=== PATIENT | male | born 1950 | race Caucasian/White ===

== ENCOUNTER 2023-09-15 13:10 | Emergency (ER) | payer MEDICARE, SELFPAY ==
--- NOTE | ~2023-09-15 | CT_ITS ---
EXAMINATION: CT abdomen pelvis w con DATE: 09/15/2023 17:09 INDICATION: Left lower quadrant abdominal pain TECHNIQUE: Computed tomography (CT) of the abdomen and pelvis was performed with 100 mL Omnipaque-350 intravenous contrast. Automated exposure control and iterative reconstruction technique were employe d. The dose-length product was 692.65 mGy-cm. COMPARISON: None FINDINGS: Mild dependent atelectasis in the bilateral lower lobes. Heart size is normal. Atherosclerotic alexander ry artery calcifications. No pericardial or pleural effusion. Small sliding-type hiatal hernia. Diffu se hepatic steatosis with 1.3 cm cyst in the right hepatic lobe. Gallbladder, spleen, pancreas and bi lateral adrenal glands are normal. Bilateral low-attenuation renal cysts the largest on the left sandra uring 1.6 cm. There is a 1.2 cm exophytic heterogeneously enhancing lesion arising from the lower arlin e of the left kidney consistent with renal cell carcinoma. 1.4 cm more homogeneous appearing hypoatte nuation is enhancing lesion at the interpolar region of the right kidney which could represent either an additional renal cell carcinoma or proteinaceous/hemorrhagic cyst. 2 mm nonobstructing right gordy l stone. There is fluid throughout the colon consistent with nonspecific diarrhea. There several dive rticula along the descending and sigmoid colon without adjacent from trace stranding to suggest diver ticulitis. No bowel obstruction. Normal appendix. There is some inflammatory stranding surrounding th e bladder suspicious for cystitis. Prominent enlargement of the prostate which measures 6.7 x 4.3 x 4 .7 cm. No free intraperitoneal gas or fluid. No pathologically enlarged abdominal or pelvic lymphaden opathy. Mild scattered degenerative skeletal changes throughout the pelvis, lumbar and lower thoracic spine. IMPRESSION: 1. Nonspecific diarrhea. Correlate clinically for gastroenteritis. 2. Inflammatory stranding surrounding the bladder which could be related to cystitis. Correlate with urinalysis. 3. 1.2 cm enhancing exophytic lesion at the lower pole the left kidney consistent with renal cell car cinoma. There is an indeterminate 1.4 similar intermediate attenuation lesion at the mid right kidney which could represent additional renal cell carcinoma or a proteinaceous/hemorrhagic cyst. Recommend further evaluation with pre and postcontrast MRI. 4. Nonobstructing 2 mm right renal stone. 5. Marked prostatomegaly. 6. Small sliding-type hiatal hernia. Reviewed, dictated and finalized at location A. TRIMMING MACHINE OPERATOR IMPRESSION: 1. Nonspecific diarrhea. Correlate clinically for gastroenteritis. 2. Inflammatory stranding surrounding the bladder which could be related to cys titis. Correlate with urinalysis. 3. 1.2 cm enhancing exophytic lesion at the lower pole the left kidney consiste nt with renal cell carcinoma. There is an indeterminate 1.4 similar intermediat e attenuation lesion at the mid right kidney which could represent additional r enal cell carcinoma or a proteinaceous/hemorrhagic cyst. Recommend further eval uation with pre and postcontrast MRI. 4. Nonobstructing 2 mm right renal stone. 5. Marked prostatomegaly. 6. Small sliding-type hiatal hernia.
--- NOTE | ~2023-09-15 | CT_ITS ---
EXAMINATION: CT brain wo con DATE: 09/15/2023 17:04 INDICATION: Altered mental status. Dementia. TECHNIQUE: Computed tomography (CT) of the head was performed without intravenous contrast. Sagittal and coronal reconstructions were performed. The mA was adjusted according to patient size. Iterative reconstruction technique was employed. The dose-length product was 605.33 mGy-cm. COMPARISON: None FINDINGS: No acute intracranial hemorrhage, acute infarction or abnormal extra axial fluid collection. There is moderate to severe scattered white matter hypoattenuation consistent with chronic small vessel ische candice disease. Symmetric prominence of the sulci and ventricles consistent with moderate age-appropriat e diffuse cerebral volume loss. No mass/mass effect. Moderate sized effusion in the hypopneumatized l eft mastoid. The orbits, paranasal sinuses and mastoid air cells are normal. Intracranial calcified c erebral atherosclerosis is noted. IMPRESSION: 1. No acute intracranial process. 2. Age-related changes including moderate diffuse volume loss and moderate to severe scattered calcif ic white matter hypoattenuation consistent with chronic small vessel ischemic disease. 3. Left mastoid effusion. Reviewed, dictated and finalized at location A. ELING AND CUTTING CONTROL CLERK IMPRESSION: 1. No acute intracranial process. 2. Age-related changes including moderate diffuse volume loss and moderate to s evere scattered calcific white matter hypoattenuation consistent with chronic s mall vessel ischemic disease. 3. Left mastoid effusion.
--- NOTE | ~2023-09-15 | XR_ITS ---
EXAMINATION: XR chest 1V 09/15/2023 17:05 INDICATION: Altered mental status PROCEDURE: AP portable chest COMPARISON: No prior studies for comparison. FINDINGS: The lungs are clear. The cardiomediastinal silhouette is within normal limits. There are no pleural effusions. There is no pneumothorax suspected. IMPRESSION: 1: NO ACUTE CARDIOPULMONARY DISEASE. Reviewed, dictated and finalized at location A. PLACEMENT SPECIALIST
--- NOTE | ~2023-09-15 | XR_ITS ---
XR hip LT min 2V 09/15/2023 17:05 INDICATION: Left hip pain PROCEDURE: 2 views left hip COMPARISON: No prior studies for comparison. FINDINGS: Fracture, dislocation or subluxation is not identified. Mild osteoarthritis of the left hip . The soft tissues appear within normal limits. No foreign bodies are identified. IMPRESSION: 1: NO ACUTE BONE OR JOINT ABNORMALITY IDENTIFIED. Reviewed, dictated and finalized at location A. LY WORKER
[2023-09-15 13:13] VITALS: BP 117/68; PULSE 55; RESP 18; TEMP 36.4; O2SAT 97
--- NOTE | 2023-09-15 15:59 | ECG_ITS ---
Measurements Intervals [place] Rate: 59 P: 52 ME: 155 QRS: -64 QRSD: 113 T: 28 QT: 385 QTc: 383 Interpretive Statements SINUS BRADYCARDIA E LEFT ANTERIOR FASCICULAR BLOCK [QRS AXIS <= -45, QR IN I, RS IN II] NO PREVIOUS ECG AVAILABLE FOR COMPARISON Electronically Signed On 09-15-2023 16:45:01 RACING MANAGER by Sanjeev Bowden M.D.
--- NOTE | 2023-09-15 16:05 | ED.MALEGU ---
HPI - Male Genitourinary General Chief complaint: Urogenital-Male <Rosa Cates PA-C - Last Filed: 09/16/23 09:02> Stated complaint: UTi symptoms <Rosa Cates PA-C - Last Filed: 09/16/23 09:02> Time Seen by Provider: 09/15/23 13:57 <Rosa Cates PA-C - Last Filed: 09/16/23 09:02> History of Present Illness HPI Narrative: 73-year-old male with a history of Alzheimer's dementia and CHF is normally A&O x1 reports with his at bedside for concerns for urinary tract infection. Patient is unable to provide a history due to dementia. The following history is provided by patient's . On Monday, the patient was unresponsive most of the day. States he was unable to follow directions and sat in his chair most of the day. She states his urine was foul smelling and she was concerned for UTI, therefore started him on Macrobid from a script she had left over from a prior UTI. The patient is taking total 4 doses of Macrobid with improvement in symptoms. States he also had a fever 101 at that time which has since improved since starting the antibiotics. She states she emailed the patient's PCP got back to her earlier today stating to go to the ER for further evaluation for concern for a kidney stone. The patient is back to his baseline mental status which is A&Ox1. He has also been complaining of L hip pain x2 days. states that the onset of the patient's reported hip pain, he was having difficulty ambulating. Yesterday and today, the patient has been ambulating without difficulty and believes that the hip pain has improved. She denies known injury or fall. Pt's also endorses an episode of diarrhea today. 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 The patient's fever has since resolved as well after starting the Macrobid. The patient denies headache, vision changes, neck pain, chest pain or shortness of breath, cough or congestion, abdominal pain, nausea or vomiting. He does endorse that is painful to urinate. denies history of kidney stones. <Rosa Cates PA-C - Last Filed: 09/16/23 09:02> Related Data Home medications: Home Medications Medication Instructions Recorded Confirmed apixaban 5 mg tablet (Eliquis) 5 mg PO BID 02/17/21 02/17/21 carvedilol 6.25 mg tablet 6.25 mg PO BID 02/17/21 02/17/21 donepezil 10 mg tablet 10 mg PO DAILY 02/17/21 02/17/21 lisinopril 5 mg tablet 5 mg PO DAILY 02/17/21 02/17/21 memantine 10 mg tablet 10 mg PO DAILY 02/17/21 02/17/21 pravastatin 10 mg tablet 10 mg PO DAILY 02/17/21 02/17/21 <Rosa Cates PA-C - Last Filed: 09/16/23 09:02> Allergies/Adverse reactions: Allergies Allergy/AdvReac Type Severity Reaction Status Date / Time Sulfa (Sulfonamide Allergy Mild rash Verified 09/15/23 13:11 Antibiotics) <Rosa Cates PA-C - Last Filed: 09/16/23 09:02> Review of Systems Review of Systems: CONSTITUTIONAL: Denies fever, chills, or sweats. EYES: Denies visual changes, redness, or discharge. ENT: Denies rhinorrhea, congestion, sore throat, or otalgia. CARDIOVASCULAR: Denies chest pain, palpitations, or edema. RESPIRATORY: Denies cough or dyspnea. GASTROINTESTINAL: See HPI GENITOURINARY: Denies dysuria or hematuria. SKIN: Denies rash or itching. MUSCULOSKELETAL: Denies back pain, joint pain, or myalgia. NEUROLOGIC: Denies headache, numbness, or weakness. PSYCHIATRIC: Denies anxiety or depression. <Rosa Cates PA-C - Last Filed: 09/16/23 09:02> [facility] Past Medical History Medical History: Medical History Alzheimer's dementia Congestive heart failure <Rosa Cates PA-C - Last Filed: 09/16/23 09:02> Family History Family History: Family History Sibling Diabetes mellitus Father Cerebrovascular accident, Onset Age: 75 Family history of kidney stones, Onse
[2023-09-15 16:33] LABS: Basophils Percent Auto 0.4 % (0.2-1.2); Eosinophils Absolute Auto 0.2 K/mm3 (0-0.3); Eosinophils Percent Auto 2.1 % (0-4.4); Hematocrit 41.1 % (42.0-52.0); Hemoglobin 12.9 g/dL (14.0-18.0); Immature Granulocyte Absolute 0.02 K/mm3 (0.00-0.031); Immature Granulocyte Percent A 0.3 % (0-0.5); Immature Platelet Fraction Pct 8.6 % (0.9-11.2); Lymphocytes Absolute Auto 0.79 K/mm3 (0.9-3.2); Lymphocytes Percent Auto 10.5 % (18.3-44.2); Mean Corpuscular HGB Conc 31.4 g/dl (32-36); Mean Corpuscular Hemoglobin 29.2 pg (26-34); Mean Platelet Volume 11.8 fl (7.4-10.4); Monocytes Absolute Auto 0.8 K/mm3 (0.1-0.6); Monocytes Percent Auto 10.5 % (2.6-8.5); Neutrophils Absolute Auto 5.7 K/mm3 (1.3-6.7); Neutrophils Percent Auto 76.2 % (45.5-73.1); Platelet Count Result 135 k/mm3 (150-375); Red Blood Count 4.42 M/mm3 (4.6-6.20); Red Cell Distribution Width 12.5 % (11.5-14.5); White Blood Count 7.5 K/mm3 (4.5-10.0)
[2023-09-15 16:42] LABS: Alanine Aminotransferase 26 U/L (6-50); Albumin Level 3.8 g/dL (3.5-5.1); Alkaline Phosphatase 50 U/L (38-126); Anion Gap 7 mmol/L (8-16); Aspartate Amino Transferase 31 U/L (17-59); Bilirubin,Total 0.6 mg/dL (0.2-1.3); Blood Urea Nitrogen 22 mg/dL (9-20); Carbon Dioxide 26 mmol/L (22-30); Chloride 105 mmol/L (98-107); Estimated CRCL calculation 53 ml/min; Estimated Glomerular Filt Rate > 60; Glucose 96 mg/dL (65-110); INR 1.1; Potassium 3.7 mmol/L (3.4-5.0); Prothrombin Time 14.7 Seconds (11.1-14.7); Sodium 138 mmol/L (137-145)
[2023-09-15 16:43] LABS: Appearance Urine Cloudy (Clear); Bacteria Urine Rare /hpf; Bilirubin Urine Negative (Negative); Blood Urine 2+ (Negative); Color Urine Yellow (Yellow); Glucose Urine UA Negative (Negative); Ketones Urine Trace mg/dL (Negative); Leukocyte Esterase Ur 2+ LEU/UL (Negative); Nitrate Urine Positive (Negative); Non Pathogenic Casts 0-2; Partial Thromboplastin Time 31.3 SECONDS (22.3-36.8); Protein Urine 1+ mg/dL (Negative); RBC Urine 0-2 /hpf (0-2); Specific Grav Ur 1.024 (1.001-1.035); Squamous Epithelial Cell Urine Occasional /hpf (Few); WBC Urine 51-100 /hpf; pH Urine 5.5 (5.0-9.0)
[2023-09-15 17:10] LABS: Influenza A QL RT-PCR Negative (Negative); Influenza B QL RT-PCR Negative (Negative); RSV RNA, RT-PCR Negative (Negative); SARS-CoV-2 RNA PCR Negative (Negative)
[2023-09-15 17:14] LABS: Add Urine Microscopic? YES
[2023-09-15] MEDS: SODIUM CHLORIDE 0.9% IV 1,000 ML 999 ML IV CONT (18:00)
== END 2023-09-15 18:53 | disposition home or self-care (01) ==
PROVIDERS: Emergency Provider Physician Assistant
DX: N39.0 Urinary tract infection, site not specified (principal); K52.9 Noninfective gastroenteritis and colitis, unspecified; N40.0 Benign prostatic hyperplasia without lower urinary tract symptoms; N28.89 Other specified disorders of kidney and ureter; K44.9 Diaphragmatic hernia without obstruction or gangrene; M25.552 Pain in left hip; Z20.822 Contact with and (suspected) exposure to COVID-19; G30.9 Alzheimer's disease, unspecified; F02.80 Dementia in other diseases classified elsewhere, unspecified severity, without behavioral disturbance, psychotic disturbance, mood disturbance, and anxiety; I50.9 Heart failure, unspecified; Z87.891 Personal history of nicotine dependence; Z79.01 Long term (current) use of anticoagulants; R00.1 Bradycardia, unspecified; I44.4 Left anterior fascicular block
CPT/HCPCS: 36415; 70450; 71045; 73502; 74177; 80053; 81001; 85025; 85055; 85610; 85730; 87077; 87086; 87186; 87637; 93005; 96365; 99284; J0696; J7030; Q9967

== ENCOUNTER 2024-01-29 13:51 | Outpatient (CLI) | payer MEDICARE, SELFPAY ==
--- NOTE | ~2024-01-29 | US_ITS ---
EXAMINATION: US renal BI DATE: 01/29/2024 14:14 INDICATION: Incontinence without sensory awareness TECHNIQUE: Multiple ultrasound grayscale images of the kidneys were obtained. COMPARISON: CT abdomen pelvis dated 09/15/23 FINDINGS: The right kidney measures 9.4 x 3.8 x 5.3 cm. The left kidney measures 10.0 x 4.7 x 6.0 cm. The kidne ys demonstrate normal echogenicity. 2.2 cm anechoic cyst at the right kidney. There is no hydronephro sis in either kidney. 1.2 cm anechoic exophytic cyst at the lower pole the left kidney. There is a s mall region of twinkle artifact at the left kidney which can be due to calcification at the renal sto titus or nephrolithiasis although neither is evident at the left kidney on the prior CT. The bladder is normal. Prostatomegaly with echogenic and shadowing central prostatic calcifications. IMPRESSION: 1. 1.2 cm exophytic left renal cyst. No hydronephrosis in either kidney. 2. Nonspecific small focus of twinkle artifact at the left kidney which could be seen with either shanel al stone or atherosclerotic calcification along either was evident on relatively recent CT dated 01/28 3. Prostatomegaly. Reviewed, dictated and finalized at location B. IMPRESSION: 1. 1.2 cm exophytic left renal cyst. No hydronephrosis in either kidney. 2. Nonspecific small focus of twinkle artifact at the left kidney which could b e seen with either renal stone or atherosclerotic calcification along either wa s evident on relatively recent CT dated 01/29/2024 3. Prostatomegaly.
== END 2024-01-29 13:52 ==
LOC: GOSHIMG 13:52
PROVIDERS: PCP Internal Medicine; Visit Provider Urology
DX: N39.42 Incontinence without sensory awareness (principal); N40.0 Benign prostatic hyperplasia without lower urinary tract symptoms; N28.1 Cyst of kidney, acquired
CPT/HCPCS: 76775

== ENCOUNTER 2024-05-07 17:09 | Observation (INO) | payer MEDICARE, SELFPAY ==
[2024-05-07] VITALS (8 sets, daily range): BP systolic 134–160; BP diastolic 75–98; PULSE 64–69; RESP 14–16; TEMP 36.6; O2SAT 97–100
--- NOTE | ~2024-05-07 | XR_ITS ---
EXAMINATION: XR shoulder RT min 2V DATE: 05/07/2024 20:31 INDICATION: Right shoulder pain post fall TECHNIQUE: AP internally and externally rotated, AP oblique externally rotated and transscapular Y vi ews of the right shoulder were obtained. COMPARISON: 09/15/2023 FINDINGS: Acute appearing comminuted fractures of the proximal right humerus. This includes a nondisplaced frac ture planes at the greater tuberosity. There is anterior and proximal migration and posterior angulat ion of a fracture plane extending across the surgical neck. No other fractures identified. Mild right glenohumeral and acromioclavicular osteoarthritis. Soft tissues are unremarkable. Visualized portion of the lungs are clear. IMPRESSION: Comminuted two-part fracture the proximal right humerus. Reviewed, dictated and finalized at location A.
--- NOTE | ~2024-05-07 | CT_ITS ---
EXAMINATION: CT brain wo con DATE: 05/07/2024 20:46 INDICATION: Fall with head injury and abrasions on the forehead TECHNIQUE: Computed tomography (CT) of the head was performed without intravenous contrast. Sagittal and coronal reconstructions were performed. The mA was adjusted according to patient size. Iterative reconstruction technique was employed. The dose-length product was 421.95 mGy-cm. COMPARISON: head CT dated 09/15/2023 FINDINGS: No fracture. Small old lacunar infarcts at the left thalamus and right basal ganglia. No acute intrac ranial hemorrhage, acute infarction or abnormal extra axial fluid collection. There is moderate scatt ered white matter hypoattenuation consistent with chronic small vessel ischemic disease. Symmetric pr ominence of the sulci and ventricles consistent with moderate age-appropriate diffuse cerebral volume loss. No mass/mass effect. Changes of bilateral intraocular lens replacement. Mild mucosal thickenin g in the left ethmoid sinus. Left mastoid effusion. IMPRESSION: 1. No fracture or acute intracranial process. 2. Couple small old lacunar infarcts at the left thalamus and right basal ganglia. 3. Age-related changes including moderate diffuse volume loss and moderate scattered white matter hyp oattenuation consistent with chronic small vessel ischemic disease. Reviewed, dictated and finalized at location A. IMPRESSION: 1. No fracture or acute intracranial process. 2. Couple small old lacunar infarcts at the left thalamus and right basal gangl ia. 3. Age-related changes including moderate diffuse volume loss and moderate scat tered white matter hypoattenuation consistent with chronic small vessel ischemi c disease.
--- NOTE | ~2024-05-07 | CT_ITS ---
EXAMINATION: CT diagnostic chest wo con DATE: 05/07/2024 20:46 INDICATION: fall TECHNIQUE: Computed tomography (CT) of the chest was performed without intravenous contrast. Addition al 3D reconstructions utilizing coronal maximum intensity projection (MIP) were performed. Automated exposure control and iterative reconstruction technique were employed. The dose-length product was 42 1.95 mGy-cm. COMPARISON: None FINDINGS: Evaluation mildly limited by respiratory motion artifact. No pneumonia, pulmonary edema, pleural effu iggy or pneumothorax. Heart size is normal. Atherosclerotic coronary artery calcific lesions. No corrie cardial effusion. Thoracic aorta is normal in caliber. No pathologically enlarged thoracic lymphadeno black. Partially visualized comminuted two-part fracture of the proximal right humerus with significa nt displacement and angulation at the fracture plane extending across the surgical neck. Sclerotic delia ne islands at L1 and the left humeral head. IMPRESSION: 1. Comminuted two-part fracture of the proximal right humerus. 2. No acute cardiopulmonary disease. Reviewed, dictated and finalized at location A.
--- NOTE | ~2024-05-07 | CT_ITS ---
EXAMINATION: CT cervical spine wo con DATE: 05/07/2024 20:46 INDICATION: Fall with head injury TECHNIQUE: Computed tomography (CT) of the cervical spine was performed without intravenous contrast. Automated exposure control and iterative reconstruction technique were employed. The dose-length pro duct was 421.95 mGy-cm. COMPARISON: None FINDINGS: Mild reversal of the normal cervical lordosis. Chronic appearing mild anterior vertebral body height loss at C4 and C5. Remaining vertebral body heights are normal. No acute fracture. Moderate disc heig ht loss at C4-C5 and C5-C6. Small posterior endplate osteophytes contributing to mild central canal s tenosis at both of these levels. Severe uncovertebral osteoarthritis on the left at C4-C5 on the righ t at C5-C6. Mild to moderate osteoarthritis at several additional cervical uncovertebral joints. Mult ilevel mild to moderate cervical facet osteoarthritis. There is moderate neural foraminal stenosis on the left at C4-C5 with mild neural foraminal stenosis at the remaining cervical levels on the left a nd right. There are few small sclerotic bone islands in the cervical and upper thoracic spine. Athero sclerotic calcification is at the bilateral carotid bulbs. Cervical soft tissues are otherwise unrema rkable. IMPRESSION: 1. Moderate cervical spondylosis. No acute osseous abnormality. Reviewed, dictated and finalized at location A.
--- NOTE | 2024-05-07 19:07 | ED.FALL ---
HPI - Fall General Chief Complaint: Fall Stated Complaint: fall Time Seen by Provider: 05/07/24 19:03 Source: family Mode of arrival: EMS Limitations: dementia History of Present Illness HPI Narrative: Patient had history of Alzheimer, was walking behind his , tripped on the sidewalk and fell forward his face landed in the grass and rest of his body landed on a concrete. No loss of consciousness. Patient baseline of mental health is this irritation time for. Patient came from home, Related Data Home Medications Medication Instructions Recorded Confirmed apixaban 5 mg tablet (Eliquis) 5 mg PO BID 02/17/21 02/17/21 carvedilol 6.25 mg tablet 6.25 mg PO BID 02/17/21 02/17/21 donepezil 10 mg tablet 10 mg PO DAILY 02/17/21 02/17/21 lisinopril 5 mg tablet 5 mg PO DAILY 02/17/21 02/17/21 memantine 10 mg tablet 10 mg PO DAILY 02/17/21 02/17/21 pravastatin 10 mg tablet 10 mg PO DAILY 02/17/21 02/17/21 Allergies Allergy/AdvReac Type Severity Reaction Status Date / Time Sulfa (Sulfonamide Allergy Mild rash Verified 05/07/24 17:23 Antibiotics) Review of Systems Review of Systems: All systems reviewed & are unremarkable except as noted in HPI and below PMFSH Past Medical History Medical History Alzheimer's dementia Congestive heart failure Family History Family History Sibling Diabetes mellitus Father Cerebrovascular accident, Onset Age: 75 Family history of kidney stones, Onset Age: 75 Family history of dementia, Onset Age: 75 Social History Social History Smoking status: Former smoker Smoking end date: 09/18/70 Exam Narrative: General appearance: Well-developed, well-nourished Skin: Forehead bruises Head: Forehead bruises Eyes: Clear conjunctiva ENT: Oropharynx normal, ears normal, nose normal Neck: No localized tenderness Chest and respiratory: Airway patent, no respiratory distress, no accessory muscle use Heart: Regular rate/rhythm Abdomen: Soft, nontender, no organomegaly, quiet bowel sounds Vascular: Normal peripheral pulses, normal capillary refill. Musculoskeletal: Diffuse tenderness right shoulder, severe limited range of motion Neurologic: Alert and disoriented x4 Course Vital Signs Vital signs: Vital Signs Temperature 36.6 C 05/07/24 17:06 Pulse Rate 66 05/07/24 17:06 Respiratory Rate 15 05/07/24 17:06 Blood Pressure 160/86 H 05/07/24 17:06 Pulse Oximetry 100 05/07/24 17:06 Oxygen Delivery Room Air 05/07/24 17:06 Temperature 36.6 C 05/07/24 17:06 Pulse Rate 69 05/07/24 21:01 Respiratory Rate 15 05/07/24 21:01 Blood Pressure 143/95 H 05/07/24 21:01 Pulse Oximetry 97 05/07/24 19:13 Oxygen Delivery Room Air 05/07/24 17:06 MDM - Fall MDM Narrative Medical decision making narrative: Patient tripped and fell, history of advanced Alzheimer. Physical examination as above Differential diagnosis right shoulder fracture, intracranial hemorrhage, contusion, rib fracture CT head and cervical spine without contrast showed no acute abnormality Right shoulder showed comminuted fracture proximal right humerus CT chest showed no rib fracture. Apparently his is reluctant to take came home, is telling me that she is old and cannot take care of him he is to much work. Imaging Data Radiologist's impression: Impressions Shoulder X-Ray 05/07/24 20:33 IMPRESSION: Comminuted two-part fracture the proximal right humerus. Head CT 05/07/24 20:53 IMPRESSION: 1. No fractu
[2024-05-07] MEDS: ONDANSETRON HCL ODT 4 MG TABLET PO (20:17)
[2024-05-07] MEDS: MORPHINE SULFATE INJ (*CRX) 10 MG/ML AMP 6 MG IM (20:17)
--- NOTE | 2024-05-07 22:30 | ECG_ITS ---
Test Date: 2024-05-07 23:05:14 Measurements Intervals [place] Rate: 76 P: 37 MT: 148 QRS: -72 QRSD: 113 T: 63 QT: 390 QTc: 439 Interpretive Statements SINUS RHYTHM LEFT ANTERIOR FASCICULAR BLOCK [QRS AXIS <= -45, QR IN I, RS IN II] LEFT VENTRICULAR HYPERTROPHY AND ST-T CHANGE [VOLTAGE CRITERIA PLUS ST/T ABNORMALITY] No previous ECG available for comparison Electronically Signed On 05-08-2024 15:56:20 CDT by Sanjeev Bowden M.D.
[2024-05-07 23:33] LABS: Basophils Percent Auto 0.3 % (0.2-1.2); Eosinophils Percent Auto 0.1 % (0-4.4); Hematocrit 44.3 % (42.0-52.0); Immature Granulocyte Absolute 0.04 K/mm3 (0.00-0.031); Immature Granulocyte Percent A 0.3 % (0-0.5); Lymphocytes Absolute Auto 0.81 K/mm3 (0.9-3.2); Lymphocytes Percent Auto 5.3 % (18.3-44.2); Mean Corpuscular HGB Conc 33.9 g/dl (32-36); Mean Corpuscular Hemoglobin 30.6 pg (26-34); Mean Corpuscular Volume 90.4 fl (80-100); Mean Platelet Volume 10.8 fl (7.4-10.4); Monocytes Percent Auto 6.5 % (2.6-8.5); Neutrophils Absolute Auto 13.4 K/mm3 (1.3-6.7); Neutrophils Percent Auto 87.5 % (45.5-73.1); Platelet Count Result 153 k/mm3 (150-375); Red Cell Distribution Width 12.4 % (11.5-14.5); White Blood Count 15.3 K/mm3 (4.5-10.0)
[2024-05-07 23:44] LABS: Alanine Aminotransferase 20 U/L (6-50); Albumin Level 4.3 g/dL (3.5-5.1); Alkaline Phosphatase 56 U/L (38-126); Anion Gap 9 mmol/L (4-12); Aspartate Amino Transferase 25 U/L (17-59); Bilirubin,Total 0.9 mg/dL (0.2-1.3); Blood Urea Nitrogen 22 mg/dL (9-20); Carbon Dioxide 27 mmol/L (22-30); Chloride 102 mmol/L (98-107); Estimated CRCL calculation 56 ml/min; Estimated Glomerular Filt Rate > 60; Glucose 117 mg/dL (65-110); Potassium 4.1 mmol/L (3.4-5.0); Sodium 138 mmol/L (137-145)
--- NOTE | 2024-05-08 05:16 | ADMGEN ---
This patient, Noah Butler, was admitted to [facility] Surg Room 333-01. Patient/family oriented to hospital policies and general routines including ID bracelet, bed and alarms, visiting hours, pain management, procedures, bathroom and other care routines, personal items, smoking policy, room service/diet, and visiting hours. Information on how to activate the Rapid Response Team has been discussed. Patient/Family are encouraged to report perceived risks to care and to ask questions if they do not understand what they are told or what they should do.
[2024-05-08 06:00] VITALS: BP 134/69; PULSE 63; RESP 18; TEMP 37.5; O2SAT 99
--- NOTE | 2024-05-08 08:45 | PM.CNOR ---
Assessment and Plan Assessment and plan (1) Fracture of right shoulder: Qualifiers: Encounter type: initial encounter Fracture type: closed Qualified Code(s): S42.91XA - Fracture of right shoulder girdle, part unspecified, initial encounter for closed fracture <MELANI Ackerman - Last Filed: 05/08/24 12:39> Code(s): S42.91XA - Fracture of right shoulder girdle, part unspecified, initial encounter for closed fracture <MELANI Acekrman - Last Filed: 05/08/24 12:39> Status: Acute <MELANI Ackerman - Last Filed: 05/08/24 12:39> (2) Dementia: Code(s): F03.90 - Unspecified dementia, unspecified severity, without behavioral disturbance, psychotic disturbance, mood disturbance, and anxiety <MELANI Ackerman - Last Filed: 05/08/24 12:39> Status: Acute <MELANI Ackerman - Last Filed: 05/08/24 12:39> Assessment and Plan: 73-year-old male who fell from standing height. Patient suffered a proximal humerus fracture. Two-part fracture. Patient has dementia and is a very poor historian. Reviewed radiographs and discussed care plan with Dr. Rehman. This can be treated conservatively without surgery. I recommend he continue the immobilizer sling. Risks associated with the fracture include displacement that may require surgery, malunion, stiffness, and arthritis. Early mobilization in 2 weeks with physical therapy. Plan to follow-up in office if able. Will need repeat radiographs in 2 weeks. <MELANI Ackerman - Last Filed: 05/08/24 12:39> History of Present Illness HPI Consult date: 05/08/24 <MELANI Ackerman - Last Filed: 05/08/24 12:39> 05/08/24 <Jagdish Rehman MD - Last Filed: 05/08/24 16:45> Chief complaint: Right shoulder fracture, Advanced Alzheimer <MELANI Ackerman - Last Filed: 05/08/24 12:39> Narrative: Patient resting comfortably in bed at the time of my visit. Patient with dementia and is a very poor historian. Patient complains of pain in the right shoulder. No other complaints. States he can feel me touching his fingers. <MELANI Ackerman - Last Filed: 05/08/24 12:39> Review of Systems Review of Systems: ROS unobtainable: Yes unobtainable due to medical condition <MELANI Ackerman - Last Filed: 05/08/24 12:39> [facility] Past Medical History Medical History: Medical History Alzheimer's dementia Congestive heart failure <MELANI Ackerman Last Filed: 05/08/24 12:39> Family History Family History: Family History Sibling Diabetes mellitus Father Cerebrovascular accident, Onset Age: 75 Family history of kidney stones, Onset Age: 75 Family history of dementia, Onset Age: 75 <MELANI Ackerman - Last Filed: 05/08/24 12:39> Social History Social History: Social History Smoking status: Former smoker Smoking end date: 09/18/70 Alcohol intake: never Substance use: never Substance use type: does not use Do You Feel Safe in your Home?: Yes Lack of Transportation: No Lack of Food: Never True Current Housing: Decline to Answer Concerned About Future Housing: Decline to Answer Difficulty Paying Gas/Electric Bills: Decline to Answer Difficulty Paying for Meds: Decline to Answer Currently Unemployed: Decline to Answer Education: Decline to Answer Difficulty w/ Childcare or Family Care: Decline to Answer Spiritual care concerns: No <MELANI Ackerman Last Filed: 05/08/24 12:39> Meds Home Medications and Allergies Home medications: Home Medications Medication Instructions Recorded Confirmed Type donepezil 10 mg tablet 10 mg PO HS 02/17/21 05/07/24 History memantine 10 mg tablet 10 mg PO DAILY
[2024-05-08 10:43] VITALS: O2SAT 95
[2024-05-08 13:46] VITALS: BP 136/83; PULSE 79; RESP 18; TEMP 36.9; O2SAT 100
--- NOTE | 2024-05-08 14:44 | PM.IMHP ---
H&P: HPI History of Present Illness Date/Time: 05/08/24 14:44 Chief Complaint: Fall at home Narrative: 73-year-old male with advanced dementia presents from home after a fall. Lives at home with , was walking behind her when he tripped on the sidewalk and fell forward on his face. In the emergency room the reported she could not take care of him for patient placed for admission and the fracture of the right humerus on 05/08/2024. History is taken from the daughter a good historian. The patient is not a good historian as he has dementia and is not talking at the moment. Daughter reports the patient typically not talk in the morning and takes a very long time to wake up. Then, throughout the day he can walk around in participate with daily activities but this is with constant direction from the . Regularly, he becomes confused around 5:00 p.m. at night. She reports the patient's is frail and does not think the patient can be taken care of at home anymore. Of note, in the ER there was reported to be some DNR paperwork however the family wanted the patient to be full code after admission. Review of Systems Review of Systems: All systems reviewed & are unremarkable except as noted in HPI and below (Subjective) PMFSH Past Medical History Medical History Alzheimer's dementia Congestive heart failure Family History Family History Sibling Diabetes mellitus Father Cerebrovascular accident, Onset Age: 75 Family history of kidney stones, Onset Age: 75 Family history of dementia, Onset Age: 75 Social History Social History Smoking status: Former smoker Smoking end date: 09/18/70 Alcohol intake: never Substance use: never Substance use type: does not use Do You Feel Safe in your Home?: Yes Lack of Transportation: No Lack of Food: Never True Current Housing: Decline to Answer Concerned About Future Housing: Decline to Answer Difficulty Paying Gas/Electric Bills: Decline to Answer Difficulty Paying for Meds: Decline to Answer Currently Unemployed: Decline to Answer Education: Decline to Answer Difficulty w/ Childcare or Family Care: Decline to Answer Spiritual care concerns: No Meds Home Medications and Allergies Home Medications Medication Instructions Recorded Confirmed Type donepezil 10 mg tablet 10 mg PO HS 02/17/21 05/07/24 History memantine 10 mg tablet 10 mg PO DAILY 02/17/21 05/07/24 History nystatin-triamcinolone 100,000 1 applic topical BID 05/07/24 05/07/24 History unit/gram-0.1 % topical ointment Allergies Allergy/AdvReac Type Severity Reaction Status Date / Time Sulfa (Sulfonamide Allergy Mild rash Verified 05/07/24 22:55 Antibiotics) Vital Signs Vital Signs - 24 hr 05/07/24 17:06 05/07/24 19:13 05/07/24 17:32 Temperature 97.9 F Pulse Rate 66 66 68 Respiratory Rate 15 15 15 Blood Pressure 160/86 H 160/98 H 150/77 H Pulse Oximetry 100 97 100 Oxygen Delivery Room Air 05/07/24 20:01 05/07/24 21:01 05/07/24 21:31 Temperature Pulse Rate 66 69 Respiratory Rate 14 15 16 Blood Pressure 152/89 H 143/95 H 136/85 Pulse Oximetry 100 Oxygen Delivery 05/07/24 22:00 05/07/24 22:30 05/08/24 06:00 Temperature 99.5 F Pulse Rate 64 68 63 Respiratory Rate 15 16 18 Blood Pressure 134/75 144/76 H 134/69 Pulse Oximetry 100 100 99 Oxygen Delivery 05/08/24 10:43 05/08/24 13:46 Temperature 98.5 F Pulse Rate 79 Respiratory Rate 18 Blood Pressure 136/83 Pulse Oximetry 95 100 Oxygen Delivery Room Air Exam Const: General: comfortable Other: Confused, nonverbal Eyes: Pupils: Equal, round and reactive pupils present Neck: Neck: supple Resp: Effort & Inspection: normal respiratory effort Auscultation: clear to auscult
--- NOTE | 2024-05-08 16:03 | PCPTNOTE ---
On 05/08/24, the student, [May Garcia], provided care and completed [facility] documentation on this patient. I have reviewed the student's documentation and agree with the findings.
[2024-05-08] MEDS: MEMANTINE 10 MG TABLET PO (17:44)
[2024-05-08] MEDS: ACETAMINOPHEN 325 MG TABLET 650 MG PO (20:03)
[2024-05-08] MEDS: DONEPEZIL HCL 10 MG TABLET PO (20:03)
[2024-05-08 21:19] VITALS: BP 162/97; PULSE 95; RESP 20; TEMP 37.2; O2SAT 98
[2024-05-09 06:00] VITALS: BP 148/81; PULSE 70; RESP 18; TEMP 36.4; O2SAT 90
[2024-05-09 06:08] LABS: Basophils Percent Auto 0.3 % (0.2-1.2); Eosinophils Absolute Auto 0.2 K/mm3 (0-0.3); Eosinophils Percent Auto 1.7 % (0-4.4); Hematocrit 42.4 % (42.0-52.0); Hemoglobin 13.6 g/dL (14.0-18.0); Immature Granulocyte Absolute 0.05 K/mm3 (0.00-0.031); Immature Granulocyte Percent A 0.5 % (0-0.5); Immature Platelet Fraction Pct 5.8 % (0.9-11.2); Lymphocytes Absolute Auto 1.37 K/mm3 (0.9-3.2); Lymphocytes Percent Auto 12.6 % (18.3-44.2); Mean Corpuscular HGB Conc 32.1 g/dl (32-36); Mean Corpuscular Hemoglobin 30.5 pg (26-34); Mean Corpuscular Volume 95.1 fl (80-100); Mean Platelet Volume 11.1 fl (7.4-10.4); Monocytes Absolute Auto 0.8 K/mm3 (0.1-0.6); Monocytes Percent Auto 7.6 % (2.6-8.5); Neutrophils Absolute Auto 8.4 K/mm3 (1.3-6.7); Neutrophils Percent Auto 77.3 % (45.5-73.1); Platelet Count Result 114 k/mm3 (150-375); Red Blood Count 4.46 M/mm3 (4.6-6.20); Red Cell Distribution Width 12.5 % (11.5-14.5); White Blood Count 10.9 K/mm3 (4.5-10.0)
[2024-05-09 06:49] LABS: Anion Gap 6 mmol/L (4-12); Blood Urea Nitrogen 19 mg/dL (9-20); Calcium 8.8 mg/dL (8.4-10.2); Carbon Dioxide 27 mmol/L (22-30); Chloride 101 mmol/L (98-107); Estimated CRCL calculation 69 ml/min; Estimated Glomerular Filt Rate > 60; Glucose 92 mg/dL (65-110); Magnesium 2.2 mg/dL (1.6-2.3); Potassium 4.2 mmol/L (3.4-5.0); Sodium 134 mmol/L (137-145)
[2024-05-09 06:52] LABS: Procalcitonin 0.2 ng/mL
[2024-05-09 08:00] VITALS: O2SAT 93
[2024-05-09] MEDS: MEMANTINE 10 MG TABLET PO (08:07)
[2024-05-09] MEDS: ENOXAPARIN 40 MG/0.4 ML SYRINGE SUB-Q (08:08)
[2024-05-09 13:52] LABS: Add Urine Microscopic? YES; Appearance Urine Clear (Clear); Bacteria Urine None Seen /hpf; Bilirubin Urine Negative (Negative); Blood Urine Trace (Negative); Color Urine Yellow (Yellow); Glucose Urine UA Negative (Negative); Ketones Urine Negative (Negative); Leukocyte Esterase Ur Negative LEU/UL (Negative); Need Manual Microscopic Reviewed; Nitrate Urine Negative (Negative); Non Pathogenic Casts 0-2; Protein Urine Negative (Negative); RBC Urine 0-2 /hpf (0-2); Specific Grav Ur 1.005 (1.001-1.035); Squamous Epithelial Cell Urine None Seen /hpf (Few); Urobilinogen Urine 0.2 mg/dL (<2.0); WBC Urine 0-5 /hpf (0-3); pH Urine 5.5 (5.0-9.0)
[2024-05-09 14:00] VITALS: BP 129/70; PULSE 80; RESP 18; TEMP 36.7; O2SAT 100
--- NOTE | 2024-05-09 14:50 | PM.IMPN ---
Progress Note: A&P Assessment and Plan (1) Fracture of right shoulder: Qualifiers: Encounter type: initial encounter Fracture type: closed Qualified Code(s): S42.91XA - Fracture of right shoulder girdle, part unspecified, initial encounter for closed fracture Code(s): S42.91XA - Fracture of right shoulder girdle, part unspecified, initial encounter for closed fracture Status: Acute (2) Dementia: Code(s): F03.90 - Unspecified dementia, unspecified severity, without behavioral disturbance, psychotic disturbance, mood disturbance, and anxiety Status: Acute Plan 73-year-old male with advanced dementia presents from home after a fall. Lives at home with , was walking behind her when he tripped on the sidewalk and fell forward on his face. In the emergency room the reported she could not take care of him for patient placed for admission and the fracture of the right humerus on 05/08/2024. History is taken from the daughter a good historian. The patient is not a good historian as he has dementia and is not talking at the moment. Daughter reports the patient typically not talk in the morning and takes a very long time to wake up. Then, throughout the day he can walk around in participate with daily activities but this is with constant direction from the . Regularly, he becomes confused around 5:00 p.m. at night. She reports the patient's is frail and does not think the patient can be taken care of at home anymore. Of note, in the ER there was reported to be some DNR paperwork however the family wanted the patient to be full code after admission. ----- Orthopedic consultation appreciated. They have decided to go with conservative management. Continue immobilizer sling. The patient is not a great candidate for heavy narcotics. Tylenol p.r.n., [place] 5-325 q.6 hours p.r.n., morphine 1 mg IV q.4 hours p.r.n.. Follow-up in the orthopedic office in a few weeks. As for his dementia which is advanced and social situation, therapy has been ordered and care coordination working to get the patient placed. Have discussed with the daughter and answered all her questions and concerns to satisfaction. Continue GROCERY BUYER memantine and donepezil. -Attempt to minimize nocturnal disturbances (avoid unnecessary lab draws, vital signs, nighttime medications). Promote regular sleep-wake cycle. Provide orienting stimuli including clock, calendar, lights on during the day and off at nighttime, and minimal staff changes. Minimize the use of tubes and drains. Address sensory deficits including vision and hearing. Ensure no bowel or bladder retention and call with concerns. Mobilize as much possible, ideally out of bed for meals if able. -First line treatment to help control behavior disturbances is a sitter (family or staff). Second line treatment includes physical and/or chemical restraints but these must be used with good judgement. Narcotics and benzodiazepines are not indicated. Antipsychotics to be used p.r.n. at the discretion of the combination saw operator physician at the time of behavioral disturbance. As for the patient's code status, the narrative writer has discussed extensively about the patient's advanced dementia and age and expectations if the patient were to go through CPR and intubation. In accordance with the daughter's wishes, the patient will remain full code, but will continue to consider with her family. Leukocytosis, will check procalcitonin in the morning. Check urinalysis. There is other no other symptomatology to indicate infection. Hemodynamically stable, afebrile. This could be reactive. On 05/09/2024 his leukocytosis is improved. Urinalysis unremarkable. Suspect infection. Will trend CBC again tomorrow. Currently the patient's status is unchanged. Pending placement with care coordinators. ----- Full code, appreciate notation above Lovenox 40 mg subQ q.day Regular diet Saline lock IV Therapy evaluations
[2024-05-09] MEDS: ACETAMINOPHEN 325 MG TABLET 650 MG PO (19:32)
[2024-05-09] MEDS: DONEPEZIL HCL 10 MG TABLET PO (19:36)
[2024-05-09 21:08] VITALS: BP 137/79; PULSE 85; RESP 16; TEMP 37.7; O2SAT 100
[2024-05-10 06:00] VITALS: BP 130/75; PULSE 67; RESP 16; TEMP 36.9; O2SAT 100
[2024-05-10 06:56] LABS: Basophils Percent Auto 0.4 % (0.2-1.2); Eosinophils Absolute Auto 0.2 K/mm3 (0-0.3); Eosinophils Percent Auto 2.7 % (0-4.4); Hematocrit 42.6 % (42.0-52.0); Immature Granulocyte Absolute 0.06 K/mm3 (0.00-0.031); Immature Granulocyte Percent A 0.8 % (0-0.5); Lymphocytes Absolute Auto 1.36 K/mm3 (0.9-3.2); Lymphocytes Percent Auto 17.6 % (18.3-44.2); Mean Corpuscular HGB Conc 32.9 g/dl (32-36); Mean Corpuscular Hemoglobin 29.9 pg (26-34); Mean Platelet Volume 11.1 fl (7.4-10.4); Monocytes Absolute Auto 0.7 K/mm3 (0.1-0.6); Monocytes Percent Auto 8.9 % (2.6-8.5); Neutrophils Absolute Auto 5.4 K/mm3 (1.3-6.7); Neutrophils Percent Auto 69.6 % (45.5-73.1); Platelet Count Result 142 k/mm3 (150-375); Red Blood Count 4.68 M/mm3 (4.6-6.20); Red Cell Distribution Width 12.3 % (11.5-14.5); White Blood Count 7.7 K/mm3 (4.5-10.0)
[2024-05-10 07:07] LABS: Anion Gap 7 mmol/L (4-12); Blood Urea Nitrogen 19 mg/dL (9-20); Calcium 8.6 mg/dL (8.4-10.2); Carbon Dioxide 31 mmol/L (22-30); Chloride 100 mmol/L (98-107); Estimated CRCL calculation 62 ml/min; Estimated Glomerular Filt Rate > 60; Glucose 90 mg/dL (65-110); Magnesium 2.2 mg/dL (1.6-2.3); Potassium 3.4 mmol/L (3.4-5.0); Sodium 138 mmol/L (137-145)
[2024-05-10] MEDS: MEMANTINE 10 MG TABLET PO (08:49)
[2024-05-10] MEDS: ENOXAPARIN 40 MG/0.4 ML SYRINGE SUB-Q (08:49)
--- NOTE | 2024-05-10 10:12 | PM.PNORT ---
Progress Note: A&P Assessment and Plan (1) Fracture of right shoulder: Qualifiers: Encounter type: initial encounter Fracture type: closed Qualified Code(s): S42.91XA - Fracture of right shoulder girdle, part unspecified, initial encounter for closed fracture Code(s): S42.91XA - Fracture of right shoulder girdle, part unspecified, initial encounter for closed fracture Status: Acute Assessment and Plan: No changes in care plan. Two part right proximal humerus fracture. Being treated conservatively with a shoulder immobilizer. Patient will benefit from SNF or rehab. While reliable healing is likely, residual weakness, and stiffness is to be expected. Physical therapy may be beneficial. He will need use the immobilizer for 4-6 weeks and avoid weight-bearing on the arm. Follow-up x-rays in 2 weeks and 6 weeks. Follow-up in my clinic between 4 and 6 weeks as able. On site radiographs and virtual visits are consideration. Okay for discharge once cleared medically. Ortho instructions: D/C to SNF/rehab Xray in 2 weeks and 6 weeks post op. On site radiographs and virtual visits are consideration. Follow up in office at 4-6 weeks. PT: Immobilizer sling for 4-6 weeks. Avoid weight bearing. Passive ROM as tolerated for the shoulder starting at 2 weeks. Tylenol for pain. Limit narcotics. Subjective Subjective Date/Time Seen: 05/10/24 10:12 Interval history: Patient resting comfortably at the time of the visit. Patient with significant dementia. No family at bedside at the time of my visit. Responded yes when I asked if he had pain in the shoulder. He responded yes when asked if he could feel me touch his fingers. Able to wiggle fingers on command. Review of Systems Review of Systems: ROS unobtainable: Yes unobtainable due to medical condition Exam Narrative: 73-year-old male. Normal weight. Severe dementia. Pain at the right shoulder. Swelling and early ecchymosis of the right shoulder. Wearing immobilizer sling. Able to wiggle fingers. Neurovascularly intact. Would not cooperate to test the axillary nerve. Objective Data Vital Signs Vital Signs: Vital Signs - 24 hr 05/09/24 10:17 05/09/24 14:00 05/09/24 19:56 Temperature 98.0 F Pulse Rate 80 Respiratory Rate 18 Blood Pressure 129/70 Pulse Oximetry 100 Oxygen Delivery Room Air Room Air 05/09/24 21:08 05/10/24 06:00 Temperature 99.8 F H 98.4 F Pulse Rate 85 67 Respiratory Rate 16 16 Blood Pressure 137/79 130/75 Pulse Oximetry 100 100 Oxygen Delivery Intake/Output Intake/Output: Intake & Output 05/07/24 05/08/24 05/09/24 05/10/24 23:59 23:59 23:59 23:59 Intake Total 1910 2750 550 Output Total 650 1900 800 Balance 1260 850 -250 Meds/Results Medications: Active Medications Generic Name Dose Route Start Last Admin Trade Name Freq PRN Reason Stop Dose Admin Acetaminophen 650 mg 05/07/24 22:32 05/09/24 19:32 Acetaminophen 325 Mg Tablet PO 650 mg Q4H PRN Administration Mild Pain (1-3) or Fever Hydrocodone Bitart/Acetaminophen 1 tab 05/08/24 14:34 Hydrocodone/Acetaminophen (*Crx) 5-325 Mg Tablet PO Q6H PRN Pain Rated 4-6 Donepezil HCl 10 mg 05/08/24 21:00 05/09/24 19:36 Donepezil Hcl 10 Mg Tablet PO 10 mg HS URI Administration Enoxaparin Sodium 40 mg 05/09/24 09:00 05/10/24 08:49 Enoxaparin 40 Mg/0.4 Ml Syringe SUB-Q 40 mg DAILY URI Administration Memantine 10 mg 05/08/24 14:50 05/10/24 08:49 Memantine 10 Mg Tablet PO 10 mg DAILY URI Administration Morphine Sulfate 1 mg 05/08/24 14:34 Morphine Sulfate (*Crx) 2 Mg/Ml Inj IV PUSH Q4H PRN Pain Rated 7-10 Radiology Results: ITS Impressions Shoulder X-Ray 05/07/24 20:33 IMPRESSION: Comminuted two-part fracture the proximal right humerus. Head CT 05/07/24 20:53 IMPRESSION: 1. No fracture or acute intracranial process. 2. Couple sma
[2024-05-10 13:05] LABS: SARS-CoV-2 RNA PCR Negative (Negative)
[2024-05-10 14:00] VITALS: BP 135/74; PULSE 65; RESP 17; TEMP 36.4; O2SAT 100
--- NOTE | 2024-05-10 14:43 | PM.DS ---
DS: Admitting Diagnosis Discharge Date 05/10/2024 Admitting Diagnosis fall DS: Discharge Diagnosis Discharge Diagnosis (1) Fracture of right shoulder: Qualifiers: Encounter type: initial encounter Fracture type: closed Qualified Code(s): S42.91XA - Fracture of right shoulder girdle, part unspecified, initial encounter for closed fracture Code(s): S42.91XA - Fracture of right shoulder girdle, part unspecified, initial encounter for closed fracture Status: Acute (2) Dementia: Code(s): F03.90 - Unspecified dementia, unspecified severity, without behavioral disturbance, psychotic disturbance, mood disturbance, and anxiety Status: Acute DS: Summary Hospital Course Hospital Course: 73-year-old male with advanced dementia presents from home after a fall. Lives at home with , was walking behind her when he tripped on the sidewalk and fell forward on his face. In the emergency room the reported she could not take care of him for patient placed for admission and the fracture of the right humerus on 05/08/2024. The patient is not a good historian as he has dementia. Daughter reported the patient typically not talk in the morning and takes a very long time to wake up. Then, throughout the day he can walk around in participate with daily activities but this is with constant direction from the . Regularly, he becomes confused around 5:00 p.m. at night. She reports the patient's is frail and does not think the patient can be taken care of at home anymore. Of note, in the ER there was reported to be some DNR paperwork however the family wanted the patient to be full code after admission. Orthopedic consultation done for humerus fracture. They have decided to go with conservative management. Continue immobilizer sling. The patient is not a great candidate for heavy narcotics. Tylenol p.r.n., [place] 5-325 q.6 hours p.r.n., morphine 1 mg IV q.4 hours p.r.n.. Follow-up in the orthopedic office in a few weeks. he did not need any narcotics. continue sling. For his dementia which is advanced and social situation, therapy has been ordered and continued treatment. Continue MA[employer]OOK[employer] memantine and donepezil. Attempt to minimize nocturnal disturbances (avoid unnecessary lab draws, vital signs, nighttime medications). Promote regular sleep-wake cycle. Provide orienting stimuli including clock, calendar, lights on during the day and off at nighttime, and minimal staff changes. Minimize the use of tubes and drains. Address sensory deficits including vision and hearing. Ensure no bowel or bladder retention and call with concerns. Mobilize as much possible, ideally out of bed for meals if able. First line treatment to help control behavior disturbances is a sitter (family or staff). Second line treatment includes physical and/or chemical restraints but these must be used with good judgement. Narcotics and benzodiazepines are not indicated. Antipsychotics to be used p.r.n. at the discretion of the concrete paving supervisor physician at the time of behavioral disturbance. Leukocytosis: resolved. ua negative. could be reactive. Disposition: going to [facility] for further treatment Time Spent with Patient Time attestation: Total time spent providing and/or coordinating discharge services: 40 mins DS: Data Data Completed and Pending Labs on day of discharge: Labs from last 24 hours 05/10/24 05/10/24 12:22 06:21 WBC 7.7 RBC 4.68 Hgb 14.0 Hct 42.6 MCV 91.0 MCH 29.9 MCHC 32.9 RDW 12.3 Plt Count 142 L MPV 11.1 H Immature Gran % (Auto) 0.8 H Neut % (Auto) 69.6 Lymph % (Auto) 17.6 L Bartholomew % (Auto) 8.9 H Eos % (Auto) 2.7 Baso % (Auto) 0.4 Lymph # (Auto) 1.36 Bartholomew # (Auto) 0.7 H Eos # (Auto) 0.2 Baso # (Auto) 0.0 Abs Immat Gran (auto) 0.06 H Absolute Neuts (auto) 5.4 Absolute Nucleated RBC 0.000 Nucleated RBC % 0.0 Sodium 138 Potassium 3.4 Chloride 100 Carbon Diox
== END 2024-05-10 16:50 ==
LOC: ANHED 22:02 → ANH3MEDSUR 23:39
PROVIDERS: General Practice; Admitting Provider Internal Medicine; Emergency Provider Emergency Medicine; PCP Internal Medicine; Visit Provider Internal Medicine
DX: S42.91XA Fracture of right shoulder girdle, part unspecified, initial encounter for closed fracture (principal); W01.0XXA Fall on same level from slipping, tripping and stumbling without subsequent striking against object, initial encounter; I50.9 Heart failure, unspecified; Z79.01 Long term (current) use of anticoagulants; G30.9 Alzheimer's disease, unspecified; F02.80 Dementia in other diseases classified elsewhere, unspecified severity, without behavioral disturbance, psychotic disturbance, mood disturbance, and anxiety; Z87.891 Personal history of nicotine dependence; Z20.822 Contact with and (suspected) exposure to COVID-19
CPT/HCPCS: 36415; 70450; 71250; 72125; 73030; 80048; 80053; 81001; 83735; 84145; 85025; 85055; 87635; 93005; 96372; 97116; 97162; 97166; 97530; 97535; 99285; A9270; G0378; J1650; J2270

== ENCOUNTER 2024-06-18 14:34 | Outpatient (CLI) | payer MEDICARE, SELFPAY ==
[2024-06-18 19:47] LABS: Alanine Aminotransferase 21 U/L (6-50); Albumin Level 3.9 g/dL (3.5-5.1); Alkaline Phosphatase 119 U/L (38-126); Anion Gap 8 mmol/L (4-12); Aspartate Amino Transferase 30 U/L (17-59); Bilirubin,Total 0.6 mg/dL (0.2-1.3); Blood Urea Nitrogen 17 mg/dL (9-20); Calcium 8.8 mg/dL (8.4-10.2); Carbon Dioxide 26 mmol/L (22-30); Chloride 106 mmol/L (98-107); Estimated Glomerular Filt Rate > 60; Glucose 85 mg/dL (65-110); Potassium 3.7 mmol/L (3.4-5.0); Sodium 140 mmol/L (137-145)
[2024-06-18 20:08] LABS: Hematocrit 43.2 % (42.0-52.0); Hemoglobin 13.6 g/dL (14.0-18.0); Mean Corpuscular HGB Conc 31.5 g/dl (32-36); Mean Corpuscular Volume 95.2 fl (80-100); Mean Platelet Volume 11.8 fl (7.4-10.4); Platelet Count Result 210 k/mm3 (150-375); Red Blood Count 4.54 M/mm3 (4.6-6.20); Red Cell Distribution Width 12.6 % (11.5-14.5); White Blood Count 9.4 K/mm3 (4.5-10.0)
[2024-06-25 14:09] LABS: ALT 17 U/L (9-46); Alpha-2-Macroglobulin 215 mg/dL (106-279); Apolipoprotein A1 144 mg/dL (94-176); Fibrosis Score 0.28; Fibrosis Stage F1; GGT 12 U/L (3-70); Haptoglobin 122 mg/dL (43-212); Necroinflammat Act Grade A0; Reference ID 5141990; Total Bilirubin 0.4 mg/dL (0.2-1.2)
== END 2024-06-18 14:35 | disposition home or self-care (01) ==
PROVIDERS: PCP Internal Medicine
DX: K76.0 Fatty (change of) liver, not elsewhere classified (principal)
CPT/HCPCS: 36415; 80053; 81596; 85027

== ENCOUNTER 2024-06-18 14:54 | Outpatient (CLI) | payer MEDICARE, SELFPAY ==
--- NOTE | ~2024-06-18 | XR_ITS ---
EXAM: XR shoulder RT min 2V DATE: 06/18/2024 15:10 HISTORY: 6 week follow up for shoulder fracture . COMPARISON: 05/07/2024. FINDINGS: Decreased mineralization. Redemonstration of the comminuted, angulated proximal right gary ral fracture, with evidence of early interval healing change. Alignment grossly unchanged given inter jason differences in positioning No new fracture or dislocation. No lytic or blastic lesion. Mild degen erative changes at the AC joint and glenohumeral joint. Mild hip enthesopathy. No erosion or perioste al change. Soft tissues within normal limits. IMPRESSION: Healing right proximal humeral fracture. Reviewed, dictated and finalized at location K.
== END 2024-06-18 14:55 | disposition home or self-care (01) ==
PROVIDERS: PCP Orthopaedic Surgery; Visit Provider Orthopaedic Surgery
DX: S42.91XD Fracture of right shoulder girdle, part unspecified, subsequent encounter for fracture with routine healing (principal); X58.XXXD Exposure to other specified factors, subsequent encounter
CPT/HCPCS: 73030

== ENCOUNTER 2024-07-25 14:17 | Outpatient (CLI) | payer MEDICARE, SELFPAY ==
--- NOTE | ~2024-07-25 | US_ITS ---
Limited Abdominal Sonogram: Real-time sonographic imaging of the right upper quadrant was performed. Clinical History: Fatty liver Findings: The liver appears normal with no evidence of solid mass lesion or bile duct dilatation. 1. 2 cm hepatic cyst noted. Main portal vein demonstrates normal direction of flow. The gallbladder is w ell distended, and appears normal with no evidence of gallstone or wall thickening. The common bile d uct measures 4 mm. The visualized pancreas, aorta, and IVC are unremarkable. Impression: No significant abnormality seen. Reviewed, dictated and finalized at location M. WARE APPLICATIONS DESIGNER Impression: No significant abnormality seen.
== END 2024-07-25 14:18 | disposition home or self-care (01) ==
LOC: GOSHIMG 14:18
PROVIDERS: PCP Internal Medicine; Visit Provider Internal Medicine Gastroenterology
DX: K76.0 Fatty (change of) liver, not elsewhere classified (principal); R74.8 Abnormal levels of other serum enzymes
CPT/HCPCS: 76705

== ENCOUNTER 2024-07-30 10:47 | Outpatient (CLI) | payer MEDICARE, SELFPAY ==
[2024-07-30 15:01] LABS: Alanine Aminotransferase 15 U/L (6-50); Albumin Level 4.2 g/dL (3.5-5.1); Alkaline Phosphatase 66 U/L (38-126); Anion Gap 7 mmol/L (4-12); Aspartate Amino Transferase 54 U/L (17-59); Bilirubin,Total 0.9 mg/dL (0.2-1.3); Blood Urea Nitrogen 20 mg/dL (9-20); Calcium 9.1 mg/dL (8.4-10.2); Carbon Dioxide 28 mmol/L (22-30); Chloride 104 mmol/L (98-107); Cholesterol 274 mg/dL (0-200); Estimated Glomerular Filt Rate > 60; Glucose 79 mg/dL (65-110); HDL Direct 44 mg/dL; Potassium 3.6 mmol/L (3.4-5.0); Sodium 139 mmol/L (137-145); Triglycerides 81 mg/dL (<150)
[2024-07-30 15:10] LABS: Basophils Percent Auto 0.6 % (0.2-1.2); Eosinophils Absolute Auto 0.2 K/mm3 (0-0.3); Eosinophils Percent Auto 2.4 % (0-4.4); Hematocrit 44.5 % (42.0-52.0); Hemoglobin 14.2 g/dL (14.0-18.0); Immature Granulocyte Absolute 0.02 K/mm3 (0.00-0.031); Immature Granulocyte Percent A 0.3 % (0-0.5); Lymphocytes Absolute Auto 1.18 K/mm3 (0.9-3.2); Lymphocytes Percent Auto 17.8 % (18.3-44.2); Mean Corpuscular HGB Conc 31.9 g/dl (32-36); Mean Corpuscular Hemoglobin 29.6 pg (26-34); Mean Corpuscular Volume 92.7 fl (80-100); Mean Platelet Volume 12.1 fl (7.4-10.4); Monocytes Absolute Auto 0.4 K/mm3 (0.1-0.6); Monocytes Percent Auto 6.2 % (2.6-8.5); Neutrophils Absolute Auto 4.8 K/mm3 (1.3-6.7); Neutrophils Percent Auto 72.7 % (45.5-73.1); Platelet Count Result 154 k/mm3 (150-375); Red Cell Distribution Width 12.5 % (11.5-14.5); White Blood Count 6.6 K/mm3 (4.5-10.0)
[2024-07-30 15:11] LABS: LDL Cholesterol Direct 184 mg/dL
[2024-07-30 16:50] LABS: Hemoglobin A1C 5.1 % (<5.7)
== END 2024-07-30 10:48 | disposition home or self-care (01) ==
PROVIDERS: PCP Internal Medicine; Visit Provider Internal Medicine
DX: E78.5 Hyperlipidemia, unspecified (principal); R73.9 Hyperglycemia, unspecified
CPT/HCPCS: 36415; 80053; 80061; 83036; 84439; 84443; 85025

== ENCOUNTER 2024-08-03 14:17 | Inpatient (IN) | payer MEDICARE, SELFPAY ==
[2024-08-03] VITALS (11 sets, daily range): BP systolic 128–168; BP diastolic 72–91; PULSE 55–81; RESP 16–24; TEMP 36.4–37.3; O2SAT 91–100; BMI 22.1
--- NOTE | ~2024-08-03 | CT_ITS ---
CT OF right shoulder EXAMINATION: CT shoulder RT wo con DATE: 08/12/2024 22:27 INDICATION: Shoulder dislocation TECHNIQUE: Computed tomography (CT) of the right shoulder was performed without intravenous contrast. Automated exposure control and iterative reconstruction technique were employed. The dose-length pro duct was 202.03 mGy-cm. COMPARISON: X-ray right shoulder 08/12/2024 and 06/18/2024. FINDINGS: Decreased mineralization. Mild degenerative change at the AC joint. Acromial tip enthesopat hy. Mild degenerative change at the glenohumeral joint. Small volume glenohumeral joint effusion. The glenohumeral joint appears subluxed. Old proximal humeral fracture, healed in moderate deformity. De pendent atelectasis. Degenerative changes in the spine. IMPRESSION: Old proximal right humeral fracture, healed in deformity. Glenohumeral joint subluxation, without overt dislocation. Small volume right glenohumeral joint effusion. No acute osseous finding in the right shoulder. Reviewed, dictated and finalized at location K. FOOD DELIVERY DRIVER
--- NOTE | ~2024-08-03 | MR_ITS ---
MR Venogram of the Brain Clinical Indication: Sinus thrombosis Technique MR venogram was done using coronal 2D time of flight technique. Findings: The superior sagittal sinus appears normal. The left and right transverse sinuses appears normal. The sigmoid sinuses appear normal bilaterally. The internal cerebral veins, vein of Franki and straight sinus are patent. Impression: No evidence of venous sinus thrombosis. Reviewed, dictated and finalized at [facility]. IT MANAGER Impression: No evidence of venous sinus thrombosis.
--- NOTE | ~2024-08-03 | XR_ITS ---
EXAM: XR abdomen gastric tube insert DATE: 08/18/2024 18:12 HISTORY: PEG placement . COMPARISON: 08/09/2024. FINDINGS: Following the instillation of 50 mL Gastrografin, contrast is seen in the stomach and firs t part of the duodenal C-loop. No extravasation. Streaky bibasilar atelectasis/scar. Normal bowel gas pattern. No definite organomegaly. Lumbar degenerative disc disease. IMPRESSION: G-tube, in good position. Reviewed, dictated and finalized at location K. GATHERER IMPRESSION: G-tube, in good position.
--- NOTE | ~2024-08-03 | XR_ITS ---
EXAMINATION: XR barium swallow modified DATE: 08/14/2024 08:33 INDICATION: Aspiration. TECHNIQUE: The patient was given barium-containing material of multiple consistencies to swallow by t [place] speech pathologist while I performed fluoroscopy. Fluoroscopy exposure time was 2.3 minutes. The n umber of fluoroscopy images saved to the PACS was 1. Dose-area product was 1.575 Gy-cm^2. FINDINGS: The oral stage of the swallow is normal. There is vallecular residue. The cervical/esophageal stage o f the swallow is normal. IMPRESSION: 1. Normal laryngeal penetration or aspiration. 2. Please refer to the speech therapy report for recommendations. Reviewed, dictated and finalized at location A. RICT SALES MANAGER
--- NOTE | ~2024-08-03 | XR_ITS ---
XR shoulder RT min 2V Ordering provider: Maribel Harmon APRN History: . possible dislocation . Comparison: None. FINDINGS: BONES: fracture of the proximal metaphysis of the right humerus with dislocation of the proximal frag ment of the fracture. The humeral head is seen opposite the glenoid cavity which raises the possibili ty of a fracture in the area of the anatomical neck. CT evaluation advised. SOFT TISSUES: Normal. IMPRESSION: Highly suggestive fracture in the proximal metaphysis and the anatomical neck of the humerus with dis location of the proximal fragment. CT evaluation advised. Consider MRI of the shoulder if there is concern for soft tissue internal derangement. Reviewed, dictated and finalized at location A. ORATION ENGINEER IMPRESSION: Highly suggestive fracture in the proximal metaphysis and the anatomical neck o f the humerus with dislocation of the proximal fragment. CT evaluation advised. Consider MRI of the shoulder if there is concern for soft tissue internal deran gement.
--- NOTE | ~2024-08-03 | XR_ITS ---
EXAMINATION: XR chest 1V portable Exam Date/Time: 08/03/2024 14:45 EARTH SCIENCE PROFESSOR HISTORY: CONFUSION Comparison: 09/15/2023; CT chest 05/07/2024. RESULT: Lines, tubes, and devices: None. Lungs and pleura: Clear. Cardiomediastinal silhouette: Stable. Other: No acute osseous or upper abdominal finding. Chronic right proximal humeral fracture. IMPRESSION: No acute cardiopulmonary process. Reviewed, dictated and finalized at location K. H SCIENCE PROFESSOR
--- NOTE | ~2024-08-03 | CT_ITS ---
EXAMINATION: CTA brain carotid DATE: 08/03/2024 15:31 INDICATION: right sided weakness TECHNIQUE: Computed tomographic angiography (CTA) of the head was performed without and with 100 mL O mnipaque-350 intravenous contrast. CTA of the neck was performed with intravenous contrast. Automated exposure control and iterative reconstruction technique were employed. The dose-length product was 1 627.40 mGy-cm. Maximum intensity projection and volume rendered 3D-reconstructions were created by hansa dexter technologist on a separate workstation. COMPARISON: 05/07/2024. FINDINGS: CT BRAIN: Mild motion artifact. No acute large vessel infarct, intracranial hemorrhage, mass, or hydrocephalus. Moderate atrophy and chronic white matter change. Atherosclerotic intracranial calcification. Small old lacunar infarcts in the left thalamus and right basal ganglia. Bilateral lens replacements. Left ethmoid mucosal thickening. Left mastoid fluid. CTA HEAD: No large vessel occlusion, aneurysm, high flow vascular malformation, nidus or extravasation. Atheros clerotic calcifications in the bilateral cavernous carotids and bilateral intradural vertebral arteri es. Short segment severe stenosis in the right A1 segment. Short segment moderate stenosis in the lef t P1 segment. Left posterior flow comes predominantly from the left posterior communicating artery. M ild short segment stenosis in the distal left FUNERAL ARRANGER. Slow/absent flow in the left sigmoid sinus and lef t internal jugular vein with suggestion of intramural thrombus. CTA NECK: Aortic arch and proximal great vessels: Normal arch anatomy. Mild atherosclerotic calcifications. Right common carotid, carotid bifurcation, and internal carotid artery: Mild calcification at the bif urcation.There is 0% stenosis of the proximal right internal carotid artery relative to normal distal artery lumen diameter (NASCET criteria). Left common carotid, carotid bifurcation, and internal carotid artery: Mild calcification at the bifu rcation and proximal internal carotid artery.There is 0% stenosis of the proximal left internal carot id artery relative to normal distal artery lumen diameter (NASCET criteria). Vertebral arteries: No significant plaque or stenosis. Vertebral arteries co-dominant. Mild short seg ment atherosclerotic narrowing in the mid right vertebral artery. Other findings: None. Degenerative changes in the cervical spine. IMPRESSION: Findings suggestive of left sigmoid sinus and internal jugular vein thrombosis. Consider MRV for furt her evaluation. Short segment severe stenosis in the proximal right STEFANIE. No large vessel intracranial occlusion or aneurysm. No carotid or vertebral artery occlusion, dissection, or significant stenosis. Reviewed, dictated and finalized at location K. TER IN IMPRESSION: Findings suggestive of left sigmoid sinus and internal jugular vein thrombosis. Consider MRV for further evaluation. Short segment severe stenosis in the proximal right STEFANIE. No large vessel intracranial occlusion or aneurysm. No carotid or vertebral artery occlusion, dissection, or significant stenosis.
--- NOTE | ~2024-08-03 | XR_ITS ---
EXAMINATION: XR abdomen/kub 1V DATE: 08/11/2024 05:52 INDICATION: Nasogastric tube placement TECHNIQUE: A supine view of the abdomen was obtained. COMPARISON: None. FINDINGS: Nasogastric tube tip in proximal side port in the body of the stomach. Scattered moderate amount of g as scattered throughout multiple loops of nondilated large and small bowel. Mild opacity left lung ba se with blunting at the left costophrenic angle which could represent atelectasis or small left pleur al effusion. A few small calcified nodules at the bilateral lung bases consistent with old granulomat ous disease. IMPRESSION: 1. Nasogastric tube in the stomach. Reviewed, dictated and finalized at location A. CHOOL TEACHER AIDE
--- NOTE | ~2024-08-03 | MR_ITS ---
MRI of the brain Clinical History: Venous sinus thrombosis Technique: Axial and sagittal T1-weighted images were acquired. These were followed by axial T2-weigh sandy, diffusion weighted, gradient, and FLAIR images. Following intravenous administration of 11 cc Mu ltiHance gadolinium, T1-weighted fat-sat imaging was performed in the axial and coronal planes. Findings: There is a 1.5 x 0.7 cm area of restricted diffusion in the left periventricular white lee er, compatible with focal acute infarct. Additional punctate areas of acute infarct are present in th e left basal ganglia. No acute intracranial hemorrhage. There is diffuse background FLAIR hyperintens e signal throughout the white matter, compatible diffuse chronic microvascular ischemic change or oth er extensive chronic white matter disease. Ventricles and subarachnoid spaces are dilated. Orbits are unremarkable. Paranasal sinuses and right mastoid air cells are clear. Small left mastoid effusion present. Major intracranial flow voids are i ntact. Sagittal midline structures are intact. No abnormal postcontrast enhancement identified. No evidence for venous sinus thrombosis. IMPRESSION: Acute infarct in the left basal ganglia/left periventricular white matter, as detailed above. Diffuse chronic white matter disease, most likely severe chronic microvascular ischemic change. No evidence of venous sinus thrombosis. Reviewed, dictated and finalized at location . ECT ENGINEER CHEMICALS IMPRESSION: Acute infarct in the left basal ganglia/left periventricular white matter, as d etailed above. Diffuse chronic white matter disease, most likely severe chronic microvascular ischemic change. No evidence of venous sinus thrombosis.
--- NOTE | ~2024-08-03 | XR_ITS ---
EXAMINATION: XR abdomen gastric tube insert DATE: 08/09/2024 18:59 INDICATION: Nasogastric tube placement. TECHNIQUE: A supine view of the abdomen was obtained. COMPARISON: Chest single view 08/08/2024 FINDINGS: The lower abdomen is excluded. The nasogastric tube tip is in the stomach. There are airspa ce opacities at left lung base. IMPRESSION: 1. Nasogastric tube tip in the stomach. 2. Airspace opacities at left lung base, consistent with atelectasis versus pneumonia. Reviewed, dictated and finalized at location A. LASTER IMPRESSION: 1. Nasogastric tube tip in the stomach. 2. Airspace opacities at left lung base, consistent with atelectasis versus pne umonia.
--- NOTE | ~2024-08-03 | XR_ITS ---
EXAMINATION: XR chest 1V portable DATE: 08/10/2024 06:13 INDICATION: Change in respiratory status TECHNIQUE: frontal view of the chest was obtained. COMPARISON: Chest radiograph dated 08/08/2024 FINDINGS: Nasogastric tube with tip in proximal side port in the body of the stomach. Very small left pleural e ffusion. Mild opacities in the bilateral infrahilar regions, left greater than right, which could rep resent mild pulmonary edema, atelectasis or pneumonia. The cardiomediastinal silhouette is normal. Ol d proximal right humeral fracture. IMPRESSION: 1. Mild infrahilar opacities, left greater than right which could represent mild pulmonary edema, ate lectasis or pneumonia. 2. Very small left pleural effusion. Reviewed, dictated and finalized at location A. ERSITY COUNSELOR IMPRESSION: 1. Mild infrahilar opacities, left greater than right which could represent mil d pulmonary edema, atelectasis or pneumonia. 2. Very small left pleural effusion.
--- NOTE | ~2024-08-03 | US_ITS ---
Procedure: Duplex Doppler examination of the bilateral carotids. Indication: CVA Technique: Real time, color-flow and pulse wave Doppler examination of the bilateral carotids was performed. Findings: Cleaning scale ultrasonography of the right neck demonstrated no significant plaque. There was demonstrat ion of normal color-flow and Doppler waveforms within the right common, internal and external carotid arteries. The peak systolic velocities in the right common, internal and external carotid arteries w ere demonstrated to be 129 cm/sec, 60 cm/sec and 69 cm/sec respectively. The right ICA/CCA ratio was 0.7.The proximal right internal carotid artery demonstrates 0% stenosis relative to the normal distal artery lumen diameter. Cleaning scale sonography of the left neck demonstrated no significant plaque. There was demonstration of normal color-flow and wave forms within the left common, internal and external carotid arteries. The peak systolic velocities in the left common, internal and external carotid arteries were demonstrate d to be 75cm/sec, 39 cm/sec and 31 cm/sec respectively. The left ICA/CCA ratio was 0.6. The proximal left internal carotid artery demonstrates 0% stenosis relative to the normal distal artery lumen diam eter. There was antegrade flow demonstrated in the bilateral vertebral arteries. Impression: No hemodynamically significant stenosis of the bilateral internal carotid arteries. Antegrade flow in the bilateral vertebral arteries. Note: The methodology used is an indirect measurement validated against a direct method (such as the NASCET criteria) that compares diameters at the stenosis to the distal ICA. Reviewed, dictated and finalized at [facility]. IANCE ASSEMBLER Impression: No hemodynamically significant stenosis of the bilateral internal carotid arter ies. Antegrade flow in the bilateral vertebral arteries. Note: The methodology used is an indirect measurement validated against a direct meth od (such as the NASCET criteria) that compares diameters at the stenosis to the distal ICA.
--- NOTE | ~2024-08-03 | XR_ITS ---
EXAMINATION: XR chest 1V portable DATE: 08/08/2024 21:46 INDICATION: Aspiration. TECHNIQUE: A single frontal view of the chest was obtained. COMPARISON: Chest view 08/03/2024 FINDINGS: There are airspace opacities in left lower lung zone. No pleural effusion or pneumothorax. The heart size is normal. IMPRESSION: 1. Airspace opacities in left lower lung zone, consistent with atelectasis versus pneumonia. Reviewed, dictated and finalized at location A. GAGE LOAN COORDINATOR IMPRESSION: 1. Airspace opacities in left lower lung zone, consistent with atelectasis vers us pneumonia.
--- NOTE | 2024-08-03 14:31 | ECG_ITS ---
Test Date: 2024-08-03 14:28:49 Measurements Intervals [place] Rate: 62 P: 36 MA: 139 QRS: -71 QRSD: 122 T: 23 QT: 423 QTc: 430 Interpretive Statements SINUS RHYTHM LEFT ANTERIOR FASCICULAR BLOCK VOLTAGE CRITERIA FOR LVH BASELINE ARTIFACT- I, II, III, AVR, AVL, AVF, V1-V6 ABNORMAL ECG Compared to ECG 05/07/2024 23:05:14 NO SIGNIFICANT CHANGE Electronically Signed On 08-03-2024 16:28:14 BRIDGE MECHANIC by Gordy Hernadez D.O.
[2024-08-03 14:57] LABS: Basophils Percent Auto 0.5 % (0.2-1.2); Eosinophils Absolute Auto 0.2 K/mm3 (0-0.3); Eosinophils Percent Auto 2.9 % (0-4.4); Hematocrit 40.5 % (42.0-52.0); Hemoglobin 13.5 g/dL (14.0-18.0); Immature Granulocyte Absolute 0.02 K/mm3 (0.00-0.031); Immature Granulocyte Percent A 0.3 % (0-0.5); Lymphocytes Absolute Auto 0.87 K/mm3 (0.9-3.2); Lymphocytes Percent Auto 13.2 % (18.3-44.2); Mean Corpuscular HGB Conc 33.3 g/dl (32-36); Mean Corpuscular Hemoglobin 29.4 pg (26-34); Mean Corpuscular Volume 88.2 fl (80-100); Mean Platelet Volume 10.9 fl (7.4-10.4); Monocytes Absolute Auto 0.6 K/mm3 (0.1-0.6); Monocytes Percent Auto 8.5 % (2.6-8.5); Neutrophils Absolute Auto 4.9 K/mm3 (1.3-6.7); Neutrophils Percent Auto 74.6 % (45.5-73.1); Platelet Count Result 156 k/mm3 (150-375); Red Blood Count 4.59 M/mm3 (4.6-6.20); Red Cell Distribution Width 12.4 % (11.5-14.5); White Blood Count 6.6 K/mm3 (4.5-10.0)
[2024-08-03 15:07] LABS: Alanine Aminotransferase 12 U/L (6-50); Albumin Level 3.8 g/dL (3.5-5.1); Alkaline Phosphatase 62 U/L (38-126); Anion Gap 5 mmol/L (4-12); Aspartate Amino Transferase 19 U/L (17-59); Bilirubin,Total 0.7 mg/dL (0.2-1.3); Blood Urea Nitrogen 15 mg/dL (9-20); Calcium 8.9 mg/dL (8.4-10.2); Carbon Dioxide 26 mmol/L (22-30); Chloride 107 mmol/L (98-107); Estimated CRCL calculation 56 ml/min; Estimated Glomerular Filt Rate > 60; Glucose 96 mg/dL (65-110); INR 1.1; Potassium 3.6 mmol/L (3.4-5.0); Prothrombin Time 14.5 Seconds (11.1-14.7); Sodium 138 mmol/L (137-145)
[2024-08-03 15:08] LABS: Partial Thromboplastin Time 28.4 Seconds (22.3-36.8)
[2024-08-03 15:18] LABS: Troponin I < 0.012 ng/mL (0.000-0.034)
--- NOTE | 2024-08-03 16:32 | ED_ITS ---
HPI - Neuro Symptoms/Deficit General Chief Complaint: Suspected CVA Stated Complaint: R sided weakness Time Seen by Provider: 08/03/24 14:25 History of Present Illness HPI Narrative: Patient is a 73-year-old male who presents ER with right-sided weakness. Patient woke up yesterday and was having trouble ambulating with his walker with the help of his family. He then stopped using his right arm at some point during the day. His last known well was 08/01/2024. Patient has severe dementia and is only oriented x1 at baseline. He has been having no complaints at home. Patient does have mild right-sided facial weakness and severe weakness in the right arm and right leg. Related Data Home Medications Medication Instructions Recorded Confirmed donepezil 10 mg tablet 10 mg PO HS 02/17/21 06/19/24 memantine 10 mg tablet 10 mg PO DAILY 02/17/21 06/19/24 nystatin-triamcinolone 100,000 1 applic topical BID 05/07/24 06/19/24 unit/gram-0.1 % topical ointment Allergies Allergy/AdvReac Type Severity Reaction Status Date / Time Sulfa (Sulfonamide Allergy Mild rash Verified 05/07/24 22:55 Antibiotics) Review of Systems 2 Review of Systems: ROS unobtainable: Yes unobtainable due to mental status PMFSH Past Medical History Medical History Alzheimer's dementia Congestive heart failure Family History Family History Sibling Diabetes mellitus Father Cerebrovascular accident, Onset Age: 75 Family history of kidney stones, Onset Age: 75 Family history of dementia, Onset Age: 75 Social History Social History Smoking status: Former smoker Smoking end date: 09/18/70 Alcohol intake: never Substance use: never Substance use type: does not use Do You Feel Safe in your Home?: Yes Lack of Transportation: No Lack of Food: Never True Current Housing: Decline to Answer Concerned About Future Housing: Decline to Answer Difficulty Paying Gas/Electric Bills: Decline to Answer Difficulty Paying for Meds: Decline to Answer Currently Unemployed: Decline to Answer Education: Decline to Answer Difficulty w/ Childcare or Family Care: Decline to Answer Spiritual care concerns: No Exam Narrative: GENERAL: Well-appearing, well-nourished, and in no acute distress. HEAD: Normocephalic, atraumatic. EYES: PERRL and EOMI. ENT: Mucous membranes moist. CHEST: Clear to auscultation. No respiratory distress. HEART: Regular rate and rhythm. Normal peripheral pulses. ABDOMEN: Soft, nontender, nondistended EXTREMITIES: Normal range of motion. No edema. SKIN: Warm, dry, no rash. NEURO: See NIH stroke scale. Profound weakness of the right upper and right lower extremity as well as right facial droop. The patient does choose to speak he has clear speech. Unable to assess for word-finding difficulty since he is typically oriented only x1. He does respond to pain all extremities. Course Course Emergency Course: 1657: Discussed case with patient's . She you would like us to speak with [facility]. I discussed with Dr. Lima with stroke team. Patient would not be a candidate for any intervention and he would only recommend anticoagulation. updated. 1825: accepted the hospitalist service for further evaluation treatment. Heparin drip going. Patient is starting to move his right leg. Unable to get a hold of Dr. Bush, will place consult order. Vital Signs Vital signs: Vital Signs Temperature 97.5 F L 08/03/24 14:18 Pulse Rate 65 08/03/24 14:18 Respiratory Rate 16 08/03/24 14:18 Blood Pressure 128/77 08/03/24 14:18 Pulse Oximetry 100 08/03/24 14:18 Oxygen Delivery Room Air 08/03/24 14:18 Temperature 97.9 F 08/03/24 15:36 Pulse Rate 55 L 08/03/24 16:37 Respiratory Rate 16 08/03/24 16:37 Blood Pressure 128/76 08/03/24 16:37 Pulse Oximetry 98 08/03/24 16:37 Oxygen Delivery Room Air 08/03/24 14:31 MDM - Neuro Symptoms/Deficit Lab Data 08/03/24 14:51 08/03/24 14:51 Labs: Lab Results 08/03/24 Range/Units 14:51 WBC 6.6 (4.5-10.0) K/mm3 RBC 4.59 L (4.6-6.20) M/mm3 Hgb 13.5 L (14.0-18.0) g/dL Hct 40.5 L (42.0-52.0) % MCV 88.2 (80-100) fl MCH 29.4 (26-34) pg MCHC 33.3 (32-36) g/dl RDW 12.4 (11.5-14.5) % Plt Count 156 (150-375) k/mm3 MPV 10.9 H (7.4-10.4) fl Immature Gran % (Auto) 0.3 (0-0.5) % Neut % (Auto) 74.6 H (45.5-73.1) % Lymph % (Auto) 13.2 L (18.3-44.2) % Aurora % (Auto) 8.5 (2.6-8.5) % Eos % (Auto) 2.9 (0-4.4) % Baso % (Auto) 0.5 (0.2-1.2) % Lymph # (Auto) 0.87 L (0.9-3.2) K/mm3 Aurora # (Auto) 0.6 (0.1-0.6) K/mm3 Eos # (Auto) 0.2 (0-0.3) K/mm3 Baso # (Auto) 0.0 (0.0-0.1) K/mm3 Abs Immat Gran (auto) 0.02 (0.00-0.031) K/mm3 Absolute Neuts (auto) 4.9 (1.3-6.7) K/mm3 Absolute Nucleated RBC 0.000 (0.0-0.012) K/mm3 Nucleated RBC % 0.0 (0.0-0.2) % PT 14.5 (11.1-14.7) Seconds INR 1.1 APTT 28.4 (22.3-36.8) Seconds Sodium 138 (137-145) mmol/L Potassium 3.6 (3.4-5.0) mmol/L Chloride 107 (98-107) mmol/L Carbon Dioxide 26 (22-30) mmol/L Anion Gap 5 (4-12) mmol/L BUN 15 D (9-20) mg/dL Creatinine 0.90 (0.7-1.3) mg/dL Estim Creat Clear Calc 56 ml/min Estimated GFR > 60 (59 - ) Glucose 96 (65-110) mg/dL Calcium 8.9 (8.4-10.2) mg/dL Total Bilirubin 0.7 (0.2-1.3) mg/dL AST 19 (17-59) U/L ALT 12 (6-50) U/L Alkaline Phosphatase 62 (38-126) U/L Troponin I < 0.012 (0.000-0.034) ng/mL Total Protein 7.0 (6.3-8.2) g/dL Albumin 3.8 (3.5-5.1) g/dL Imaging Data Radiologist's impression: ITS Impressions Chest X-Ray 08/03/24 15:25 IMPRESSION: No acute cardiopulmonary process. Head/Neck CTA 08/03/24 15:32 IMPRESSION: Findings suggestive of left sigmoid sinus and internal jugular vein thrombosis. Consider MRV for further evaluation. Short segment severe stenosis in the proximal right STEFANIE. No large vessel intracranial occlusion or aneurysm. No carotid or vertebral artery occlusion, dissection, or significant stenosis. ECG Data EKG #1: ECG completion date: 08/03/24 ECG completion time: 14:28 EKG Interpretation: normal rate (62), sinus rhythm, no ectopy, no ST changes, normal QRS and left axis Critical Care Time Critical Care Time Critical Care Time: Yes Total Critical Care Time: 35 Discharge Plan Discharge Clinical Impression: Cerebral venous sinus thrombosis, Acute internal jugular vein thrombosis Patient Disposition: Still a Patient Condition: Serious Prescriptions: No Action memantine 10 mg tablet 10 mg PO DAILY donepezil 10 mg tablet 10 mg PO HS nystatin-triamcinolone 100,000-0.1 unit/gram-% ointment 1 applic TOPICAL BID Rx Instructions: Apply to groin and buttocks acetaminophen 325 mg Tablet 650 mg PO Q4H PRN (Reason: Mild Pain (1-3) Or Fever) Qty: 30 0RF Follow-up/Referrals: Kushal,MD Cody [Primary Care Provider] - Quality Stroke Scale Stroke Scale 1: Stroke scale date:: 08/03/24 Stroke scale time:: 16:30 1a Level of consciousness: alert-0 1b Level of consciousness questions: answers none correctly-2 1c Level of consciousness commands: obeys both correctly-0 2 Best gaze: normal-0 3 Visual: no visual loss-0 4 Facial palsy: minor paralysis-1 5a Motor: left arm: no drift-0 5b Motor: right arm: no effort/gravity-3 6a Motor: left leg: no drift-0 6b Motor: right leg: no effort/gravity-3 7 Limb ataxia: present in two limbs-2 8 Sensory: normal-0 9 Best language: no aphasia-0 10 Dysarthria: normal-0 11 Extinction and inattention: no abnormality-0 Level:: 11
--- NOTE | 2024-08-03 16:38 | PC.NURSE ---
Dr. Garber spoke with pts concerning CT report and family desired intreventions. Decision made to call [facility] Stroke service
[2024-08-03] MEDS: HEPARIN SODIUM 5,000 UNITS/ML VIAL 5000 UNITS IV PUSH (17:26)
[2024-08-03] MEDS: HEPARIN SOD/D5W 100 UNITS/ML 25,000 UNITS/250 ML BAG 11 UNITS IV CONT (17:27)
--- NOTE | 2024-08-03 18:30 | PC.NURSE ---
RN noted pt bending & moving right leg. Right upper extremity remains flaccid, slight right facial droop noted. Heparin drip infusing. Family at bedside. Pt incontinent linens changed and corrie care performed
--- NOTE | 2024-08-03 18:39 | PC.NURSE ---
This RN received report from GRE INSTRUCTOR.
--- NOTE | 2024-08-03 18:49 | ADMGEN ---
This patient, Noah Butler, was admitted to IMU Room 231-01 @ 1842. Patient/family oriented to hospital policies and general routines including ID bracelet, bed and alarms, visiting hours, pain management, procedures, bathroom and other care routines, personal items, smoking policy, room service/diet, and visiting hours. Information on how to activate the Rapid Response Team has been discussed. Patient/Family are encouraged to report perceived risks to care and to ask questions if they do not understand what they are told or what they should do.
[2024-08-03 18:55] LABS: Add Urine Microscopic? NO; Appearance Urine Clear (Clear); Bilirubin Urine Negative (Negative); Blood Urine Negative (Negative); Color Urine Yellow (Yellow); Glucose Urine UA Negative (Negative); Ketones Urine 1+ mg/dL (Negative); Leukocyte Esterase Ur Negative LEU/UL (Negative); Nitrate Urine Negative (Negative); Protein Urine Negative (Negative); Specific Grav Ur 1.045 (1.001-1.035); Urobilinogen Urine 0.2 mg/dL (<2.0)
--- NOTE | 2024-08-03 19:03 | PM.IMHP ---
H&P: HPI History of Present Illness Date/Time: 08/03/24 19:03 Chief Complaint: Right Sided Weakness Narrative: 73 y/o M presents here with right sided weakness and right facial droop with past medical history of Alzheimer's dementia and congestive heart failure. The patient presents here from home for further evaluation of right-sided weakness and right facial droop. The patient's family provided the following history given the patient is unable to provide a reliable history due to dementia with baseline orientation of A&O x1. The patient went to bed on 08/01/2024 at around 10 p.m. in his normal state of health. He woke up around 10 a.m. on 08/02. He was able to ambulate to the bathroom without assistance. After he used the restroom he began developing more weakness and then required assistance from his . He typically does not need an assistive device. Despite their assistance he was having difficulty ambulating with a walker and barely made it to his chair. As the day progressed they noted that his right arm was resting off to the side almost like weight he typically sits with his hands folded across his abdomen. He spent majority of the day in his chair. reports the extremity weakness was noted by her at around 6 p.m. when he was having difficulty feeding himself, typically can eat independently. Family member did assess his right leg which he was able to push against his family members hand, did not assess if he was able to life the leg against gravity. They then noticed the right facial droop at around noon today which prompted them to seek care. They were not immediately concerned with the symptoms because he has had similar symptoms with a UTI. He also tends to lean forward when he has a urinary tract infection and reported to his last night that he had suprapubic/lower abdominal pain. He is prescribed XX for chronic UTIs and has been instructed to initiate a 7 day course when he becomes confused or has suprapubic pain to initiate it. Patient has had 2 doses. He has no previous history of strokes. He has no current complaints at this time. ED provider discussed code status with family at the bedside and the patient is DNR. Initial VS at presentation: 97.5? F, HR 65, RR 16, 128/77, and 100% on RA. ED workup showed: No leukocytosis, hemoglobin 13.5, normal coags, no significant electrolyte derangements, creatinine 0.9 and GFR >60, initial troponin negative, UA showed mildly bumped specific gravity and 1+ ketones. CXR showed no acute cardiopulmonary process. CTA head/neck showed that findings were suggestive of a left sigmoid sinus and internal jugular vein thrombus, short segment severe stenosis in the proximal right STEFANIE, no large vessel intracranial occlusion or aneurysm, no carotid or vertebral artery occlusion, dissection, or significant stenosis. Review of Systems Review of Systems: ROS unobtainable: Yes unobtainable due to mental status [facility] Past Medical History Medical History (Updated 08/03/24 @ 21:28 by Cinda Escobar APRN) Afib Alzheimer's dementia Arthritis Chronic UTI Congestive heart failure HLD (hyperlipidemia) Currently off medications HTN (hypertension) Currently off medications Sleep apnea Family History Family History Sibling Diabetes mellitus Father Cerebrovascular accident, Onset Age: 75 Family history of kidney stones, Onset Age: 75 Family history of dementia, Onset Age: 75 Social History Social History Smoking status: Former smoker Smoking end date: 09/18/70 Alcohol intake: never Substance use: never Substance use type: does not use Do You Feel Safe in your Home?: Yes Lack of Transportation: No Lack of Food: Never True Current Housing: Decline to Answer Concerned About Future Housing: Decline to Answer Difficulty Paying Gas/Electric Bills: Decline to Answer Difficulty Paying for Meds: Decline to Answer Currently Unemployed: Decline to Answer Education: Decline to Answer Difficulty w/ Childcare or Family Care: Decline to Answer Spiritual care concerns: No Meds Home Medications and Allergies Home Medications Medication Instructions Recorded Confirmed Type donepezil 10 mg tablet 10 mg PO HS 02/17/21 08/03/24 History memantine 10 mg tablet 10 mg PO DAILY 02/17/21 08/03/24 History nystatin-triamcinolone 100,000 1 applic topical QAM 05/07/24 08/03/24 History unit/gram-0.1 % topical ointment acetaminophen 650 mg/20.3 mL oral 650 mg PO Q6H PRN Pain (Scale 08/03/24 08/03/24 History solution Score 1-3) or fever betamethasone dipropionate 0.05 % 1 applic topical BID PRN 08/03/24 08/03/24 History lotion dermatitis flares. ciprofloxacin HCl 500 mg tablet 500 mg PO BID 08/03/24 08/03/24 History meloxicam 7.5 mg tablet 7.5 mg PO DAILY PRN hip pain 08/03/24 08/03/24 History zinc oxide 40 % topical ointment 1 applic topical HS 08/03/24 08/03/24 History Allergies Allergy/AdvReac Type Severity Reaction Status Date / Time Sulfa (Sulfonamide Allergy Mild rash Verified 08/03/24 20:32 Antibiotics) Vital Signs Vital Signs - 24 hr 08/03/24 14:18 08/03/24 14:31 08/03/24 14:31 Temperature 97.5 F L Pulse Rate 65 55 L Respiratory Rate 16 Blood Pressure 128/77 Pulse Oximetry 100 98 Oxygen Delivery Room Air Room Air 08/03/24 15:36 08/03/24 16:37 08/03/24 18:46 Temperature 97.9 F 97.8 F Pulse Rate 61 55 L 68 Respiratory Rate 16 16 16 Blood Pressure 140/83 128/76 128/78 Pulse Oximetry 100 98 98 Oxygen Delivery Exam Const: General: comfortable and no acute distress Other: , male, elderly, mildly frail HENMT: Face/Nose/Sinus: Normal nares present Mouth: Yes moist mucous membranes Eyes: General: appearance normal, both eyes and all related structures Sclera: sclerae normal Pupils: Equal, round and reactive pupils present EOM: EOMs intact bilaterally Resp: Effort & Inspection: normal respiratory effort Auscultation: clear to auscultation bilaterally Cardio: Rate: regular rate Rhythm: regular rhythm Other: S1-S2 present without murmur, rub, ectopy GI: Other: No particular expression or grimace with abdominal palpation. Abdomen is soft and nondistended. Normoactive bowel sounds in all quadrants. Skin: General skin exam: normal color and no rashes or lesions noted Wounds: no wounds Neuro: Other: right facial droop. minimal to no muscle tone in the right upper extremity. Not able to lift either lower extremity to gravity. plantar flexion +5 in LLE, 4+ in RLE. Patient is virtually non-verbal at baseline, per family will occasionally give short answers. No gaze palsy. Resting tremor - moderate amplitude. Eye opening spontaneously, responds to name. A/Ox0. Extrem: General: normal to inspection Psych: Other: Poor insight and judgment. No agitation. H&P: Results Labs Labs: Short CBC 08/03/24 Range/Units 14:51 WBC 6.6 (4.5-10.0) K/mm3 Hgb 13.5 L (14.0-18.0) g/dL Hct 40.5 L (42.0-52.0) % Plt Count 156 (150-375) k/mm3 BMP 08/03/24 14:51 Sodium 138 Potassium 3.6 Chloride 107 Carbon Dioxide 26 BUN 15 D Creatinine 0.90 Glucose 96 Calcium 8.9 Cardiac Enzymes 08/03/24 Range/Units 14:51 Troponin I < 0.012 (0.000-0.034) ng/mL Liver Function 08/03/24 Range/Units 14:51 Total Bilirubin 0.7 (0.2-1.3) mg/dL AST 19 (17-59) U/L ALT 12 (6-50) U/L Alkaline Phosphatase 62 (38-126) U/L Albumin 3.8 (3.5-5.1) g/dL Urine 08/03/24 Range/Units 18:20 Urine Color Yellow (Yellow) Urine Appearance Clear (Clear) Urine pH 6.0 (5.0-9.0) Ur Specific Hammond 1.045 H (1.001-1.035) Urine Protein Negative (Negative) mg/dL Urine Glucose (UA) Negative (Negative) mg/dL Assessment and Plan Assessment and plan (1) Acute internal jugular vein thrombosis: Qualifiers: Laterality: left Qualified Code(s): I82.C12 - Acute embolism and thrombosis of left internal jugular vein Code(s): I82.C19 - Acute embolism and thrombosis of unspecified internal jugular vein Status: Acute Assessment and Plan: New deficits of right-sided weakness and right facial droop starting on 08/02 at 10:00 a.m. Last known normal on 08/01/2024 at 10:00 p.m.. Imaging showed slow/absent flow in the left sigmoid sinus and left internal jugular vein with suggestion of intramural thrombus. ED provider spoke with [facility] stroke team (Clarence MCCRACKEN), the patient is not a candidate for intervention at this time given time frame. Recommended anticoagulation. Heparin gtt initiated in ED. - admission for observation and telemetry - CXR: No acute cardiopulmonary process - CTA: Findings suggestive of left sigmoid sinus and internal jugular vein thrombosis. Consider MRV for further evaluation. Short segment severe stenosis in the proximal right STEFANIE. No large vessel intracranial occlusion or aneurysm. No carotid or vertebral artery occlusion, dissection, or significant stenosis. - neurology consulted, awaiting recs - brain MRI w/wo ordered - echo w/Bubble ordered - neuro checks Q4 - speech/swallow eval - PT/OT to eval and treat - monitor daily labs, lipid panel, A1C - fall precautions - will hold on initiation of Atorvastatin 40 mg PO, Plavix 75 mg PO, aspirin 81 mg after shared decision making with patient's . She would like to see the results and discuss risks v benefits with the neurologist - consider 30 day event monitoring at discharge (2) Cerebral venous sinus thrombosis: Code(s): G08 - Intracranial and intraspinal phlebitis and thrombophlebitis Status: Acute Assessment and Plan: - see above (3) Chronic UTI: Code(s): N39.0 - Urinary tract infection, site not specified Status: Acute Assessment and Plan: - chronic UTIs, prescribed ciprofloxacin 500 mg b.i.d. x7 days when he develops symptoms. Has had 2 doses, will continue x6 days for total of 7 after discussion with patient's . - UA: Specific gravity 1.045, 1+ ketones Plan Diet: Heart healthy GI Prophylaxis: Not currently indicated DVT Prophylaxis: Heparin gtt Lines: Peripheral Code Status: DNR Quality VTE Prophylaxis VTE prophylaxis: pharmacologic ordered Hospitalist MIPS Advance Care Plan I have confirmed that the patient's Advanced Care Plan is present, code status is documented, or surrogate decision maker is listed in patient medical record.: Yes Medication Reconciliation I have utilized all available resources to obtain, update and review the patients current medications (includes all prescriptions, OTC, herbals, cannabis, and nutritional supplements).: Yes
[2024-08-03] MEDS: CIPROFLOXACIN 500 MG TAB PO (23:54)
[2024-08-03] MEDS: DONEPEZIL HCL 10 MG TABLET PO (23:55)
[2024-08-04] VITALS (17 sets, daily range): BP systolic 139–161; BP diastolic 65–81; PULSE 48–76; RESP 12–22; TEMP 36.4–36.8; O2SAT 95–100
[2024-08-04 00:12] LABS: Partial Thromboplastin Time 176.7 Seconds (22.3-36.8)
[2024-08-04 07:54] LABS: Basophils Absolute Auto 0.1 K/mm3 (0.0-0.1); Basophils Percent Auto 0.8 % (0.2-1.2); Eosinophils Absolute Auto 0.2 K/mm3 (0-0.3); Eosinophils Percent Auto 2.7 % (0-4.4); Hemoglobin 14.1 g/dL (14.0-18.0); Immature Granulocyte Absolute 0.02 K/mm3 (0.00-0.031); Immature Granulocyte Percent A 0.3 % (0-0.5); Lymphocytes Absolute Auto 1.28 K/mm3 (0.9-3.2); Lymphocytes Percent Auto 20.4 % (18.3-44.2); Mean Corpuscular HGB Conc 33.6 g/dl (32-36); Mean Corpuscular Hemoglobin 29.5 pg (26-34); Mean Corpuscular Volume 87.9 fl (80-100); Monocytes Absolute Auto 0.6 K/mm3 (0.1-0.6); Monocytes Percent Auto 8.8 % (2.6-8.5); Neutrophils Absolute Auto 4.2 K/mm3 (1.3-6.7); Platelet Count Result 146 k/mm3 (150-375); Red Blood Count 4.78 M/mm3 (4.6-6.20); Red Cell Distribution Width 12.4 % (11.5-14.5); White Blood Count 6.3 K/mm3 (4.5-10.0)
[2024-08-04 08:06] LABS: Alanine Aminotransferase 13 U/L (6-50); Albumin Level 3.9 g/dL (3.5-5.1); Alkaline Phosphatase 63 U/L (38-126); Anion Gap 7 mmol/L (4-12); Aspartate Amino Transferase 22 U/L (17-59); Bilirubin,Total 0.7 mg/dL (0.2-1.3); Blood Urea Nitrogen 15 mg/dL (9-20); Carbon Dioxide 27 mmol/L (22-30); Chloride 104 mmol/L (98-107); Cholesterol 249 mg/dL (0-200); Estimated CRCL calculation 58 ml/min; Estimated Glomerular Filt Rate > 60; Glucose 95 mg/dL (65-110); HDL Direct 47 mg/dL; Potassium 3.5 mmol/L (3.4-5.0); Sodium 138 mmol/L (137-145); Triglycerides 76 mg/dL (<150)
--- NOTE | 2024-08-04 08:15 | PM.IMPN ---
Progress Note: A&P Assessment and Plan (1) Acute internal jugular vein thrombosis: Qualifiers: Laterality: left Qualified Code(s): I82.C12 - Acute embolism and thrombosis of left internal jugular vein Code(s): I82.C19 - Acute embolism and thrombosis of unspecified internal jugular vein Status: Acute Assessment and Plan: New deficits of right-sided weakness and right facial droop starting on 08/02 at 10:00 a.m. Last known normal on 08/01/2024 at 10:00 p.m.. Imaging showed slow/absent flow in the left sigmoid sinus and left internal jugular vein with suggestion of intramural thrombus. ED provider spoke with [facility] stroke team (Clarence MCCRACKEN), the patient is not a candidate for intervention at this time given time frame. Recommended anticoagulation. Heparin gtt initiated in ED. Continue telemetry Brain MR does reveal acute infarct in the left basal ganglia/left periventricular white matter. With no evidence of venous sinus thrombosis. CTA head and neck showed findings suggestive of left sigmoid sinus and internal jugular vein thrombosis. Short segment severe stenosis in the proximal right ECA. No large vessel intracranial occlusion or aneurysm. No carotid or vertebral artery occlusion dissection or significant stenosis. Neurology has been consulted Will start aspirin and Plavix Will discontinue heparin drip. Speech therapy PT/ OT Statin Check A1c and lipid profile Echo (2) Cerebral venous sinus thrombosis: Code(s): G08 - Intracranial and intraspinal phlebitis and thrombophlebitis Status: Acute Assessment and Plan: - see above repeat MRV came back negative for sinus thrombosis as was noted in CTA (3) Chronic UTI: Code(s): N39.0 - Urinary tract infection, site not specified Status: Acute Assessment and Plan: - chronic UTIs, prescribed ciprofloxacin 500 mg b.i.d. x7 days when he develops symptoms. Has had 2 doses, will continue x6 days for total of 7 after discussion with patient's . - UA: Specific gravity 1.045, 1+ ketones Plan Diet: Heart healthy GI Prophylaxis: Not currently indicated DVT Prophylaxis: Heparin gtt will be switched to Lovenox for DVT prophylaxis Lines: Peripheral Code Status: DNR Subjective Date/time seen: 08/04/24 08:15 Interval history: patient has underlying advanced dementia. Family at bedside. Has right-sided facial droop and right-sided weakness. Review of Systems Review of Systems: ROS unobtainable: Yes unobtainable due to mental status Exam Narrative: GENERAL: Well-appearing, well-nourished, and in no acute distress. HEAD: Normocephalic, atraumatic. EYES: PERRL and EOMI. ENT: Mucous membranes moist. CHEST: Clear to auscultation. No respiratory distress. HEART: Regular rate and rhythm. Normal peripheral pulses. ABDOMEN: Soft, nontender, nondistended EXTREMITIES: Normal range of motion. No edema. SKIN: Warm, dry, no rash. NEURO: Right facial droop. Minimal to no tone right lower extremity and right upper extremity. Babinski positive on right. Bilateral knee jerks hyperreflexic. Equal and symmetrical. Nonverbal which is his baseline. Objective Data Vital Signs Vital Signs: Vital Signs - 24 hr 08/03/24 14:18 08/03/24 14:31 08/03/24 14:31 Temperature 97.5 F L Pulse Rate 65 55 L Respiratory Rate 16 Blood Pressure 128/77 Pulse Oximetry 100 98 Oxygen Delivery Room Air Room Air Fraction of Inspired Oxygen 08/03/24 15:36 08/03/24 16:37 08/03/24 18:46 Temperature 97.9 F 97.8 F Pulse Rate 61 55 L 68 Respiratory Rate 16 16 16 Blood Pressure 140/83 128/76 128/78 Pulse Oximetry 100 98 98 Oxygen Delivery Fraction of Inspired Oxygen 08/03/24 19:07 08/03/24 19:42 08/03/24 20:00 Temperature 99.2 F 98.5 F Pulse Rate 81 78 69 Respiratory Rate 24 H 22 H Blood Pressure 168/72 H 147/91 H Pulse Oximetry 98 91 Oxygen Delivery Fraction of Inspired Oxygen 08/03/24 22:00 08/04/24 00:57 08/03/24 19:10 Temperature 97.6 F Pulse Rate 75 65 81 Respiratory Rate 22 H 24 H Blood Pressure 149/78 H Pulse Oximetry 100 98 Oxygen Delivery Room Air Fraction of Inspired Oxygen 08/03/24 23:50 08/04/24 00:00 08/04/24 02:00 Temperature Pulse Rate 65 73 59 L Respiratory Rate 22 H Blood Pressure Pulse Oximetry 100 Oxygen Delivery Room Air Fraction of Inspired Oxygen 08/04/24 04:06 08/04/24 04:00 08/04/24 04:00 Temperature 97.6 F Pulse Rate 50 L 50 L 48 L Respiratory Rate 20 20 Blood Pressure 152/81 H Pulse Oximetry 100 100 Oxygen Delivery Room Air Fraction of Inspired Oxygen 08/04/24 05:54 08/04/24 08:00 08/04/24 08:14 Temperature 97.6 F Pulse Rate 60 56 L Respiratory Rate 12 Blood Pressure 139/65 Pulse Oximetry 100 95 Oxygen Delivery Room Air Fraction of Inspired Oxygen 21 Intake/Output Intake/Output: Intake & Output 08/01/24 08/02/24 08/03/24 08/04/24 23:59 23:59 23:59 23:59 Intake Total 74.3 Output Total 150 250 Balance -150 -175.7 Meds/Results Medications: Active Medications Generic Name Dose Route Start Last Admin Trade Name Freq PRN Reason Stop Dose Admin Acetaminophen 650 mg 08/03/24 18:19 Acetaminophen 325 Mg Tablet PO Q4H PRN Mild Pain (1-3) or Fever Ciprofloxacin 500 mg 08/03/24 21:30 08/03/24 23:54 Ciprofloxacin 500 Mg Tab PO 08/09/24 09:01 500 mg Q12HR URI Administration Clotrimazole 1 applic 08/04/24 09:00 Betamethasone/Clotrimazole Cream 15 Gm Tube TOPICAL QAM [facility] Donepezil HCl 10 mg 08/03/24 21:30 08/03/24 23:55 Donepezil Hcl 10 Mg Tablet PO 10 mg HS URI Administration Heparin Sodium (Porcine) 5,000 units 08/03/24 16:51 Heparin Sodium 5,000 Units/Ml Vial IV PUSH PRN PRN aPTT less than 55 seconds Heparin Sodium (Porcine) 2,500 units 08/03/24 16:51 Heparin Sodium 5,000 Units/Ml Vial IV PUSH PRN PRN aPTT 55 - 70 seconds Heparin Sodium/Dextrose 25,000 units in 250 mls @ 9 mls/hr 08/03/24 16:55 08/04/24 01:12 Heparin Sodium/D5w 100 Units/Ml IV CONT 900 units/hr .Q24H URI 9 mls/hr Titration Protocol 900 UNITS/HR Memantine 10 mg 08/04/24 09:00 Memantine 10 Mg Tablet PO DAILY [facility] Miscellaneous Information 1 each 08/03/24 00:01 08/04/24 03:57 Zinc Oxide 40% Ointment Is Nonformulary, We Carry Zinc Oxide 20%, Can Patient Bring From H XX 09/02/24 00:00 Not Given CLARIFY URI Non-Formulary Medication 1 applic 08/04/24 21:00 Zinc Oxide TOPICAL 09/03/24 20:59 HS URI Ondansetron HCl 4 mg 08/03/24 18:19 Ondansetron Inj 4 Mg/2 Ml Vial IV PUSH Q4H PRN Nausea Perflutren Lipid Microsphere 0 ml 08/03/24 19:14 Perflutren Lipid Microspheres 1.5 Ml Vial Diluted To 10 Ml Total Volume IV PUSH 08/06/24 19:14 ONCE PRN adequate visualization Protocol Triamcinolone Acetonide 1 applic 08/03/24 21:38 Triamcinolone Acet 0.1% Cream 80 Gm Tube TOPICAL BID PRN dermatitis flares. Radiology Results: ITS Impressions Chest X-Ray 08/03/24 15:25 IMPRESSION: No acute cardiopulmonary process. Head/Neck CTA 08/03/24 15:32 IMPRESSION: Findings suggestive of left sigmoid sinus and internal jugular vein thrombosis. Consider MRV for further evaluation. Short segment severe stenosis in the proximal right STEFANIE. No large vessel intracranial occlusion or aneurysm. No carotid or vertebral artery occlusion, dissection, or significant stenosis. Labs Labs: Laboratory Results - last 24 hr 08/03/24 08/03/24 08/03/24 14:51 18:20 23:38 WBC 6.6 RBC 4.59 L Hgb 13.5 L Hct 40.5 L MCV 88.2 MCH 29.4 MCHC 33.3 RDW 12.4 Plt Count 156 MPV 10.9 H Immature Gran % (Auto) 0.3 Neut % (Auto) 74.6 H Lymph % (Auto) 13.2 L Gladwin % (Auto) 8.5 Eos % (Auto) 2.9 Baso % (Auto) 0.5 Lymph # (Auto) 0.87 L Gladwin # (Auto) 0.6 Eos # (Auto) 0.2 Baso # (Auto) 0.0 Abs Immat Gran (auto) 0.02 Absolute Neuts (auto) 4.9 Absolute Nucleated RBC 0.000 Nucleated RBC % 0.0 PT 14.5 INR 1.1 APTT 28.4 176.7 H* Sodium 138 Potassium 3.6 Chloride 107 Carbon Dioxide 26 Anion Gap 5 BUN 15 D Creatinine 0.90 Estim Creat Clear Calc 56 Estimated GFR > 60 Glucose 96 Calcium 8.9 Total Bilirubin 0.7 AST 19 ALT 12 Alkaline Phosphatase 62 Troponin I < 0.012 Total Protein 7.0 Albumin 3.8 Triglycerides Cholesterol HDL Direct Urine Color Yellow Urine Appearance Clear Urine pH 6.0 Ur Specific Queen 1.045 H Urine Protein Negative Urine Glucose (UA) Negative Urine Ketones 1+ H Ur Blood (Man) Negative Urine Nitrate Negative Urine Bilirubin Negative Urine Urobilinogen 0.2 Leukocyte Esterase Rfl Negative 08/04/24 07:48 WBC 6.3 RBC 4.78 Hgb 14.1 Hct 42.0 MCV 87.9 MCH 29.5 MCHC 33.6 RDW 12.4 Plt Count 146 L MPV 11.0 H Immature Gran % (Auto) 0.3 Neut % (Auto) 67.0 Lymph % (Auto) 20.4 Gladwin % (Auto) 8.8 H Eos % (Auto) 2.7 Baso % (Auto) 0.8 Lymph # (Auto) 1.28 Gladwin # (Auto) 0.6 Eos # (Auto) 0.2 Baso # (Auto) 0.1 Abs Immat Gran (auto) 0.02 Absolute Neuts (auto) 4.2 Absolute Nucleated RBC 0.000 Nucleated RBC % 0.0 PT INR APTT Sodium 138 Potassium 3.5 Chloride 104 Carbon Dioxide 27 Anion Gap 7 BUN 15 Creatinine 0.80 Estim Creat Clear Calc 58 Estimated GFR > 60 Glucose 95 Calcium 9.0 Total Bilirubin 0.7 AST 22 ALT 13 Alkaline Phosphatase 63 Troponin I Total Protein 7.0 Albumin 3.9 Triglycerides 76 Cholesterol 249 H HDL Direct 47 Urine Color Urine Appearance Urine pH Ur Specific Queen Urine Protein Urine Glucose (UA) Urine Ketones Ur Blood (Man) Urine Nitrate Urine Bilirubin Urine Urobilinogen Leukocyte Esterase Rfl
[2024-08-04 08:18] LABS: LDL Cholesterol Direct 157 mg/dL
[2024-08-04 08:40] LABS: Partial Thromboplastin Time 70.7 Seconds (22.3-36.8)
[2024-08-04] MEDS: MEMANTINE 10 MG TABLET PO (08:45)
[2024-08-04] MEDS: CIPROFLOXACIN 500 MG TAB PO ×2 (08:45→20:20)
[2024-08-04] MEDS: BETAMETHASONE/CLOTRIMAZOLE CREAM 15 GM TUBE 1 APPLIC TOPICAL (08:45)
[2024-08-04 09:35] LABS: Hemoglobin A1C 5.1 % (<5.7)
--- NOTE | 2024-08-04 13:51 | PCSTNOTE ---
Bedside Swallow Evaluation This pleasant 73 year old male patient was evaluated at bedside to ensure swallowing safety during oral intake. The pt was admitted for further evaluation of right-sided weakness and right facial droop. Following an MRI obtained this morning, the pt demonstrated an acute infarct in the left basal ganglia. Ed, RN fed the pt breakfast (cranberry juice, oranges, and pancakes) this morning and reported no s/s of aspiration. Additionally, the pt had meds crushed this morning and was able to swallow those with no s/s of aspiration. The pts daughter Citlalli verbalized that the pt often feeds himself and does not have any issues swallowing. An oral motor exam was attempted. The pt exhibits R sided facial weakness. Tongue is symmetrical and all teeth are intact. Daughter reports that the R sided facial weakness does not affect the pts oral intake. Trials of thin liquid, mixed consistencies, and solids were administered at bedside via straw and fork. Pt is unable to feed himself at this time, so his family is ensuring 1:1 supervision and assistance during meals. On the first straw sip of thin liquid, the pt demonstrated a cough and a wet/gurgly voice. This was the first sip of liquid that the pt had had since breakfast. Following that trial, the pt completed multiple trials of thin, mixed, and solid consistencies with no s/s of aspiration. The pt?s vocal quality was normal as confirmed by family. Oral transit is timely and mastication was thorough. No oral residue observed. Laryngeal elevation was adequate and timely for all swallows. Please note that silent aspiration cannot be ruled out at bedside. Given the results of this assessment, it is recommended this pt receive an oral diet of regular solids (IDDSI Level 7) and thin liquids (IDDSI Level 1). It is additionally recommended that the pt follow these standard swallowing precautions: Small bites/sips, minimize distractions, sit upright during meals, and alternate solids/liquids with 1:1 supervision during meals. Pt and family (, daughter, son) educated on swallowing precautions. Family verbalized agreement and understanding and pt provided a head nod. No further ST is warranted at this time. Thank you for this referral. Lexii, Hospitalist, and OTTONIEL Stanley were notified of BSE results and recommendations. Thank you for this referral.
[2024-08-04] MEDS: ASPIRIN 81 MG ENTERIC TABLET PO (14:25)
[2024-08-04] MEDS: CLOPIDOGREL BISULFATE 75 MG TABLET PO (14:25)
--- NOTE | 2024-08-04 14:56 | WPDNEURCNPN ---
Assessment and Plan Assessment and plan (1) Dementia: Code(s): F03.90 - Unspecified dementia, unspecified severity, without behavioral disturbance, psychotic disturbance, mood disturbance, and anxiety Status: Acute (2) Stroke: Code(s): I63.9 - Cerebral infarction, unspecified Status: Acute Plan 1. Thrombosis of left internal jugular vein 2. Right-sided neurological deficit with acute infarct in left basal ganglia and left periventricular white matter that explains the present Neurological deficit. 3. MRV is negative for the sinus thrombosis 4. Would benefit from the rehab along the continuation of the treatment for his dementia and supportive care Consult date: 08/04/24 HPI: Noah Butler is a 73 year old male admitted to the hospital through the emergency room with the complaints of right-sided weakness and with the description that he was having trouble ambulating with his walker with the help of his family and subsequently stopped using his right upper extremity during the day he was last well known on August 01, 2024 patient has ongoing diagnosis of severe dementia and oriented only x1 at the baseline patient also have right-sided weakness in his medication in the ER included donepezil 10mg at night, memantine 10mg daily he is allergic to sulfa has ongoing diagnosis of Alzheimer's dementia with congestive heart failure is a former smoker by history Never alcohol intake or and initial exam in the emergency room was found to have profound weakness of right side with right facial droop Will black T was contacted particular Dr. Lima he was not a candidate for intervention and suggested to continue anticoagulation therapy he was admitted here with normal vital signs normal CBC normal BMP normal routine lab negative x-ray chest, negative CTA of the neck except mild calcification of the bifurcation also findings suggestive of left sigmoid sinus and internal jugular vein thrombosis which was clarified by the venous study that is MR venogram of the brain and MRI of the brain consistent of acute infarct in left basal ganglia left periventricular white matter with diffuse chronic white matter disease no evidence of venous sinus thrombosis. Review of Systems Review of Systems: All systems reviewed & are unremarkable except as noted in HPI and below PMFSH Past Medical History Medical History Afib Alzheimer's dementia Arthritis Chronic UTI Congestive heart failure HLD (hyperlipidemia) Currently off medications HTN (hypertension) Currently off medications Sleep apnea Family History Family History Sibling Diabetes mellitus Brother Father Family history of kidney stones, Onset Age: 75 Family history of dementia, Onset Age: 75 Cerebrovascular accident, Onset Age: 75 Alzheimer dementia Hypertension Mother Heart problem Social History Social History Smoking status: Former smoker Tobacco type: cigarettes Second hand tobacco smoke exposure: No Additional smoking assessment comments: Unknown amount. Alcohol intake: never Substance use: never Substance use type: does not use Do You Feel Safe in your Home?: Yes Lack of Transportation: No Lack of Food: Never True Current Housing: I Have Housing Concerned About Future Housing: No Difficulty Paying Gas/Electric Bills: No Difficulty Paying for Meds: No Currently Unemployed: No Education: Don't Know Difficulty w/ Childcare or Family Care: No Spiritual care concerns: No Meds Home Medications and Allergies Home Medications Medication Instructions Recorded Confirmed Type donepezil 10 mg tablet 10 mg PO HS 02/17/21 08/03/24 History memantine 10 mg tablet 10 mg PO DAILY 02/17/21 08/03/24 History nystatin-triamcinolone 100,000 1 applic topical QAM 05/07/24 08/03/24 History unit/gram-0.1 % topical ointment acetaminophen 650 mg/20.3 mL oral 650 mg PO Q6H PRN Pain (Scale 08/03/24 08/03/24 History solution Score 1-3) or fever betamethasone dipropionate 0.05 % 1 applic topical BID PRN 08/03/24 08/03/24 History lotion dermatitis flares. ciprofloxacin HCl 500 mg tablet 500 mg PO BID 08/03/24 08/03/24 History meloxicam 7.5 mg tablet 7.5 mg PO DAILY PRN hip pain 08/03/24 08/03/24 History zinc oxide 40 % topical ointment 1 applic topical HS 08/03/24 08/03/24 History Allergies Allergy/AdvReac Type Severity Reaction Status Date / Time Sulfa (Sulfonamide Allergy Mild rash Verified 08/03/24 20:32 Antibiotics) Vital Signs Vital Signs - 24 hr 08/03/24 15:36 08/03/24 16:37 08/03/24 18:46 Temperature 36.6 C 36.6 C Pulse Rate 61 55 L 68 Respiratory Rate 16 16 16 Blood Pressure 140/83 128/76 128/78 Pulse Oximetry 100 98 98 Oxygen Delivery Fraction of Inspired Oxygen 08/03/24 19:07 08/03/24 19:42 08/03/24 20:00 Temperature 37.3 C 36.9 C Pulse Rate 81 78 69 Respiratory Rate 24 H 22 H Blood Pressure 168/72 H 147/91 H Pulse Oximetry 98 91 Oxygen Delivery Fraction of Inspired Oxygen 08/03/24 22:00 08/04/24 00:57 08/03/24 19:10 Temperature 36.4 C Pulse Rate 75 65 81 Respiratory Rate 22 H 24 H Blood Pressure 149/78 H Pulse Oximetry 100 98 Oxygen Delivery Room Air Fraction of Inspired Oxygen 08/03/24 23:50 08/04/24 00:00 08/04/24 02:00 Temperature Pulse Rate 65 73 59 L Respiratory Rate 22 H Blood Pressure Pulse Oximetry 100 Oxygen Delivery Room Air Fraction of Inspired Oxygen 08/04/24 04:06 08/04/24 04:00 08/04/24 04:00 Temperature 36.4 C Pulse Rate 50 L 50 L 48 L Respiratory Rate 20 20 Blood Pressure 152/81 H Pulse Oximetry 100 100 Oxygen Delivery Room Air Fraction of Inspired Oxygen 08/04/24 05:54 08/04/24 08:00 08/04/24 08:14 Temperature 36.4 C Pulse Rate 60 56 L Respiratory Rate 12 Blood Pressure 139/65 Pulse Oximetry 100 95 Oxygen Delivery Room Air Fraction of Inspired Oxygen 21 08/04/24 08:00 08/04/24 08:00 08/04/24 10:00 Temperature Pulse Rate 62 59 L Respiratory Rate Blood Pressure Pulse Oximetry Oxygen Delivery Room Air Fraction of Inspired Oxygen 08/04/24 12:00 08/04/24 12:00 08/04/24 12:00 Temperature 36.8 C Pulse Rate 58 L 64 Respiratory Rate 20 Blood Pressure 148/79 H Pulse Oximetry 100 Oxygen Delivery Room Air Fraction of Inspired Oxygen 08/04/24 14:00 Temperature Pulse Rate 51 L Respiratory Rate Blood Pressure Pulse Oximetry Oxygen Delivery Fraction of Inspired Oxygen Exam Narrative: Awake alert in no obvious acute distress head normocephalic with no bruit ear nose throat examination normal neck supple with no cervical bruit no thyromegaly no lymphadenopathy heart regular lungs clear abdomen soft nontender neurologically with right facial droop decreased strength on the right side with hyperreflexia questionable plantar response and no further verbal responses Results Labs 08/04/24 07:48 08/04/24 07:48 Labs: Short CBC 08/03/24 08/04/24 Range/Units 14:51 07:48 WBC 6.6 6.3 (4.5-10.0) K/mm3 Hgb 13.5 L 14.1 (14.0-18.0) g/dL Hct 40.5 L 42.0 (42.0-52.0) % Plt Count 156 146 L (150-375) k/mm3 BMP 08/03/24 08/04/24 14:51 07:48 Sodium 138 138 Potassium 3.6 3.5 Chloride 107 104 Carbon Dioxide 26 27 BUN 15 D 15 Creatinine 0.90 0.80 Glucose 96 95 Calcium 8.9 9.0 Cardiac Enzymes 08/03/24 Range/Units 14:51 Troponin I < 0.012 (0.000-0.034) ng/mL Liver Function 08/03/24 08/04/24 Range/Units 14:51 07:48 Total Bilirubin 0.7 0.7 (0.2-1.3) mg/dL AST 19 22 (17-59) U/L ALT 12 13 (6-50) U/L Alkaline Phosphatase 62 63 (38-126) U/L Albumin 3.8 3.9 (3.5-5.1) g/dL Urine 08/03/24 Range/Units 18:20 Urine Color Yellow (Yellow) Urine Appearance Clear (Clear) Urine pH 6.0 (5.0-9.0) Ur Specific [place] 1.045 H (1.001-1.035) Urine Protein Negative (Negative) mg/dL Urine Glucose (UA) Negative (Negative) mg/dL
[2024-08-04] MEDS: DONEPEZIL HCL 10 MG TABLET PO (20:19)
[2024-08-05] VITALS (16 sets, daily range): BP systolic 145–167; BP diastolic 6–88; PULSE 50–77; RESP 12–20; TEMP 36.3–37.1; O2SAT 93–100
[2024-08-05 05:16] LABS: Basophils Percent Auto 0.4 % (0.2-1.2); Eosinophils Absolute Auto 0.2 K/mm3 (0-0.3); Eosinophils Percent Auto 2.8 % (0-4.4); Hematocrit 42.5 % (42.0-52.0); Hemoglobin 14.1 g/dL (14.0-18.0); Immature Granulocyte Absolute 0.02 K/mm3 (0.00-0.031); Immature Granulocyte Percent A 0.3 % (0-0.5); Lymphocytes Absolute Auto 1.38 K/mm3 (0.9-3.2); Lymphocytes Percent Auto 17.9 % (18.3-44.2); Mean Corpuscular HGB Conc 33.2 g/dl (32-36); Mean Corpuscular Volume 87.4 fl (80-100); Mean Platelet Volume 11.1 fl (7.4-10.4); Monocytes Absolute Auto 0.7 K/mm3 (0.1-0.6); Monocytes Percent Auto 9.6 % (2.6-8.5); Neutrophils Absolute Auto 5.3 K/mm3 (1.3-6.7); Platelet Count Result 171 k/mm3 (150-375); Red Blood Count 4.86 M/mm3 (4.6-6.20); Red Cell Distribution Width 12.3 % (11.5-14.5); White Blood Count 7.7 K/mm3 (4.5-10.0)
[2024-08-05 05:36] LABS: Alanine Aminotransferase 11 U/L (6-50); Albumin Level 3.9 g/dL (3.5-5.1); Alkaline Phosphatase 65 U/L (38-126); Anion Gap 6 mmol/L (4-12); Aspartate Amino Transferase 20 U/L (17-59); Blood Urea Nitrogen 11 mg/dL (9-20); Calcium 9.1 mg/dL (8.4-10.2); Carbon Dioxide 26 mmol/L (22-30); Chloride 105 mmol/L (98-107); Estimated CRCL calculation 53 ml/min; Estimated Glomerular Filt Rate > 60; Glucose 102 mg/dL (65-110); Potassium 3.2 mmol/L (3.4-5.0); Sodium 137 mmol/L (137-145)
[2024-08-05] MEDS: MEMANTINE 10 MG TABLET PO (08:48)
[2024-08-05] MEDS: CIPROFLOXACIN 500 MG TAB PO ×2 (08:48→20:43)
[2024-08-05] MEDS: BETAMETHASONE/CLOTRIMAZOLE CREAM 15 GM TUBE 1 APPLIC TOPICAL (08:53)
[2024-08-05] MEDS: ASPIRIN 81 MG ENTERIC TABLET PO (08:53)
[2024-08-05] MEDS: CLOPIDOGREL BISULFATE 75 MG TABLET PO (08:53)
[2024-08-05] MEDS: ENOXAPARIN 40 MG/0.4 ML SYRINGE SUB-Q (08:53)
[2024-08-05] MEDS: POTASSIUM CHLORIDE 20 MEQ ER TABLET 40 MEQ PO (10:15)
[2024-08-05] MEDS: PERFLUTREN LIPID MICROSPHERES 1.5 ML VIAL DILUTED TO 10 ML TOTAL VOLUME IV PUSH (11:45)
--- NOTE | 2024-08-05 11:45 | P.PNNEUR_ITS ---
Progress Note: A&P Assessment and Plan (1) Acute left STEFANIE ischemic stroke: Code(s): I63.522 - Cerebral infarction due to unspecified occlusion or stenosis of left anterior cerebral artery Status: Acute (2) Dementia: Code(s): F03.90 - Unspecified dementia, unspecified severity, without behavioral disturbance, psychotic disturbance, mood disturbance, and anxiety Status: Acute Plan The patient is on aspirin 81 mg a day Plavix 75 mg a day and I would suggest to add Lipitor 40 mg a day. A follow-up lipid profile in 3 months would be recomme nded the goal should be to keep the LDL under 75. Current LDL is 157 which is fairly high. I spoke to his daughter and made her aware of this and she is going to take it further. Patient should undergo physical therapy and speech therapy. Neurology will follow. Subjective Date/time seen: 08/05/24 11:45 Interval history: 73-year-old presented with right side weakness and found to have a left basal ganglia infarct. Patient has pre-existing history of dementia of Alzheimer's type. He has been on Aricept and Namenda. Patient's daughter was present at the time of the evaluation. Patient is undergoing echocardiogram. He does talk and was able to feed himself. CT angiogram of the head and neck shows severe stenosis the left anterior cerebral artery. Lipid profile shows LDL was high at 157. MRI of the brain shows an acute infarct in the left basal ganglia and left periventricular white matter. In addition diffuse white matter changes were seen. Patient unable to offer any history at this time. However his daughter was very helpful. Patient lives his . Exam Narrative: Patient undergoing echocardiogram and was unable to undergo a detailed neurologic examination at this time. Objective Data Vital Signs Vital Signs: Vital Signs - 24 hr 08/04/24 12:00 08/04/24 12:00 08/04/24 12:00 Temperature 98.2 F Pulse Rate 58 L 64 Respiratory Rate 20 Blood Pressure 148/79 H Pulse Oximetry 100 Oxygen Delivery Room Air 08/04/24 14:00 08/04/24 16:00 08/04/24 16:00 Temperature Pulse Rate 51 L 60 Respiratory Rate Blood Pressure Pulse Oximetry Oxygen Delivery Room Air 08/04/24 16:00 08/04/24 20:00 08/04/24 18:00 Temperature 97.9 F Pulse Rate 55 L 76 69 Respiratory Rate 16 16 Blood Pressure 144/77 H Pulse Oximetry 100 100 Oxygen Delivery Room Air 08/04/24 21:11 08/04/24 20:00 08/04/24 22:00 Temperature 97.7 F Pulse Rate 76 71 72 Respiratory Rate 16 Blood Pressure 161/80 H Pulse Oximetry 100 Oxygen Delivery 08/04/24 23:34 08/05/24 00:21 08/05/24 00:00 Temperature 97.7 F Pulse Rate 68 68 68 Respiratory Rate 16 16 Blood Pressure 152/80 H Pulse Oximetry 100 100 Oxygen Delivery Room Air 08/05/24 01:34 08/05/24 04:13 08/05/24 04:00 Temperature 97.7 F Pulse Rate 75 64 64 Respiratory Rate 16 16 Blood Pressure 145/77 H Pulse Oximetry 98 98 Oxygen Delivery Room Air 08/05/24 04:00 08/05/24 06:00 08/05/24 07:32 Temperature 98.7 F Pulse Rate 66 53 L 51 L Respiratory Rate 18 Blood Pressure 160/76 H Pulse Oximetry 100 Oxygen Delivery 08/05/24 08:00 08/05/24 09:16 08/05/24 10:00 Temperature Pulse Rate 62 58 L Respiratory Rate Blood Pressure Pulse Oximetry Oxygen Delivery Room Air Intake/Output Intake/Output: Intake & Output 08/02/24 08/03/24 08/04/24 08/05/24 23:59 23:59 23:59 23:59 Intake Total 693.7 120 Output Total 150 850 500 Balance -150 -156.3 -380 Meds/Results Medications: Active Medications Generic Name Dose Route Start Last Admin Trade Name Christiano PRN Reason Stop Dose Admin Acetaminophen 650 mg 08/03/24 18:19 Acetaminophen 325 Mg Tablet PO Q4H PRN Mild Pain (1-3) or Fever Aspirin 81 mg 08/04/24 13:20 08/05/24 08:53 Aspirin 81 Mg Enteric Tablet PO 81 mg QAM URI Administration Ciprofloxacin 500 mg 08/03/24 21:30 08/05/24 08:48 Ciprofloxacin 500 Mg Tab PO 08/09/24 09:01 500 mg Q12HR URI Administration Clopidogrel Bisulfate 75 mg 08/04/24 13:20 08/05/24 08:53 Clopidogrel Bisulfate 75 Mg Tablet PO 75 mg QAM URI Administration Clotrimazole 1 applic 08/04/24 09:00 08/05/24 08:53 Betamethasone/Clotrimazole Cream 15 Gm Tube TOPICAL 1 applic QAM URI Administration Donepezil HCl 10 mg 08/03/24 21:30 08/04/24 20:19 Donepezil Hcl 10 Mg Tablet PO 10 mg HS URI Administration Enoxaparin Sodium 40 mg 08/05/24 09:00 08/05/24 08:53 Enoxaparin 40 Mg/0.4 Ml Syringe SUB-Q 40 mg DAILY URI Administration Memantine 10 mg 08/04/24 09:00 08/05/24 08:48 Memantine 10 Mg Tablet PO 10 mg DAILY URI Administration Miscellaneous Information 1 each 08/03/24 00:01 08/05/24 05:31 Zinc Oxide 40% Ointment Is Nonformulary, We Carry Zinc Oxide 20%, Can Patient Bring From H XX 09/02/24 00:00 Not Given CLARIFY URI Non-Formulary Medication 1 applic 08/04/24 21:00 Zinc Oxide TOPICAL 09/03/24 20:59 HS URI Ondansetron HCl 4 mg 08/03/24 18:19 Ondansetron Inj 4 Mg/2 Ml Vial IV PUSH Q4H PRN Nausea Perflutren Lipid Microsphere 0 ml 08/03/24 19:14 Perflutren Lipid Microspheres 1.5 Ml Vial Diluted To 10 Ml Total Volume IV PUSH 08/06/24 19:14 ONCE PRN adequate visualization Protocol Triamcinolone Acetonide 1 applic 08/03/24 21:38 Triamcinolone Acet 0.1% Cream 80 Gm Tube TOPICAL BID PRN dermatitis flares. Radiology Results: ITS Impressions Chest X-Ray 08/03/24 15:25 IMPRESSION: No acute cardiopulmonary process. Head/Neck CTA 08/03/24 15:32 IMPRESSION: Findings suggestive of left sigmoid sinus and internal jugular vein thrombosis. Consider MRV for further evaluation. Short segment severe stenosis in the proximal right STEFANIE. No large vessel intracranial occlusion or aneurysm. No carotid or vertebral artery occlusion, dissection, or significant stenosis. Head/Brain Mag Res Venography 08/04/24 12:21 Impression: No evidence of venous sinus thrombosis. Brain MRI 08/04/24 12:22 IMPRESSION: Acute infarct in the left basal ganglia/left periventricular white matter, as detailed above. Diffuse chronic white matter disease, most likely severe chronic microvascular ischemic change. No evidence of venous sinus thrombosis. Carotid Doppler Study 08/05/24 06:09 Impression: No hemodynamically significant stenosis of the bilateral internal carotid arteries. Antegrade flow in the bilateral vertebral arteries. Note: The methodology used is an indirect measurement validated against a direct method (such as the NASCET criteria) that compares diameters at the stenosis to the distal ICA. Labs Labs: Laboratory Results - last 24 hr 08/05/24 04:46 WBC 7.7 RBC 4.86 Hgb 14.1 Hct 42.5 MCV 87.4 MCH 29.0 MCHC 33.2 RDW 12.3 Plt Count 171 MPV 11.1 H Immature Gran % (Auto) 0.3 Neut % (Auto) 69.0 Lymph % (Auto) 17.9 L [place] % (Auto) 9.6 H Eos % (Auto) 2.8 Baso % (Auto) 0.4 Lymph # (Auto) 1.38 [place] # (Auto) 0.7 H Eos # (Auto) 0.2 Baso # (Auto) 0.0 Abs Immat Gran (auto) 0.02 Absolute Neuts (auto) 5.3 Absolute Nucleated RBC 0.000 Nucleated RBC % 0.0 Sodium 137 Potassium 3.2 L Chloride 105 Carbon Dioxide 26 Anion Gap 6 BUN 11 Creatinine 0.90 Estim Creat Clear Calc 53 Estimated GFR > 60 Glucose 102 Calcium 9.1 Magnesium 2.0 Total Bilirubin 1.0 AST 20 ALT 11 Alkaline Phosphatase 65 Total Protein 7.0 Albumin 3.9
--- NOTE | 2024-08-05 14:38 | PM.IMPN ---
Progress Note: A&P Assessment and Plan (1) Acute internal jugular vein thrombosis: Qualifiers: Laterality: left Qualified Code(s): I82.C12 - Acute embolism and thrombosis of left internal jugular vein Code(s): I82.C19 - Acute embolism and thrombosis of unspecified internal jugular vein Status: Acute Assessment and Plan: New deficits of right-sided weakness and right facial droop starting on 08/02 at 10:00 a.m. Last known normal on 08/01/2024 at 10:00 p.m.. Imaging showed slow/absent flow in the left sigmoid sinus and left internal jugular vein with suggestion of intramural thrombus. ED provider spoke with [facility] stroke team (Clarence MCCRACKEN), the patient is not a candidate for intervention at this time given time frame. Recommended anticoagulation. Heparin gtt initiated in ED. Continue telemetry Brain MR does reveal acute infarct in the left basal ganglia/left periventricular white matter. With no evidence of venous sinus thrombosis. CTA head and neck showed findings suggestive of left sigmoid sinus and internal jugular vein thrombosis. Short segment severe stenosis in the proximal right ECA. No large vessel intracranial occlusion or aneurysm. No carotid or vertebral artery occlusion dissection or significant stenosis. Neurology has been consulted Started on aspirin and Plavix Discontinued heparin drip. Speech therapy and on regular diet PT/ OT Statin A1c normal and lipid profile LDL 157 Echo pending (2) Cerebral venous sinus thrombosis: Code(s): G08 - Intracranial and intraspinal phlebitis and thrombophlebitis Status: Acute Assessment and Plan: - see above repeat MRV came back negative for sinus thrombosis as was noted in CTA (3) Chronic UTI: Code(s): N39.0 - Urinary tract infection, site not specified Status: Acute Assessment and Plan: - chronic UTIs, prescribed ciprofloxacin 500 mg b.i.d. x7 days when he develops symptoms. Has had 2 doses, will continue x6 days for total of 7 after discussion with patient's . - UA: Specific gravity 1.045, 1+ ketones Plan Diet: Heart healthy GI Prophylaxis: Not currently indicated DVT Prophylaxis: Heparin gtt will be switched to Lovenox for DVT prophylaxis Lines: Peripheral Code Status: DNR Subjective Date/time seen: 08/05/24 14:38 Interval history: No overnight events. Work with therapy this a.m.. Right-sided weakness persist. Review of Systems Review of Systems: ROS unobtainable: Yes unobtainable due to mental status Exam Narrative: GENERAL: Well-appearing, well-nourished, and in no acute distress. HEAD: Normocephalic, atraumatic. EYES: PERRL and EOMI. ENT: Mucous membranes moist. CHEST: Clear to auscultation. No respiratory distress. HEART: Regular rate and rhythm. Normal peripheral pulses. ABDOMEN: Soft, nontender, nondistended EXTREMITIES: Normal range of motion. No edema. SKIN: Warm, dry, no rash. NEURO: Right facial droop. Minimal to no tone right lower extremity and right upper extremity. Bilateral knee jerks hyperreflexic. Equal and symmetrical. Nonverbal which is his baseline. Objective Data Vital Signs Vital Signs: Vital Signs - 24 hr 08/04/24 16:00 08/04/24 16:00 08/04/24 16:00 Temperature 97.9 F Pulse Rate 60 55 L Respiratory Rate 16 Blood Pressure 144/77 H Pulse Oximetry 100 Oxygen Delivery Room Air 08/04/24 20:00 08/04/24 18:00 08/04/24 21:11 Temperature 97.7 F Pulse Rate 76 69 76 Respiratory Rate 16 16 Blood Pressure 161/80 H Pulse Oximetry 100 100 Oxygen Delivery Room Air 08/04/24 20:00 08/04/24 22:00 08/04/24 23:34 Temperature 97.7 F Pulse Rate 71 72 68 Respiratory Rate 16 Blood Pressure 152/80 H Pulse Oximetry 100 Oxygen Delivery 08/05/24 00:21 08/05/24 00:00 08/05/24 01:34 Temperature Pulse Rate 68 68 75 Respiratory Rate 16 Blood Pressure Pulse Oximetry 100 Oxygen Delivery Room Air 08/05/24 04:13 08/05/24 04:00 08/05/24 04:00 Temperature 97.7 F Pulse Rate 64 64 66 Respiratory Rate 16 16 Blood Pressure 145/77 H Pulse Oximetry 98 98 Oxygen Delivery Room Air 08/05/24 06:00 08/05/24 07:32 08/05/24 08:00 Temperature 98.7 F Pulse Rate 53 L 51 L 62 Respiratory Rate 18 Blood Pressure 160/76 H Pulse Oximetry 100 Oxygen Delivery 08/05/24 09:16 08/05/24 10:00 08/05/24 12:07 Temperature 98.3 F Pulse Rate 58 L 58 L Respiratory Rate 20 Blood Pressure 148/6 H Pulse Oximetry 99 Oxygen Delivery Room Air 08/05/24 12:00 08/05/24 13:30 Temperature Pulse Rate 50 L Respiratory Rate Blood Pressure Pulse Oximetry Oxygen Delivery Room Air Intake/Output Intake/Output: Intake & Output 08/02/24 08/03/24 08/04/24 08/05/24 23:59 23:59 23:59 23:59 Intake Total 693.7 120 Output Total 150 850 500 Balance -150 -156.3 -380 Meds/Results Medications: Active Medications Generic Name Dose Route Start Last Admin Trade Name Freq PRN Reason Stop Dose Admin Acetaminophen 650 mg 08/03/24 18:19 Acetaminophen 325 Mg Tablet PO Q4H PRN Mild Pain (1-3) or Fever Aspirin 81 mg 08/04/24 13:20 08/05/24 08:53 Aspirin 81 Mg Enteric Tablet PO 81 mg QAM URI Administration Ciprofloxacin 500 mg 08/03/24 21:30 08/05/24 08:48 Ciprofloxacin 500 Mg Tab PO 08/09/24 09:01 500 mg Q12HR URI Administration Clopidogrel Bisulfate 75 mg 08/04/24 13:20 08/05/24 08:53 Clopidogrel Bisulfate 75 Mg Tablet PO 75 mg QAM [facility] Administration Clotrimazole 1 applic 08/04/24 09:00 08/05/24 08:53 Betamethasone/Clotrimazole Cream 15 Gm Tube TOPICAL 1 applic QAM URI Administration Donepezil HCl 10 mg 08/03/24 21:30 08/04/24 20:19 Donepezil Hcl 10 Mg Tablet PO 10 mg HS URI Administration Enoxaparin Sodium 40 mg 08/05/24 09:00 08/05/24 08:53 Enoxaparin 40 Mg/0.4 Ml Syringe SUB-Q 40 mg DAILY URI Administration Memantine 10 mg 08/04/24 09:00 08/05/24 08:48 Memantine 10 Mg Tablet PO 10 mg DAILY URI Administration Miscellaneous Information 1 each 08/03/24 00:01 08/05/24 05:31 Zinc Oxide 40% Ointment Is Nonformulary, We Carry Zinc Oxide 20%, Can Patient Bring From H XX 09/02/24 00:00 Not Given CLARIFY [facility] Non-Formulary Medication 1 applic 08/04/24 21:00 Zinc Oxide TOPICAL 12/17/24 20:59 HS URI Ondansetron HCl 4 mg 08/03/24 18:19 Ondansetron Inj 4 Mg/2 Ml Vial IV PUSH Q4H PRN Nausea Triamcinolone Acetonide 1 applic 08/03/24 21:38 Triamcinolone Acet 0.1% Cream 80 Gm Tube TOPICAL BID PRN dermatitis flares. Radiology Results: ITS Impressions Chest X-Ray 08/03/24 15:25 IMPRESSION: No acute cardiopulmonary process. Head/Neck CTA 08/03/24 15:32 IMPRESSION: Findings suggestive of left sigmoid sinus and internal jugular vein thrombosis. Consider MRV for further evaluation. Short segment severe stenosis in the proximal right STEFANIE. No large vessel intracranial occlusion or aneurysm. No carotid or vertebral artery occlusion, dissection, or significant stenosis. Head/Brain Mag Res Venography 08/04/24 12:21 Impression: No evidence of venous sinus thrombosis. Brain MRI 08/04/24 12:22 IMPRESSION: Acute infarct in the left basal ganglia/left periventricular white matter, as detailed above. Diffuse chronic white matter disease, most likely severe chronic microvascular ischemic change. No evidence of venous sinus thrombosis. Carotid Doppler Study 08/05/24 06:09 Impression: No hemodynamically significant stenosis of the bilateral internal carotid arteries. Antegrade flow in the bilateral vertebral arteries. Note: The methodology used is an indirect measurement validated against a direct method (such as the NASCET criteria) that compares diameters at the stenosis to the distal ICA. Labs Labs: Laboratory Results - last 24 hr 08/05/24 04:46 WBC 7.7 RBC 4.86 Hgb 14.1 Hct 42.5 MCV 87.4 MCH 29.0 MCHC 33.2 RDW 12.3 Plt Count 171 MPV 11.1 H Immature Gran % (Auto) 0.3 Neut % (Auto) 69.0 Lymph % (Auto) 17.9 L [place] % (Auto) 9.6 H Eos % (Auto) 2.8 Baso % (Auto) 0.4 Lymph # (Auto) 1.38 [place] # (Auto) 0.7 H Eos # (Auto) 0.2 Baso # (Auto) 0.0 Abs Immat Gran (auto) 0.02 Absolute Neuts (auto) 5.3 Absolute Nucleated RBC 0.000 Nucleated RBC % 0.0 Sodium 137 Potassium 3.2 L Chloride 105 Carbon Dioxide 26 Anion Gap 6 BUN 11 Creatinine 0.90 Estim Creat Clear Calc 53 Estimated GFR > 60 Glucose 102 Calcium 9.1 Magnesium 2.0 Total Bilirubin 1.0 AST 20 ALT 11 Alkaline Phosphatase 65 Total Protein 7.0 Albumin 3.9
--- NOTE | 2024-08-05 14:48 | IVDEFINITY ---
Prior to administration of IV Definity the patient was educated on the risks and benefits of the imaging enhancing agent including potential adverse side effects. The patient verbalized understanding. Allergies were verified. No exclusion criteria were identified and at least one of the following inclusion criteria were met: 1) physician request, 2) patient technically difficult to image (per the [place] [employer] guidelines of two or more segments not discernable within the apical view), or 3) questionable left ventricular function. ?
--- NOTE | 2024-08-05 17:55 | PC.NURSE ---
This patient, Noah Butler, was received from [[id number]] on 08/05/24 at 1750. Patient/family oriented to unit policies and routines
--- NOTE | 2024-08-05 19:14 | ECHO_ITS ---
Patient Info Name: Noah Butler Age: 73 years : 1950 Gender: Male Ht: 64 in Wt: 129 lbs BSA: 1.63 m2 HR: 62 bpm BP: 160 / 76 mmHg Technical Quality: Poor Exam Date: 08/05/2024 11:10 AM Exam Location: Echo Lab Patient Status: Inpatient Admit Date: 08/04/2024 Staff Ordering Physician: Cinda Escobar APRN Attending Provider: Alissa Bentley MD Referring Physician: Luz LOWE; Exam Type: CA echo dop bubble study w con Study Info Indications - cva Complete two-dimentional, color flow and Doppler transthoracic echocardiogram is performed with agitated saline and with contrast to opacify the left ventricle and to improve the delineation of the left ventricle endocardial borders. Contrast/Agitated Saline Contrast/Ag. Saline: Definity Amount: 2.00 ml Existing IV Access: Yes Contrast/Ag. Saline: Agitated Saline Amount: 20.00 ml Existing IV Access: Yes Reason for Poor Study: poor echocardiographic windows Summary 1. Left ventricular systolic function is normal, estimated at 35-40%. 2. The left ventricular diastolic function is grade I diastolic dysfunction. 3. There is trace mitral valve regurgitation. 4. Technically difficult study with limited views. 5. Intact interatrial septum visualized by agitated saline imaging. Left Ventricle Left ventricular chamber dimension is normal. Left ventricular systolic function is normal, estimated at 35-40%. There is no increased left ventricular wall thickness. Left ventricular septal wall motion is normal. The left ventricular diastolic function is grade I diastolic dysfunction. Right Ventricle Right ventricular chamber dimension is normal. Right ventricular systolic function is normal. Left Atria Left atrial chamber dimension is normal. Right Atria Right atrial chamber dimension is normal. Atrial Septum Intact interatrial septum visualized by agitated saline imaging. Aortic Valve The aortic valve is not well visualized. There is mild aortic valve sclerosis. There is no aortic valve stenosis. There is no aortic valve regurgitation. Pulmonic Valve The pulmonic valve is normal. There is no pulmonic valve stenosis. There is no pulmonic regurgitation. Mitral Valve The mitral valve has normal leaflets. There is no mitral valve stenosis. There is trace mitral valve regurgitation. Tricuspid Valve The tricuspid valve leaflets are normal. There is no significant tricuspid valve stenosis. There is no tricuspid valve regurgitation. Pericardium/Pleural The pericardium appears normal. There is no pericardial effusion. Inferior Vena Cava Not well visualized. Aorta The aortic root size at the sinus of Valsalva is normal. The prox ascending aorta size is normal. Left Ventricular Outflow Tract Name Value Normal LVOT 2D LVOT Diameter 2.0 cm LVOT Doppler LVOT Peak Gradient 2 mmHg LVOT Mean Gradient 1 mmHg LVOT VTI 16 cm LVOT VTI/AV VTI Ratio 0.6 LVOT Stroke Volume 48 ml LVOT CO 2.3 l/min LVOT CI 1.4 l/min/m2 Pulmonic Valve Name Value Normal RVOT Doppler RVOT Peak Gradient 1 mmHg PV Doppler PV Peak Gradient 2 mmHg Mitral Valve Name Value Normal MV Doppler MV Decel Limestone 156 cm/s2 MV PHT 73 ms MV Area (PHT) 3.0 cm2 4.0-5.0 MV Diastolic Function MV E Peak Velocity 39 cm/s MV A Peak Velocity 80 cm/s MV E/A 0.5 MV Decel Time 250 ms MV Annular TDI MV E/e' (Septal) 10.0 <=8.0 MV E/e' (Lateral) 5.8 <=8.0 MV E/e' (Average) 7.9 Aorta Name Value Normal Ascending Aorta Ao Root Diameter (MM) 3.0 cm Ao Root Diam Index (MM) 1.8 cm/m2 Aortic Valve Name Value Normal AV Doppler AV Peak Velocity 121 cm/s AV Peak Gradient 6 mmHg AV Mean Gradient 3 mmHg AV VTI 25 cm AV Area (Cont Eq VTI) 1.9 cm2 >=3.0 AV Area (Cont Eq Bandar) 1.9 cm2 AV Regurgitation 2D LVOT Area 3.1 cm2 Ventricles Name Value Normal LV Dimensions 2D/MM IVS Diastolic Thickness (2D) 1.4 cm 0.6-1.0 LVID Diastole (2D) 3.6 cm 4.2-5.8 LVIW Diastolic Thickness (2D) 1.5 cm 0.6-1.0 LVID Systole (2D) 2.5 cm 2.5-4.0 LVOT Diameter 2.0 cm LV Mass (2D Cubed) 188.12 g 88.00-224.00 LV Mass Index (2D Cubed) 116 g/m2 49-115 Relative Wall Thickness (2D) 0.82 LV Fractional Shortening/Ejection Fraction 2D/MM LV Fractional Shortening (2D) 30 % 25-43 LV EF (2D Teicholz) 58 % 52-72 LV Diastolic Volume (4C MOD) 70 ml LV EF (4C MOD) 19 % LV Diastolic Volume (2C MOD) 53 ml LV EF (2C MOD) 33 % LV Diastolic Volume (BP MOD) 64 ml 62-150 LV Diastolic Volume Index (BP MOD) 39 ml/m2 34-74 LV Systolic Volume (BP MOD) 47 ml 21-61 LV Systolic Volume Index (BP MOD) 29 ml/m2 11-31 LV EF (BP MOD) 26 % 52-72 LV Diastolic Length (4C) 7.9 cm LV Systolic Length (4C) 7.6 cm LV Stroke Volume (4C MOD) 13 ml Atria Name Value Normal LA Dimensions LA Dimension (MM) 3.9 cm 3.0-4.1 LA Volume (4C A-L) 34 ml LA Volume (BP A-L) 43 ml Report Signatures
[2024-08-05] MEDS: DONEPEZIL HCL 10 MG TABLET PO (20:43)
[2024-08-05] MEDS: ATORVASTATIN 40 MG TABLET 80 MG PO (20:43)
[2024-08-06] VITALS (10 sets, daily range): BP systolic 129–141; BP diastolic 64–75; PULSE 68–112; RESP 16–18; TEMP 36.2–36.9; O2SAT 95–100
[2024-08-06 05:33] LABS: Basophils Percent Auto 0.3 % (0.2-1.2); Eosinophils Absolute Auto 0.3 K/mm3 (0-0.3); Eosinophils Percent Auto 2.9 % (0-4.4); Hematocrit 45.4 % (42.0-52.0); Hemoglobin 14.8 g/dL (14.0-18.0); Immature Granulocyte Absolute 0.02 K/mm3 (0.00-0.031); Immature Granulocyte Percent A 0.2 % (0-0.5); Lymphocytes Absolute Auto 1.12 K/mm3 (0.9-3.2); Lymphocytes Percent Auto 12.6 % (18.3-44.2); Mean Corpuscular HGB Conc 32.6 g/dl (32-36); Mean Corpuscular Hemoglobin 28.8 pg (26-34); Mean Corpuscular Volume 88.3 fl (80-100); Mean Platelet Volume 10.6 fl (7.4-10.4); Monocytes Absolute Auto 0.9 K/mm3 (0.1-0.6); Monocytes Percent Auto 10.1 % (2.6-8.5); Neutrophils Absolute Auto 6.6 K/mm3 (1.3-6.7); Neutrophils Percent Auto 73.9 % (45.5-73.1); Platelet Count Result 149 k/mm3 (150-375); Red Blood Count 5.14 M/mm3 (4.6-6.20); Red Cell Distribution Width 12.3 % (11.5-14.5); White Blood Count 8.9 K/mm3 (4.5-10.0)
[2024-08-06 05:51] LABS: Alanine Aminotransferase 14 U/L (6-50); Alkaline Phosphatase 62 U/L (38-126); Anion Gap 7 mmol/L (4-12); Aspartate Amino Transferase 23 U/L (17-59); Blood Urea Nitrogen 15 mg/dL (9-20); Calcium 9.4 mg/dL (8.4-10.2); Carbon Dioxide 28 mmol/L (22-30); Chloride 103 mmol/L (98-107); Estimated CRCL calculation 59 ml/min; Estimated Glomerular Filt Rate > 60; Glucose 98 mg/dL (65-110); Potassium 3.8 mmol/L (3.4-5.0); Sodium 138 mmol/L (137-145)
[2024-08-06] MEDS: CLOPIDOGREL BISULFATE 75 MG TABLET PO (08:35)
[2024-08-06] MEDS: ASPIRIN 81 MG ENTERIC TABLET PO (08:35)
[2024-08-06] MEDS: MEMANTINE 10 MG TABLET PO (08:35)
[2024-08-06] MEDS: CIPROFLOXACIN 500 MG TAB PO ×2 (08:35→20:36)
[2024-08-06] MEDS: BETAMETHASONE/CLOTRIMAZOLE CREAM 15 GM TUBE 1 APPLIC TOPICAL (08:36)
[2024-08-06] MEDS: ENOXAPARIN 40 MG/0.4 ML SYRINGE SUB-Q (08:37)
--- NOTE | 2024-08-06 10:45 | PC.NURSE ---
On 08/06/24, the student, [Margaret Esposito], provided care and completed [facility] documentation on this patient. I have reviewed the student's documentation and agree with the findings.
--- NOTE | 2024-08-06 14:25 | P.PNIM_ITS ---
Progress Note: A&P Assessment and Plan (1) Acute internal jugular vein thrombosis: Qualifiers: Laterality: left Qualified Code(s): I82.C12 - Acute embolism and thrombosis of left internal jugular vein Code(s): I82.C19 - Acute embolism and thrombosis of unspecified internal jugular vein Status: Acute Assessment and Plan: New deficits of right-sided weakness and right facial droop starting on 08/02 at 10:00 a.m. Last known normal on 08/01/2024 at 10:00 p.m.. Imaging showed slow/absent flow in the left sigmoid sinus and left internal jugular vein with suggestion of intramural thrombus. ED provider spoke with [facility] stroke team (Clarence MCCRACKEN), the patient is not a candidate for intervention at this time given time frame. Recommended anticoagulation. Heparin gtt initiated in ED. Continue telemetry Brain MR does reveal acute infarct in the left basal ganglia/left periventricular white matter. With no evidence of venous sinus thrombosis. CTA head and neck showed findings suggestive of left sigmoid sinus and internal jugular vein thrombosis. Short segment severe stenosis in the proximal right ECA. No large vessel intracranial occlusion or aneurysm. No carotid or vertebral artery occlusion dissection or significant stenosis. Neurology has been consulted Started on aspirin and Plavix Discontinued heparin drip. Speech therapy and on regular diet PT/ OT Statin A1c normal and lipid profile LDL 157 Echo with ef 35-40%, trace MR, grade 1 diastolic dysfunction (2) Cerebral venous sinus thrombosis: Code(s): G08 - Intracranial and intraspinal phlebitis and thrombophlebitis Status: Acute Assessment and Plan: - see above repeat MRV came back negative for sinus thrombosis as was noted in CTA (3) Chronic UTI: Code(s): N39.0 - Urinary tract infection, site not specified Status: Acute Assessment and Plan: - chronic UTIs, prescribed ciprofloxacin 500 mg b.i.d. x7 days when he develops symptoms. Has had 2 doses, will continue x6 days for total of 7 after discussion with patient's . 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 History of cardiomyopathy in the past used to be on medications which include carvedilol and lisinopril which has now been stopped. Family reports due to improvement in EF Will restart carvedilol and lisinopril Plan Diet: Heart healthy GI Prophylaxis: Not currently indicated DVT Prophylaxis: Heparin gtt will be switched to Lovenox for DVT prophylaxis Lines: Peripheral Code Status: DNR Subjective Date/time seen: 08/06/24 14:25 Interval history: no overnight events, right sided weakness similar. working with therapy. Review of Systems Review of Systems: ROS unobtainable: Yes unobtainable due to mental status Exam Narrative: GENERAL: Well-appearing, well-nourished, and in no acute distress. HEAD: Normocephalic, atraumatic. EYES: PERRL and EOMI. ENT: Mucous membranes moist. CHEST: Clear to auscultation. No respiratory distress. HEART: Regular rate and rhythm. Normal peripheral pulses. ABDOMEN: Soft, nontender, nondistended EXTREMITIES: Normal range of motion. No edema. SKIN: Warm, dry, no rash. NEURO: Right facial droop. Minimal to no tone right lower extremity and right upper extremity. Bilateral knee jerks hyperreflexic. Equal and symmetrical. Nonverbal which is his baseline. Objective Data Vital Signs Vital Signs: Vital Signs - 24 hr 08/05/24 15:58 08/05/24 18:00 08/05/24 19:52 Temperature 98.3 F 97.6 F 97.3 F L Pulse Rate 67 77 66 Respiratory Rate 18 18 12 Blood Pressure 164/88 H 167/87 H 164/77 H Pulse Oximetry 100 93 98 Oxygen Delivery 08/05/24 20:00 08/05/24 20:00 08/06/24 00:00 Temperature Pulse Rate 66 69 Respiratory Rate Blood Pressure Pulse Oximetry Oxygen Delivery Room Air 08/06/24 04:00 08/06/24 05:01 08/06/24 08:35 Temperature 97.2 F L Pulse Rate 78 68 71 Respiratory Rate 16 Blood Pressure 137/64 Pulse Oximetry 95 Oxygen Delivery 08/06/24 12:00 08/06/24 13:55 Temperature 97.7 F Pulse Rate 68 73 Respiratory Rate 18 Blood Pressure 129/75 Pulse Oximetry 100 Oxygen Delivery Intake/Output Intake/Output: Intake & Output 08/03/24 08/04/24 08/05/24 08/06/24 23:59 23:59 23:59 23:59 Intake Total 693.7 600 210 Output Total 150 850 650 600 Balance -150 -156.3 -50 -390 Meds/Results Medications: Active Medications Generic Name Dose Route Start Last Admin Trade Name Freq PRN Reason Stop Dose Admin Acetaminophen 650 mg 08/03/24 18:19 Acetaminophen 325 Mg Tablet PO Q4H PRN Mild Pain (1-3) or Fever Aspirin 81 mg 08/04/24 13:20 08/06/24 08:35 Aspirin 81 Mg Enteric Tablet PO 81 mg QAM [facility] Administration Atorvastatin Calcium 80 mg 08/05/24 21:00 08/05/24 20:43 Atorvastatin 40 Mg Tablet PO 80 mg QHS URI Administration Ciprofloxacin 500 mg 08/03/24 21:30 08/06/24 08:35 Ciprofloxacin 500 Mg Tab PO 08/09/24 09:01 500 mg Q12HR [facility] Administration Clopidogrel Bisulfate 75 mg 08/04/24 13:20 08/06/24 08:35 Clopidogrel Bisulfate 75 Mg Tablet PO 75 mg QAM [facility] Administration Clotrimazole 1 applic 08/04/24 09:00 08/06/24 08:36 Betamethasone/Clotrimazole Cream 15 Gm Tube TOPICAL 1 applic QAM [facility] Administration Donepezil HCl 10 mg 08/03/24 21:30 08/05/24 20:43 Donepezil Hcl 10 Mg Tablet PO 10 mg HS [facility] Administration Enoxaparin Sodium 40 mg 08/05/24 09:00 08/06/24 08:37 Enoxaparin 40 Mg/0.4 Ml Syringe SUB-Q 40 mg DAILY [facility] Administration Memantine 10 mg 08/04/24 09:00 08/06/24 08:35 Memantine 10 Mg Tablet PO 10 mg DAILY [facility] Administration Ondansetron HCl 4 mg 08/03/24 18:19 Ondansetron Inj 4 Mg/2 Ml Vial IV PUSH Q4H PRN Nausea Triamcinolone Acetonide 1 applic 08/03/24 21:38 Triamcinolone Acet 0.1% Cream 80 Gm Tube TOPICAL BID PRN dermatitis flares. Zinc Oxide 1 applic 08/06/24 21:00 Zinc Oxide 20% Oint 30 Gm Tube TOPICAL 09/03/24 20:59 HS [facility] Radiology Results: ITS Impressions Chest X-Ray 08/03/24 15:25 IMPRESSION: No acute cardiopulmonary process. Head/Neck CTA 08/03/24 15:32 IMPRESSION: Findings suggestive of left sigmoid sinus and internal jugular vein thrombosis. Consider MRV for further evaluation. Short segment severe stenosis in the proximal right STEFANIE. No large vessel intracranial occlusion or aneurysm. No carotid or vertebral artery occlusion, dissection, or significant stenosis. Head/Brain Mag Res Venography 08/04/24 12:21 Impression: No evidence of venous sinus thrombosis. Brain MRI 08/04/24 12:22 IMPRESSION: Acute infarct in the left basal ganglia/left periventricular white matter, as detailed above. Diffuse chronic white matter disease, most likely severe chronic microvascular ischemic change. No evidence of venous sinus thrombosis. Carotid Doppler Study 08/05/24 06:09 Impression: No hemodynamically significant stenosis of the bilateral internal carotid arteries. Antegrade flow in the bilateral vertebral arteries. Note: The methodology used is an indirect measurement validated against a direct method (such as the NASCET criteria) that compares diameters at the stenosis to the distal ICA. Labs Labs: Laboratory Results - last 24 hr 08/06/24 04:58 WBC 8.9 RBC 5.14 Hgb 14.8 Hct 45.4 MCV 88.3 MCH 28.8 MCHC 32.6 RDW 12.3 Plt Count 149 L MPV 10.6 H Immature Gran % (Auto) 0.2 Neut % (Auto) 73.9 H Lymph % (Auto) 12.6 L Ripley % (Auto) 10.1 H Eos % (Auto) 2.9 Baso % (Auto) 0.3 Lymph # (Auto) 1.12 Ripley # (Auto) 0.9 H Eos # (Auto) 0.3 Baso # (Auto) 0.0 Abs Immat Gran (auto) 0.02 Absolute Neuts (auto) 6.6 Absolute Nucleated RBC 0.000 Nucleated RBC % 0.0 Sodium 138 Potassium 3.8 Chloride 103 Carbon Dioxide 28 Anion Gap 7 BUN 15 Creatinine 0.80 Estim Creat Clear Calc 59 Estimated GFR > 60 Glucose 98 Calcium 9.4 Magnesium 2.0 Total Bilirubin 1.0 AST 23 ALT 14 Alkaline Phosphatase 62 Total Protein 7.0 Albumin 4.0
[2024-08-06] MEDS: SODIUM CHLORIDE 0.9% IV 500 ML 100 ML IV CONT (18:45)
--- NOTE | 2024-08-06 18:45 | PC.NURSE ---
Bladder scan revealed 100ml .
[2024-08-06] MEDS: DONEPEZIL HCL 10 MG TABLET PO (20:36)
[2024-08-06] MEDS: ATORVASTATIN 40 MG TABLET 80 MG PO (20:36)
[2024-08-06] MEDS: carvediloL 3.125 MG TABLET PO (20:36)
[2024-08-06] MEDS: ZINC OXIDE 20% OINT 30 GM TUBE 1 APPLIC TOPICAL (20:38)
[2024-08-06] MEDS: FLUTICASONE PROPIONATE 0.05% NA SPR 16 GM BTL (*BKC) 1 SPRAY NASAL (21:04)
[2024-08-06] MEDS: LORATADINE 10 MG TABLET PO (21:04)
[2024-08-07] VITALS (11 sets, daily range): BP systolic 101–132; BP diastolic 68–74; PULSE 56–95; RESP 16–18; TEMP 36.9–37.4; O2SAT 95–97
[2024-08-07] MEDS: lisinopriL 5 MG TABLET PO (08:34)
[2024-08-07] MEDS: FLUTICASONE PROPIONATE 0.05% NA SPR 16 GM BTL (*BKC) 1 SPRAY NASAL ×2 (08:34→20:36)
[2024-08-07] MEDS: CLOPIDOGREL BISULFATE 75 MG TABLET PO (08:34)
[2024-08-07] MEDS: carvediloL 3.125 MG TABLET PO (08:34)
[2024-08-07] MEDS: MEMANTINE 10 MG TABLET PO (08:34)
[2024-08-07] MEDS: CIPROFLOXACIN 500 MG TAB PO (08:34)
[2024-08-07] MEDS: ASPIRIN 81 MG ENTERIC TABLET PO (08:34)
[2024-08-07] MEDS: LORATADINE 10 MG TABLET PO (08:34)
[2024-08-07] MEDS: BETAMETHASONE/CLOTRIMAZOLE CREAM 15 GM TUBE 1 APPLIC TOPICAL (08:35)
[2024-08-07] MEDS: ENOXAPARIN 40 MG/0.4 ML SYRINGE SUB-Q (08:35)
--- NOTE | 2024-08-07 10:02 | PCPTNOTE ---
Attempted to see patient for PT, however patient was unable to be aroused to work with PT.
[2024-08-07 10:05] LABS: Hematocrit 44.8 % (42.0-52.0); Hemoglobin 14.7 g/dL (14.0-18.0); Mean Corpuscular HGB Conc 32.8 g/dl (32-36); Mean Corpuscular Hemoglobin 29.3 pg (26-34); Mean Corpuscular Volume 89.4 fl (80-100); Mean Platelet Volume 11.2 fl (7.4-10.4); Platelet Count Result 163 k/mm3 (150-375); Red Blood Count 5.01 M/mm3 (4.6-6.20); Red Cell Distribution Width 12.6 % (11.5-14.5); White Blood Count 16.5 K/mm3 (4.5-10.0)
--- NOTE | 2024-08-07 10:22 | PCOTNOTE ---
was present upon entering the room patient is not appropriate at this time. She states he is not much of a morning person and should be more alert in the afternoon.
[2024-08-07 10:24] LABS: Alanine Aminotransferase 19 U/L (6-50); Albumin Level 3.9 g/dL (3.5-5.1); Alkaline Phosphatase 61 U/L (38-126); Anion Gap 6 mmol/L (4-12); Aspartate Amino Transferase 29 U/L (17-59); Bilirubin,Total 1.5 mg/dL (0.2-1.3); Blood Urea Nitrogen 16 mg/dL (9-20); Calcium 8.9 mg/dL (8.4-10.2); Carbon Dioxide 27 mmol/L (22-30); Chloride 104 mmol/L (98-107); Estimated CRCL calculation 53 ml/min; Estimated Glomerular Filt Rate > 60; Glucose 129 mg/dL (65-110); Potassium 3.8 mmol/L (3.4-5.0); Sodium 137 mmol/L (137-145)
--- NOTE | 2024-08-07 14:27 | P.PNIM_ITS ---
Progress Note: A&P Assessment and Plan (1) Acute left STEFANIE ischemic stroke: Code(s): I63.522 - Cerebral infarction due to unspecified occlusion or stenosis of left anterior cerebral artery Status: Acute Assessment and Plan: * Brain MR does reveal acute infarct in the left basal ganglia/left periventricular white matter. With no evidence of venous sinus thrombosis. RULED OUT * CTA head and neck showed findings suggestive of left sigmoid sinus and internal jugular vein thrombosis. Short segment severe stenosis in the proximal right ECA. No large vessel intracranial occlusion or aneurysm. No carotid or vertebral artery occlusion dissection or significant stenosis. * Neurology has been consulted * Started on aspirin and Plavix * Discontinued heparin drip. * Speech therapy and on regular diet * PT/ OT * Statin * A1c normal and lipid profile LDL 157 * Echo with ef 35-40%, trace MR, grade 1 diastolic dysfunction (2) Chronic UTI: Code(s): N39.0 - Urinary tract infection, site not specified Status: Acute Assessment and Plan: * chronic UTIs, prescribed ciprofloxacin 500 mg b.i.d. x7 days when he develops symptoms. Has had 2 doses, will continue x6 days for total of 7 after discussion with patient's . 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 * History of cardiomyopathy in the past used to be on medications which include carvedilol and lisinopril which has now been stopped. Family reports due to improvement in EF * Will restart carvedilol and lisinopri Plan Code status: DNR DVT prophylaxis: Lovenox Stress ulcer prophylaxis: NA PT/OT notes: Rehab/SNF Disposition: Patient continues admission after acute stroke limited range of motion working with PT/OT currently waiting on insurance authorization for rehab/SNF Time Spent With Patient Time with patient: 15 - 25 minutes Subjective Date/time seen: 08/07/24 14:27 Interval history: Patient is a 73-year-old male is admitted for further evaluation and treatment of acute CVA 08/07/2024: Assumed Care Patient lethargic but responds to stimuli, at bedside stated he ate his breakfast and then went right back to sleep. stated he has had no complaints just sleeping a lot. Review of Systems Review of Systems: ROS unobtainable: Yes unobtainable due to medical condition and unobtainable due to mental status Exam Narrative: GENERAL: Lethargic male in no acute distress, at bedside HEAD: Normocephalic, atraumatic. EYES: PERRL and EOMI. ENT: Mucous membranes moist. CHEST: Clear to auscultation. No respiratory distress. HEART: Regular rate and rhythm. Normal peripheral pulses. ABDOMEN: Soft, nontender, nondistended EXTREMITIES: Normal range of motion. No edema. SKIN: Warm, dry, no rash. NEURO: Right facial droop. Minimal to no tone right lower extremity and right upper extremity. Bilateral knee jerks hyperreflexic. Equal and symmetrical. Nonverbal which is his baseline. Objective Data Vital Signs Vital Signs: Vital Signs - 24 hr 08/06/24 16:00 08/06/24 20:36 08/06/24 21:10 Temperature 98.5 F Pulse Rate 112 H 98 97 Respiratory Rate 18 Blood Pressure 141/74 H Pulse Oximetry 99 Oxygen Delivery 08/06/24 20:00 08/06/24 20:00 08/07/24 00:00 Temperature Pulse Rate 97 75 Respiratory Rate Blood Pressure Pulse Oximetry Oxygen Delivery Room Air 08/07/24 04:00 08/07/24 05:40 08/07/24 08:34 Temperature 99.3 F Pulse Rate 90 95 92 Respiratory Rate 18 Blood Pressure 132/73 Pulse Oximetry 95 Oxygen Delivery 08/07/24 08:20 08/07/24 08:00 08/07/24 12:00 Temperature Pulse Rate 93 73 Respiratory Rate Blood Pressure Pulse Oximetry Oxygen Delivery Room Air Intake/Output Intake/Output: Intake & Output 08/04/24 08/05/24 08/06/24 08/07/24 23:59 23:59 23:59 23:59 Intake Total 693.7 600 465 670 Output Total 850 650 700 800 Balance -156.3 -50 -235 -130 Meds/Results Medications: Active Medications Generic Name Dose Route Start Last Admin Trade Name Freq PRN Reason Stop Dose Admin Acetaminophen 650 mg 08/03/24 18:19 Acetaminophen 325 Mg Tablet PO Q4H PRN Mild Pain (1-3) or Fever Aspirin 81 mg 08/04/24 13:20 08/07/24 08:34 Aspirin 81 Mg Enteric Tablet PO 81 mg QAM URI Administration Atorvastatin Calcium 80 mg 08/05/24 21:00 08/06/24 20:36 Atorvastatin 40 Mg Tablet PO 80 mg QHS URI Administration Carvedilol 3.125 mg 08/06/24 21:00 08/07/24 08:34 Carvedilol 3.125 Mg Tablet PO 3.125 mg Q12HR URI Administration Ciprofloxacin 500 mg 08/03/24 21:30 08/07/24 08:34 Ciprofloxacin 500 Mg Tab PO 08/09/24 09:01 500 mg Q12HR URI Administration Clopidogrel Bisulfate 75 mg 08/04/24 13:20 08/07/24 08:34 Clopidogrel Bisulfate 75 Mg Tablet PO 75 mg QAM [facility] Administration Clotrimazole 1 applic 08/04/24 09:00 08/07/24 08:35 Betamethasone/Clotrimazole Cream 15 Gm Tube TOPICAL 1 applic QAM [facility] Administration Donepezil HCl 10 mg 08/03/24 21:30 08/06/24 20:36 Donepezil Hcl 10 Mg Tablet PO 10 mg HS URI Administration Enoxaparin Sodium 40 mg 08/05/24 09:00 08/07/24 08:35 Enoxaparin 40 Mg/0.4 Ml Syringe SUB-Q 40 mg DAILY URI Administration Fluticasone Propionate 1 spray 08/06/24 21:00 08/07/24 08:34 Fluticasone Propionate 0.05% Na Spr 16 Gm Btl (*Bkc) NASAL 1 spray Q12HR URI Administration Lisinopril 5 mg 08/07/24 09:00 08/07/24 08:34 Lisinopril 5 Mg Tablet PO 5 mg QAM URI Administration Loratadine 10 mg 08/06/24 20:45 08/07/24 08:34 Loratadine 10 Mg Tablet PO 10 mg QAM URI Administration Memantine 10 mg 08/04/24 09:00 08/07/24 08:34 Memantine 10 Mg Tablet PO 10 mg DAILY URI Administration Ondansetron HCl 4 mg 08/03/24 18:19 Ondansetron Inj 4 Mg/2 Ml Vial IV PUSH Q4H PRN Nausea Triamcinolone Acetonide 1 applic 08/03/24 21:38 Triamcinolone Acet 0.1% Cream 80 Gm Tube TOPICAL BID PRN dermatitis flares. Zinc Oxide 1 applic 08/06/24 21:00 08/06/24 20:38 Zinc Oxide 20% Oint 30 Gm Tube TOPICAL 09/03/24 20:59 1 applic HS URI Administration Radiology Results: ITS Impressions Chest X-Ray 08/03/24 15:25 IMPRESSION: No acute cardiopulmonary process. Head/Neck CTA 08/03/24 15:32 IMPRESSION: Findings suggestive of left sigmoid sinus and internal jugular vein thrombosis. Consider MRV for further evaluation. Short segment severe stenosis in the proximal right STEFANIE. No large vessel intracranial occlusion or aneurysm. No carotid or vertebral artery occlusion, dissection, or significant stenosis. Head/Brain Mag Res Venography 08/04/24 12:21 Impression: No evidence of venous sinus thrombosis. Brain MRI 08/04/24 12:22 IMPRESSION: Acute infarct in the left basal ganglia/left periventricular white matter, as detailed above. Diffuse chronic white matter disease, most likely severe chronic microvascular ischemic change. No evidence of venous sinus thrombosis. Carotid Doppler Study 08/05/24 06:09 Impression: No hemodynamically significant stenosis of the bilateral internal carotid art eries. Antegrade flow in the bilateral vertebral arteries. Note: The methodology used is an indirect measurement validated against a direct method (such as the NASCET criteria) that compares diameters at the stenosis to the distal ICA. Labs Labs: Laboratory Results - last 24 hr 08/07/24 10:00 WBC 16.5 H RBC 5.01 Hgb 14.7 Hct 44.8 MCV 89.4 MCH 29.3 MCHC 32.8 RDW 12.6 Plt Count 163 MPV 11.2 H Sodium 137 Potassium 3.8 Chloride 104 Carbon Dioxide 27 Anion Gap 6 BUN 16 Creatinine 0.90 Estim Creat Clear Calc 53 Estimated GFR > 60 Glucose 129 H Calcium 8.9 Total Bilirubin 1.5 H AST 29 ALT 19 Alkaline Phosphatase 61 Total Protein 7.0 Albumin 3.9 Quality VTE Prophylaxis VTE prophylaxis: pharmacologic ordered -Patient's previous records reviewed on admission -ER notes reviewed in detail on admission -discussed all findings and current treatment plan with patient/Family/POA -Consultations reviewed for recommendations -Patient's disposition for safe discharge discussed with mattress spring encaser Dictation performed by [employer] direct speech recognition software, therefore molecular biologist variants and typographical errors may occur. Hospitalist MIPS Advance Care Plan I have confirmed that the patient's Advanced Care Plan is present, code status is documented, or surrogate decision maker is listed in patient medical record.: Yes Medication Reconciliation I have utilized all available resources to obtain, update and review the patients current medications (includes all prescriptions, OTC, herbals, cannabis, and nutritional supplements).: Yes The patient is not eligible for med reconciliation; the patient is in a emergent medical situation where delaying treatment would jeopardize the patients health.: No
[2024-08-07] MEDS: ZINC OXIDE 20% OINT 30 GM TUBE 1 APPLIC TOPICAL (20:36)
[2024-08-08] VITALS (11 sets, daily range): BP systolic 112–134; BP diastolic 67–89; PULSE 68–126; RESP 16–19; TEMP 36.4–39.3; O2SAT 93–96
[2024-08-08 08:45] LABS: Hematocrit 47.5 % (42.0-52.0); Hemoglobin 15.4 g/dL (14.0-18.0); Mean Corpuscular HGB Conc 32.4 g/dl (32-36); Mean Corpuscular Hemoglobin 29.2 pg (26-34); Mean Corpuscular Volume 90.1 fl (80-100); Mean Platelet Volume 11.1 fl (7.4-10.4); Platelet Count Result 157 k/mm3 (150-375); Red Blood Count 5.27 M/mm3 (4.6-6.20); Red Cell Distribution Width 12.7 % (11.5-14.5); White Blood Count 9.8 K/mm3 (4.5-10.0)
[2024-08-08 09:01] LABS: Alanine Aminotransferase 26 U/L (6-50); Alkaline Phosphatase 62 U/L (38-126); Anion Gap 5 mmol/L (4-12); Aspartate Amino Transferase 33 U/L (17-59); Bilirubin,Total 1.1 mg/dL (0.2-1.3); Blood Urea Nitrogen 31 mg/dL (9-20); Calcium 9.2 mg/dL (8.4-10.2); Carbon Dioxide 28 mmol/L (22-30); Chloride 107 mmol/L (98-107); Estimated CRCL calculation 48 ml/min; Estimated Glomerular Filt Rate > 60; Glucose 102 mg/dL (65-110); Potassium 3.8 mmol/L (3.4-5.0); Sodium 140 mmol/L (137-145)
[2024-08-08] MEDS: FLUTICASONE PROPIONATE 0.05% NA SPR 16 GM BTL (*BKC) 1 SPRAY NASAL ×2 (09:04→20:38)
[2024-08-08] MEDS: ENOXAPARIN 40 MG/0.4 ML SYRINGE SUB-Q (09:04)
[2024-08-08] MEDS: BETAMETHASONE/CLOTRIMAZOLE CREAM 15 GM TUBE 1 APPLIC TOPICAL (09:04)
--- NOTE | 2024-08-08 14:10 | P.PNIM_ITS ---
Progress Note: A&P Assessment and Plan (1) Acute left STEFANIE ischemic stroke: Code(s): I63.522 - Cerebral infarction due to unspecified occlusion or stenosis of left anterior cerebral artery Status: Acute Assessment and Plan: * Brain MR does reveal acute infarct in the left basal ganglia/left periventricular white matter. With no evidence of venous sinus thrombosis. RULED OUT * CTA head and neck showed findings suggestive of left sigmoid sinus and internal jugular vein thrombosis. Short segment severe stenosis in the proximal right ECA. No large vessel intracranial occlusion or aneurysm. No carotid or vertebral artery occlusion dissection or significant stenosis. * Neurology has been consulted * Started on aspirin and Plavix * Discontinued heparin drip. * Speech therapy and on regular diet * PT/ OT * Statin * A1c normal and lipid profile LDL 157 * Echo with ef 35-40%, trace MR, grade 1 diastolic dysfunction 08/08/24: * Was not able to take medications or eat, nursing reported pocketing of medications and food as well as unable to follow directions. Still lethargic * NPO with Ice chips * will get ST once more alert * if he continues will need evaluation and possible peg tube but hoping his awareness improves * No IV fluids at this time due to cardiomyopathy will add low rate if continues to have eating and drinking complications. (2) Chronic UTI: Code(s): N39.0 - Urinary tract infection, site not specified Status: Acute Assessment and Plan: * chronic UTIs, prescribed ciprofloxacin 500 mg b.i.d. x7 days when he develops symptoms. Has had 2 doses, will continue x6 days for total of 7 after discussion with patient's . * UA: Specific gravity 1.045, 1+ ketones (3) Cardiomyopathy: Code(s): I42.9 - Cardiomyopathy, unspecified Status: Acute Assessment and Plan: * Follows with manager medical affairs in [place]. * History of cardiomyopathy in the past used to be on medications which include carvedilol and lisinopril which has now been stopped. Family reports due to improvement in EF * Will restart carvedilol and lisinopri Plan Code status: DNR DVT prophylaxis: Lovenox Stress ulcer prophylaxis: NA PT/OT notes: Rehab/SNF Disposition: Patient continues admission after acute stroke limited range of motion working with PT/OT but currently lethargic with minimal alertness unable to follow commands as ulnar safely eating or drinking or taking his medications. Placed NPO for once more alert will have a re-evaluation by speech hopefully patient will become more alert operative continued unable to get nutrition may need to be discussion about possible peg tube. updated at bedside once medically stable will discharge to a longterm facility Time Spent With Patient Time with patient: 15 - 25 minutes Subjective Date/time seen: 08/08/24 14:10 Interval history: Patient is a 73-year-old male is admitted for further evaluation and treatment of acute CVA 08/08/2024: Patient still lethargic but arousable and did work with PT/OT. was bedside and assisted in answering questions. reported mild improvement to his alertness. Nursing reported he was unable to follow commands to take is medications or eat today. Review of Systems Review of Systems: ROS unobtainable: Yes unobtainable due to medical condition and unobtainable due to mental status Exam Narrative: GENERAL: Lethargic male in no acute distress, at bedside HEAD: Normocephalic, atraumatic. EYES: PERRL and EOMI. ENT: Mucous membranes moist. CHEST: Clear to auscultation. No respiratory distress. HEART: Regular rate and rhythm. Normal peripheral pulses. ABDOMEN: Soft, nontender, nondistended EXTREMITIES: Normal range of motion. No edema. SKIN: Warm, dry, no rash. NEURO: Right facial droop. Minimal to no tone right lower extremity and right upper extremity. Bilateral knee jerks hyperreflexic. Equal and symmetrical. Nonverbal which is his baseline. Objective Data Vital Signs Vital Signs: Vital Signs - 24 hr 08/07/24 16:00 08/07/24 20:00 08/07/24 20:00 Temperature Pulse Rate 73 81 Respiratory Rate Blood Pressure Pulse Oximetry Oxygen Delivery Room Air 08/07/24 21:23 08/07/24 21:27 08/08/24 00:00 Temperature 98.7 F Pulse Rate 79 75 89 Respiratory Rate 16 Blood Pressure 121/74 Pulse Oximetry 97 Oxygen Delivery 08/08/24 04:00 08/08/24 06:00 08/08/24 08:35 Temperature 98.6 F Pulse Rate 68 80 Respiratory Rate 18 Blood Pressure 112/67 Pulse Oximetry 96 Oxygen Delivery Room Air 08/08/24 08:35 08/08/24 12:00 Temperature Pulse Rate 68 81 Respiratory Rate Blood Pressure Pulse Oximetry Oxygen Delivery Intake/Output Intake/Output: Intake & Output 08/05/24 08/06/24 08/07/24 08/08/24 23:59 23:59 23:59 23:59 Intake Total 600 465 670 50 Output Total 228 423 2794 400 Balance -50 -235 -380 -350 Meds/Results Medications: Active Medications Generic Name Dose Route Start Last Admin Trade Name Freq PRN Reason Stop Dose Admin Acetaminophen 650 mg 08/03/24 18:19 Acetaminophen 325 Mg Tablet PO Q4H PRN Mild Pain (1-3) or Fever Aspirin 81 mg 08/04/24 13:20 08/08/24 09:02 Aspirin 81 Mg Enteric Tablet PO Not Given QAM [facility] Atorvastatin Calcium 80 mg 08/05/24 21:00 08/07/24 21:23 Atorvastatin 40 Mg Tablet PO Not Given QHS [facility] Carvedilol 3.125 mg 08/06/24 21:00 08/08/24 09:02 Carvedilol 3.125 Mg Tablet PO Not Given Q12HR URI Ciprofloxacin 500 mg 08/03/24 21:30 08/08/24 09:02 Ciprofloxacin 500 Mg Tab PO 08/09/24 09:01 Not Given Q12HR URI Clopidogrel Bisulfate 75 mg 08/04/24 13:20 08/08/24 09:02 Clopidogrel Bisulfate 75 Mg Tablet PO Not Given QAM [facility] Clotrimazole 1 applic 08/04/24 09:00 08/08/24 09:04 Betamethasone/Clotrimazole Cream 15 Gm Tube TOPICAL 1 applic QAM URI Administration Donepezil HCl 10 mg 08/03/24 21:30 08/07/24 21:23 Donepezil Hcl 10 Mg Tablet PO Not Given HS [facility] Enoxaparin Sodium 40 mg 08/05/24 09:00 08/08/24 09:04 Enoxaparin 40 Mg/0.4 Ml Syringe SUB-Q 40 mg DAILY URI Administration Fluticasone Propionate 1 spray 08/06/24 21:00 08/08/24 09:04 Fluticasone Propionate 0.05% Na Spr 16 Gm Btl (*Bkc) NASAL 1 spray Q12HR [facility] Administration Lisinopril 5 mg 08/07/24 09:00 08/08/24 09:02 Lisinopril 5 Mg Tablet PO Not Given QAM [facility] Loratadine 10 mg 08/06/24 20:45 08/08/24 09:02 Loratadine 10 Mg Tablet PO Not Given QAM [facility] Memantine 10 mg 08/04/24 09:00 08/08/24 09:02 Memantine 10 Mg Tablet PO Not Given DAILY URI Ondansetron HCl 4 mg 08/03/24 18:19 Ondansetron Inj 4 Mg/2 Ml Vial IV PUSH Q4H PRN Nausea Triamcinolone Acetonide 1 applic 08/03/24 21:38 Triamcinolone Acet 0.1% Cream 80 Gm Tube TOPICAL BID PRN dermatitis flares. Zinc Oxide 1 applic 08/06/24 21:00 08/07/24 20:36 Zinc Oxide 20% Oint 30 Gm Tube TOPICAL 09/03/24 20:59 1 applic HS URI Administration Radiology Results: ITS Impressions Chest X-Ray 08/03/24 15:25 IMPRESSION: No acute cardiopulmonary process. Head/Neck CTA 08/03/24 15:32 IMPRESSION: Findings suggestive of left sigmoid sinus and internal jugular vein thrombosis. Consider MRV for further evaluation. Short segment severe stenosis in the proximal right STEFANIE. No large vessel intracranial occlusion or aneurysm. No carotid or vertebral artery occlusion, dissection, or significant stenosis. Head/Brain Mag Res Venography 08/04/24 12:21 Impression: No evidence of venous sinus thrombosis. Brain MRI 08/04/24 12:22 IMPRESSION: Acute infarct in the left basal ganglia/left periventricular white matter, as detailed above. Diffuse chronic white matter disease, most likely severe chronic microvascular ischemic change. No evidence of venous sinus thrombosis. Carotid Doppler Study 08/05/24 06:09 Impression: No hemodynamically significant stenosis of the bilateral internal carotid arteries. Antegrade flow in the bilateral vertebral arteries. Note: The methodology used is an indirect measurement validated against a direct method (such as the NASCET criteria) that compares diameters at the stenosis to the distal ICA. Labs Labs: Laboratory Results - last 24 hr 08/08/24 08:36 WBC 9.8 RBC 5.27 Hgb 15.4 Hct 47.5 MCV 90.1 MCH 29.2 MCHC 32.4 RDW 12.7 Plt Count 157 MPV 11.1 H Sodium 140 Potassium 3.8 Chloride 107 Carbon Dioxide 28 Anion Gap 5 BUN 31 H D Creatinine 1.00 Estim Creat Clear Calc 48 Estimated GFR > 60 Glucose 102 Calcium 9.2 Total Bilirubin 1.1 AST 33 ALT 26 Alkaline Phosphatase 62 Total Protein 7.0 Albumin 4.0 Quality VTE Prophylaxis VTE prophylaxis: pharmacologic ordered -Patient's previous records reviewed on admission -ER notes reviewed in detail on admission -discussed all findings and current treatment plan with patient/Family/POA -Consultations reviewed for recommendations -Patient's disposition for safe discharge discussed with renal case manager Dictation performed by [email or web address] direct speech recognition software, therefore precast molder variants and typographical errors may occur. Hospitalist MIPS Advance Care Plan I have confirmed that the patient's Advanced Care Plan is present, code status is documented, or surrogate decision maker is listed in patient medical record.: Yes Medication Reconciliation I have utilized all available resources to obtain, update and review the patients current medications (includes all prescriptions, OTC, herbals, cannabis, and nutritional supplements).: Yes The patient is not eligible for med reconciliation; the patient is in a emergent medical situation where delaying treatment would jeopardize the patients health.: No
--- NOTE | 2024-08-08 15:44 | P.PNNEUR_ITS ---
Progress Note: A&P Assessment and Plan (1) Acute left STEFANIE ischemic stroke: Code(s): I63.522 - Cerebral infarction due to unspecified occlusion or stenosis of left anterior cerebral artery Status: Acute (2) Chronic UTI: Code(s): N39.0 - Urinary tract infection, site not specified Status: Acute Plan I had discussion with the patient's daughter about the fact that today some deterioration can be expected in 1st few days after the onset of stroke due to surrounding edema. The patient has not shown much improvement yet and has a feeding tube would be the next step. Physical therapy and the supportive care should continue. Patient does have history of dementia and that also forgets the issue. Current medications were reviewed. It was noted that he is already on Namenda in addition to aspirin, Plavix and 80 mg of atorvastatin. Subjective Date/time seen: 08/08/24 15:44 Interval history: The patient is very lethargic and not able to eat or drink very well this morning. Patient's daughter was present at the bedside. He continues to be weak on the right side of the body. His vital signs have been stable. Possibility of feeding tube is being considered. Review of Systems Review of Systems: ROS unobtainable: Yes unobtainable due to medical condition and unobtainable due to mental status Exam Narrative: Patient is awake but does not communicate. He appears very lethargic. Right facial weakness. Weakness of the right upper and lower limb was noted. No involuntary movements. Unable to cooperate for more formalized testing. No significant spasticity noted on the right side. Objective Data Vital Signs Vital Signs: Vital Signs - 24 hr 08/07/24 16:00 08/07/24 20:00 08/07/24 20:00 Temperature Pulse Rate 73 81 Respiratory Rate Blood Pressure Pulse Oximetry Oxygen Delivery Room Air 08/07/24 21:23 08/07/24 21:27 08/08/24 00:00 Temperature 98.7 F Pulse Rate 79 75 89 Respiratory Rate 16 Blood Pressure 121/74 Pulse Oximetry 97 Oxygen Delivery 08/08/24 04:00 08/08/24 06:00 08/08/24 08:35 Temperature 98.6 F Pulse Rate 68 80 Respiratory Rate 18 Blood Pressure 112/67 Pulse Oximetry 96 Oxygen Delivery Room Air 08/08/24 08:35 08/08/24 12:00 Temperature Pulse Rate 68 81 Respiratory Rate Blood Pressure Pulse Oximetry Oxygen Delivery Intake/Output Intake/Output: Intake & Output 08/05/24 08/06/24 08/07/24 08/08/24 23:59 23:59 23:59 23:59 Intake Total 600 465 670 50 Output Total 591 329 6496 400 Balance -50 -235 -380 -350 Meds/Results Medications: Active Medications Generic Name Dose Route Start Last Admin Trade Name Freq PRN Reason Stop Dose Admin Acetaminophen 650 mg 08/03/24 18:19 Acetaminophen 325 Mg Tablet PO Q4H PRN Mild Pain (1-3) or Fever Aspirin 81 mg 08/04/24 13:20 08/08/24 09:02 Aspirin 81 Mg Enteric Tablet PO Not Given QAM [facility] Atorvastatin Calcium 80 mg 08/05/24 21:00 08/07/24 21:23 Atorvastatin 40 Mg Tablet PO Not Given QHS URI Carvedilol 3.125 mg 08/06/24 21:00 08/08/24 09:02 Carvedilol 3.125 Mg Tablet PO Not Given Q12HR URI Ciprofloxacin 500 mg 08/03/24 21:30 08/08/24 09:02 Ciprofloxacin 500 Mg Tab PO 08/09/24 09:01 Not Given Q12HR [facility] Clopidogrel Bisulfate 75 mg 08/04/24 13:20 08/08/24 09:02 Clopidogrel Bisulfate 75 Mg Tablet PO Not Given QAM [facility] Clotrimazole 1 applic 08/04/24 09:00 08/08/24 09:04 Betamethasone/Clotrimazole Cream 15 Gm Tube TOPICAL 1 applic QAM [facility] Administration Donepezil HCl 10 mg 08/03/24 21:30 08/07/24 21:23 Donepezil Hcl 10 Mg Tablet PO Not Given HS URI Enoxaparin Sodium 40 mg 08/05/24 09:00 08/08/24 09:04 Enoxaparin 40 Mg/0.4 Ml Syringe SUB-Q 40 mg DAILY URI Administration Fluticasone Propionate 1 spray 08/06/24 21:00 08/08/24 09:04 Fluticasone Propionate 0.05% Na Spr 16 Gm Btl (*Bkc) NASAL 1 spray Q12HR URI Administration Lisinopril 5 mg 08/07/24 09:00 08/08/24 09:02 Lisinopril 5 Mg Tablet PO Not Given QAM [facility] Loratadine 10 mg 08/06/24 20:45 08/08/24 09:02 Loratadine 10 Mg Tablet PO Not Given QAM [facility] Memantine 10 mg 08/04/24 09:00 08/08/24 09:02 Memantine 10 Mg Tablet PO Not Given DAILY [facility] Ondansetron HCl 4 mg 08/03/24 18:19 Ondansetron Inj 4 Mg/2 Ml Vial IV PUSH Q4H PRN Nausea Triamcinolone Acetonide 1 applic 08/03/24 21:38 Triamcinolone Acet 0.1% Cream 80 Gm Tube TOPICAL BID PRN dermatitis flares. Zinc Oxide 1 applic 08/06/24 21:00 08/07/24 20:36 Zinc Oxide 20% Oint 30 Gm Tube TOPICAL 09/03/24 20:59 1 applic HS [facility] Administration Radiology Results: ITS Impressions Chest X-Ray 08/03/24 15:25 IMPRESSION: No acute cardiopulmonary process. Head/Neck CTA 08/03/24 15:32 IMPRESSION: Findings suggestive of left sigmoid sinus and internal jugular vein thrombosis. Consider MRV for further evaluation. Short segment severe stenosis in the proximal right STEFANIE. No large vessel intracranial occlusion or aneurysm. No carotid or vertebral artery occlusion, dissection, or significant stenosis. Head/Brain Mag Res Venography 08/04/24 12:21 Impression: No evidence of venous sinus thrombosis. Brain MRI 08/04/24 12:22 IMPRESSION: Acute infarct in the left basal ganglia/left periventricular white matter, as detailed above. Diffuse chronic white matter disease, most likely severe chronic microvascular ischemic change. No evidence of venous sinus thrombosis. Carotid Doppler Study 08/05/24 06:09 Impression: No hemodynamically significant stenosis of the bilateral internal carotid arteries. Antegrade flow in the bilateral vertebral arteries. Note: The methodology used is an indirect measurement validated against a direct method (such as the NASCET criteria) that compares diameters at the stenosis to the distal ICA. Labs Labs: Laboratory Results - last 24 hr 08/08/24 08:36 WBC 9.8 RBC 5.27 Hgb 15.4 Hct 47.5 MCV 90.1 MCH 29.2 MCHC 32.4 RDW 12.7 Plt Count 157 MPV 11.1 H Sodium 140 Potassium 3.8 Chloride 107 Carbon Dioxide 28 Anion Gap 5 BUN 31 H D Creatinine 1.00 Estim Creat Clear Calc 48 Estimated GFR > 60 Glucose 102 Calcium 9.2 Total Bilirubin 1.1 AST 33 ALT 26 Alkaline Phosphatase 62 Total Protein 7.0 Albumin 4.0
--- NOTE | 2024-08-08 20:32 | PC.NURSE ---
Called Provider to inform that pt is unable to swallow medications at this time. Will Hold PO meds per Provider
[2024-08-08] MEDS: ZINC OXIDE 20% OINT 30 GM TUBE 1 APPLIC TOPICAL (20:38)
[2024-08-08] MEDS: CIPROFLOXACIN 400 MG/D5W 200ML 200 ML 200 MG IVPB (22:04)
[2024-08-08] MEDS: ACETAMINOPHEN 650 MG SUPPOSITORY RECTAL (22:04)
[2024-08-09] VITALS (11 sets, daily range): BP systolic 110–141; BP diastolic 63–87; PULSE 61–109; RESP 16–22; TEMP 36.7–37.2; O2SAT 90–97; BMI 23.1
--- NOTE | 2024-08-09 03:32 | PC.NURSE ---
charting reviewed for Katina Caballero RNLP for this shift
[2024-08-09] MEDS: ENOXAPARIN 40 MG/0.4 ML SYRINGE SUB-Q (08:33)
[2024-08-09] MEDS: BETAMETHASONE/CLOTRIMAZOLE CREAM 15 GM TUBE 1 APPLIC TOPICAL (08:34)
[2024-08-09] MEDS: FLUTICASONE PROPIONATE 0.05% NA SPR 16 GM BTL (*BKC) 1 SPRAY NASAL ×2 (08:34→22:41)
[2024-08-09] MEDS: CIPROFLOXACIN 400 MG/D5W 200ML 200 ML 200 MG IVPB (08:36)
[2024-08-09 09:54] LABS: Hematocrit 44.9 % (42.0-52.0); Hemoglobin 14.7 g/dL (14.0-18.0); Mean Corpuscular HGB Conc 32.7 g/dl (32-36); Mean Corpuscular Hemoglobin 29.6 pg (26-34); Mean Corpuscular Volume 90.3 fl (80-100); Mean Platelet Volume 11.8 fl (7.4-10.4); Platelet Count Result 165 k/mm3 (150-375); Red Blood Count 4.97 M/mm3 (4.6-6.20); Red Cell Distribution Width 12.5 % (11.5-14.5); White Blood Count 13.1 K/mm3 (4.5-10.0)
[2024-08-09 10:10] LABS: Alanine Aminotransferase 28 U/L (6-50); Alkaline Phosphatase 55 U/L (38-126); Anion Gap 9 mmol/L (4-12); Aspartate Amino Transferase 29 U/L (17-59); Bilirubin,Total 1.2 mg/dL (0.2-1.3); Blood Urea Nitrogen 42 mg/dL (9-20); Calcium 9.1 mg/dL (8.4-10.2); Carbon Dioxide 28 mmol/L (22-30); Chloride 104 mmol/L (98-107); Estimated CRCL calculation 44 ml/min; Estimated Glomerular Filt Rate > 60; Glucose 185 mg/dL (65-110); Potassium 3.7 mmol/L (3.4-5.0); Sodium 141 mmol/L (137-145)
--- NOTE | 2024-08-09 10:36 | PCSTNOTE ---
Please refer to the Bedside Swallow Evaluation in the EMR. Please note, silent aspiration cannot be ruled out at bedside.
--- NOTE | 2024-08-09 13:13 | P.PNIM_ITS ---
Progress Note: A&P Assessment and Plan (1) Acute left STEFANIE ischemic stroke: Code(s): I63.522 - Cerebral infarction due to unspecified occlusion or stenosis of left anterior cerebral artery Status: Acute Assessment and Plan: * Brain MR does reveal acute infarct in the left basal ganglia/left periventricular white matter. With no evidence of venous sinus thrombosis. RULED OUT * CTA head and neck showed findings suggestive of left sigmoid sinus and internal jugular vein thrombosis. Short segment severe stenosis in the proximal right ECA. No large vessel intracranial occlusion or aneurysm. No carotid or vertebral artery occlusion dissection or significant stenosis. * Neurology has been consulted * Started on aspirin and Plavix * Discontinued heparin drip. * Speech therapy and on regular diet * PT/ OT * Statin * A1c normal and lipid profile LDL 157 * Echo with ef 35-40%, trace MR, grade 1 diastolic dysfunction 08/08/24: * Was not able to take medications or eat, nursing reported pocketing of medications and food as well as unable to follow directions. Still lethargic * NPO with Ice chips * will get ST once more alert * if he continues will need evaluation and possible peg tube but hoping his awareness improves * No IV fluids at this time due to cardiomyopathy will add low rate if continues to have eating and drinking complications. 08/09/2024: * Speech evaluation with concern of poor oral intake and aspiration * will need barium swallowing * Family wants feeding tube * GI consulted for placement * NPO (2) Aspiration pneumonia: Code(s): J69.0 - Pneumonitis due to inhalation of food and vomit Status: Acute Assessment and Plan: * Recent CVA * Speech poor oral intake and possible aspiration * febrile overnight peaked at 102.3 * Leukocytosis of 13 * Blood cultures x2 pending * Chest x-ray: Atelectasis versus pneumonia * Rocephin and Flagyl * supplemental oxygen therapy to maintain oxygen 92% on room air * Patient at some point will need modified barium swallow * Patient wants to move forward with feeding tube (3) Chronic UTI: Code(s): N39.0 - Urinary tract infection, site not specified Status: Acute Assessment and Plan: * chronic UTIs, prescribed ciprofloxacin 500 mg b.i.d. x7 days when he develops symptoms. Has had 2 doses, will continue x6 days for total of 7 after discussion with patient's . * UA: Specific gravity 1.045, 1+ ketones (4) Cardiomyopathy: Code(s): I42.9 - Cardiomyopathy, unspecified Status: Acute Assessment and Plan: * Follows with advertising project manager in [place]. * History of cardiomyopathy in the past used to be on medications which include carvedilol and lisinopril which has now been stopped. Family reports due to improvement in EF * Will restart carvedilol and lisinopri Plan Code status: DNR DVT prophylaxis: Lovenox Stress ulcer prophylaxis: BRANDON PT/OT notes: Rehab/SNF Disposition: Patient continues admission after acute stroke limited range of motion working with PT/OT but currently lethargic with minimal alertness unable to follow commands as ulnar safely eating or drinking or taking his medications. Patient seen by speech with minimal improvement drive her oral intake in some concern for aspiration appears patient may have aspiration pneumonia appears patient will not have adequate nutrition discussed findings with patient's and family and at this time we will like to move forward with a feeding tube for supplemental nutrition will also need barium swallow study to determine if patient is aspirating. Time Spent With Patient Time with patient: 15 - 25 minutes Subjective Date/time seen: 08/09/24 13:13 Interval history: Patient is a 73-year-old male is admitted for further evaluation and treatment of acute CVA 08/09/2024: Patient still with poor oral intake needs constant direction to take bits or drink. Speech evaluation with concern for possible aspiration risk as well as failure to get enough nutrition. spoke with at beside about feeding tube for supplemental feeding. Patient febrile last night and leukocytosis noted with CXR showing possible PNA concern for aspiration. plans to speak with children regarding peg tube placement. Review of Systems Review of Systems: ROS unobtainable: Yes unobtainable due to medical condition and unobtainable due to mental status Exam Narrative: GENERAL: Lethargic male in no acute distress, at bedside HEAD: Normocephalic, atraumatic. EYES: PERRL and EOMI. ENT: Mucous membranes moist. CHEST: Clear to auscultation. No respiratory distress. HEART: Regular rate and rhythm. Normal peripheral pulses. ABDOMEN: Soft, nontender, nondistended EXTREMITIES: Normal range of motion. No edema. SKIN: Warm, dry, no rash. NEURO: Right facial droop. Minimal to no tone right lower extremity and right upper extremity. Bilateral knee jerks hyperreflexic. Equal and symmetrical. Nonverbal which is his baseline. Objective Data Vital Signs Vital Signs: Vital Signs - 24 hr 08/08/24 16:00 08/08/24 14:00 08/08/24 21:05 Temperature 97.6 F 102.3 F H Pulse Rate 82 100 126 H Respiratory Rate 19 16 Blood Pressure 134/89 117/70 Pulse Oximetry 93 93 Oxygen Delivery 08/08/24 22:04 08/08/24 20:00 08/08/24 20:00 Temperature 102.8 F H Pulse Rate 126 H Respiratory Rate Blood Pressure Pulse Oximetry Oxygen Delivery Room Air 08/08/24 23:04 08/08/24 23:04 08/09/24 00:00 Temperature 100.4 F H Pulse Rate 114 H 109 H Respiratory Rate Blood Pressure Pulse Oximetry Oxygen Delivery 08/09/24 04:00 08/09/24 05:20 08/09/24 08:30 Temperature 98.3 F Pulse Rate 80 77 Respiratory Rate 16 Blood Pressure 110/63 Pulse Oximetry 97 97 Oxygen Delivery Room Air 08/09/24 08:30 Temperature Pulse Rate 85 Respiratory Rate Blood Pressure Pulse Oximetry Oxygen Delivery Intake/Output Intake/Output: Intake & Output 08/06/24 08/07/24 08/08/24 08/09/24 23:59 23:59 23:59 23:59 Intake Total 465 670 250 200 Output Total 700 1050 550 150 Balance -235 -380 -300 50 Meds/Results Medications: Active Medications Generic Name Dose Route Start Last Admin Trade Name Freq PRN Reason Stop Dose Admin Acetaminophen 650 mg 08/03/24 18:19 Acetaminophen 325 Mg Tablet PO Q4H PRN Mild Pain (1-3) or Fever Acetaminophen 650 mg 08/08/24 21:54 08/08/24 22:04 Acetaminophen 650 Mg Suppository RECTAL 650 mg Q6H PRN Administration Mild Pain (1-3) or Fever Aspirin 81 mg 08/04/24 13:20 08/09/24 08:30 Aspirin 81 Mg Enteric Tablet PO Not Given QAM [facility] Atorvastatin Calcium 80 mg 08/05/24 21:00 08/08/24 20:36 Atorvastatin 40 Mg Tablet PO Not Given QHS URI Carvedilol 3.125 mg 08/06/24 21:00 08/09/24 08:30 Carvedilol 3.125 Mg Tablet PO Not Given Q12HR [facility] Clopidogrel Bisulfate 75 mg 08/04/24 13:20 08/09/24 08:31 Clopidogrel Bisulfate 75 Mg Tablet PO Not Given [facility]AM [facility] Clotrimazole 1 applic 08/04/24 09:00 08/09/24 08:34 Betamethasone/Clotrimazole Cream 15 Gm Tube TOPICAL 1 applic QAM [facility] Administration Donepezil HCl 10 mg 08/03/24 21:30 08/08/24 20:37 Donepezil Hcl 10 Mg Tablet PO Not Given HS [facility] Enoxaparin Sodium 40 mg 08/05/24 09:00 08/09/24 08:33 Enoxaparin 40 Mg/0.4 Ml Syringe SUB-Q 40 mg DAILY [facility] Administration Fluticasone Propionate 1 spray 08/06/24 21:00 08/09/24 08:34 Fluticasone Propionate 0.05% Na Spr 16 Gm Btl (*Bkc) NASAL 1 spray Q12HR URI Administration Ceftriaxone Sodium 1 gm in 50 mls @ 100 mls/hr 08/09/24 11:30 08/09/24 12:53 Rocephin 1 Gm/Ns 50 Ml IVPB 100 mls/hr DAILY URI Administration Metronidazole 500 mg in 100 mls @ 100 mls/hr 08/09/24 12:00 08/09/24 12:53 Flagyl 500 Mg/Iso Soln 100 Ml IVPB 100 mls/hr Q6H URI Administration Lisinopril 5 mg 08/07/24 09:00 08/09/24 08:31 Lisinopril 5 Mg Tablet PO Not Given QAM RUI Loratadine 10 mg 08/06/24 20:45 08/09/24 08:31 Loratadine 10 Mg Tablet PO Not Given QAM URI Memantine 10 mg 08/04/24 09:00 08/09/24 08:31 Memantine 10 Mg Tablet PO Not Given DAILY URI Ondansetron HCl 4 mg 08/03/24 18:19 Ondansetron Inj 4 Mg/2 Ml Vial IV PUSH Q4H PRN Nausea Triamcinolone Acetonide 1 applic 08/03/24 21:38 Triamcinolone Acet 0.1% Cream 80 Gm Tube TOPICAL BID PRN dermatitis flares. Zinc Oxide 1 applic 08/06/24 21:00 08/08/24 20:38 Zinc Oxide 20% Oint 30 Gm Tube TOPICAL 09/03/24 20:59 1 applic HS URI Administration Radiology Results: ITS Impressions Head/Neck CTA 08/03/24 15:32 IMPRESSION: Findings suggestive of left sigmoid sinus and internal jugular vein thrombosis. Consider MRV for further evaluation. Short segment severe stenosis in the proximal right STEFANIE. No large vessel intracranial occlusion or aneurysm. No carotid or vertebral artery occlusion, dissection, or significant stenosis. Head/Brain Mag Res Venography 08/04/24 12:21 Impression: No evidence of venous sinus thrombosis. Brain MRI 08/04/24 12:22 IMPRESSION: Acute infarct in the left basal ganglia/left periventricular white matter, as detailed above. Diffuse chronic white matter disease, most likely severe chronic microvascular ischemic change. No evidence of venous sinus thrombosis. Carotid Doppler Study 08/05/24 06:09 Impression: No hemodynamically significant stenosis of the bilateral internal carotid arteries. Antegrade flow in the bilateral vertebral arteries. Note: The methodology used is an indirect measurement validated against a direct method (such as the NASCET criteria) that compares diameters at the stenosis to the distal ICA. Chest X-Ray 08/08/24 21:48 IMPRESSION: 1. Airspace opacities in left lower lung zone, consistent with atelectasis versus pneumonia. Labs Labs: Laboratory Results - last 24 hr 08/09/24 09:14 WBC 13.1 H RBC 4.97 Hgb 14.7 Hct 44.9 MCV 90.3 MCH 29.6 MCHC 32.7 RDW 12.5 Plt Count 165 MPV 11.8 H Sodium 141 Potassium 3.7 Chloride 104 Carbon Dioxide 28 Anion Gap 9 BUN 42 H D Creatinine 1.10 Estim Creat Clear Calc 44 Estimated GFR > 60 Glucose 185 H Calcium 9.1 Total Bilirubin 1.2 AST 29 ALT 28 Alkaline Phosphatase 55 Total Protein 8.0 Albumin 4.0 Quality VTE Prophylaxis VTE prophylaxis: pharmacologic ordered -Patient's previous records reviewed on admission -ER notes reviewed in detail on admission -discussed all findings and current treatment plan with patient/Family/POA -Consultations reviewed for recommendations -Patient's disposition for safe discharge discussed with home health care case manager Dictation performed by [employer] direct speech recognition software, therefore recoverer variants and typographical errors may occur. Hospitalist [facility] Advance Care Plan I have confirmed that the patient's Advanced Care Plan is present, code status is documented, or surrogate decision maker is listed in patient medical record.: Yes Medication Reconciliation I have utilized all available resources to obtain, update and review the patients current medications (includes all prescriptions, OTC, herbals, cannabis, and nutritional supplements).: Yes The patient is not eligible for med reconciliation; the patient is in a emergent medical situation where delaying treatment would jeopardize the patients health.: No
[2024-08-09] MEDS: metroNIDAZOLE 500 MG/ISO 100ML 500 MG/100 ML BAG 100 MG IVPB ×2 (13:23→21:36)
--- NOTE | 2024-08-09 14:27 | PCDIET ---
TUBE FEEDING NOTE: Recommend NH feeding: Jevity 1.5 @ goal rate 55 : 1815 kcal, 77 g protein, 920 ml free water. Water flush 150 ml q 4 hours for total 1820 ml free water/day. Start rate at 20 ml/h and advance 10 ml q 4 hours until goal rate is reached.
--- NOTE | 2024-08-09 19:32 | P.CONGI_ITS ---
Assessment and Plan Assessment and plan (1) Dementia: Code(s): F03.90 - Unspecified dementia, unspecified severity, without behavioral disturbance, psychotic disturbance, mood disturbance, and anxiety Status: Acute Assessment and Plan: The patient is a good candidate for PEG placement, there are no contraindi cations for the procedure (it can be done without stopping Plavix). Will add for Monday afternoon schedule. In the meantime he should be fed with a nasogastric tube. Orders placed and coordinated with floor nurse. (2) Acute left STEFANIE ischemic stroke: Code(s): I63.522 - Cerebral infarction due to unspecified occlusion or stenosis of left anterior cerebral artery Status: Acute (3) Aspiration pneumonia: Code(s): J69.0 - Pneumonitis due to inhalation of food and vomit Status: Acute GI Consult Note Consult date/time: 08/09/24 19:32 HPI: Noah Butler is a 73 year old male with a history of longstanding Alzheimer's disease who recently has a massive stroke, currently hospitalized with a community acquired pneumonia. The reason for consultation is for PEG placement. The patient is clinically incapable of eating a normal meal and is at high risk for recurrent aspiration. There is no history of abdominal surgeries. Review of Systems Review of Systems: All systems reviewed & are unremarkable except as noted in HPI and below PMFSH Past Medical History Medical History (Updated 08/09/24 @ 13:24 by Maribel Harmon, BREAD BAKER) Acute left STEFANIE ischemic stroke Afib Alzheimer's dementia Arthritis Chronic UTI Congestive heart failure HLD (hyperlipidemia) Currently off medications HTN (hypertension) Currently off medications Sleep apnea Family History Family History Sibling Diabetes mellitus Brother Father Family history of kidney stones, Onset Age: 75 Family history of dementia, Onset Age: 75 Cerebrovascular accident, Onset Age: 75 Alzheimer dementia Hypertension Mother Heart problem Social History Social History Smoking status: Former smoker Tobacco type: cigarettes Second hand tobacco smoke exposure: No Additional smoking assessment comments: Unknown amount. Alcohol intake: never Substance use: never Substance use type: does not use Do You Feel Safe in your Home?: Yes Lack of Transportation: No Lack of Food: Never True Current Housing: I Have Housing Concerned About Future Housing: No Difficulty Paying Gas/Electric Bills: No Difficulty Paying for Meds: No Currently Unemployed: No Education: Don't Know Difficulty w/ Childcare or Family Care: No Spiritual care concerns: No Meds Home Medications and Allergies Home Medications Medication Instructions Recorded Confirmed Type donepezil 10 mg tablet 10 mg PO HS 02/17/21 08/03/24 History memantine 10 mg tablet 10 mg PO DAILY 02/17/21 08/03/24 History nystatin-triamcinolone 100,000 1 applic topical QAM 05/07/24 08/03/24 History unit/gram-0.1 % topical ointment acetaminophen 650 mg/20.3 mL oral 650 mg PO Q6H PRN Pain (Scale 08/03/24 08/03/24 History solution Score 1-3) or fever betamethasone dipropionate 0.05 % 1 applic topical BID PRN 08/03/24 08/03/24 History lotion dermatitis flares. ciprofloxacin HCl 500 mg tablet 500 mg PO BID 08/03/24 08/03/24 History meloxicam 7.5 mg tablet 7.5 mg PO DAILY PRN hip pain 08/03/24 08/03/24 History zinc oxide 40 % topical ointment 1 applic topical HS 08/03/24 08/03/24 History Allergies Allergy/AdvReac Type Severity Reaction Status Date / Time Sulfa (Sulfonamide Allergy Mild rash Verified 08/03/24 20:32 Antibiotics) Vital Signs Vital Signs - 24 hr 08/08/24 21:05 08/08/24 22:04 08/08/24 20:00 Temperature 102.3 F H 102.8 F H Pulse Rate 126 H Respiratory Rate 16 Blood Pressure 117/70 Pulse Oximetry 93 Oxygen Delivery Room Air 08/08/24 20:00 08/08/24 23:04 08/08/24 23:04 Temperature 100.4 F H Pulse Rate 126 H 114 H Respiratory Rate Blood Pressure Pulse Oximetry Oxygen Delivery 08/09/24 00:00 08/09/24 04:00 08/09/24 05:20 Temperature 98.3 F Pulse Rate 109 H 80 77 Respiratory Rate 16 Blood Pressure 110/63 Pulse Oximetry 97 Oxygen Delivery 08/09/24 08:30 08/09/24 08:30 08/09/24 14:00 Temperature 98.7 F Pulse Rate 85 88 Respiratory Rate 22 H Blood Pressure 114/70 Pulse Oximetry 97 93 Oxygen Delivery Room Air 08/09/24 12:00 08/09/24 16:00 Temperature Pulse Rate 86 105 H Respiratory Rate Blood Pressure Pulse Oximetry Oxygen Delivery Exam Narrative: GENERAL: Lethargic male in no acute distress, at bedside HEAD: Normocephalic, atraumatic. EYES: PERRL and EOMI. ENT: Mucous membranes moist. CHEST: Clear to auscultation. No respiratory distress. HEART: Regular rate and rhythm. Normal peripheral pulses. ABDOMEN: Soft, nontender, nondistended EXTREMITIES: Normal range of motion. No edema. SKIN: Warm, dry, no rash. NEURO: Right facial droop. Minimal to no tone right lower extremity and right upper extremity. Bilateral knee jerks hyperreflexic. Equal and symmetrical. Nonverbal which is his baseline. Results Labs 08/09/24 09:14 08/09/24 09:14 Labs: Short CBC 08/09/24 Range/Units 09:14 WBC 13.1 H (4.5-10.0) K/mm3 Hgb 14.7 (14.0-18.0) g/dL Hct 44.9 (42.0-52.0) % Plt Count 165 (150-375) k/mm3 BMP 08/09/24 09:14 Sodium 141 Potassium 3.7 Chloride 104 Carbon Dioxide 28 BUN 42 H D Creatinine 1.10 Glucose 185 H Calcium 9.1 Liver Function 08/09/24 Range/Units 09:14 Total Bilirubin 1.2 (0.2-1.3) mg/dL AST 29 (17-59) U/L ALT 28 (6-50) U/L Alkaline Phosphatase 55 (38-126) U/L Albumin 4.0 (3.5-5.1) g/dL
[2024-08-09] MEDS: DONEPEZIL HCL 10 MG TABLET PO (20:59)
[2024-08-09] MEDS: ATORVASTATIN 40 MG TABLET 80 MG PO (20:59)
[2024-08-09] MEDS: carvediloL 3.125 MG TABLET PO (20:59)
[2024-08-09] MEDS: PANTOPRAZOLE SODIUM IV 40 MG VIAL IV PUSH (21:00)
[2024-08-09] MEDS: ZINC OXIDE 20% OINT 30 GM TUBE 1 APPLIC TOPICAL (22:45)
[2024-08-10] VITALS (11 sets, daily range): BP systolic 104–125; BP diastolic 65–75; PULSE 66–82; RESP 16–18; TEMP 36.6–36.7; O2SAT 93–100
[2024-08-10 05:33] LABS: Hematocrit 41.4 % (42.0-52.0); Hemoglobin 13.6 g/dL (14.0-18.0); Mean Corpuscular HGB Conc 32.9 g/dl (32-36); Mean Corpuscular Hemoglobin 29.2 pg (26-34); Platelet Count Result 180 k/mm3 (150-375); Red Blood Count 4.65 M/mm3 (4.6-6.20); Red Cell Distribution Width 12.4 % (11.5-14.5); White Blood Count 11.1 K/mm3 (4.5-10.0)
[2024-08-10] MEDS: metroNIDAZOLE 500 MG/ISO 100ML 500 MG/100 ML BAG 100 MG IVPB ×3 (05:33→21:01)
[2024-08-10 05:53] LABS: Alanine Aminotransferase 24 U/L (6-50); Albumin Level 3.6 g/dL (3.5-5.1); Alkaline Phosphatase 59 U/L (38-126); Anion Gap 4 mmol/L (4-12); Aspartate Amino Transferase 25 U/L (17-59); Bilirubin,Total 0.9 mg/dL (0.2-1.3); Blood Urea Nitrogen 42 mg/dL (9-20); Carbon Dioxide 27 mmol/L (22-30); Chloride 111 mmol/L (98-107); Estimated CRCL calculation 44 ml/min; Estimated Glomerular Filt Rate > 60; Glucose 180 mg/dL (65-110); Potassium 3.5 mmol/L (3.4-5.0); Sodium 142 mmol/L (137-145)
--- NOTE | 2024-08-10 08:04 | WPDGIPROGNO ---
Progress Note: A&P Assessment and Plan (1) PEG tube malfunction: Code(s): K94.23 - Gastrostomy malfunction Status: Acute Assessment and Plan: Will place PEG on Monday. Please make sure Lovenox dose is NOT administered Monday a.m. Subjective Date/time seen: 08/10/24 08:04 Interval history: No changes in patient's status - orders placed for PEG Monday Objective Data Vital Signs Vital Signs: Vital Signs - 24 hr 08/09/24 08:30 08/09/24 08:30 08/09/24 14:00 Temperature 98.7 F Pulse Rate 85 88 Respiratory Rate 22 H Blood Pressure 114/70 Pulse Oximetry 97 93 Oxygen Delivery Room Air 08/09/24 12:00 08/09/24 16:00 08/09/24 19:52 Temperature 99 F Pulse Rate 86 105 H 61 Respiratory Rate 16 Blood Pressure 141/87 H Pulse Oximetry 90 Oxygen Delivery 08/09/24 20:59 08/09/24 20:00 08/09/24 22:00 Temperature 98.1 F Pulse Rate 97 92 Respiratory Rate 16 Blood Pressure 126/69 Pulse Oximetry 94 Oxygen Delivery Room Air 08/09/24 20:00 08/10/24 00:00 08/10/24 04:00 Temperature Pulse Rate 93 80 72 Respiratory Rate Blood Pressure Pulse Oximetry Oxygen Delivery Intake/Output Intake/Output: Intake & Output 08/07/24 08/08/24 08/09/24 08/10/24 23:59 23:59 23:59 23:59 Intake Total 670 250 450 100 Output Total 1050 550 350 250 Balance -380 -300 100 -150 Meds/Results Medications: Active Medications Generic Name Dose Route Start Last Admin Trade Name Freq PRN Reason Stop Dose Admin Acetaminophen 650 mg 08/03/24 18:19 Acetaminophen 325 Mg Tablet PO Q4H PRN Mild Pain (1-3) or Fever Acetaminophen 650 mg 08/08/24 21:54 08/08/24 22:04 Acetaminophen 650 Mg Suppository RECTAL 650 mg Q6H PRN Administration Mild Pain (1-3) or Fever Aspirin 81 mg 08/04/24 13:20 08/09/24 08:30 Aspirin 81 Mg Enteric Tablet PO Not Given [facility] Atorvastatin Calcium 80 mg 08/05/24 21:00 08/09/24 20:59 Atorvastatin 40 Mg Tablet PO 80 mg QHS URI Administration Carvedilol 3.125 mg 08/06/24 21:00 08/09/24 20:59 Carvedilol 3.125 Mg Tablet PO 3.125 mg Q12HR URI Administration Clopidogrel Bisulfate 75 mg 08/04/24 13:20 08/09/24 08:31 Clopidogrel Bisulfate 75 Mg Tablet PO Not Given QAM URI Clotrimazole 1 applic 08/04/24 09:00 08/09/24 08:34 Betamethasone/Clotrimazole Cream 15 Gm Tube TOPICAL 1 applic QAM URI Administration Donepezil HCl 10 mg 08/03/24 21:30 08/09/24 20:59 Donepezil Hcl 10 Mg Tablet PO 10 mg HS URI Administration Enoxaparin Sodium 40 mg 08/05/24 09:00 08/09/24 08:33 Enoxaparin 40 Mg/0.4 Ml Syringe SUB-Q 08/12/24 00:01 40 mg DAILY URI Administration Fluticasone Propionate 1 spray 08/06/24 21:00 08/09/24 22:41 Fluticasone Propionate 0.05% Na Spr 16 Gm Btl (*Bkc) NASAL 1 spray Q12HR URI Administration Ceftriaxone Sodium 1 gm in 50 mls @ 100 mls/hr 08/09/24 11:30 08/09/24 13:23 Rocephin 1 Gm/Ns 50 Ml IVPB Infused DAILY URI Infusion Metronidazole 500 mg in 100 mls @ 100 mls/hr 08/09/24 22:00 08/10/24 05:33 Flagyl 500 Mg/Iso Soln 100 Ml IVPB 100 mls/hr Q8HR URI Administration Lisinopril 5 mg 08/07/24 09:00 08/09/24 08:31 Lisinopril 5 Mg Tablet PO Not Given QAM URI Loratadine 10 mg 08/06/24 20:45 08/09/24 08:31 Loratadine 10 Mg Tablet PO Not Given QAM [facility] Memantine 10 mg 08/04/24 09:00 08/09/24 08:31 Memantine 10 Mg Tablet PO Not Given DAILY [facility] Ondansetron HCl 4 mg 08/03/24 18:19 Ondansetron Inj 4 Mg/2 Ml Vial IV PUSH Q4H PRN Nausea Pantoprazole Sodium 40 mg 08/09/24 21:00 08/09/24 21:00 Pantoprazole Sodium Iv 40 Mg Vial IV PUSH 40 mg Q12HR URI Administration Triamcinolone Acetonide 1 applic 08/03/24 21:38 Triamcinolone Acet 0.1% Cream 80 Gm Tube TOPICAL BID PRN dermatitis flares. Zinc Oxide 1 applic 08/06/24 21:00 08/09/24 22:45 Zinc Oxide 20% Oint 30 Gm Tube TOPICAL 09/03/24 20:59 1 applic HS URI Administration Radiology Results: ITS Impressions Head/Neck CTA 08/03/24 15:32 IMPRESSION: Findings suggestive of left sigmoid sinus and internal jugular vein thrombosis. Consider MRV for further evaluation. Short segment severe stenosis in the proximal right STEFANIE. No large vessel intracranial occlusion or aneurysm. No carotid or vertebral artery occlusion, dissection, or significant stenosis. Head/Brain Mag Res Venography 08/04/24 12:21 Impression: No evidence of venous sinus thrombosis. Brain MRI 08/04/24 12:22 IMPRESSION: Acute infarct in the left basal ganglia/left periventricular white matter, as detailed above. Diffuse chronic white matter disease, most likely severe chronic microvascular ischemic change. No evidence of venous sinus thrombosis. Carotid Doppler Study 08/05/24 06:09 Impression: No hemodynamically significant stenosis of the bilateral internal carotid arteries. Antegrade flow in the bilateral vertebral arteries. Note: The methodology used is an indirect measurement validated against a direct method (such as the NASCET criteria) that compares diameters at the stenosis to the distal ICA. Abdomen X-Ray 08/09/24 19:01 IMPRESSION: 1. Nasogastric tube tip in the stomach. 2. Airspace opacities at left lung base, consistent with atelectasis versus pneumonia. Chest X-Ray 08/10/24 06:39 IMPRESSION: 1. Mild infrahilar opacities, left greater than right which could represent mild pulmonary edema, atelectasis or pneumonia. 2. Very small left pleural effusion. Labs Labs: Laboratory Results - last 24 hr 08/09/24 08/10/24 09:14 05:02 WBC 13.1 H 11.1 H RBC 4.97 4.65 Hgb 14.7 13.6 L Hct 44.9 41.4 L MCV 90.3 89.0 MCH 29.6 29.2 MCHC 32.7 32.9 RDW 12.5 12.4 Plt Count 165 180 MPV 11.8 H 12.0 H Sodium 141 142 Potassium 3.7 3.5 Chloride 104 111 H Carbon Dioxide 28 27 Anion Gap 9 4 BUN 42 H D 42 H Creatinine 1.10 1.10 Estim Creat Clear Calc 44 44 Estimated GFR > 60 > 60 Glucose 185 H 180 H Calcium 9.1 9.0 Total Bilirubin 1.2 0.9 AST 29 25 ALT 28 24 Alkaline Phosphatase 55 59 Total Protein 8.0 7.0 Albumin 4.0 3.6
[2024-08-10] MEDS: CLOPIDOGREL BISULFATE 75 MG TABLET PO (09:47)
[2024-08-10] MEDS: carvediloL 3.125 MG TABLET PO ×2 (09:47→21:00)
[2024-08-10] MEDS: lisinopriL 5 MG TABLET PO (09:47)
[2024-08-10] MEDS: ASPIRIN 81 MG ENTERIC TABLET PO (09:47)
[2024-08-10] MEDS: LORATADINE 10 MG TABLET PO (09:47)
[2024-08-10] MEDS: ENOXAPARIN 40 MG/0.4 ML SYRINGE SUB-Q (09:48)
[2024-08-10] MEDS: FLUTICASONE PROPIONATE 0.05% NA SPR 16 GM BTL (*BKC) 1 SPRAY NASAL ×2 (09:48→21:10)
[2024-08-10] MEDS: PANTOPRAZOLE SODIUM IV 40 MG VIAL IV PUSH ×2 (09:49→21:00)
[2024-08-10] MEDS: BETAMETHASONE/CLOTRIMAZOLE CREAM 15 GM TUBE 1 APPLIC TOPICAL (09:50)
[2024-08-10] MEDS: MEMANTINE 10 MG TABLET PO (10:08)
[2024-08-10 12:07] LABS: Glucose Point of Care 179 mg/dl (65-105)
--- NOTE | 2024-08-10 13:14 | P.PNIM_ITS ---
Progress Note: A&P Assessment and Plan (1) Acute left STEFANIE ischemic stroke: Code(s): I63.522 - Cerebral infarction due to unspecified occlusion or stenosis of left anterior cerebral artery Status: Acute Assessment and Plan: * Brain MR does reveal acute infarct in the left basal ganglia/left periventricular white matter. With no evidence of venous sinus thrombosis. RULED OUT * CTA head and neck showed findings suggestive of left sigmoid sinus and internal jugular vein thrombosis. Short segment severe stenosis in the proximal right ECA. No large vessel intracranial occlusion or aneurysm. No carotid or vertebral artery occlusion dissection or significant stenosis. * Neurology has been consulted * Started on aspirin and Plavix * Discontinued heparin drip. * Speech therapy and on regular diet * PT/ OT * Statin * A1c normal and lipid profile LDL 157 * Echo with ef 35-40%, trace MR, grade 1 diastolic dysfunction 08/08/24: * Was not able to take medications or eat, nursing reported pocketing of medications and food as well as unable to follow directions. Still lethargic * NPO with Ice chips * will get ST once more alert * if he continues will need evaluation and possible peg tube but hoping his awareness improves * No IV fluids at this time due to cardiomyopathy will add low rate if continues to have eating and drinking complications. 08/09/2024: * Speech evaluation with concern of poor oral intake and aspiration * will need barium swallowing * Family wants feeding tube * GI consulted for placement * NPO 08/10/2024 * possible aspiration * minimal response * NG tube tolerating tube feeds * ACCU checks and sliding scale added * Peg tube 08/12/24 (2) Aspiration pneumonia: Code(s): J69.0 - Pneumonitis due to inhalation of food and vomit Status: Acute Assessment and Plan: * Recent CVA * Speech poor oral intake and possible aspiration * febrile overnight peaked at 102.3 * Leukocytosis of 13 * Blood cultures x2 pending * Chest x-ray: Atelectasis versus pneumonia * Rocephin and Flagyl * supplemental oxygen therapy to maintain oxygen 92% on room air * Patient at some point will need modified barium swallow * Patient wants to move forward with feeding tube (3) Chronic UTI: Code(s): N39.0 - Urinary tract infection, site not specified Status: Acute Assessment and Plan: * chronic UTIs, prescribed ciprofloxacin 500 mg b.i.d. x7 days when he develops symptoms. Has had 2 doses, will continue x6 days for total of 7 after discussion with patient's . 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 * History of cardiomyopathy in the past used to be on medications which include carvedilol and lisinopril which has now been stopped. Family reports due to improvement in EF * Will restart carvedilol and lisinopri Plan Code status: DNR DVT prophylaxis: Lovenox Stress ulcer prophylaxis: NA PT/OT notes: Rehab/SNF Disposition: Patient continues admission after acute stroke limited range of motion working with PT/OT but currently lethargic with minimal alertness unable to follow commands as ulnar safely eating or drinking or taking his medications. Patient seen by speech with minimal improvement drive her oral intake in some concern for aspiration appears patient may have aspiration pneumonia appears patient will not have adequate nutrition discussed findings with patient's and family and at this time we will like to move forward with a feeding tube for supplemental nutrition will also need barium swallow study to determine if patient is aspirating. Time Spent With Patient Time with patient: 15 - 25 minutes Subjective Date/time seen: 08/10/24 13:14 Interval history: Patient is a 73-year-old male is admitted for further evaluation and treatment of acute CVA 08/10/2024: Patient lethargic only responding to moderate stimuli, son at bedside and updated. Tolerating tube feeds through NG tube plan for peg tube 08/12/2024. WBC trending down, minimal cough but with some congestion. Review of Systems Review of Systems: Son at bedside will respond to family voices ROS unobtainable: Yes unobtainable due to medical condition and unobtainable due to mental status Exam Narrative: GENERAL: Lethargic male in no acute distress, son at bedside HEAD: Normocephalic, atraumatic. EYES: PERRL and EOMI. ENT: Mucous membranes moist. CHEST: Clear to auscultation. No respiratory distress. HEART: Regular rate and rhythm. Normal peripheral pulses. ABDOMEN: Soft, nontender, nondistended EXTREMITIES: Normal range of motion. No edema. SKIN: Warm, dry, no rash. NEURO: Right facial droop. Minimal to no tone right lower extremity and right upper extremity. hyperreflexic. Equal and symmetrical. Nonverbal which is his baseline, but now minimal response only moderate stimuli and family. Objective Data Vital Signs Vital Signs: Vital Signs - 24 hr 08/09/24 14:00 08/09/24 16:00 08/09/24 19:52 Temperature 98.7 F 99 F Pulse Rate 88 105 H 61 Respiratory Rate 22 H 16 Blood Pressure 114/70 141/87 H Pulse Oximetry 93 90 Oxygen Delivery 08/09/24 20:59 08/09/24 20:00 08/09/24 22:00 Temperature 98.1 F Pulse Rate 97 92 Respiratory Rate 16 Blood Pressure 126/69 Pulse Oximetry 94 Oxygen Delivery Room Air 08/09/24 20:00 08/10/24 00:00 08/10/24 04:00 Temperature Pulse Rate 93 80 72 Respiratory Rate Blood Pressure Pulse Oximetry Oxygen Delivery 08/10/24 09:47 08/10/24 08:00 Temperature Pulse Rate 72 66 Respiratory Rate Blood Pressure Pulse Oximetry Oxygen Delivery Intake/Output Intake/Output: Intake & Output 08/07/24 08/08/24 08/09/24 08/10/24 23:59 23:59 23:59 23:59 Intake Total 670 250 450 440 Output Total 1050 550 350 250 Balance -380 -300 100 190 Meds/Results Medications: Active Medications Generic Name Dose Route Start Last Admin Trade Name Freq PRN Reason Stop Dose Admin Acetaminophen 650 mg 08/03/24 18:19 Acetaminophen 325 Mg Tablet PO Q4H PRN Mild Pain (1-3) or Fever Acetaminophen 650 mg 08/08/24 21:54 08/08/24 22:04 Acetaminophen 650 Mg Suppository RECTAL 650 mg Q6H PRN Administration Mild Pain (1-3) or Fever Aspirin 81 mg 08/04/24 13:20 08/10/24 09:47 Aspirin 81 Mg Enteric Tablet PO 81 mg QAM [facility] Administration Atorvastatin Calcium 80 mg 08/05/24 21:00 08/09/24 20:59 Atorvastatin 40 Mg Tablet PO 80 mg QHS [facility] Administration Carvedilol 3.125 mg 08/06/24 21:00 08/10/24 09:47 Carvedilol 3.125 Mg Tablet PO 3.125 mg Q12HR URI Administration Clopidogrel Bisulfate 75 mg 08/04/24 13:20 08/10/24 09:47 Clopidogrel Bisulfate 75 Mg Tablet PO 75 mg QAM [facility] Administration Clotrimazole 1 applic 08/04/24 09:00 08/10/24 09:50 Betamethasone/Clotrimazole Cream 15 Gm Tube TOPICAL 1 applic QAM [facility] Administration Dextrose 12.5 gm 08/10/24 08:06 Dextrose 50% 25 Gm/50 Ml Syringe IV PUSH PRN PRN Hypoglycemia Protocol Donepezil HCl 10 mg 08/03/24 21:30 08/09/24 20:59 Donepezil Hcl 10 Mg Tablet PO 10 mg HS URI Administration Enoxaparin Sodium 40 mg 08/05/24 09:00 08/10/24 09:48 Enoxaparin 40 Mg/0.4 Ml Syringe SUB-Q 08/12/24 00:01 40 mg DAILY [facility] Administration Fluticasone Propionate 1 spray 08/06/24 21:00 08/10/24 09:48 Fluticasone Propionate 0.05% Na Spr 16 Gm Btl (*Bkc) NASAL 1 spray Q12HR [facility] Administration Glucagon 1 mg 08/10/24 08:06 Glucagon For Inj 1 Mg Vial IM PRN PRN Hypoglycemia Protocol Glucose 15 gm 08/10/24 08:06 Glucose Oral Gel 15 Gm Of Glucse In 37.5 Gm Tube PO PRN PRN Hypoglycemia Protocol Ceftriaxone Sodium 1 gm in 50 mls @ 100 mls/hr 08/09/24 11:30 08/10/24 09:44 Rocephin 1 Gm/Ns 50 Ml IVPB 100 mls/hr DAILY [facility] Administration Metronidazole 500 mg in 100 mls @ 100 mls/hr 08/09/24 22:00 08/10/24 06:33 Flagyl 500 Mg/Iso Soln 100 Ml IVPB Infused Q8HR URI Infusion Dextrose 1,000 mls @ 100 mls/hr 08/10/24 08:06 Dextrose 5% 1,000 Ml IVPB PRN PRN Hypoglycemia Protocol Insulin Aspart 2 - 5 units 08/10/24 12:00 08/10/24 12:09 Insulin Aspart (*Bkc) 100 Units/Ml SUB-Q Not Given TIDWM URI Protocol Lisinopril 5 mg 08/07/24 09:00 08/10/24 09:47 Lisinopril 5 Mg Tablet PO 5 mg QAM [facility] Administration Loratadine 10 mg 08/06/24 20:45 08/10/24 09:47 Loratadine 10 Mg Tablet PO 10 mg QAM [facility] Administration Memantine 10 mg 08/04/24 09:00 08/10/24 10:08 Memantine 10 Mg Tablet PO 10 mg DAILY [facility] Administration Ondansetron HCl 4 mg 08/03/24 18:19 Ondansetron Inj 4 Mg/2 Ml Vial IV PUSH Q4H PRN Nausea Pantoprazole Sodium 40 mg 08/09/24 21:00 08/10/24 09:49 Pantoprazole Sodium Iv 40 Mg Vial IV PUSH 40 mg Q12HR URI Administration Triamcinolone Acetonide 1 applic 08/03/24 21:38 Triamcinolone Acet 0.1% Cream 80 Gm Tube TOPICAL BID PRN dermatitis flares. Zinc Oxide 1 applic 08/06/24 21:00 08/09/24 22:45 Zinc Oxide 20% Oint 30 Gm Tube TOPICAL 09/03/24 20:59 1 applic HS URI Administration Radiology Results: ITS Impressions Head/Neck CTA 08/03/24 15:32 IMPRESSION: Findings suggestive of left sigmoid sinus and internal jugular vein thrombosis. Consider MRV for further evaluation. Short segment severe stenosis in the proximal right STEFANIE. No large vessel intracranial occlusion or aneurysm. No carotid or vertebral artery occlusion, dissection, or significant stenosis. Head/Brain Mag Res Venography 08/04/24 12:21 Impression: No evidence of venous sinus thrombosis. Brain MRI 08/04/24 12:22 IMPRESSION: Acute infarct in the left basal ganglia/left periventricular white matter, as detailed above. Diffuse chronic white matter disease, most likely severe chronic microvascular ischemic change. No evidence of venous sinus thrombosis. Carotid Doppler Study 08/05/24 06:09 Impression: No hemodynamically significant stenosis of the bilateral internal carotid arteries. Antegrade flow in the bilateral vertebral arteries. Note: The methodology used is an indirect measurement validated against a direct method (such as the NASCET criteria) that compares diameters at the stenosis to the distal ICA. Abdomen X-Ray 08/09/24 19:01 IMPRESSION: 1. Nasogastric tube tip in the stomach. 2. Airspace opacities at left lung base, consistent with atelectasis versus pneumonia. Chest X-Ray 08/10/24 06:39 IMPRESSION: 1. Mild infrahilar opacities, left greater than right which could represent mild pulmonary edema, atelectasis or pneumonia. 2. Very small left pleural effusion. Labs Labs: Laboratory Results - last 24 hr 08/10/24 08/10/24 05:02 11:58 WBC 11.1 H RBC 4.65 Hgb 13.6 L Hct 41.4 L MCV 89.0 MCH 29.2 MCHC 32.9 RDW 12.4 Plt Count 180 MPV 12.0 H Sodium 142 Potassium 3.5 Chloride 111 H Carbon Dioxide 27 Anion Gap 4 BUN 42 H Creatinine 1.10 Estim Creat Clear Calc 44 Estimated GFR > 60 Glucose 180 H POC Capillary Glucose 179 H Calcium 9.0 Total Bilirubin 0.9 AST 25 ALT 24 Alkaline Phosphatase 59 Total Protein 7.0 Albumin 3.6 Quality VTE Prophylaxis VTE prophylaxis: pharmacologic ordered -Patient's previous records reviewed on admission -ER notes reviewed in detail on admission -discussed all findings and current treatment plan with patient/Family/POA -Consultations reviewed for recommendations -Patient's disposition for safe discharge discussed with case checker Dictation performed by [employer] direct speech recognition software, therefore crimper assembler variants and typographical errors may occur. Hospitalist MIPS Advance Care Plan I have confirmed that the patient's Advanced Care Plan is present, code status is documented, or surrogate decision maker is listed in patient medical record.: Yes Medication Reconciliation I have utilized all available resources to obtain, update and review the patients current medications (includes all prescriptions, OTC, herbals, cannabis, and nutritional supplements).: Yes The patient is not eligible for med reconciliation; the patient is in a emergent medical situation where delaying treatment would jeopardize the patients health.: No
[2024-08-10 17:06] LABS: Glucose Point of Care 150 mg/dl (65-105)
[2024-08-10] MEDS: SODIUM CHLORIDE 0.9% IV 1,000 ML 75 ML IV CONT (19:26)
[2024-08-10 20:51] LABS: Glucose Point of Care 160 mg/dl (65-105)
[2024-08-10] MEDS: DONEPEZIL HCL 10 MG TABLET PO (21:00)
[2024-08-10] MEDS: ATORVASTATIN 40 MG TABLET 80 MG PO (21:00)
[2024-08-10] MEDS: ZINC OXIDE 20% OINT 30 GM TUBE 1 APPLIC TOPICAL (21:11)
[2024-08-11] VITALS (15 sets, daily range): BP systolic 133–143; BP diastolic 57–81; PULSE 63–83; RESP 16–18; TEMP 36.7–36.8; O2SAT 96–100
[2024-08-11 01:17] LABS: IFOB Positive Control Positive; Immunochemical Fecal Occult Bl Negative (N)
[2024-08-11 01:39] LABS: Glucose Point of Care 148 mg/dl (65-105)
--- NOTE | 2024-08-11 05:03 | PC.NURSE ---
Nurse found Pt with Ng tube pulled almost all the way out with feedings still running. Called MD and recieved orders to replace tube. Chest XR ordered to confirm placement.
[2024-08-11] MEDS: metroNIDAZOLE 500 MG/ISO 100ML 500 MG/100 ML BAG 100 MG IVPB ×3 (05:45→20:51)
[2024-08-11 05:56] LABS: Hematocrit 40.3 % (42.0-52.0); Hemoglobin 12.7 g/dL (14.0-18.0); Mean Corpuscular HGB Conc 31.5 g/dl (32-36); Mean Corpuscular Hemoglobin 28.7 pg (26-34); Mean Platelet Volume 11.7 fl (7.4-10.4); Platelet Count Result 179 k/mm3 (150-375); Red Blood Count 4.43 M/mm3 (4.6-6.20); Red Cell Distribution Width 12.6 % (11.5-14.5); White Blood Count 8.8 K/mm3 (4.5-10.0)
[2024-08-11 06:05] LABS: Alanine Aminotransferase 25 U/L (6-50); Albumin Level 3.3 g/dL (3.5-5.1); Alkaline Phosphatase 57 U/L (38-126); Anion Gap 5 mmol/L (4-12); Aspartate Amino Transferase 28 U/L (17-59); Bilirubin,Total 0.4 mg/dL (0.2-1.3); Blood Urea Nitrogen 31 mg/dL (9-20); Calcium 8.7 mg/dL (8.4-10.2); Carbon Dioxide 28 mmol/L (22-30); Chloride 116 mmol/L (98-107); Estimated CRCL calculation 53 ml/min; Estimated Glomerular Filt Rate > 60; Glucose 149 mg/dL (65-110); Magnesium 2.5 mg/dL (1.6-2.3); Potassium 3.2 mmol/L (3.4-5.0); Sodium 149 mmol/L (137-145)
[2024-08-11 07:30] LABS: Glucose Point of Care 124 mg/dl (65-105)
--- NOTE | 2024-08-11 09:46 | P.PNIM_ITS ---
Progress Note: A&P Assessment and Plan (1) Acute left STEFANIE ischemic stroke: Code(s): I63.522 - Cerebral infarction due to unspecified occlusion or stenosis of left anterior cerebral artery Status: Acute Assessment and Plan: * Brain MR does reveal acute infarct in the left basal ganglia/left periventricular white matter. With no evidence of venous sinus thrombosis. RULED OUT * CTA head and neck showed findings suggestive of left sigmoid sinus and internal jugular vein thrombosis. Short segment severe stenosis in the proximal right ECA. No large vessel intracranial occlusion or aneurysm. No carotid or vertebral artery occlusion dissection or significant stenosis. * Neurology has been consulted * Started on aspirin and Plavix * Discontinued heparin drip. * Speech therapy and on regular diet * PT/ OT * Statin * A1c normal and lipid profile LDL 157 * Echo with ef 35-40%, trace MR, grade 1 diastolic dysfunction 08/08/24: * Was not able to take medications or eat, nursing reported pocketing of medications and food as well as unable to follow directions. Still lethargic * NPO with Ice chips * will get ST once more alert * if he continues will need evaluation and possible peg tube but hoping his awareness improves * No IV fluids at this time due to cardiomyopathy will add low rate if continues to have eating and drinking complications. 08/09/2024: * Speech evaluation with concern of poor oral intake and aspiration * will need barium swallowing * Family wants feeding tube * GI consulted for placement * NPO 08/10/2024 * possible aspiration * minimal response * NG tube tolerating tube feeds * ACCU checks and sliding scale added * Peg tube 08/12/24 08/11/24: * tolerating tube feedings * increased water flushes to 100ML hypernatremia 149 (2) Urine output low: Code(s): R34 - Anuria and oliguria Status: Acute Assessment and Plan: * Poor urine output * gentle hydration * monitor for signs of fluid overload HX of Cardiomyopathy * bladder scan Q 4 * improvement overnight * renal function stable (3) Aspiration pneumonia: Code(s): J69.0 - Pneumonitis due to inhalation of food and vomit Status: Acute Assessment and Plan: * Recent CVA * Speech poor oral intake and possible aspiration * febrile overnight peaked at 102.3 * Leukocytosis of 13 * Blood cultures x2 pending * Chest x-ray: Atelectasis versus pneumonia * Rocephin and Flagyl * supplemental oxygen therapy to maintain oxygen 92% on room air * Patient at some point will need modified barium swallow * Patient wants to move forward with feeding tube : * added Duonebs * upper airway congestion unable to clear * suction at bedside (4) Chronic UTI: Code(s): N39.0 - Urinary tract infection, site not specified Status: Acute Assessment and Plan: * chronic UTIs, prescribed ciprofloxacin 500 mg b.i.d. x7 days when he develops symptoms. Has had 2 doses, will continue x6 days for total of 7 after discussion with patient's . * UA: Specific gravity 1.045, 1+ ketones RESOLVED (5) Cardiomyopathy: Code(s): I42.9 - Cardiomyopathy, unspecified Status: Acute Assessment and Plan: * Follows with [facility] in [place]. * History of cardiomyopathy in the past used to be on medications which include carvedilol and lisinopril which has now been stopped. Family reports due to improvement in EF * Will restart carvedilol and lisinopri 08/11/24: * Monitor for fluid overload start IV hydration for poor urine ouput Plan Code status: DNR DVT prophylaxis: Lovenox Stress ulcer prophylaxis: NA PT/OT notes: Rehab/SNF Disposition: Patient continues admission after acute stroke limited range of motion working with PT/OT but currently lethargic with minimal alertness unable to follow commands as ulnar safely eating or drinking or taking his medications. Patient seen by speech with minimal improvement drive her oral intake in some concern for aspiration appears patient may have aspiration pneumonia appears patient will not have adequate nutrition discussed findings with patient's and family and at this time we will like to move forward with a feeding tube for supplemental nutrition will also need barium swallow study to determine if patient is aspirating. Time Spent With Patient Time with patient: 15 - 25 minutes Subjective Date/time seen: 08/11/24 09:46 Interval history: Patient is a 73-year-old male is admitted for further evaluation and treatment of acute CVA 08/11/2024: Patient with low urine output yesterday, bladder scan showing 250ML started IV fluids and continued bladder scan with improved urine output overnight, renal function stable. Patient still with minimal response except moderate stimuli. Tolerating NG tube feeding, Peg tube tomorrow 08/12. Afebrile overnight and WBC is normal today. Patient alert and oriented x1 to 2 today tracking with eyes and smiling up in chair. Review of Systems Review of Systems: Son at bedside will respond to family voices ROS unobtainable: Yes unobtainable due to medical condition and unobtainable due to mental status Exam Narrative: GENERAL: Lethargic male in no acute distress HEAD: Normocephalic, atraumatic. ENT: Mucous membranes moist. NG tube CHEST: Lungs Clear to auscultation but does have some upper airway congestion, unable to clear mucous suction at bedside. No respiratory distress. HEART: Regular rate and rhythm. Normal peripheral pulses. ABDOMEN: Soft, nontender, nondistended EXTREMITIES: Normal range of motion. No edema. SKIN: Warm, dry, no rash. NEURO: Right facial droop. Minimal to no tone right lower extremity and right upper extremity. hyperreflexic. Equal and symmetrical. Nonverbal which is his baseline, but now minimal response only moderate stimuli and family. Objective Data Vital Signs Vital Signs: Vital Signs - 24 hr 08/10/24 09:47 08/10/24 13:54 08/10/24 12:00 Temperature 97.8 F Pulse Rate 72 74 73 Respiratory Rate 18 Blood Pressure 104/65 Pulse Oximetry 94 Oxygen Delivery 08/10/24 16:00 08/10/24 19:45 08/10/24 21:00 Temperature 98.0 F Pulse Rate 82 78 76 Respiratory Rate 16 Blood Pressure 125/75 Pulse Oximetry 100 Oxygen Delivery 08/10/24 20:00 08/10/24 22:15 08/10/24 20:00 Temperature 98.0 F Pulse Rate 74 76 Respiratory Rate 18 Blood Pressure 125/72 Pulse Oximetry 93 Oxygen Delivery Room Air 08/11/24 00:00 08/11/24 04:00 08/11/24 06:00 Temperature Pulse Rate 72 72 Respiratory Rate 18 Blood Pressure Pulse Oximetry Oxygen Delivery Intake/Output Intake/Output: Intake & Output 08/08/24 08/09/24 08/10/24 08/11/24 23:59 23:59 23:59 23:59 Intake Total 250 450 640 0 Output Total 550 350 250 250 Balance -300 100 390 -250 Meds/Results Medications: Active Medications Generic Name Dose Route Start Last Admin Trade Name Freq PRN Reason Stop Dose Admin Acetaminophen 650 mg 08/03/24 18:19 Acetaminophen 325 Mg Tablet PO Q4H PRN Mild Pain (1-3) or Fever Acetaminophen 650 mg 08/08/24 21:54 08/08/24 22:04 Acetaminophen 650 Mg Suppository RECTAL 650 mg Q6H PRN Administration Mild Pain (1-3) or Fever Albuterol/Ipratropium 3 ml 08/11/24 14:00 Ipratropium 0.5 Mg/Albuterol Sulfate 2.5 Mg Ampul.Neb 3 Ml INHALATION Q6HRT URI Aspirin 81 mg 08/04/24 13:20 08/10/24 09:47 Aspirin 81 Mg Enteric Tablet PO 81 mg QAM URI Administration Atorvastatin Calcium 80 mg 08/05/24 21:00 08/10/24 21:00 Atorvastatin 40 Mg Tablet PO 80 mg QHS URI Administration Carvedilol 3.125 mg 08/06/24 21:00 08/10/24 21:00 Carvedilol 3.125 Mg Tablet PO 3.125 mg Q12HR URI Administration Clopidogrel Bisulfate 75 mg 08/04/24 13:20 08/10/24 09:47 Clopidogrel Bisulfate 75 Mg Tablet PO 75 mg QAM URI Administration Clotrimazole 1 applic 08/04/24 09:00 08/10/24 09:50 Betamethasone/Clotrimazole Cream 15 Gm Tube TOPICAL 1 applic QAM URI Administration Dextrose 12.5 gm 08/10/24 08:06 Dextrose 50% 25 Gm/50 Ml Syringe IV PUSH PRN PRN Hypoglycemia Protocol Donepezil HCl 10 mg 08/03/24 21:30 08/10/24 21:00 Donepezil Hcl 10 Mg Tablet PO 10 mg HS URI Administration Fluticasone Propionate 1 spray 08/06/24 21:00 08/10/24 21:10 Fluticasone Propionate 0.05% Na Spr 16 Gm Btl (*Bkc) NASAL 1 spray Q12HR URI Administration Glucagon 1 mg 08/10/24 08:06 Glucagon For Inj 1 Mg Vial IM PRN PRN Hypoglycemia Protocol Glucose 15 gm 08/10/24 08:06 Glucose Oral Gel 15 Gm Of Glucse In 37.5 Gm Tube PO PRN PRN Hypoglycemia Protocol Ceftriaxone Sodium 1 gm in 50 mls @ 100 mls/hr 08/09/24 11:30 08/10/24 09:44 Rocephin 1 Gm/Ns 50 Ml IVPB 100 mls/hr DAILY URI Administration Metronidazole 500 mg in 100 mls @ 100 mls/hr 08/09/24 22:00 08/11/24 05:45 Flagyl 500 Mg/Iso Soln 100 Ml IVPB 100 mls/hr Q8HR URI Administration Dextrose 1,000 mls @ 100 mls/hr 08/10/24 08:06 Dextrose 5% 1,000 Ml IVPB PRN PRN Hypoglycemia Protocol Sodium Chloride 1,000 mls @ 75 mls/hr 08/10/24 17:10 08/10/24 19:26 Normal Saline Iv IV CONT 75 mls/hr .[id number] URI Administration Potassium Chloride 40 meq/ 520 mls @ 130 mls/hr 08/11/24 09:44 Sodium Chloride IVPB 08/11/24 13:43 ONCE ONE Insulin Aspart 2 - 5 units 08/10/24 12:00 08/10/24 18:59 Insulin Aspart (*Bkc) 100 Units/Ml SUB-Q Not Given TIDWM [facility] Protocol Lisinopril 5 mg 08/07/24 09:00 08/10/24 09:47 Lisinopril 5 Mg Tablet PO 5 mg QAM URI Administration Loratadine 10 mg 08/06/24 20:45 08/10/24 09:47 Loratadine 10 Mg Tablet PO 10 mg QAM URI Administration Memantine 10 mg 08/04/24 09:00 08/10/24 10:08 Memantine 10 Mg Tablet PO 10 mg DAILY URI Administration Ondansetron HCl 4 mg 08/03/24 18:19 Ondansetron Inj 4 Mg/2 Ml Vial IV PUSH Q4H PRN Nausea Pantoprazole Sodium 40 mg 08/09/24 21:00 08/10/24 21:00 Pantoprazole Sodium Iv 40 Mg Vial IV PUSH 40 mg Q12HR URI Administration Triamcinolone Acetonide 1 applic 08/03/24 21:38 Triamcinolone Acet 0.1% Cream 80 Gm Tube TOPICAL BID PRN dermatitis flares. Zinc Oxide 1 applic 08/06/24 21:00 08/10/24 21:11 Zinc Oxide 20% Oint 30 Gm Tube TOPICAL 09/03/24 20:59 1 applic HS URI Administration Radiology Results: ITS Impressions Head/Neck CTA 08/03/24 15:32 IMPRESSION: Findings suggestive of left sigmoid sinus and internal jugular vein thrombosis. Consider MRV for further evaluation. Short segment severe stenosis in the proximal right STEFANIE. No large vessel intracranial occlusion or aneurysm. No carotid or vertebral artery occlusion, dissection, or significant stenosis. Head/Brain Mag Res Venography 08/04/24 12:21 Impression: No evidence of venous sinus thrombosis. Brain MRI 08/04/24 12:22 IMPRESSION: Acute infarct in the left basal ganglia/left periventricular white matter, as detailed above. Diffuse chronic white matter disease, most likely severe chronic microvascular ischemic change. No evidence of venous sinus thrombosis. Carotid Doppler Study 08/05/24 06:09 Impression: No hemodynamically significant stenosis of the bilateral internal carotid arteries. Antegrade flow in the bilateral vertebral arteries. Note: The methodology used is an indirect measurement validated against a direct method (such as the NASCET criteria) that compares diameters at the stenosis to the distal ICA. Chest X-Ray 08/10/24 06:39 IMPRESSION: 1. Mild infrahilar opacities, left greater than right which could represent mild pulmonary edema, atelectasis or pneumonia. 2. Very small left pleural effusion. Abdomen X-Ray 08/11/24 06:49 IMPRESSION: 1. Nasogastric tube in the stomach. Labs Labs: Laboratory Results - last 24 hr 08/10/24 08/10/24 08/10/24 11:58 17:02 19:39 WBC RBC Hgb Hct MCV MCH MCHC RDW Plt Count MPV Sodium Potassium Chloride Carbon Dioxide Anion Gap BUN Creatinine Estim Creat Clear Calc Estimated GFR Glucose POC Capillary Glucose 179 H 150 H 160 H Calcium Magnesium Total Bilirubin AST ALT Alkaline Phosphatase Total Protein Albumin Stl Occult Blood (IFOB) 08/11/24 08/11/24 08/11/24 00:09 00:44 05:34 WBC 8.8 RBC 4.43 L Hgb 12.7 L Hct 40.3 L MCV 91.0 MCH 28.7 MCHC 31.5 L RDW 12.6 Plt Count 179 MPV 11.7 H Sodium 149 H Potassium 3.2 L Chloride 116 H Carbon Dioxide 28 Anion Gap 5 BUN 31 H D Creatinine 0.90 Estim Creat Clear Calc 53 Estimated GFR > 60 Glucose 149 H POC Capillary Glucose 148 H Calcium 8.7 Magnesium 2.5 H Total Bilirubin 0.4 AST 28 ALT 25 Alkaline Phosphatase 57 Total Protein 7.0 Albumin 3.3 L Stl Occult Blood (IFOB) Negative 08/11/24 06:11 WBC RBC Hgb Hct MCV MCH MCHC RDW Plt Count MPV Sodium Potassium Chloride Carbon Dioxide Anion Gap BUN Creatinine Estim Creat Clear Calc Estimated GFR Glucose POC Capillary Glucose 124 H Calcium Magnesium Total Bilirubin AST ALT Alkaline Phosphatase Total Protein Albumin Stl Occult Blood (IFOB) Quality VTE Prophylaxis VTE prophylaxis: pharmacologic ordered -Patient's previous records reviewed on admission -ER notes reviewed in detail on admission -discussed all findings and current treatment plan with patient/Family/POA -Consultations reviewed for recommendations -Patient's disposition for safe discharge discussed with caser in Dictation performed by [employer] direct speech recognition software, therefore traveling electrician variants and typographical errors may occur. Hospitalist [facility] Advance Care Plan I have confirmed that the patient's Advanced Care Plan is present, code status is documented, or surrogate decision maker is listed in patient medical record.: Yes Medication Reconciliation I have utilized all available resources to obtain, update and review the patients current medications (includes all prescriptions, OTC, herbals, cannabis, and nutritional supplements).: Yes The patient is not eligible for med reconciliation; the patient is in a emergent medical situation where delaying treatment would jeopardize the patients health.: No
[2024-08-11] MEDS: SODIUM CHLORIDE 0.9% IV 1,000 ML 75 ML IV CONT (09:51)
--- NOTE | 2024-08-11 10:07 | P.PNGI_ITS ---
Progress Note: A&P Assessment and Plan (1) Aspiration pneumonia: Code(s): J69.0 - Pneumonitis due to inhalation of food and vomit Status: Acute Assessment and Plan: No change in current status. Will perform PEG placement tomorrow afternoon. Subjective Date/time seen: 08/11/24 10:07 Objective Data Vital Signs Vital Signs: Vital Signs - 24 hr 08/10/24 13:54 08/10/24 12:00 08/10/24 16:00 Temperature 97.8 F Pulse Rate 74 73 82 Respiratory Rate 18 Blood Pressure 104/65 Pulse Oximetry 94 Oxygen Delivery 08/10/24 19:45 08/10/24 21:00 08/10/24 20:00 Temperature 98.0 F Pulse Rate 78 76 Respiratory Rate 16 Blood Pressure 125/75 Pulse Oximetry 100 Oxygen Delivery Room Air 08/10/24 22:15 08/10/24 20:00 08/11/24 00:00 Temperature 98.0 F Pulse Rate 74 76 72 Respiratory Rate 18 Blood Pressure 125/72 Pulse Oximetry 93 Oxygen Delivery 08/11/24 04:00 08/11/24 06:00 Temperature Pulse Rate 72 Respiratory Rate 18 Blood Pressure Pulse Oximetry Oxygen Delivery Intake/Output Intake/Output: Intake & Output 08/08/24 08/09/24 08/10/24 08/11/24 23:59 23:59 23:59 23:59 Intake Total 250 225 517 5179 Output Total 550 350 250 250 Balance -300 100 390 750 Meds/Results Medications: Active Medications Generic Name Dose Route Start Last Admin Trade Name Freq PRN Reason Stop Dose Admin Acetaminophen 650 mg 08/03/24 18:19 Acetaminophen 325 Mg Tablet PO Q4H PRN Mild Pain (1-3) or Fever Acetaminophen 650 mg 08/08/24 21:54 08/08/24 22:04 Acetaminophen 650 Mg Suppository RECTAL 650 mg Q6H PRN Administration Mild Pain (1-3) or Fever Albuterol/Ipratropium 3 ml 08/11/24 14:00 Ipratropium 0.5 Mg/Albuterol Sulfate 2.5 Mg Ampul.Neb 3 Ml INHALATION Q6HRT URI Aspirin 81 mg 08/04/24 13:20 08/10/24 09:47 Aspirin 81 Mg Enteric Tablet PO 81 mg QAM URI Administration Atorvastatin Calcium 80 mg 08/05/24 21:00 08/10/24 21:00 Atorvastatin 40 Mg Tablet PO 80 mg QHS URI Administration Carvedilol 3.125 mg 08/06/24 21:00 08/10/24 21:00 Carvedilol 3.125 Mg Tablet PO 3.125 mg Q12HR URI Administration Clopidogrel Bisulfate 75 mg 08/04/24 13:20 08/10/24 09:47 Clopidogrel Bisulfate 75 Mg Tablet PO 75 mg QAM URI Administration Clotrimazole 1 applic 08/04/24 09:00 08/10/24 09:50 Betamethasone/Clotrimazole Cream 15 Gm Tube TOPICAL 1 applic QAM URI Administration Dextrose 12.5 gm 08/10/24 08:06 Dextrose 50% 25 Gm/50 Ml Syringe IV PUSH PRN PRN Hypoglycemia Protocol Donepezil HCl 10 mg 08/03/24 21:30 08/10/24 21:00 Donepezil Hcl 10 Mg Tablet PO 10 mg HS URI Administration Fluticasone Propionate 1 spray 08/06/24 21:00 08/10/24 21:10 Fluticasone Propionate 0.05% Na Spr 16 Gm Btl (*Bkc) NASAL 1 spray Q12HR URI Administration Glucagon 1 mg 08/10/24 08:06 Glucagon For Inj 1 Mg Vial IM PRN PRN Hypoglycemia Protocol Glucose 15 gm 08/10/24 08:06 Glucose Oral Gel 15 Gm Of Glucse In 37.5 Gm Tube PO PRN PRN Hypoglycemia Protocol Ceftriaxone Sodium 1 gm in 50 mls @ 100 mls/hr 08/09/24 11:30 08/10/24 09:44 Rocephin 1 Gm/Ns 50 Ml IVPB 100 mls/hr DAILY URI Administration Metronidazole 500 mg in 100 mls @ 100 mls/hr 08/09/24 22:00 08/11/24 05:45 Flagyl 500 Mg/Iso Soln 100 Ml IVPB 100 mls/hr Q8HR URI Administration Dextrose 1,000 mls @ 100 mls/hr 08/10/24 08:06 Dextrose 5% 1,000 Ml IVPB PRN PRN Hypoglycemia Protocol Sodium Chloride 1,000 mls @ 75 mls/hr 08/10/24 17:10 08/11/24 09:51 Normal Saline Iv IV CONT 75 mls/hr .[id number] URI Administration Potassium Chloride 40 meq/ 520 mls @ 130 mls/hr 08/11/24 09:44 Sodium Chloride IVPB 08/11/24 13:43 ONCE ONE Insulin Aspart 2 - 5 units 08/10/24 12:00 08/11/24 09:48 Insulin Aspart (*Bkc) 100 Units/Ml SUB-Q Not Given TIDWM [facility] Protocol Lisinopril 5 mg 08/07/24 09:00 08/10/24 09:47 Lisinopril 5 Mg Tablet PO 5 mg QAM URI Administration Loratadine 10 mg 08/06/24 20:45 08/10/24 09:47 Loratadine 10 Mg Tablet PO 10 mg QAM URI Administration Memantine 10 mg 08/04/24 09:00 08/10/24 10:08 Memantine 10 Mg Tablet PO 10 mg DAILY URI Administration Ondansetron HCl 4 mg 08/03/24 18:19 Ondansetron Inj 4 Mg/2 Ml Vial IV PUSH Q4H PRN Nausea Pantoprazole Sodium 40 mg 08/09/24 21:00 08/10/24 21:00 Pantoprazole Sodium Iv 40 Mg Vial IV PUSH 40 mg Q12HR URI Administration Triamcinolone Acetonide 1 applic 08/03/24 21:38 Triamcinolone Acet 0.1% Cream 80 Gm Tube TOPICAL BID PRN dermatitis flares. Zinc Oxide 1 applic 08/06/24 21:00 08/10/24 21:11 Zinc Oxide 20% Oint 30 Gm Tube TOPICAL 09/03/24 20:59 1 applic HS URI Administration Radiology Results: ITS Impressions Head/Neck CTA 08/03/24 15:32 IMPRESSION: Findings suggestive of left sigmoid sinus and internal jugular vein thrombosis. Consider MRV for further evaluation. Short segment severe stenosis in the proximal right STEFANIE. No large vessel intracranial occlusion or aneurysm. No carotid or vertebral artery occlusion, dissection, or significant stenosis. Head/Brain Mag Res Venography 08/04/24 12:21 Impression: No evidence of venous sinus thrombosis. Brain MRI 08/04/24 12:22 IMPRESSION: Acute infarct in the left basal ganglia/left periventricular white matter, as detailed above. Diffuse chronic white matter disease, most likely severe chronic microvascular ischemic change. No evidence of venous sinus thrombosis. Carotid Doppler Study 08/05/24 06:09 Impression: No hemodynamically significant stenosis of the bilateral internal carotid arteries. Antegrade flow in the bilateral vertebral arteries. Note: The methodology used is an indirect measurement validated against a direct method (such as the NASCET criteria) that compares diameters at the stenosis to the distal ICA. Chest X-Ray 08/10/24 06:39 IMPRESSION: 1. Mild infrahilar opacities, left greater than right which could represent mild pulmonary edema, atelectasis or pneumonia. 2. Very small left pleural effusion. Abdomen X-Ray 08/11/24 06:49 IMPRESSION: 1. Nasogastric tube in the stomach. Labs Labs: Laboratory Results - last 24 hr 08/10/24 08/10/24 08/10/24 11:58 17:02 19:39 WBC RBC Hgb Hct MCV MCH MCHC RDW Plt Count MPV Sodium Potassium Chloride Carbon Dioxide Anion Gap BUN Creatinine Estim Creat Clear Calc Estimated GFR Glucose POC Capillary Glucose 179 H 150 H 160 H Calcium Magnesium Total Bilirubin AST ALT Alkaline Phosphatase Total Protein Albumin Stl Occult Blood (IFOB) 08/11/24 08/11/24 08/11/24 00:09 00:44 05:34 WBC 8.8 RBC 4.43 L Hgb 12.7 L Hct 40.3 L MCV 91.0 MCH 28.7 MCHC 31.5 L RDW 12.6 Plt Count 179 MPV 11.7 H Sodium 149 H Potassium 3.2 L Chloride 116 H Carbon Dioxide 28 Anion Gap 5 BUN 31 H D Creatinine 0.90 Estim Creat Clear Calc 53 Estimated GFR > 60 Glucose 149 H POC Capillary Glucose 148 H Calcium 8.7 Magnesium 2.5 H Total Bilirubin 0.4 AST 28 ALT 25 Alkaline Phosphatase 57 Total Protein 7.0 Albumin 3.3 L Stl Occult Blood (IFOB) Negative 08/11/24 06:11 WBC RBC Hgb Hct MCV MCH MCHC RDW Plt Count MPV Sodium Potassium Chloride Carbon Dioxide Anion Gap BUN Creatinine Estim Creat Clear Calc Estimated GFR Glucose POC Capillary Glucose 124 H Calcium Magnesium Total Bilirubin AST ALT Alkaline Phosphatase Total Protein Albumin Stl Occult Blood (IFOB)
[2024-08-11] MEDS: POTASSIUM CHLORIDE INJ 40 MEQ in SODIUM CHLORIDE 0.9% IV 500 ML 130 MEQ IVPB (10:32)
[2024-08-11] MEDS: lisinopriL 5 MG TABLET PO (10:35)
[2024-08-11] MEDS: carvediloL 3.125 MG TABLET PO ×2 (10:35→20:49)
[2024-08-11] MEDS: LORATADINE 10 MG TABLET PO (10:35)
[2024-08-11] MEDS: MEMANTINE 10 MG TABLET PO (10:35)
[2024-08-11] MEDS: CLOPIDOGREL BISULFATE 75 MG TABLET PO (10:35)
[2024-08-11] MEDS: ASPIRIN 81 MG ENTERIC TABLET PO (10:35)
[2024-08-11] MEDS: FLUTICASONE PROPIONATE 0.05% NA SPR 16 GM BTL (*BKC) 1 SPRAY NASAL ×2 (10:36→20:49)
[2024-08-11] MEDS: BETAMETHASONE/CLOTRIMAZOLE CREAM 15 GM TUBE 1 APPLIC TOPICAL (10:36)
[2024-08-11] MEDS: PANTOPRAZOLE SODIUM IV 40 MG VIAL IV PUSH ×2 (10:37→20:49)
[2024-08-11 12:01] LABS: Glucose Point of Care 155 mg/dl (65-105)
[2024-08-11] MEDS: IPRATROPIUM 0.5 MG/ALBUTEROL SULFATE 2.5 MG AMPUL.NEB 3 ML INHALATION ×2 (14:12→21:50)
[2024-08-11 18:37] LABS: Glucose Point of Care 117 mg/dl (65-105)
[2024-08-11 20:39] LABS: Glucose Point of Care 134 mg/dl (65-105)
[2024-08-11] MEDS: ATORVASTATIN 40 MG TABLET 80 MG PO (20:49)
[2024-08-11] MEDS: ZINC OXIDE 20% OINT 30 GM TUBE 1 APPLIC TOPICAL (20:51)
[2024-08-11] MEDS: DONEPEZIL HCL 10 MG TABLET PO (20:51)
[2024-08-11 23:48] LABS: Glucose Point of Care 141 mg/dl (65-105)
[2024-08-12] VITALS (24 sets, daily range): BP systolic 120–179; BP diastolic 56–83; PULSE 50–88; RESP 16–22; TEMP 36.5–37; O2SAT 94–99; BMI 10.0
[2024-08-12] MEDS: IPRATROPIUM 0.5 MG/ALBUTEROL SULFATE 2.5 MG AMPUL.NEB 3 ML INHALATION ×4 (03:10→21:17)
[2024-08-12] MEDS: metroNIDAZOLE 500 MG/ISO 100ML 500 MG/100 ML BAG 100 MG IVPB ×2 (05:40→18:20)
[2024-08-12] MEDS: SODIUM CHLORIDE 0.9% IV 1,000 ML 75 ML IV CONT (05:41)
[2024-08-12 06:08] LABS: Hematocrit 38.1 % (42.0-52.0); Hemoglobin 11.7 g/dL (14.0-18.0); Mean Corpuscular HGB Conc 30.7 g/dl (32-36); Mean Corpuscular Hemoglobin 28.2 pg (26-34); Mean Corpuscular Volume 91.8 fl (80-100); Mean Platelet Volume 11.9 fl (7.4-10.4); Platelet Count Result 180 k/mm3 (150-375); Red Blood Count 4.15 M/mm3 (4.6-6.20); Red Cell Distribution Width 12.6 % (11.5-14.5); White Blood Count 7.6 K/mm3 (4.5-10.0)
[2024-08-12 06:11] LABS: Glucose Point of Care 105 mg/dl (65-105)
[2024-08-12 06:19] LABS: Alanine Aminotransferase 23 U/L (6-50); Albumin Level 2.9 g/dL (3.5-5.1); Alkaline Phosphatase 47 U/L (38-126); Anion Gap 5 mmol/L (4-12); Aspartate Amino Transferase 29 U/L (17-59); Bilirubin,Total 0.4 mg/dL (0.2-1.3); Blood Urea Nitrogen 17 mg/dL (9-20); Calcium 8.4 mg/dL (8.4-10.2); Carbon Dioxide 29 mmol/L (22-30); Chloride 115 mmol/L (98-107); Estimated CRCL calculation 67 ml/min; Estimated Glomerular Filt Rate > 60; Glucose 102 mg/dL (65-110); Magnesium 2.1 mg/dL (1.6-2.3); Potassium 3.4 mmol/L (3.4-5.0); Sodium 149 mmol/L (137-145)
--- NOTE | 2024-08-12 08:02 | P.PNIM_ITS ---
Progress Note: A&P Assessment and Plan (1) Acute left STEFANIE ischemic stroke: Code(s): I63.522 - Cerebral infarction due to unspecified occlusion or stenosis of left anterior cerebral artery Status: Acute Assessment and Plan: * Brain MR does reveal acute infarct in the left basal ganglia/left periventricular white matter. With no evidence of venous sinus thrombosis. RULED OUT * CTA head and neck showed findings suggestive of left sigmoid sinus and internal jugular vein thrombosis. Short segment severe stenosis in the proximal right ECA. No large vessel intracranial occlusion or aneurysm. No carotid or vertebral artery occlusion dissection or significant stenosis. * Neurology has been consulted * Started on aspirin and Plavix * Discontinued heparin drip. * Speech therapy and on regular diet * PT/ OT * Statin * A1c normal and lipid profile LDL 157 * Echo with ef 35-40%, trace MR, grade 1 diastolic dysfunction 08/08/24: * Was not able to take medications or eat, nursing reported pocketing of medications and food as well as unable to follow directions. Still lethargic * NPO with Ice chips * will get ST once more alert * if he continues will need evaluation and possible peg tube but hoping his awareness improves * No IV fluids at this time due to cardiomyopathy will add low rate if continues to have eating and drinking complications. 08/09/2024: * Speech evaluation with concern of poor oral intake and aspiration * will need barium swallowing * Family wants feeding tube * GI consulted for placement * NPO 08/10/2024 * possible aspiration * minimal response * NG tube tolerating tube feeds * ACCU checks and sliding scale added * Peg tube 08/12/24 08/11/24: * tolerating tube feedings * increased water flushes to 100ML hypernatremia 149 08/12/24: * Peg tube placement today 08/12 * held lovenox for procedure * start trickle feed with new peg tube per GI * may need ABD binder at d/c to reduce chance of dislodgement, currently need of mitten for pulling at NG tube. * NA still 149 will adjust water flushes as needed (2) Aspiration pneumonia: Code(s): J69.0 - Pneumonitis due to inhalation of food and vomit Status: Acute Assessment and Plan: * Recent CVA * Speech poor oral intake and possible aspiration * febrile overnight peaked at 102.3 * Leukocytosis of 13 * Blood cultures x2 pending * Chest x-ray: Atelectasis versus pneumonia * Rocephin and Flagyl * supplemental oxygen therapy to maintain oxygen 92% on room air * Patient at some point will need modified barium swallow * Patient wants to move forward with feeding tube 08/11/24: * added Duonebs * upper airway congestion unable to clear * suction at bedside 08/12/24: * Peg tube today * SEE ABOVE * follow-up swallow-study post procedure to determine if he can have any thing oral. (3) Urine output low: Code(s): R34 - Anuria and oliguria Status: Acute Assessment and Plan: * Poor urine output * gentle hydration * monitor for signs of fluid overload HX of Cardiomyopathy * bladder scan Q 4 * improvement overnight * renal function stable RESOLVED (4) Chronic UTI: Code(s): N39.0 - Urinary tract infection, site not specified Status: Acute Assessment and Plan: * chronic UTIs, prescribed ciprofloxacin 500 mg b.i.d. x7 days when he develops symptoms. Has had 2 doses, will continue x6 days for total of 7 after discussion with patient's . 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 * History of cardiomyopathy in the past used to be on medications which include carvedilol and lisinopril which has now been stopped. Family reports due to improvement in EF * Will restart carvedilol and lisinopri 08/11/24: * Monitor for fluid overload start IV hydration for poor urine ouput Plan Code status: DNR DVT prophylaxis: Lovenox held for surgery 08/12/2024 Stress ulcer prophylaxis: BRANDON PT/OT notes: Rehab/SNF Disposition: Patient continues admission after acute stroke placement of peg tube today, patient more alert plan for follow-up swallow study for aspiration risks. Plan is to discharge to SNF after tolerating new tube feeds and swallow study. Time Spent With Patient Time with patient: 15 - 25 minutes Subjective Date/time seen: 08/12/24 08:02 Interval history: Patient is a 73-year-old male is admitted for further evaluation and treatment of acute CVA 08/12/2024: Plan for peg tube today, alert and tracking with eyes, responding with smile, in no acute distress. Start trickle feeds post placement. Review of Systems Review of Systems: smiling and tracking with eyes ROS unobtainable: Yes unobtainable due to medical condition and unobtainable due to mental status Exam Narrative: GENERAL: Alert and oriented x 1 tracking and smiling to voices in no acute dist ress HEAD: Normocephalic, atraumatic. ENT: Mucous membranes moist. NG tube CHEST: Lungs Clear to auscultation but does have some upper airway congestion, unable to clear mucous suction at bedside. No respiratory distress. HEART: Regular rate and rhythm. Normal peripheral pulses. ABDOMEN: Soft, nontender, nondistended EXTREMITIES: No edema. SKIN: Warm, dry, no rash. NEURO: Right facial droop. Minimal to no tone right lower extremity and right upper extremity. hyperreflexic. Equal and symmetrical. Nonverbal which is his baseline. Objective Data Vital Signs Vital Signs: Vital Signs - 24 hr 08/11/24 10:35 08/11/24 13:54 08/11/24 14:12 Temperature 98.3 F Pulse Rate 72 77 76 Respiratory Rate 18 18 Blood Pressure 143/81 H Pulse Oximetry 96 Oxygen Delivery Fraction of Inspired Oxygen 08/11/24 14:15 08/11/24 14:22 08/11/24 12:00 Temperature Pulse Rate 74 74 Respiratory Rate 18 Blood Pressure Pulse Oximetry 96 Oxygen Delivery Room Air Fraction of Inspired Oxygen 21 08/11/24 16:00 08/11/24 20:49 08/11/24 20:00 Temperature Pulse Rate 74 78 Respiratory Rate Blood Pressure Pulse Oximetry Oxygen Delivery Room Air Fraction of Inspired Oxygen 21 08/11/24 20:00 08/11/24 21:50 08/11/24 22:00 Temperature Pulse Rate 83 77 78 Respiratory Rate 18 18 Blood Pressure Pulse Oximetry Oxygen Delivery Fraction of Inspired Oxygen 08/11/24 22:00 08/12/24 00:00 08/12/24 04:00 Temperature 98.1 F Pulse Rate 78 68 75 Respiratory Rate 16 Blood Pressure 133/57 L Pulse Oximetry 100 Oxygen Delivery Fraction of Inspired Oxygen 08/12/24 03:10 08/12/24 03:20 08/12/24 06:00 Temperature 97.9 F Pulse Rate 76 78 75 Respiratory Rate 18 18 16 Blood Pressure 122/64 Pulse Oximetry 96 Oxygen Delivery Fraction of Inspired Oxygen Intake/Output Intake/Output: Intake & Output 08/09/24 08/10/24 08/11/24 08/12/24 23:59 23:59 23:59 23:59 Intake Total 555 010 7073 100 Output Total 509 563 7803 200 Balance 865 115 9958 -100 Meds/Results Medications: Active Medications Generic Name Dose Route Start Last Admin Trade Name Freq PRN Reason Stop Dose Admin Acetaminophen 650 mg 08/03/24 18:19 Acetaminophen 325 Mg Tablet PO Q4H PRN Mild Pain (1-3) or Fever Acetaminophen 650 mg 08/08/24 21:54 08/08/24 22:04 Acetaminophen 650 Mg Suppository RECTAL 650 mg Q6H PRN Administration Mild Pain (1-3) or Fever Albuterol/Ipratropium 3 ml 08/11/24 14:00 08/12/24 03:10 Ipratropium 0.5 Mg/Albuterol Sulfate 2.5 Mg Ampul.Neb 3 Ml INHALATION 3 ml Q6HRT URI Administration Aspirin 81 mg 08/04/24 13:20 08/11/24 10:35 Aspirin 81 Mg Enteric Tablet PO 81 mg QAM URI Administration Atorvastatin Calcium 80 mg 08/05/24 21:00 08/11/24 20:49 Atorvastatin 40 Mg Tablet PO 80 mg QHS URI Administration Carvedilol 3.125 mg 08/06/24 21:00 08/11/24 20:49 Carvedilol 3.125 Mg Tablet PO 3.125 mg Q12HR URI Administration Clopidogrel Bisulfate 75 mg 08/04/24 13:20 08/11/24 10:35 Clopidogrel Bisulfate 75 Mg Tablet PO 75 mg QAM URI Administration Clotrimazole 1 applic 08/04/24 09:00 08/11/24 10:36 Betamethasone/Clotrimazole Cream 15 Gm Tube TOPICAL 1 applic QAM URI Administration Dextrose 12.5 gm 08/10/24 08:06 Dextrose 50% 25 Gm/50 Ml Syringe IV PUSH PRN PRN Hypoglycemia Protocol Donepezil HCl 10 mg 08/03/24 21:30 08/11/24 20:51 Donepezil Hcl 10 Mg Tablet PO 10 mg HS URI Administration Fluticasone Propionate 1 spray 08/06/24 21:00 08/11/24 20:49 Fluticasone Propionate 0.05% Na Spr 16 Gm Btl (*Bkc) NASAL 1 spray Q12HR URI Administration Glucagon 1 mg 08/10/24 08:06 Glucagon For Inj 1 Mg Vial IM PRN PRN Hypoglycemia Protocol Glucose 15 gm 08/10/24 08:06 Glucose Oral Gel 15 Gm Of Glucse In 37.5 Gm Tube PO PRN PRN Hypoglycemia Protocol Ceftriaxone Sodium 1 gm in 50 mls @ 100 mls/hr 08/09/24 11:30 08/11/24 09:44 Rocephin 1 Gm/Ns 50 Ml IVPB 100 mls/hr DAILY URI Administration Metronidazole 500 mg in 100 mls @ 100 mls/hr 08/09/24 22:00 08/12/24 06:33 Flagyl 500 Mg/Iso Soln 100 Ml IVPB Infused Q8HR URI Infusion Dextrose 1,000 mls @ 100 mls/hr 08/10/24 08:06 Dextrose 5% 1,000 Ml IVPB PRN PRN Hypoglycemia Protocol Sodium Chloride 1,000 mls @ 75 mls/hr 08/10/24 17:10 08/12/24 05:41 Normal Saline Iv IV CONT 75 mls/hr .[id number] URI Administration Potassium Chloride 40 meq/ 520 mls @ 130 mls/hr 08/12/24 08:01 Sodium Chloride IVPB 08/12/24 12:00 ONCE ONE Insulin Aspart 2 - 5 units 08/12/24 00:00 08/12/24 06:13 Insulin Aspart (*Bkc) 100 Units/Ml SUB-Q Not Given Q6H [facility] Protocol Lisinopril 5 mg 08/07/24 09:00 08/11/24 10:35 Lisinopril 5 Mg Tablet PO 5 mg QAM URI Administration Loratadine 10 mg 08/06/24 20:45 08/11/24 10:35 Loratadine 10 Mg Tablet PO 10 mg QAM URI Administration Memantine 10 mg 08/04/24 09:00 08/11/24 10:35 Memantine 10 Mg Tablet PO 10 mg DAILY URI Administration Ondansetron HCl 4 mg 08/03/24 18:19 Ondansetron Inj 4 Mg/2 Ml Vial IV PUSH Q4H PRN Nausea Pantoprazole Sodium 40 mg 08/09/24 21:00 08/11/24 20:49 Pantoprazole Sodium Iv 40 Mg Vial IV PUSH 40 mg Q12HR URI Administration Triamcinolone Acetonide 1 applic 08/03/24 21:38 Triamcinolone Acet 0.1% Cream 80 Gm Tube TOPICAL BID PRN dermatitis flares. Zinc Oxide 1 applic 08/06/24 21:00 08/11/24 20:51 Zinc Oxide 20% Oint 30 Gm Tube TOPICAL 09/03/24 20:59 1 applic HS URI Administration Radiology Results: ITS Impressions Head/Neck CTA 08/03/24 15:32 IMPRESSION: Findings suggestive of left sigmoid sinus and internal jugular vein thrombosis. Consider MRV for further evaluation. Short segment severe stenosis in the proximal right STEFANIE. No large vessel intracranial occlusion or aneurysm. No carotid or vertebral artery occlusion, dissection, or significant stenosis. Head/Brain Mag Res Venography 08/04/24 12:21 Impression: No evidence of venous sinus thrombosis. Brain MRI 08/04/24 12:22 IMPRESSION: Acute infarct in the left basal ganglia/left periventricular white matter, as detailed above. Diffuse chronic white matter disease, most likely severe chronic microvascular ischemic change. No evidence of venous sinus thrombosis. Carotid Doppler Study 08/05/24 06:09 Impression: No hemodynamically significant stenosis of the bilateral internal carotid arteries. Antegrade flow in the bilateral vertebral arteries. Note: The methodology used is an indirect measurement validated against a direct method (such as the NASCET criteria) that compares diameters at the stenosis to the distal ICA. Chest X-Ray 08/10/24 06:39 IMPRESSION: 1. Mild infrahilar opacities, left greater than right which could represent mild pulmonary edema, atelectasis or pneumonia. 2. Very small left pleural effusion. Abdomen X-Ray 08/11/24 06:49 IMPRESSION: 1. Nasogastric tube in the stomach. Labs Labs: Laboratory Results - last 24 hr 08/11/24 08/11/24 08/11/24 11:46 18:34 20:02 WBC RBC Hgb Hct MCV MCH MCHC RDW Plt Count MPV Sodium Potassium Chloride Carbon Dioxide Anion Gap BUN Creatinine Estim Creat Clear Calc Estimated GFR Glucose POC Capillary Glucose 155 H 117 H 134 H Calcium Magnesium Total Bilirubin AST ALT Alkaline Phosphatase Total Protein Albumin 08/11/24 08/12/24 08/12/24 23:44 05:21 05:46 WBC 7.6 RBC 4.15 L Hgb 11.7 L Hct 38.1 L MCV 91.8 MCH 28.2 MCHC 30.7 L RDW 12.6 Plt Count 180 MPV 11.9 H Sodium 149 H Potassium 3.4 Chloride 115 H Carbon Dioxide 29 Anion Gap 5 BUN 17 D Creatinine 0.70 Estim Creat Clear Calc 67 Estimated GFR > 60 Glucose 102 POC Capillary Glucose 141 H 105 Calcium 8.4 Magnesium 2.1 Total Bilirubin 0.4 AST 29 ALT 23 Alkaline Phosphatase 47 Total Protein 6.0 L Albumin 2.9 L Quality VTE Prophylaxis VTE prophylaxis: pharmacologic ordered -Patient's previous records reviewed on admission -ER notes reviewed in detail on admission -discussed all findings and current treatment plan with patient/Family/POA -Consultations reviewed for recommendations -Patient's disposition for safe discharge discussed with combatant diver officer Dictation performed by [employer] direct speech recognition software, therefore lead systems engineer variants and typographical errors may occur. Hospitalist MIPS Advance Care Plan I have confirmed that the patient's Advanced Care Plan is present, code status is documented, or surrogate decision maker is listed in patient medical record.: Yes Medication Reconciliation I have utilized all available resources to obtain, update and review the patients current medications (includes all prescriptions, OTC, herbals, cannabis, and nutritional supplements).: Yes The patient is not eligible for med reconciliation; the patient is in a emergent medical situation where delaying treatment would jeopardize the patients health.: No
--- NOTE | 2024-08-12 08:33 | PCOTNOTE ---
The patient treatment was not able to be completed patient was sleeping difficult to arouse/ keep eyes open will attempt later. Will plan to continue treatment per plan of care.
--- NOTE | 2024-08-12 08:40 | PCNFU ---
Nutrition Follow-Up Complete: Inability to meet estimated energy needs PO related to swallowing issues as evidenced by swallow evaluation Meet estimated nutrition needs - Not progressing today with NPO. PEG placement today. Goal: Pt current nutrition is Tube feeding: ON HOLD. Jevity 1.5 @ 55 ml/h with flushes 150 ml q 4 hours. Nutrition recommendation: Resume tube feeding when cleared by MD: Jevity 1.5 @ 55 ml/h goal rate: 1815 kcal, 77 g protein, 920 ml free water. Flush 150 ml q 4 hours. Total water 1820 ml/d/ Last recorded weight is 67 kg. Bowel Motility: +1 BM 08/11/24 Labs Reviewed: Na 149, Alb 2.9, Hgb 11.7, Hct 38.1 Meds Noted: Zofran Skin: No pressure injuries Additional Notes: Failed swallow eval and NG tube was placed over the weekend. Pt tolerated NG tube feedings well. PEG placement today, resume TF afterward. Monitoring plan of care, swallowing ability, diet orders, weights, labs, skin Follow up Monday and Monday per policy
[2024-08-12] MEDS: FLUTICASONE PROPIONATE 0.05% NA SPR 16 GM BTL (*BKC) 1 SPRAY NASAL ×2 (09:03→20:35)
[2024-08-12] MEDS: POTASSIUM CHLORIDE INJ 40 MEQ in SODIUM CHLORIDE 0.9% IV 500 ML 130 MEQ IVPB (09:03)
[2024-08-12] MEDS: BETAMETHASONE/CLOTRIMAZOLE CREAM 15 GM TUBE 1 APPLIC TOPICAL (09:03)
[2024-08-12] MEDS: PANTOPRAZOLE SODIUM IV 40 MG VIAL IV PUSH ×2 (09:03→20:38)
[2024-08-12 12:02] LABS: Glucose Point of Care 106 mg/dl (65-105)
--- NOTE | 2024-08-12 14:53 | PCOTNOTE ---
Patient out of the room at this time. Patient went down to have a PEG tube placement.
[2024-08-12] MEDS: ceFAZolin 1 GM/NS 50 ML 1 GM/50 ML BAG IVPB (15:03)
[2024-08-12] MEDS: LACTATED RINGERS 1,000 ML 150 ML IV CONT (15:04)
--- NOTE | 2024-08-12 15:05 | SUR.PREOP ---
Right hand mitt soft restraint continued in GI pre-op area. Hourly observation complete. Assessed restraint for comfort, circulation, pt/family educated, ROM, and toileting. No concerns or issues at this time. Will continue to monitor.
--- NOTE | 2024-08-12 15:32 | WPDANESEPPF ---
Anes - Initial Pre Proc Eval Procedure: Operation Date: 08/12/24 14:30 Proposed Procedures p Percutaneous Endoscopic Gastrostomy - Morris Yu MD Date/Time: 08/12/24 15:32 Surgeon: Maribel Harmon APRN Pre Op Diagnosis: sinus venous thrombosis, left IJ thrombosis, right Patient Data Age: 73 Gender: M Height: 1.63 m Weight: 67 kg Last Vital Signs Temp 98.2 F 08/12/24 15:10 Pulse 65 08/12/24 15:10 Resp 17 08/12/24 15:10 BP 136/75 08/12/24 15:10 Pulse Ox 98 08/12/24 15:10 O2 Del Method Room Air 08/12/24 15:10 O2 Flow Rate 2 08/11/24 08:00 FiO2 21 08/11/24 20:00 Allergies Allergy/AdvReac Type Severity Reaction Status Date / Time Sulfa (Sulfonamide Allergy Mild rash Verified 08/12/24 15:08 Antibiotics) Home Medications Medication Instructions Recorded Confirmed Type donepezil 10 mg tablet 10 mg PO HS 02/17/21 08/03/24 History memantine 10 mg tablet 10 mg PO DAILY 02/17/21 08/03/24 History nystatin-triamcinolone 100,000 1 applic topical QAM 05/07/24 08/03/24 History unit/gram-0.1 % topical ointment acetaminophen 650 mg/20.3 mL oral 650 mg PO Q6H PRN Pain (Scale 08/03/24 08/03/24 History solution Score 1-3) or fever betamethasone dipropionate 0.05 % 1 applic topical BID PRN 08/03/24 08/03/24 History lotion dermatitis flares. ciprofloxacin HCl 500 mg tablet 500 mg PO BID 08/03/24 08/03/24 History meloxicam 7.5 mg tablet 7.5 mg PO DAILY PRN hip pain 08/03/24 08/03/24 History zinc oxide 40 % topical ointment 1 applic topical HS 08/03/24 08/03/24 History Laboratory Tests 08/11/24 08/11/24 08/11/24 18:34 20:02 23:44 WBC RBC Hgb Hct MCV MCH MCHC RDW Plt Count MPV Sodium Potassium Chloride Carbon Dioxide Anion Gap BUN Creatinine Estim Creat Clear Calc Estimated GFR Glucose POC Capillary Glucose 117 H mg/dl 134 H mg/dl 141 H mg/dl (65-105) (65-105) (65-105) Calcium Magnesium Total Bilirubin AST ALT Alkaline Phosphatase Total Protein Albumin 08/12/24 08/12/24 08/12/24 05:21 05:46 11:41 WBC 7.6 K/mm3 (4.5-10.0) RBC 4.15 L M/mm3 (4.6-6.20) Hgb 11.7 L g/dL (14.0-18.0) Hct 38.1 L % (42.0-52.0) MCV 91.8 fl (80-100) MCH 28.2 pg (26-34) MCHC 30.7 L g/dl (32-36) RDW 12.6 % (11.5-14.5) Plt Count 180 k/mm3 (150-375) MPV 11.9 H fl (7.4-10.4) Sodium 149 H mmol/L (137-145) Potassium 3.4 mmol/L (3.4-5.0) Chloride 115 H mmol/L (98-107) Carbon Dioxide 29 mmol/L (22-30) Anion Gap 5 mmol/L (4-12) BUN 17 D mg/dL (9-20) Creatinine 0.70 mg/dL (0.7-1.3) Estim Creat Clear Calc 67 ml/min Estimated GFR > 60 (59 - ) Glucose 102 mg/dL (65-110) POC Capillary Glucose 105 mg/dl 106 H mg/dl (65-105) (65-105) Calcium 8.4 mg/dL (8.4-10.2) Magnesium 2.1 mg/dL (1.6-2.3) Total Bilirubin 0.4 mg/dL (0.2-1.3) AST 29 U/L (17-59) ALT 23 U/L (6-50) Alkaline Phosphatase 47 U/L (38-126) Total Protein 6.0 L g/dL (6.3-8.2) Albumin 2.9 L g/dL (3.5-5.1) Patient hx anesthesia problems: none Family hx anesthesia problems: none Results Review: All pre-operative results and documents have been reviewed as part of the pre-operative evaluation. [facility] Past Medical History Medical History Acute left STEFANIE ischemic stroke Afib Alzheimer's dementia Arthritis Chronic UTI Congestive heart failure HLD (hyperlipidemia) Currently off medications HTN (hypertension) Currently off medications Sleep apnea Family History Family History Sibling Diabetes mellitus Brother Father Family history of kidney stones, Onset Age: 75 Family history of dementia, Onset Age: 75 Cerebrovascular accident, Onset Age: 75 Alzheimer dementia Hypertension Mother Heart problem Social History Social History Smoking status: Former smoker Tobacco type: cigarettes Second hand tobacco smoke exposure: No Additional smoking assessment comments: Unknown amount. Alcohol intake: never Substance use: never Substance use type: does not use Do You Feel Safe in your Home?: Yes Lack of Transportation: No Lack of Food: Never True Current Housing: I Have Housing Concerned About Future Housing: No Difficulty Paying Gas/Electric Bills: No Difficulty Paying for Meds: No Currently Unemployed: No Education: Don't Know Difficulty w/ Childcare or Family Care: No Spiritual care concerns: No Anes - Eval Final PreProcedure Day of Procedure 08/12/24 15:32 Patient weight: normal Heart: regular rate and rhythm Lungs: clear to auscultation and normal air movement Airway: Mallampati scale class II Neurological: confused and hemiparesis Last oral intake: >/= 8 hours ASA classification: IV Emergent: no Anesthetic plan: proceed Anesthesia type and monitoring: general GIVS and standard monitoring Results Review: All pre-operative results and documents have been reviewed as part of the pre-operative evaluation. Notes reviewed and appreciated. Acute L STEFANIE stroke, hemiparesis, debility and now for PEG placement. Notes reviewed fully and R/B/A including poss of post procedure mechanical vent and ICU admission w his daughter and son at bedside. They understand and wish to proceed. Informed Consent: The patient's anesthetic plan and its attendant risks and benefits were discussed with the patient/family/POA. Questions were solicited and answers provided to the satisfaction of the patient/family/POA.
[2024-08-12] MEDS: LIDOCAINE HCL 1% LOCAL INJ 20 ML VIAL INFILTRATE (15:57)
--- NOTE | 2024-08-12 15:58 | SUR.OPER ---
2x2 drain sponge placed at gastrostomy tube site.
--- NOTE | 2024-08-12 16:05 | SUR.PHASEII ---
Right hand mitt soft restraint continued in GI post-op area. Hourly observation complete. Assessed restraint for comfort, circulation, pt/family educated, ROM, and toileting. No concerns or issues at this time. Report given to floor RN
[2024-08-12 16:17] LABS: Glucose Point of Care 88 mg/dl (65-105)
--- NOTE | 2024-08-12 16:30 | PC.NURSE ---
Patient returned from GI lab via stretcher. Report received from Hailee ALCAZAR. No patient complaints at this time.
--- NOTE | 2024-08-12 18:10 | PC.NURSE ---
Patient returned from GI lab. Report received from Hailee ALCAZAR. No patient complaints at this time.
[2024-08-12] MEDS: carvediloL 3.125 MG TABLET PO (20:36)
[2024-08-12] MEDS: ZINC OXIDE 20% OINT 30 GM TUBE 1 APPLIC TOPICAL (20:36)
[2024-08-12] MEDS: ATORVASTATIN 40 MG TABLET 80 MG PO (20:36)
[2024-08-12] MEDS: DONEPEZIL HCL 10 MG TABLET PO (20:36)
[2024-08-13] VITALS (20 sets, daily range): BP systolic 129–160; BP diastolic 70–81; PULSE 59–80; RESP 18; TEMP 36.5–36.7; O2SAT 94–98
[2024-08-13] MEDS: IPRATROPIUM 0.5 MG/ALBUTEROL SULFATE 2.5 MG AMPUL.NEB 3 ML INHALATION ×4 (02:13→20:54)
[2024-08-13 03:59] LABS: Glucose Point of Care 81 mg/dl (65-105)
[2024-08-13 03:59] LABS: Glucose Point of Care 118 mg/dl (65-105)
[2024-08-13] MEDS: metroNIDAZOLE 500 MG/ISO 100ML 500 MG/100 ML BAG 100 MG IVPB (05:40)
[2024-08-13 06:05] LABS: Hematocrit 38.5 % (42.0-52.0); Hemoglobin 12.3 g/dL (14.0-18.0); Mean Corpuscular HGB Conc 31.9 g/dl (32-36); Mean Corpuscular Hemoglobin 29.2 pg (26-34); Mean Corpuscular Volume 91.4 fl (80-100); Mean Platelet Volume 11.9 fl (7.4-10.4); Platelet Count Result 187 k/mm3 (150-375); Red Blood Count 4.21 M/mm3 (4.6-6.20); Red Cell Distribution Width 12.2 % (11.5-14.5); White Blood Count 9.5 K/mm3 (4.5-10.0)
[2024-08-13 06:13] LABS: Alanine Aminotransferase 25 U/L (6-50); Albumin Level 3.2 g/dL (3.5-5.1); Alkaline Phosphatase 46 U/L (38-126); Anion Gap 3 mmol/L (4-12); Aspartate Amino Transferase 40 U/L (17-59); Bilirubin,Total 0.7 mg/dL (0.2-1.3); Blood Urea Nitrogen 14 mg/dL (9-20); Calcium 8.7 mg/dL (8.4-10.2); Carbon Dioxide 30 mmol/L (22-30); Chloride 106 mmol/L (98-107); Estimated CRCL calculation 67 ml/min; Estimated Glomerular Filt Rate > 60; Glucose 112 mg/dL (65-110); Magnesium 2.1 mg/dL (1.6-2.3); Potassium 3.7 mmol/L (3.4-5.0); Sodium 139 mmol/L (137-145)
[2024-08-13 06:13] LABS: Glucose Point of Care 126 mg/dl (65-105)
--- NOTE | 2024-08-13 07:18 | P.PNIM_ITS ---
Progress Note: A&P Assessment and Plan (1) Subluxation of right shoulder joint: Code(s): S43.001A - Unspecified subluxation of right shoulder joint, initial encounter Status: Acute Assessment and Plan: * CT showing old healed fracture with deformity and subluxation of RT glenohumeral joint * Orth consulted * Recent CVA likely cause * sling ordered * NSAIDS (2) Acute left STEFANIE ischemic stroke: Code(s): I63.522 - Cerebral infarction due to unspecified occlusion or stenosis of left anterior cerebral artery Status: Acute Assessment and Plan: * Brain MR does reveal acute infarct in the left basal ganglia/left periventricular white matter. With no evidence of venous sinus thrombosis. RULED OUT * CTA head and neck showed findings suggestive of left sigmoid sinus and internal jugular vein thrombosis. Short segment severe stenosis in the proximal right ECA. No large vessel intracranial occlusion or aneurysm. No carotid or vertebral artery occlusion dissection or significant stenosis. * Neurology has been consulted * Started on aspirin and Plavix * Discontinued heparin drip. * Speech therapy and on regular diet * PT/ OT * Statin * A1c normal and lipid profile LDL 157 * Echo with ef 35-40%, trace MR, grade 1 diastolic dysfunction 08/08/24: * Was not able to take medications or eat, nursing reported pocketing of medications and food as well as unable to follow directions. Still lethargic * NPO with Ice chips * will get ST once more alert * if he continues will need evaluation and possible peg tube but hoping his awareness improves * No IV fluids at this time due to cardiomyopathy will add low rate if continues to have eating and drinking complications. 08/09/2024: * Speech evaluation with concern of poor oral intake and aspiration * will need barium swallowing * Family wants feeding tube * GI consulted for placement * NPO 08/10/2024 * possible aspiration * minimal response * NG tube tolerating tube feeds * ACCU checks and sliding scale added * Peg tube 08/12/24 08/11/24: * tolerating tube feedings * increased water flushes to 100ML hypernatremia 149 08/12/24: * Peg tube placement today 08/12 * held lovenox for procedure * start trickle feed with new peg tube per GI * may need ABD binder at d/c to reduce chance of dislodgement, currently need of mitten for pulling at NG tube. * NA still 149 will adjust water flushes as needed 08/13/24: * Peg tube trickle feeds until 55ML met * NA 139 with new flush orders * MBS ordered to see if patient is eligible for any comfort feeds or strict NPO (3) Aspiration pneumonia: Code(s): J69.0 - Pneumonitis due to inhalation of food and vomit Status: Acute Assessment and Plan: * Recent CVA * Speech poor oral intake and possible aspiration * febrile overnight peaked at 102.3 * Leukocytosis of 13 * Blood cultures x2 pending * Chest x-ray: Atelectasis versus pneumonia * Rocephin and Flagyl * supplemental oxygen therapy to maintain oxygen 92% on room air * Patient at some point will need modified barium swallow * Patient wants to move forward with feeding tube 08/11/24: * added Duonebs * upper airway congestion unable to clear * suction at bedside 08/12/24: * Peg tube today * SEE ABOVE * follow-up swallow-study post procedure to determine if he can have any thing oral. (4) Urine output low: Code(s): R34 - Anuria and oliguria Status: Acute Assessment and Plan: * Poor urine output * gentle hydration * monitor for signs of fluid overload HX of Cardiomyopathy * bladder scan Q 4 * improvement overnight * renal function stable RESOLVED (5) Chronic UTI: Code(s): N39.0 - Urinary tract infection, site not specified Status: Acute Assessment and Plan: * chronic UTIs, prescribed ciprofloxacin 500 mg b.i.d. x7 days when he develops symptoms. Has had 2 doses, will continue x6 days for total of 7 after discussion with patient's . 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 * History of cardiomyopathy in the past used to be on medications which include carvedilol and lisinopril which has now been stopped. Family reports due to improvement in EF * Will restart carvedilol and lisinopri 08/11/24: * Monitor for fluid overload start IV hydration for poor urine ouput Plan Code status: DNR DVT prophylaxis: Lovenox held for surgery 08/12/2024 Stress ulcer prophylaxis: NA PT/OT notes: Rehab/SNF Disposition: Patient continues admission after acute stroke placement of peg tube today, patient more alert plan for follow-up swallow study for aspiration risks. Subluxation of RT arm ortho consulted and sling placed. Plan is to discharge to SNF after tolerating new tube feeds and swallow study. Time Spent With Patient Time with patient: 15 - 25 minutes Subjective Date/time seen: 08/13/24 07:18 Interval history: Patient is a 73-year-old male is admitted for further evaluation and treatment of acute CVA 08/13/2024: Call from nursing last night due to RT shoulder appeared dislocated after returning from OR. CT show old fracture and subluxation. Patient in no acute distress tolerated procedure well, son at bedside updated. Plan to advance tube feeds, MBS and ortho consult. Review of Systems Review of Systems: smiling and tracking with eyes ROS unobtainable: Yes unobtainable due to medical condition and unobtainable due to mental status Exam Narrative: GENERAL: Alert and oriented x 1 tracking and smiling to voices in no acute distress HEAD: Normocephalic, atraumatic. ENT: Mucous membranes moist. NG tube CHEST: Lungs Clear to auscultation but does have some upper airway congestion, unable to clear mucous suction at bedside. No respiratory distress. HEART: Regular rate and rhythm. Normal peripheral pulses. ABDOMEN: Soft, nontender, nondistended Peg tube EXTREMITIES: RT shoulder swelling and atrophy CT showing subluxation SKIN: Warm, dry, no rash. NEURO: Right facial droop. Minimal to no tone right lower extremity and right upper extremity with subluxation of upper RT extremity. Nonverbal which is his baseline. Objective Data Vital Signs Vital Signs: Vital Signs - 24 hr 08/12/24 08:39 08/12/24 08:39 08/12/24 08:53 Temperature Pulse Rate 67 66 Respiratory Rate 20 20 Blood Pressure Pulse Oximetry 97 Oxygen Delivery Room Air 08/12/24 08:55 08/12/24 08:00 08/12/24 12:00 Temperature Pulse Rate 66 61 67 Respiratory Rate 20 Blood Pressure Pulse Oximetry 97 Oxygen Delivery Room Air 08/12/24 13:48 08/12/24 14:00 08/12/24 14:00 Temperature 97.7 F Pulse Rate 56 L 88 50 L Respiratory Rate 20 20 18 Blood Pressure 135/56 L Pulse Oximetry 96 Oxygen Delivery 08/12/24 15:10 08/12/24 15:52 08/12/24 16:02 Temperature 98.2 F Pulse Rate 65 82 80 Respiratory Rate 17 20 18 Blood Pressure 136/75 141/82 H 120/79 Pulse Oximetry 98 98 95 Oxygen Delivery Room Air Room Air Room Air 08/12/24 16:12 08/12/24 16:45 08/12/24 16:55 Temperature 97.7 F 98.6 F Pulse Rate 65 63 68 Respiratory Rate 22 H 18 18 Blood Pressure 129/70 154/77 H 174/83 H Pulse Oximetry 94 98 99 Oxygen Delivery Room Air 08/12/24 19:00 08/12/24 20:14 08/12/24 20:36 Temperature 98.6 F 98.4 F Pulse Rate 74 74 78 Respiratory Rate 18 18 Blood Pressure 179/77 H 176/75 H Pulse Oximetry 99 99 Oxygen Delivery 08/12/24 21:17 08/12/24 21:24 08/12/24 20:00 Temperature Pulse Rate 73 70 Respiratory Rate 18 18 Blood Pressure Pulse Oximetry Oxygen Delivery Room Air 08/12/24 20:00 08/13/24 00:00 08/13/24 02:13 Temperature Pulse Rate 69 69 63 Respiratory Rate 18 Blood Pressure Pulse Oximetry Oxygen Delivery 08/13/24 02:23 08/13/24 04:00 08/13/24 04:21 Temperature 98.1 F Pulse Rate 65 65 66 Respiratory Rate 18 18 Blood Pressure 135/70 Pulse Oximetry 95 Oxygen Delivery Intake/Output Intake/Output: Intake & Output 08/10/24 08/11/24 08/12/24 08/13/24 23:59 23:59 23:59 23:59 Intake Total 640 2400 1020 512 Output Total 250 1250 500 300 Balance 390 1150 520 212 Meds/Results Medications: Active Medications Generic Name Dose Route Start Last Admin Trade Name Freq PRN Reason Stop Dose Admin Acetaminophen 650 mg 08/03/24 18:19 Acetaminophen 325 Mg Tablet PO Q4H PRN Mild Pain (1-3) or Fever Acetaminophen 650 mg 08/08/24 21:54 08/08/24 22:04 Acetaminophen 650 Mg Suppository RECTAL 650 mg Q6H PRN Administration Mild Pain (1-3) or Fever Albuterol/Ipratropium 3 ml 08/11/24 14:00 08/13/24 02:13 Ipratropium 0.5 Mg/Albuterol Sulfate 2.5 Mg Ampul.Neb 3 Ml INHALATION 3 ml Q6HRT URI Administration Aspirin 81 mg 08/04/24 13:20 08/12/24 08:06 Aspirin 81 Mg Enteric Tablet PO Not Given QAM URI Atorvastatin Calcium 80 mg 08/05/24 21:00 08/12/24 20:36 Atorvastatin 40 Mg Tablet PO 80 mg QHS URI Administration Carvedilol 3.125 mg 08/06/24 21:00 08/12/24 20:36 Carvedilol 3.125 Mg Tablet PO 3.125 mg Q12HR URI Administration Clopidogrel Bisulfate 75 mg 08/04/24 13:20 08/12/24 08:06 Clopidogrel Bisulfate 75 Mg Tablet PO Not Given QAM URI Clotrimazole 1 applic 08/04/24 09:00 08/12/24 09:03 Betamethasone/Clotrimazole Cream 15 Gm Tube TOPICAL 1 applic QAM URI Administration Dextrose 12.5 gm 08/10/24 08:06 Dextrose 50% 25 Gm/50 Ml Syringe IV PUSH PRN PRN Hypoglycemia Protocol Donepezil HCl 10 mg 08/03/24 21:30 08/12/24 20:36 Donepezil Hcl 10 Mg Tablet PO 10 mg HS URI Administration Fluticasone Propionate 1 spray 08/06/24 21:00 08/12/24 20:35 Fluticasone Propionate 0.05% Na Spr 16 Gm Btl (*Bkc) NASAL 1 spray Q12HR URI Administration Glucagon 1 mg 08/10/24 08:06 Glucagon For Inj 1 Mg Vial IM PRN PRN Hypoglycemia Protocol Glucose 15 gm 08/10/24 08:06 Glucose Oral Gel 15 Gm Of Glucse In 37.5 Gm Tube PO PRN PRN Hypoglycemia Protocol Ceftriaxone Sodium 1 gm in 50 mls @ 100 mls/hr 08/09/24 11:30 08/12/24 09:33 Rocephin 1 Gm/Ns 50 Ml IVPB Infused DAILY URI Infusion Dextrose 1,000 mls @ 100 mls/hr 08/10/24 08:06 Dextrose 5% 1,000 Ml IVPB PRN PRN Hypoglycemia Protocol Metronidazole 500 mg in 100 mls @ 100 mls/hr 08/12/24 18:00 08/13/24 05:40 Flagyl 500 Mg/Iso Soln 100 Ml IVPB 100 mls/hr Q8HR [facility] Administration Insulin Aspart 2 - 5 units 08/12/24 00:00 08/13/24 06:11 Insulin Aspart (*Bkc) 100 Units/Ml SUB-Q Not Given Q6H [facility] Protocol Lisinopril 5 mg 08/07/24 09:00 08/12/24 08:06 Lisinopril 5 Mg Tablet PO Not Given QAM URI Loratadine 10 mg 08/06/24 20:45 08/12/24 08:06 Loratadine 10 Mg Tablet PO Not Given QAM URI Memantine 10 mg 08/04/24 09:00 08/12/24 08:06 Memantine 10 Mg Tablet PO Not Given DAILY [facility] Ondansetron HCl 4 mg 08/03/24 18:19 Ondansetron Inj 4 Mg/2 Ml Vial IV PUSH Q4H PRN Nausea Pantoprazole Sodium 40 mg 08/09/24 21:00 08/12/24 20:38 Pantoprazole Sodium Iv 40 Mg Vial IV PUSH 40 mg Q12HR URI Administration Triamcinolone Acetonide 1 applic 08/03/24 21:38 Triamcinolone Acet 0.1% Cream 80 Gm Tube TOPICAL BID PRN dermatitis flares. Zinc Oxide 1 applic 08/06/24 21:00 08/12/24 20:36 Zinc Oxide 20% Oint 30 Gm Tube TOPICAL 09/03/24 20:59 1 applic HS URI Administration Radiology Results: ITS Impressions Head/Neck CTA 08/03/24 15:32 IMPRESSION: Findings suggestive of left sigmoid sinus and internal jugular vein thrombosis. Consider MRV for further evaluation. Short segment severe stenosis in the proximal right STEFANIE. No large vessel intracranial occlusion or aneurysm. No carotid or vertebral artery occlusion, dissection, or significant stenosis. Head/Brain Mag Res Venography 08/04/24 12:21 Impression: No evidence of venous sinus thrombosis. Brain MRI 08/04/24 12:22 IMPRESSION: Acute infarct in the left basal ganglia/left periventricular white matter, as detailed above. Diffuse chronic white matter disease, most likely severe chronic microvascular ischemic change. No evidence of venous sinus thrombosis. Carotid Doppler Study 08/05/24 06:09 Impression: No hemodynamically significant stenosis of the bilateral internal carotid arteries. Antegrade flow in the bilateral vertebral arteries. Note: The methodology used is an indirect measurement validated against a direct method (such as the NASCET criteria) that compares diameters at the stenosis to the distal ICA. Chest X-Ray 08/10/24 06:39 IMPRESSION: 1. Mild infrahilar opacities, left greater than right which could represent mild pulmonary edema, atelectasis or pneumonia. 2. Very small left pleural effusion. Abdomen X-Ray 08/11/24 06:49 IMPRESSION: 1. Nasogastric tube in the stomach. Shoulder X-Ray 08/12/24 16:57 IMPRESSION: Highly suggestive fracture in the proximal metaphysis and the anatomical neck of the humerus with dislocation of the proximal fragment. CT evaluation advised. Consider MRI of the shoulder if there is concern for soft tissue internal derangement. Shoulder CT 08/12/24 22:30 IMPRESSION: Old proximal right humeral fracture, healed in deformity. Glenohumeral joint subluxation, without overt dislocation. Small volume right glenohumeral joint effusion. No acute osseous finding in the right shoulder. Labs Labs: Laboratory Results - last 24 hr 08/12/24 08/12/24 08/12/24 11:41 16:10 18:20 WBC RBC Hgb Hct MCV MCH MCHC RDW Plt Count MPV Sodium Potassium Chloride Carbon Dioxide Anion Gap BUN Creatinine Estim Creat Clear Calc Estimated GFR Glucose POC Capillary Glucose 106 H 88 81 Calcium Magnesium Total Bilirubin AST ALT Alkaline Phosphatase Total Protein Albumin 08/13/24 08/13/24 08/13/24 00:34 05:39 06:10 WBC 9.5 RBC 4.21 L Hgb 12.3 L Hct 38.5 L MCV 91.4 MCH 29.2 MCHC 31.9 L RDW 12.2 Plt Count 187 MPV 11.9 H Sodium 139 Potassium 3.7 Chloride 106 Carbon Dioxide 30 Anion Gap 3 L BUN 14 Creatinine 0.70 Estim Creat Clear Calc 67 Estimated GFR > 60 Glucose 112 H POC Capillary Glucose 118 H 126 H Calcium 8.7 Magnesium 2.1 Total Bilirubin 0.7 AST 40 ALT 25 Alkaline Phosphatase 46 Total Protein 6.0 L Albumin 3.2 L Quality VTE Prophylaxis VTE prophylaxis: pharmacologic ordered -Patient's previous records reviewed on admission -ER notes reviewed in detail on admission -discussed all findings and current treatment plan with patient/Family/POA -Consultations reviewed for recommendations -Patient's disposition for safe discharge discussed with case management assistant Dictation performed by [employer] Fluency direct speech recognition software, therefore wire machine cutter variants and typographical errors may occur. Hospitalist MIPS Advance Care Plan I have confirmed that the patient's Advanced Care Plan is present, code status is documented, or surrogate decision maker is listed in patient medical record.: Yes Medication Reconciliation I have utilized all available resources to obtain, update and review the patients current medications (includes all prescriptions, OTC, herbals, cannabis, and nutritional supplements).: Yes The patient is not eligible for med reconciliation; the patient is in a emergent medical situation where delaying treatment would jeopardize the patients health.: No
[2024-08-13] MEDS: CLOPIDOGREL BISULFATE 75 MG TABLET PO (08:56)
[2024-08-13] MEDS: lisinopriL 5 MG TABLET PO (08:56)
[2024-08-13] MEDS: ACETAMINOPHEN 325 MG TABLET 650 MG PO (08:56)
[2024-08-13] MEDS: ASPIRIN 81 MG ENTERIC TABLET PO (08:56)
[2024-08-13] MEDS: MEMANTINE 10 MG TABLET PO (08:56)
[2024-08-13] MEDS: LORATADINE 10 MG TABLET PO (08:56)
[2024-08-13] MEDS: carvediloL 3.125 MG TABLET PO ×2 (08:56→21:10)
[2024-08-13] MEDS: PANTOPRAZOLE SODIUM IV 40 MG VIAL IV PUSH ×2 (08:57→21:10)
[2024-08-13] MEDS: ENOXAPARIN 40 MG/0.4 ML SYRINGE SUB-Q (08:57)
[2024-08-13] MEDS: FLUTICASONE PROPIONATE 0.05% NA SPR 16 GM BTL (*BKC) 1 SPRAY NASAL ×2 (08:58→21:11)
[2024-08-13] MEDS: BETAMETHASONE/CLOTRIMAZOLE CREAM 15 GM TUBE 1 APPLIC TOPICAL (08:58)
--- NOTE | 2024-08-13 09:13 | WPDANESPN ---
Anes - Prog Note Post-Op Date/Time: 08/13/24 09:13 Cardiovascular status: normal Respiratory status: normal Airway patency: baseline Mental status: baseline Post-Op hydration status: normal Vital Signs: Last Vital Signs Temp 36.7 C 08/13/24 04:21 Pulse 63 08/13/24 08:56 Resp 18 08/13/24 07:52 BP 135/70 08/13/24 04:21 Pulse Ox 98 08/13/24 07:45 O2 Del Method Room Air 08/13/24 07:45 O2 Flow Rate 2 08/11/24 08:00 FiO2 21 08/11/24 20:00 Pain Score (VAS): 10/28 I/O: Intake & Output 08/12/24 08/13/24 08/13/24 23:59 07:59 15:59 Intake Total 225 512 Output Total 300 Balance 225 212 Laboratory Tests 08/13/24 05:39 08/13/24 05:39 08/12/24 08/12/24 08/12/24 11:41 16:10 18:20 WBC RBC Hgb Hct MCV MCH MCHC RDW Plt Count MPV Sodium Potassium Chloride Carbon Dioxide Anion Gap BUN Creatinine Estim Creat Clear Calc Estimated GFR Glucose POC Capillary Glucose 106 H 88 81 Calcium Magnesium Total Bilirubin AST ALT Alkaline Phosphatase Total Protein Albumin 08/13/24 08/13/24 08/13/24 00:34 05:39 06:10 WBC 9.5 RBC 4.21 L Hgb 12.3 L Hct 38.5 L MCV 91.4 MCH 29.2 MCHC 31.9 L RDW 12.2 Plt Count 187 MPV 11.9 H Sodium 139 Potassium 3.7 Chloride 106 Carbon Dioxide 30 Anion Gap 3 L BUN 14 Creatinine 0.70 Estim Creat Clear Calc 67 Estimated GFR > 60 Glucose 112 H POC Capillary Glucose 118 H 126 H Calcium 8.7 Magnesium 2.1 Total Bilirubin 0.7 AST 40 ALT 25 Alkaline Phosphatase 46 Total Protein 6.0 L Albumin 3.2 L Post-procedural complaints: none Patient Feedback: Patient satisfied with anesthetic care.
--- NOTE | 2024-08-13 09:28 | PCNFU ---
Nutrition Follow-Up Complete: Inability to meet estimated energy needs PO related to swallowing issues as evidenced by swallow evaluation Meet estimated nutrition needs - Progressing with tube feeding after placement of PEG tube yesterday. Goal: Pt current nutrition is Jevity 1.5 @ goal rate 55 ml/h, running at 50 ml h. Nutrition recommendation: Increase tube feeding to goal rate 55 ml/h to provide 100% estimated protein energy needs. Increase flushes to 150 ml q 4 hours for total water 1820 ml/day Last recorded weight is 64.7 kg. Bowel Motility: +1 BM 10/12/23 Labs Reviewed: Hgb 11.7, Hct 38.1, Alb 2.9, Na 149 Meds Noted: Zofran Skin: No skin issues Additional Notes: Saw patient with family member present, tube feeding nearly at goal of 55 ml/h. Tolerating well. Pt will discharge with PEG tube feedings to [facility]. Following Monitoring plan of care, swallowing ability, diet orders, weights, labs, skin Follow up in 3 days
[2024-08-13 12:20] LABS: Glucose Point of Care 149 mg/dl (65-105)
--- NOTE | 2024-08-13 16:07 | PM.CNOR ---
Assessment and Plan Assessment and plan (1) Subluxation of right shoulder joint: Qualifiers: Encounter type: initial encounter Qualified Code(s): S43.001A - Unspecified subluxation of right shoulder joint, initial encounter Code(s): S43.001A - Unspecified subluxation of right shoulder joint, initial encounter Status: Acute (2) Fracture of right shoulder with malunion: Qualifiers: Fracture type: closed Qualified Code(s): S42.91XP - Fracture of right shoulder girdle, part unspecified, subsequent encounter for fracture with malunion Code(s): S42.91XP - Fracture of right shoulder girdle, part unspecified, subsequent encounter for fracture with malunion Status: Acute (3) Acute left STEFANIE ischemic stroke: Code(s): I63.522 - Cerebral infarction due to unspecified occlusion or stenosis of left anterior cerebral artery Status: Acute (4) Dementia: Qualifiers: Dementia type: Alzheimer's Code(s): F03.90 - Unspecified dementia, unspecified severity, without behavioral disturbance, psychotic disturbance, mood disturbance, and anxiety Status: Acute Plan Sequela of old surgical neck fracture. Moderate apex anterior malunion. No dislocation. Perhaps subtle subluxation since the stroke. The patient is comfortable. No specific precautions need to be taken. He may use a sling for comfort as needed only. No further orthopedic intervention required. Continue physical therapy and weight-bearing as tolerated. History of Present Illness HPI Consult date: 08/13/24 Chief complaint: shoulder deformity Narrative: 73-year-old male with recent stroke. Deformity and of the right shoulder noted. History of surgical neck proximal humerus fracture. Patient is poorly responsive but by report denies pain. The family was concerned that the shoulder appears different. Review of Systems Review of Systems: ROS unobtainable: Yes unobtainable due to medical condition PMFSH Past Medical History Medical History Acute left STEFANIE ischemic stroke Afib Alzheimer's dementia Arthritis Chronic UTI Congestive heart failure HLD (hyperlipidemia) Currently off medications HTN (hypertension) Currently off medications Sleep apnea Family History Family History Sibling Diabetes mellitus Brother Father Family history of kidney stones, Onset Age: 75 Family history of dementia, Onset Age: 75 Cerebrovascular accident, Onset Age: 75 Alzheimer dementia Hypertension Mother Heart problem Social History Social History Smoking status: Former smoker Tobacco type: cigarettes Second hand tobacco smoke exposure: No Additional smoking assessment comments: Unknown amount. Alcohol intake: never Substance use: never Substance use type: does not use Do You Feel Safe in your Home?: Yes Lack of Transportation: No Lack of Food: Never True Current Housing: I Have Housing Concerned About Future Housing: No Difficulty Paying Gas/Electric Bills: No Difficulty Paying for Meds: No Currently Unemployed: No Education: Don't Know Difficulty w/ Childcare or Family Care: No Spiritual care concerns: No Meds Home Medications and Allergies Home Medications Medication Instructions Recorded Confirmed Type donepezil 10 mg tablet 10 mg PO HS 02/17/21 08/03/24 History memantine 10 mg tablet 10 mg PO DAILY 02/17/21 08/03/24 History nystatin-triamcinolone 100,000 1 applic topical QAM 05/07/24 08/03/24 History unit/gram-0.1 % topical ointment acetaminophen 650 mg/20.3 mL oral 650 mg PO Q6H PRN Pain (Scale 08/03/24 08/03/24 History solution Score 1-3) or fever betamethasone dipropionate 0.05 % 1 applic topical BID PRN 08/03/24 08/03/24 History lotion dermatitis flares. ciprofloxacin HCl 500 mg tablet 500 mg PO BID 08/03/24 08/03/24 History meloxicam 7.5 mg tablet 7.5 mg PO DAILY PRN hip pain 08/03/24 08/03/24 History zinc oxide 40 % topical ointment 1 applic topical HS 08/03/24 08/03/24 History Allergies Allergy/AdvReac Type Severity Reaction Status Date / Time Sulfa (Sulfonamide Allergy Mild rash Verified 08/12/24 15:08 Antibiotics) Vital Signs Vital Signs - 24 hr 08/12/24 16:12 08/12/24 16:45 08/12/24 16:55 Temperature 36.5 C 37.0 C Pulse Rate 65 63 68 Respiratory Rate 22 H 18 18 Blood Pressure 129/70 154/77 H 174/83 H Pulse Oximetry 94 98 99 Oxygen Delivery Room Air 08/12/24 19:00 08/12/24 20:14 08/12/24 20:36 Temperature 37.0 C 36.9 C Pulse Rate 74 74 78 Respiratory Rate 18 18 Blood Pressure 179/77 H 176/75 H Pulse Oximetry 99 99 Oxygen Delivery 08/12/24 21:17 08/12/24 21:24 08/12/24 20:00 Temperature Pulse Rate 73 70 Respiratory Rate 18 18 Blood Pressure Pulse Oximetry Oxygen Delivery Room Air 08/12/24 20:00 08/13/24 00:00 08/13/24 02:13 Temperature Pulse Rate 69 69 63 Respiratory Rate 18 Blood Pressure Pulse Oximetry Oxygen Delivery 08/13/24 02:23 08/13/24 04:00 08/13/24 04:21 Temperature 36.7 C Pulse Rate 65 65 66 Respiratory Rate 18 18 Blood Pressure 135/70 Pulse Oximetry 95 Oxygen Delivery 08/13/24 07:45 08/13/24 07:45 08/13/24 07:52 Temperature Pulse Rate 68 62 Respiratory Rate 18 18 Blood Pressure Pulse Oximetry 98 Oxygen Delivery Room Air 08/13/24 08:56 08/13/24 08:45 08/13/24 08:45 Temperature Pulse Rate 63 72 Respiratory Rate Blood Pressure Pulse Oximetry Oxygen Delivery Room Air 08/13/24 12:00 08/13/24 14:12 08/13/24 14:20 Temperature Pulse Rate 59 L 60 62 Respiratory Rate 18 18 Blood Pressure Pulse Oximetry Oxygen Delivery 08/13/24 14:00 Temperature 36.5 C Pulse Rate 68 Respiratory Rate 18 Blood Pressure 160/81 H Pulse Oximetry 98 Oxygen Delivery Exam Narrative: Somnolent. Not responsive to commands at this time. Right shoulder with moderate apex anterior surgical neck deformity. Subtle atrophy of the shoulder girdle. The arm is flaccid. No spontaneous movement of the extremity. No significant edema. The joint is nontender. No effusion. No instability. Results Labs 08/13/24 05:39 08/13/24 05:39 Labs: Abnormal lab results 08/13/24 08/13/24 08/13/24 Range/Units 00:34 05:39 06:10 RBC 4.21 L (4.6-6.20) M/mm3 Hgb 12.3 L (14.0-18.0) g/dL Hct 38.5 L (42.0-52.0) % MCHC 31.9 L (32-36) g/dl MPV 11.9 H (7.4-10.4) fl Anion Gap 3 L (4-12) mmol/L Glucose 112 H (65-110) mg/dL POC Capillary Glucose 118 H 126 H (65-105) mg/dl Total Protein 6.0 L (6.3-8.2) g/dL Albumin 3.2 L (3.5-5.1) g/dL 08/13/24 Range/Units 12:11 RBC (4.6-6.20) M/mm3 Hgb (14.0-18.0) g/dL Hct (42.0-52.0) % MCHC (32-36) g/dl MPV (7.4-10.4) fl Anion Gap (4-12) mmol/L Glucose (65-110) mg/dL POC Capillary Glucose 149 H (65-105) mg/dl Total Protein (6.3-8.2) g/dL Albumin (3.5-5.1) g/dL H & H 08/03/24 08/04/24 08/05/24 Range/Units 14:51 07:48 04:46 Hgb 13.5 L 14.1 14.1 (14.0-18.0) g/dL Hct 40.5 L 42.0 42.5 (42.0-52.0) % 08/06/24 08/07/24 08/08/24 Range/Units 04:58 10:00 08:36 Hgb 14.8 14.7 15.4 (14.0-18.0) g/dL Hct 45.4 44.8 47.5 (42.0-52.0) % 08/09/24 08/10/24 08/11/24 Range/Units 09:14 05:02 05:34 Hgb 14.7 13.6 L 12.7 L (14.0-18.0) g/dL Hct 44.9 41.4 L 40.3 L (42.0-52.0) % 08/12/24 08/13/24 Range/Units 05:21 05:39 Hgb 11.7 L 12.3 L (14.0-18.0) g/dL Hct 38.1 L 38.5 L (42.0-52.0) % Coagulation 08/03/24 Range/Units 14:51 INR 1.1 All other labs normal. Diagnostic results Shoulder x-ray: image reviewed Shoulder CT: image reviewed
[2024-08-13] MEDS: AMOXICILLIN/CLAVULANATE K SUSP 400-57 MG/5 ML 5 ML UD 500 MG FEED TUBE ×2 (16:08→21:11)
[2024-08-13 17:08] LABS: Glucose Point of Care 133 mg/dl (65-105)
[2024-08-13] MEDS: ATORVASTATIN 40 MG TABLET 80 MG PO (21:10)
[2024-08-13] MEDS: DONEPEZIL HCL 10 MG TABLET PO (21:10)
[2024-08-13] MEDS: ZINC OXIDE 20% OINT 30 GM TUBE 1 APPLIC TOPICAL (21:11)
[2024-08-14] VITALS (19 sets, daily range): BP systolic 116–142; BP diastolic 73–74; PULSE 63–85; RESP 16–18; TEMP 36.2–37.7; O2SAT 94–100
[2024-08-14 01:13] LABS: Glucose Point of Care 147 mg/dl (65-105)
[2024-08-14] MEDS: IPRATROPIUM 0.5 MG/ALBUTEROL SULFATE 2.5 MG AMPUL.NEB 3 ML INHALATION ×4 (01:31→22:08)
[2024-08-14 05:47] LABS: Hematocrit 40.4 % (42.0-52.0); Mean Corpuscular HGB Conc 32.2 g/dl (32-36); Mean Corpuscular Hemoglobin 28.8 pg (26-34); Mean Corpuscular Volume 89.6 fl (80-100); Platelet Count Result 182 k/mm3 (150-375); Red Blood Count 4.51 M/mm3 (4.6-6.20); Red Cell Distribution Width 12.1 % (11.5-14.5); White Blood Count 8.7 K/mm3 (4.5-10.0)
[2024-08-14 05:57] LABS: Alanine Aminotransferase 25 U/L (6-50); Albumin Level 3.2 g/dL (3.5-5.1); Alkaline Phosphatase 54 U/L (38-126); Anion Gap 2 mmol/L (4-12); Aspartate Amino Transferase 36 U/L (17-59); Bilirubin,Total 0.5 mg/dL (0.2-1.3); Blood Urea Nitrogen 15 mg/dL (9-20); Calcium 8.4 mg/dL (8.4-10.2); Carbon Dioxide 36 mmol/L (22-30); Chloride 102 mmol/L (98-107); Estimated CRCL calculation 67 ml/min; Estimated Glomerular Filt Rate > 60; Glucose 118 mg/dL (65-110); Magnesium 2.1 mg/dL (1.6-2.3); Potassium 3.5 mmol/L (3.4-5.0); Sodium 140 mmol/L (137-145)
[2024-08-14 06:21] LABS: Glucose Point of Care 135 mg/dl (65-105)
[2024-08-14] MEDS: AMOXICILLIN/CLAVULANATE K SUSP 400-57 MG/5 ML 5 ML UD 500 MG FEED TUBE ×3 (06:36→21:23)
[2024-08-14] MEDS: ACETAMINOPHEN 325 MG TABLET 650 MG PO (08:46)
[2024-08-14] MEDS: CLOPIDOGREL BISULFATE 75 MG TABLET PO (08:46)
[2024-08-14] MEDS: LORATADINE 10 MG TABLET PO (08:46)
[2024-08-14] MEDS: carvediloL 3.125 MG TABLET PO ×2 (08:48→20:32)
[2024-08-14] MEDS: MEMANTINE 10 MG TABLET PO (08:48)
[2024-08-14] MEDS: lisinopriL 5 MG TABLET PO (08:48)
[2024-08-14] MEDS: PANTOPRAZOLE SODIUM IV 40 MG VIAL IV PUSH ×2 (08:48→20:36)
[2024-08-14] MEDS: ENOXAPARIN 40 MG/0.4 ML SYRINGE SUB-Q (08:48)
[2024-08-14] MEDS: ASPIRIN 81 MG ENTERIC TABLET PO (08:48)
[2024-08-14] MEDS: BETAMETHASONE/CLOTRIMAZOLE CREAM 15 GM TUBE 1 APPLIC TOPICAL (08:48)
[2024-08-14] MEDS: FLUTICASONE PROPIONATE 0.05% NA SPR 16 GM BTL (*BKC) 1 SPRAY NASAL ×2 (08:49→20:32)
[2024-08-14 12:01] LABS: SARS-CoV-2 RNA PCR Positive (Negative)
[2024-08-14 12:40] LABS: Glucose Point of Care 116 mg/dl (65-105)
--- NOTE | 2024-08-14 15:00 | P.PNIM_ITS ---
Progress Note: A&P Assessment and Plan (1) Subluxation of right shoulder joint: Qualifiers: Encounter type: initial encounter Qualified Code(s): S43.001A - Unspecified subluxation of right shoulder joint, initial encounter Code(s): S43.001A - Unspecified subluxation of right shoulder joint, initial encounter Status: Acute Assessment and Plan: * CT showing old healed fracture with deformity and subluxation of RT glenohumeral joint * Orth consulted and recommends sling for comfort * Recent CVA likely cause * sling ordered * NSAIDS (2) Acute left STEFANIE ischemic stroke: Code(s): I63.522 - Cerebral infarction due to unspecified occlusion or stenosis of left anterior cerebral artery Status: Acute Assessment and Plan: * Brain MR does reveal acute infarct in the left basal ganglia/left periventricular white matter. With no evidence of venous sinus thrombosis. RULED OUT * CTA head and neck showed findings suggestive of left sigmoid sinus and internal jugular vein thrombosis. Short segment severe stenosis in the proximal right ECA. No large vessel intracranial occlusion or aneurysm. No carotid or vertebral artery occlusion dissection or significant stenosis. * Neurology has been consulted * Started on aspirin and Plavix * Discontinued heparin drip. * Speech therapy and on regular diet * PT/ OT * Statin * A1c normal and lipid profile LDL 157 * Echo with ef 35-40%, trace MR, grade 1 diastolic dysfunction * Peg tube trickle feeds until 55ML met * NA 139 with new flush orders * MBS ordered and he technically passed. Can consider oral intake for comfort. (3) Aspiration pneumonia: Code(s): J69.0 - Pneumonitis due to inhalation of food and vomit Status: Acute Assessment and Plan: * Recent CVA * Speech poor oral intake and possible aspiration * febrile overnight peaked at 102.3 * Leukocytosis of 13 * Blood cultures x2 pending * Chest x-ray: Atelectasis versus pneumonia * Rocephin and Flagyl * supplemental oxygen therapy to maintain oxygen 92% on room air * Patient at some point will need modified barium swallow * Patient wants to move forward with feeding tube * added Duo-nebs * upper airway congestion unable to clear * suction at bedside * Peg tube placed 08/13 (4) Urine output low: Code(s): R34 - Anuria and oliguria Status: Acute Assessment and Plan: * Poor urine output * gentle hydration * monitor for signs of fluid overload HX of Cardiomyopathy * bladder scan Q 4 * improvement overnight * renal function stable RESOLVED (5) Chronic UTI: Code(s): N39.0 - Urinary tract infection, site not specified Status: Acute Assessment and Plan: * chronic UTIs, prescribed ciprofloxacin 500 mg b.i.d. x7 days when he develops symptoms. Has had 2 doses, will continue x6 days for total of 7 after discussion with patient's . * UA: Specific gravity 1.045, 1+ ketones RESOLVED (6) Cardiomyopathy: Code(s): I42.9 - Cardiomyopathy, unspecified Status: Acute Assessment and Plan: * Follows with hydramatic mechanic in [place]. * History of cardiomyopathy in the past used to be on medications which include carvedilol and lisinopril which has now been stopped. Family reports due to improvement in EF * Will restart carvedilol and lisinopril Plan Code status: DNR DVT prophylaxis: Lovenox held for surgery 08/12/2024 Stress ulcer prophylaxis: NA PT/OT notes: Rehab/SNF Disposition: Patient continues admission after acute stroke placement of peg tube today, patient more alert plan for follow-up swallow study for aspiration risks. Plan is to discharge to SNF after tolerating new tube feeds and swallow study however he incidentally popped COVID positive and skilled nursing will not accept until Monday. Subjective Date/time seen: 08/14/24 15:00 Interval history: Patient was set to discharge today but is COVID positive. Patient cannot discharge until Monday now. His daughter is at the bedside and feels that he is at his 'new' baseline today. She does not have any concerns. Patient opens his eyes to verbal stimuli and intermittently will follow commands. Review of Systems Review of Systems: ROS unobtainable: Yes unobtainable due to medical condition Exam Narrative: General: appears comfortable, frail, elderly, in no acute distress Respiratory: breathing is unlabored with even chest rise/fall, lungs are clear but diminished without wheezing, rhonchi, and crackles Cardiovascular: Rate and rhythm regular, normal s1s2, no murmur Abdomen: Soft, round, non-tender, active bowel sounds with g-tube and abdominal binder Extremities: No cyanosis or clubbing. Right upper arm flaccid, right lower extremity weakness. Neuro: drowsy, intermittently follows commands Skin: Warm, dry, intact, thin skin, generalized bruising Objective Data Vital Signs Vital Signs: Vital Signs - 24 hr 08/13/24 16:00 08/13/24 19:56 08/13/24 20:22 Temperature 97.7 F Pulse Rate 80 72 Respiratory Rate 18 Blood Pressure 129/72 Pulse Oximetry 94 Oxygen Delivery Room Air 08/13/24 20:55 08/13/24 20:57 08/13/24 21:10 Temperature Pulse Rate 71 71 Respiratory Rate 18 Blood Pressure Pulse Oximetry 95 Oxygen Delivery Room Air 08/13/24 21:07 08/14/24 01:31 08/14/24 01:36 Temperature Pulse Rate 72 71 65 Respiratory Rate 18 16 16 Blood Pressure Pulse Oximetry Oxygen Delivery 08/14/24 05:12 08/13/24 20:00 08/14/24 00:00 Temperature 97.2 F L Pulse Rate 75 73 71 Respiratory Rate 18 Blood Pressure 132/74 Pulse Oximetry 100 Oxygen Delivery 08/14/24 04:00 08/14/24 07:03 08/14/24 07:03 Temperature Pulse Rate 69 76 Respiratory Rate 16 Blood Pressure Pulse Oximetry 95 Oxygen Delivery Room Air 08/14/24 07:12 08/14/24 08:48 08/14/24 08:45 Temperature Pulse Rate 78 78 Respiratory Rate 16 Blood Pressure Pulse Oximetry Oxygen Delivery Room Air 08/14/24 08:00 08/14/24 12:00 08/14/24 13:08 Temperature Pulse Rate 85 66 68 Respiratory Rate 18 Blood Pressure Pulse Oximetry Oxygen Delivery 08/14/24 13:13 08/14/24 14:00 Temperature 98.5 F Pulse Rate 71 69 Respiratory Rate 18 18 Blood Pressure 116/73 Pulse Oximetry 98 Oxygen Delivery Intake/Output Intake/Output: Intake & Output 08/11/24 08/12/24 08/13/24 08/14/24 23:59 23:59 23:59 23:59 Intake Total 2400 1020 562 0 Output Total 1250 500 700 300 Balance 1150 520 138 -300 Meds/Results Medications: Active Medications Generic Name Dose Route Start Last Admin Trade Name Freq PRN Reason Stop Dose Admin Acetaminophen 650 mg 08/03/24 18:19 08/14/24 08:46 Acetaminophen 325 Mg Tablet PO 650 mg Q4H PRN Administration Mild Pain (1-3) or Fever Acetaminophen 650 mg 08/08/24 21:54 08/08/24 22:04 Acetaminophen 650 Mg Suppository RECTAL 650 mg Q6H PRN Administration Mild Pain (1-3) or Fever Albuterol/Ipratropium 3 ml 08/11/24 14:00 08/14/24 13:08 Ipratropium 0.5 Mg/Albuterol Sulfate 2.5 Mg Ampul.Neb 3 Ml INHALATION 3 ml Q6HRT URI Administration Amoxicillin/Clavulanate Potassium 500 mg 08/13/24 16:00 08/14/24 06:36 Amoxicillin/Clavulanate K Susp 400-57 Mg/5 Ml 5 Ml Ud FEED TUBE 08/15/24 22:01 500 mg Q8HR URI Administration Aspirin 81 mg 08/04/24 13:20 08/14/24 08:48 Aspirin 81 Mg Enteric Tablet PO 81 mg QAM URI Administration Atorvastatin Calcium 80 mg 08/05/24 21:00 08/13/24 21:10 Atorvastatin 40 Mg Tablet PO 80 mg QHS URI Administration Carvedilol 3.125 mg 08/06/24 21:00 08/14/24 08:48 Carvedilol 3.125 Mg Tablet PO 3.125 mg Q12HR URI Administration Clopidogrel Bisulfate 75 mg 08/04/24 13:20 08/14/24 08:46 Clopidogrel Bisulfate 75 Mg Tablet PO 75 mg QAM URI Administration Clotrimazole 1 applic 08/04/24 09:00 08/14/24 08:48 Betamethasone/Clotrimazole Cream 15 Gm Tube TOPICAL 1 applic QAM URI Administration Dextrose 12.5 gm 08/10/24 08:06 Dextrose 50% 25 Gm/50 Ml Syringe IV PUSH PRN PRN Hypoglycemia Protocol Donepezil HCl 10 mg 08/03/24 21:30 08/13/24 21:10 Donepezil Hcl 10 Mg Tablet PO 10 mg HS URI Administration Enoxaparin Sodium 40 mg 08/13/24 09:00 08/14/24 08:48 Enoxaparin 40 Mg/0.4 Ml Syringe SUB-Q 40 mg DAILY URI Administration Fluticasone Propionate 1 spray 08/06/24 21:00 08/14/24 08:49 Fluticasone Propionate 0.05% Na Spr 16 Gm Btl (*Bkc) NASAL 1 spray Q12HR URI Administration Glucagon 1 mg 08/10/24 08:06 Glucagon For Inj 1 Mg Vial IM PRN PRN Hypoglycemia Protocol Glucose 15 gm 08/10/24 08:06 Glucose Oral Gel 15 Gm Of Glucse In 37.5 Gm Tube PO PRN PRN Hypoglycemia Protocol Dextrose 1,000 mls @ 100 mls/hr 08/10/24 08:06 Dextrose 5% 1,000 Ml IVPB PRN PRN Hypoglycemia Protocol Insulin Aspart 2 - 5 units 08/12/24 00:00 08/14/24 12:57 Insulin Aspart (*Bkc) 100 Units/Ml SUB-Q Not Given Q6H URI Protocol Lisinopril 5 mg 08/07/24 09:00 08/14/24 08:48 Lisinopril 5 Mg Tablet PO 5 mg QAM URI Administration Loratadine 10 mg 08/06/24 20:45 08/14/24 08:46 Loratadine 10 Mg Tablet PO 10 mg QAM URI Administration Memantine 10 mg 08/04/24 09:00 08/14/24 08:48 Memantine 10 Mg Tablet PO 10 mg DAILY URI Administration Ondansetron HCl 4 mg 08/03/24 18:19 Ondansetron Inj 4 Mg/2 Ml Vial IV PUSH Q4H PRN Nausea Pantoprazole Sodium 40 mg 08/09/24 21:00 08/14/24 08:48 Pantoprazole Sodium Iv 40 Mg Vial IV PUSH 40 mg Q12HR URI Administration Triamcinolone Acetonide 1 applic 08/03/24 21:38 Triamcinolone Acet 0.1% Cream 80 Gm Tube TOPICAL BID PRN dermatitis flares. Zinc Oxide 1 applic 08/06/24 21:00 08/13/24 21:11 Zinc Oxide 20% Oint 30 Gm Tube TOPICAL 09/03/24 20:59 1 applic HS URI Administration Radiology Results: ITS Impressions Head/Neck CTA 08/03/24 15:32 IMPRESSION: Findings suggestive of left sigmoid sinus and internal jugular vein thrombosis. Consider MRV for further evaluation. Short segment severe stenosis in the proximal right STEFANIE. No large vessel intracranial occlusion or aneurysm. No carotid or vertebral artery occlusion, dissection, or significant stenosis. Head/Brain Mag Res Venography 08/04/24 12:21 Impression: No evidence of venous sinus thrombosis. Brain MRI 08/04/24 12:22 IMPRESSION: Acute infarct in the left basal ganglia/left periventricular white matter, as detailed above. Diffuse chronic white matter disease, most likely severe chronic microvascular ischemic change. No evidence of venous sinus thrombosis. Carotid Doppler Study 08/05/24 06:09 Impression: No hemodynamically significant stenosis of the bilateral internal carotid arteries. Antegrade flow in the bilateral vertebral arteries. Note: The methodology used is an indirect measurement validated against a direct method (such as the NASCET criteria) that compares diameters at the stenosis to the distal ICA. Chest X-Ray 08/10/24 06:39 IMPRESSION: 1. Mild infrahilar opacities, left greater than right which could represent mild pulmonary edema, atelectasis or pneumonia. 2. Very small left pleural effusion. Abdomen X-Ray 08/11/24 06:49 IMPRESSION: 1. Nasogastric tube in the stomach. Shoulder X-Ray 08/12/24 16:57 IMPRESSION: Highly suggestive fracture in the proximal metaphysis and the anatomical neck of the humerus with dislocation of the proximal fragment. CT evaluation advised. Consider MRI of the shoulder if there is concern for soft tissue internal derangement. Shoulder CT 08/12/24 22:30 IMPRESSION: Old proximal right humeral fracture, healed in deformity. Glenohumeral joint subluxation, without overt dislocation. Small volume right glenohumeral joint effusion. No acute osseous finding in the right shoulder. Modified Barium Swallow 08/14/24 08:37 IMPRESSION: 1. Normal laryngeal penetration or aspiration. 2. Please refer to the speech therapy report for recommendations. Labs Labs: Laboratory Results - last 24 hr 08/13/24 08/14/24 08/14/24 17:06 00:23 05:20 WBC RBC Hgb Hct MCV MCH MCHC RDW Plt Count MPV Sodium Potassium Chloride Carbon Dioxide Anion Gap BUN Creatinine Estim Creat Clear Calc Estimated GFR Glucose POC Capillary Glucose 133 H 147 H 135 H Calcium Magnesium Total Bilirubin AST ALT Alkaline Phosphatase Total Protein Albumin SARS-CoV-2 RNA (RT-PCR) 08/14/24 08/14/24 08/14/24 05:38 11:14 12:37 WBC 8.7 RBC 4.51 L Hgb 13.0 L Hct 40.4 L MCV 89.6 MCH 28.8 MCHC 32.2 RDW 12.1 Plt Count 182 MPV 11.0 H Sodium 140 Potassium 3.5 Chloride 102 Carbon Dioxide 36 H Anion Gap 2 L BUN 15 Creatinine 0.70 Estim Creat Clear Calc 67 Estimated GFR > 60 Glucose 118 H POC Capillary Glucose 116 H Calcium 8.4 Magnesium 2.1 Total Bilirubin 0.5 AST 36 ALT 25 Alkaline Phosphatase 54 Total Protein 6.0 L Albumin 3.2 L SARS-CoV-2 RNA (RT-PCR) Positive A Quality VTE Prophylaxis VTE prophylaxis: pharmacologic ordered
[2024-08-14] MEDS: ACETAMINOPHEN 650 MG SUPPOSITORY RECTAL (18:20)
[2024-08-14] MEDS: DONEPEZIL HCL 10 MG TABLET PO (20:32)
[2024-08-14] MEDS: ATORVASTATIN 40 MG TABLET 80 MG PO (20:32)
[2024-08-14] MEDS: ZINC OXIDE 20% OINT 30 GM TUBE 1 APPLIC TOPICAL (20:36)
[2024-08-14 23:35] LABS: Glucose Point of Care 83 mg/dl (65-105)
[2024-08-15] VITALS (17 sets, daily range): BP systolic 129–185; BP diastolic 59–67; PULSE 67–88; RESP 16–20; TEMP 35.9–37.4; O2SAT 96–100
[2024-08-15] MEDS: IPRATROPIUM 0.5 MG/ALBUTEROL SULFATE 2.5 MG AMPUL.NEB 3 ML INHALATION ×4 (03:22→20:38)
[2024-08-15] MEDS: AMOXICILLIN/CLAVULANATE K SUSP 400-57 MG/5 ML 5 ML UD 500 MG FEED TUBE ×3 (05:39→21:13)
[2024-08-15 05:56] LABS: Glucose Point of Care 119 mg/dl (65-105)
[2024-08-15 05:57] LABS: Alanine Aminotransferase 27 U/L (6-50); Albumin Level 3.4 g/dL (3.5-5.1); Alkaline Phosphatase 55 U/L (38-126); Anion Gap 6 mmol/L (4-12); Aspartate Amino Transferase 40 U/L (17-59); Bilirubin,Total 0.6 mg/dL (0.2-1.3); Blood Urea Nitrogen 15 mg/dL (9-20); Calcium 8.5 mg/dL (8.4-10.2); Carbon Dioxide 33 mmol/L (22-30); Chloride 100 mmol/L (98-107); Estimated CRCL calculation 67 ml/min; Estimated Glomerular Filt Rate > 60; Glucose 129 mg/dL (65-110); Magnesium 2.2 mg/dL (1.6-2.3); Potassium 3.8 mmol/L (3.4-5.0); Sodium 139 mmol/L (137-145)
[2024-08-15 06:00] LABS: Hematocrit 39.4 % (42.0-52.0); Mean Corpuscular Hemoglobin 29.4 pg (26-34); Mean Corpuscular Volume 89.1 fl (80-100); Mean Platelet Volume 11.5 fl (7.4-10.4); Platelet Count Result 180 k/mm3 (150-375); Red Blood Count 4.42 M/mm3 (4.6-6.20); Red Cell Distribution Width 12.2 % (11.5-14.5); White Blood Count 8.7 K/mm3 (4.5-10.0)
--- NOTE | 2024-08-15 09:21 | P.PNIM_ITS ---
Progress Note: A&P Assessment and Plan (1) Subluxation of right shoulder joint: Qualifiers: Encounter type: initial encounter Qualified Code(s): S43.001A - Unspecified subluxation of right shoulder joint, initial encounter Code(s): S43.001A - Unspecified subluxation of right shoulder joint, initial encounter Status: Acute Assessment and Plan: * CT showing old healed fracture with deformity and subluxation of RT glenohumeral joint * Orth consulted and recommends sling for comfort * Recent CVA likely cause * sling ordered * NSAIDS (2) Acute left STEFANIE ischemic stroke: Code(s): I63.522 - Cerebral infarction due to unspecified occlusion or stenosis of left anterior cerebral artery Status: Acute Assessment and Plan: * Brain MR does reveal acute infarct in the left basal ganglia/left periventricular white matter. With no evidence of venous sinus thrombosis. RULED OUT * CTA head and neck showed findings suggestive of left sigmoid sinus and internal jugular vein thrombosis. Short segment severe stenosis in the proximal right ECA. No large vessel intracranial occlusion or aneurysm. No carotid or vertebral artery occlusion dissection or significant stenosis. * Neurology has been consulted * Started on aspirin and Plavix * Discontinued heparin drip. * Speech therapy ordered * PT/ OT * Statin * A1c normal and lipid profile LDL 157 * Echo with ef 35-40%, trace MR, grade 1 diastolic dysfunction * Peg tube trickle feeds until 55ML met * NA 139 with new flush orders * MBS ordered and he technically passed. Can consider oral intake for comfort. (3) Aspiration pneumonia: Code(s): J69.0 - Pneumonitis due to inhalation of food and vomit Status: Acute Assessment and Plan: * Recent CVA * Speech poor oral intake and possible aspiration * febrile overnight peaked at 102.3 * Leukocytosis of 13 * Blood cultures x2 pending * Chest x-ray: Atelectasis versus pneumonia * Rocephin and Flagyl * supplemental oxygen therapy to maintain oxygen 92% on room air * Patient at some point will need modified barium swallow * Patient wants to move forward with feeding tube * added Duo-nebs * upper airway congestion unable to clear * suction at bedside * Peg tube placed 08/13 (4) Urine output low: Code(s): R34 - Anuria and oliguria Status: Acute Assessment and Plan: * Poor urine output * gentle hydration * monitor for signs of fluid overload HX of Cardiomyopathy * bladder scan Q 4 * improvement overnight * renal function stable RESOLVED (5) Chronic UTI: Code(s): N39.0 - Urinary tract infection, site not specified Status: Acute Assessment and Plan: * chronic UTIs, prescribed ciprofloxacin 500 mg b.i.d. x7 days when he develops symptoms. Has had 2 doses, will continue x6 days for total of 7 after discussion with patient's . 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 * History of cardiomyopathy in the past used to be on medications which include carvedilol and lisinopril which has now been stopped. Family reports due to improvement in EF * Will restart carvedilol and lisinopril (7) COVID: Code(s): U07.1 - COVID-19 Status: Acute Assessment and Plan: Incidental finding upon discharge to SNF. Patient is not requiring oxygen. * Overnight had a low-grade temperature of 100? degrees. * Tylenol as needed for fever * Conservative management * CPT BID with vest therapy and added Mucinex. Plan Code status: DNR DVT prophylaxis: Lovenox held for surgery 08/12/2024 Stress ulcer prophylaxis: NA PT/OT notes: Rehab/SNF Disposition: Patient continues admission after acute stroke placement of peg tube today, patient more alert plan for follow-up swallow study for aspiration risks. Plan is to discharge to SNF after tolerating new tube feeds and swallow study however he incidentally popped COVID positive and [facility] will not accept until Monday. Subjective Date/time seen: 08/15/24 09:21 Interval history: No acute events overnight. He did have a low grade temperate of 100. He is on room air. He responded to painful stimuli. Review of Systems Review of Systems: ROS unobtainable: Yes unobtainable due to medical condition and unobtainable due to mental status Exam Narrative: General: appears comfortable, frail, elderly, in no acute distress Respiratory: breathing is unlabored with even chest rise/fall, lungs are clear but diminished without wheezing, rhonchi, and crackles Cardiovascular: Rate and rhythm regular, normal s1s2, no murmur Abdomen: Soft, round, non-tender, active bowel sounds with g-tube and abdominal binder Extremities: No cyanosis or clubbing. Right upper arm flaccid, right lower extremity weakness. Neuro: drowsy, responds to painful stimuli Skin: Warm, dry, intact, thin skin, generalized bruising Objective Data Vital Signs Vital Signs: Vital Signs - 24 hr 08/14/24 12:00 08/14/24 13:08 08/14/24 13:13 Temperature Pulse Rate 66 68 71 Respiratory Rate 18 18 Blood Pressure Pulse Oximetry Oxygen Delivery Fraction of Inspired Oxygen 08/14/24 14:00 08/14/24 18:20 08/14/24 20:29 Temperature 98.5 F 100 F H 98.0 F Pulse Rate 69 82 Respiratory Rate 18 18 Blood Pressure 116/73 142/73 H Pulse Oximetry 98 94 Oxygen Delivery Fraction of Inspired Oxygen 08/14/24 20:32 08/14/24 19:20 08/14/24 20:00 Temperature 98.0 F Pulse Rate 79 Respiratory Rate Blood Pressure Pulse Oximetry Oxygen Delivery Room Air Fraction of Inspired Oxygen 08/14/24 22:10 08/15/24 03:24 08/14/24 22:10 Temperature Pulse Rate 63 76 Respiratory Rate 18 18 Blood Pressure Pulse Oximetry 96 Oxygen Delivery Room Air Fraction of Inspired Oxygen 08/14/24 22:20 08/15/24 03:34 08/15/24 05:34 Temperature 97.3 F L Pulse Rate 67 80 81 Respiratory Rate 18 18 16 Blood Pressure 132/67 Pulse Oximetry 100 Oxygen Delivery Fraction of Inspired Oxygen 08/15/24 07:33 08/15/24 07:33 08/15/24 07:41 Temperature Pulse Rate 81 84 Respiratory Rate 20 20 Blood Pressure Pulse Oximetry 98 Oxygen Delivery Room Air Fraction of Inspired Oxygen 21 Intake/Output Intake/Output: Intake & Output 08/12/24 08/13/24 08/14/24 08/15/24 23:59 23:59 23:59 23:59 Intake Total 1020 562 0 910 Output Total 500 700 550 Balance 520 138 -550 910 Meds/Results Medications: Active Medications Generic Name Dose Route Start Last Admin Trade Name Freq PRN Reason Stop Dose Admin Acetaminophen 650 mg 08/03/24 18:19 08/14/24 08:46 Acetaminophen 325 Mg Tablet PO 650 mg Q4H PRN Administration Mild Pain (1-3) or Fever Acetaminophen 650 mg 08/08/24 21:54 08/14/24 18:20 Acetaminophen 650 Mg Suppository RECTAL 650 mg Q6H PRN Administration Mild Pain (1-3) or Fever Albuterol/Ipratropium 3 ml 08/11/24 14:00 08/15/24 07:33 Ipratropium 0.5 Mg/Albuterol Sulfate 2.5 Mg Ampul.Neb 3 Ml INHALATION 3 ml Q6HRT URI Administration Amoxicillin/Clavulanate Potassium 500 mg 08/13/24 16:00 08/15/24 05:39 Amoxicillin/Clavulanate K Susp 400-57 Mg/5 Ml 5 Ml Ud FEED TUBE 08/15/24 22: 01 500 mg Q8HR URI Administration Aspirin 81 mg 08/04/24 13:20 08/14/24 08:48 Aspirin 81 Mg Enteric Tablet PO 81 mg QAM URI Administration Atorvastatin Calcium 80 mg 08/05/24 21:00 08/14/24 20:32 Atorvastatin 40 Mg Tablet PO 80 mg QHS URI Administration Carvedilol 3.125 mg 08/06/24 21:00 08/14/24 20:32 Carvedilol 3.125 Mg Tablet PO 3.125 mg Q12HR URI Administration Clopidogrel Bisulfate 75 mg 08/04/24 13:20 08/14/24 08:46 Clopidogrel Bisulfate 75 Mg Tablet PO 75 mg QAM URI Administration Clotrimazole 1 applic 08/04/24 09:00 08/14/24 08:48 Betamethasone/Clotrimazole Cream 15 Gm Tube TOPICAL 1 applic QAM URI Administration Dextrose 12.5 gm 08/10/24 08:06 Dextrose 50% 25 Gm/50 Ml Syringe IV PUSH PRN PRN Hypoglycemia Protocol Donepezil HCl 10 mg 08/03/24 21:30 08/14/24 20:32 Donepezil Hcl 10 Mg Tablet PO 10 mg HS URI Administration Enoxaparin Sodium 40 mg 08/13/24 09:00 08/14/24 08:48 Enoxaparin 40 Mg/0.4 Ml Syringe SUB-Q 40 mg DAILY URI Administration Fluticasone Propionate 1 spray 08/06/24 21:00 08/14/24 20:32 Fluticasone Propionate 0.05% Na Spr 16 Gm Btl (*Bkc) NASAL 1 spray Q12HR URI Administration Glucagon 1 mg 08/10/24 08:06 Glucagon For Inj 1 Mg Vial IM PRN PRN Hypoglycemia Protocol Glucose 15 gm 08/10/24 08:06 Glucose Oral Gel 15 Gm Of Glucse In 37.5 Gm Tube PO PRN PRN Hypoglycemia Protocol Dextrose 1,000 mls @ 100 mls/hr 08/10/24 08:06 Dextrose 5% 1,000 Ml IVPB PRN PRN Hypoglycemia Protocol Insulin Aspart 2 - 5 units 08/12/24 00:00 08/15/24 06:06 Insulin Aspart (*Bkc) 100 Units/Ml SUB-Q Not Given Q6H URI Protocol Lisinopril 5 mg 08/07/24 09:00 08/14/24 08:48 Lisinopril 5 Mg Tablet PO 5 mg QAM URI Administration Loratadine 10 mg 08/06/24 20:45 08/14/24 08:46 Loratadine 10 Mg Tablet PO 10 mg QAM URI Administration Memantine 10 mg 08/04/24 09:00 08/14/24 08:48 Memantine 10 Mg Tablet PO 10 mg DAILY URI Administration Ondansetron HCl 4 mg 08/03/24 18:19 Ondansetron Inj 4 Mg/2 Ml Vial IV PUSH Q4H PRN Nausea Pantoprazole Sodium 40 mg 08/09/24 21:00 08/14/24 20:36 Pantoprazole Sodium Iv 40 Mg Vial IV PUSH 40 mg Q12HR URI Administration Triamcinolone Acetonide 1 applic 08/03/24 21:38 Triamcinolone Acet 0.1% Cream 80 Gm Tube TOPICAL BID PRN dermatitis flares. Zinc Oxide 1 applic 08/06/24 21:00 08/14/24 20:36 Zinc Oxide 20% Oint 30 Gm Tube TOPICAL 09/03/24 20:59 1 applic HS URI Administration Radiology Results: ITS Impressions Head/Neck CTA 08/03/24 15:32 IMPRESSION: Findings suggestive of left sigmoid sinus and internal jugular vein thrombosis. Consider MRV for further evaluation. Short segment severe stenosis in the proximal right STEFANIE. No large vessel intracranial occlusion or aneurysm. No carotid or vertebral artery occlusion, dissection, or significant stenosis. Head/Brain Mag Res Venography 08/04/24 12:21 Impression: No evidence of venous sinus thrombosis. Brain MRI 08/04/24 12:22 IMPRESSION: Acute infarct in the left basal ganglia/left periventricular white matter, as detailed above. Diffuse chronic white matter disease, most likely severe chronic microvascular ischemic change. No evidence of venous sinus thrombosis. Carotid Doppler Study 08/05/24 06:09 Impression: No hemodynamically significant stenosis of the bilateral internal carotid arteries. Antegrade flow in the bilateral vertebral arteries. Note: The methodology used is an indirect measurement validated against a direct method (such as the NASCET criteria) that compares diameters at the stenosis to the distal ICA. Chest X-Ray 08/10/24 06:39 IMPRESSION: 1. Mild infrahilar opacities, left greater than right which could represent mild pulmonary edema, atelectasis or pneumonia. 2. Very small left pleural effusion. Abdomen X-Ray 08/11/24 06:49 IMPRESSION: 1. Nasogastric tube in the stomach. Shoulder X-Ray 08/12/24 16:57 IMPRESSION: Highly suggestive fracture in the proximal metaphysis and the anatomical neck of the humerus with dislocation of the proximal fragment. CT evaluation advised. Consider MRI of the shoulder if there is concern for soft tissue internal derangement. Shoulder CT 08/12/24 22:30 IMPRESSION: Old proximal right humeral fracture, healed in deformity. Glenohumeral joint subluxation, without overt dislocation. Small volume right glenohumeral joint effusion. No acute osseous finding in the right shoulder. Modified Barium Swallow 08/14/24 08:37 IMPRESSION: 1. Normal laryngeal penetration or aspiration. 2. Please refer to the speech therapy report for recommendations. Labs Labs: Laboratory Results - last 24 hr 08/14/24 08/14/24 08/14/24 11:14 12:37 23:32 WBC RBC Hgb Hct MCV MCH MCHC RDW Plt Count MPV Sodium Potassium Chloride Carbon Dioxide Anion Gap BUN Creatinine Estim Creat Clear Calc Estimated GFR Glucose POC Capillary Glucose 116 H 83 Calcium Magnesium Total Bilirubin AST ALT Alkaline Phosphatase Total Protein Albumin SARS-CoV-2 RNA (RT-PCR) Positive A 08/15/24 08/15/24 05:32 05:54 WBC 8.7 RBC 4.42 L Hgb 13.0 L Hct 39.4 L MCV 89.1 MCH 29.4 MCHC 33.0 RDW 12.2 Plt Count 180 MPV 11.5 H Sodium 139 Potassium 3.8 Chloride 100 Carbon Dioxide 33 H Anion Gap 6 BUN 15 Creatinine 0.70 Estim Creat Clear Calc 67 Estimated GFR > 60 Glucose 129 H POC Capillary Glucose 119 H Calcium 8.5 Magnesium 2.2 Total Bilirubin 0.6 AST 40 ALT 27 Alkaline Phosphatase 55 Total Protein 6.0 L Albumin 3.4 L SARS-CoV-2 RNA (RT-PCR) Quality VTE Prophylaxis VTE prophylaxis: pharmacologic ordered
[2024-08-15] MEDS: FLUTICASONE PROPIONATE 0.05% NA SPR 16 GM BTL (*BKC) 1 SPRAY NASAL ×2 (10:17→21:13)
[2024-08-15] MEDS: CLOPIDOGREL BISULFATE 75 MG TABLET PO (10:18)
[2024-08-15] MEDS: carvediloL 3.125 MG TABLET PO ×2 (10:18→21:14)
[2024-08-15] MEDS: MEMANTINE 10 MG TABLET PO (10:18)
[2024-08-15] MEDS: ASPIRIN 81 MG ENTERIC TABLET PO (10:18)
[2024-08-15] MEDS: LORATADINE 10 MG TABLET PO (10:18)
[2024-08-15] MEDS: lisinopriL 5 MG TABLET PO (10:19)
[2024-08-15] MEDS: PANTOPRAZOLE SODIUM IV 40 MG VIAL IV PUSH ×2 (10:19→21:14)
[2024-08-15] MEDS: ENOXAPARIN 40 MG/0.4 ML SYRINGE SUB-Q (10:19)
[2024-08-15] MEDS: BETAMETHASONE/CLOTRIMAZOLE CREAM 15 GM TUBE 1 APPLIC TOPICAL ×2 (10:20→10:22)
[2024-08-15] MEDS: guaiFENesin 12 HR 600 MG TABCR PO ×2 (11:30→21:15)
[2024-08-15 11:50] LABS: Glucose Point of Care 109 mg/dl (65-105)
[2024-08-15] MEDS: ATORVASTATIN 40 MG TABLET 80 MG PO (21:13)
[2024-08-15] MEDS: DONEPEZIL HCL 10 MG TABLET PO (21:15)
[2024-08-15] MEDS: ZINC OXIDE 20% OINT 30 GM TUBE 1 APPLIC TOPICAL (21:16)
[2024-08-16] VITALS (16 sets, daily range): BP systolic 104–136; BP diastolic 70–80; PULSE 76–88; RESP 16–18; TEMP 36.6–37.5; O2SAT 98–100; BMI 11.0
[2024-08-16 00:37] LABS: Glucose Point of Care 106 mg/dl (65-105)
[2024-08-16] MEDS: IPRATROPIUM 0.5 MG/ALBUTEROL SULFATE 2.5 MG AMPUL.NEB 3 ML INHALATION ×4 (02:37→21:05)
[2024-08-16 05:47] LABS: Glucose Point of Care 112 mg/dl (65-105)
[2024-08-16 06:53] LABS: Hematocrit 42.2 % (42.0-52.0); Hemoglobin 13.7 g/dL (14.0-18.0); Mean Corpuscular HGB Conc 32.5 g/dl (32-36); Mean Corpuscular Hemoglobin 29.1 pg (26-34); Mean Corpuscular Volume 89.8 fl (80-100); Mean Platelet Volume 11.4 fl (7.4-10.4); Platelet Count Result 186 k/mm3 (150-375); Red Cell Distribution Width 12.3 % (11.5-14.5); White Blood Count 8.5 K/mm3 (4.5-10.0)
[2024-08-16 07:04] LABS: Alanine Aminotransferase 77 U/L (6-50); Albumin Level 3.7 g/dL (3.5-5.1); Alkaline Phosphatase 58 U/L (38-126); Anion Gap 6 mmol/L (4-12); Aspartate Amino Transferase 108 U/L (17-59); Bilirubin,Total 0.7 mg/dL (0.2-1.3); Blood Urea Nitrogen 16 mg/dL (9-20); Calcium 8.9 mg/dL (8.4-10.2); Carbon Dioxide 34 mmol/L (22-30); Chloride 98 mmol/L (98-107); Estimated CRCL calculation 67 ml/min; Estimated Glomerular Filt Rate > 60; Glucose 113 mg/dL (65-110); Magnesium 2.2 mg/dL (1.6-2.3); Potassium 4.2 mmol/L (3.4-5.0); Sodium 138 mmol/L (137-145)
--- NOTE | 2024-08-16 07:48 | P.PNIM_ITS ---
Progress Note: A&P Assessment and Plan (1) Subluxation of right shoulder joint: Qualifiers: Encounter type: initial encounter Qualified Code(s): S43.001A - Unspecified subluxation of right shoulder joint, initial encounter Code(s): S43.001A - Unspecified subluxation of right shoulder joint, initial encounter Status: Acute Assessment and Plan: * CT showing old healed fracture with deformity and subluxation of RT glenohumeral joint * Orth consulted and recommends sling for comfort * Recent CVA likely cause * sling ordered * NSAIDS (2) Acute left STEFANIE ischemic stroke: Code(s): I63.522 - Cerebral infarction due to unspecified occlusion or stenosis of left anterior cerebral artery Status: Acute Assessment and Plan: * Brain MR does reveal acute infarct in the left basal ganglia/left periventricular white matter. With no evidence of venous sinus thrombosis. RULED OUT * CTA head and neck showed findings suggestive of left sigmoid sinus and internal jugular vein thrombosis. Short segment severe stenosis in the proximal right ECA. No large vessel intracranial occlusion or aneurysm. No carotid or vertebral artery occlusion dissection or significant stenosis. * Neurology has been consulted * Started on aspirin and Plavix * Discontinued heparin drip. * Speech therapy ordered * PT/ OT * Statin * A1c normal and lipid profile LDL 157 * Echo with ef 35-40%, trace MR, grade 1 diastolic dysfunction * Peg tube trickle feeds until 55ML met * NA 139 with new flush orders * MBS ordered and he technically passed. Can consider oral intake for comfort. (3) Aspiration pneumonia: Code(s): J69.0 - Pneumonitis due to inhalation of food and vomit Status: Acute Assessment and Plan: * Recent CVA * Speech poor oral intake and possible aspiration * febrile overnight peaked at 102.3 * Leukocytosis of 13 * Blood cultures x2 pending * Chest x-ray: Atelectasis versus pneumonia * Rocephin and Flagyl * supplemental oxygen therapy to maintain oxygen 92% on room air * Patient at some point will need modified barium swallow * Patient wants to move forward with feeding tube * added Duo-nebs * upper airway congestion unable to clear * suction at bedside * Peg tube placed 08/13 (4) Cardiomyopathy: Code(s): I42.9 - Cardiomyopathy, unspecified Status: Acute Assessment and Plan: * Follows with [facility] in [place]. * History of cardiomyopathy in the past used to be on medications which include carvedilol and lisinopril which has now been stopped. Family reports due to improvement in EF * Will restart carvedilol and lisinopril (5) COVID: Code(s): U07.1 - COVID-19 Status: Acute Assessment and Plan: Incidental finding upon discharge to SNF. Patient is not requiring oxygen. * 08/15 had a low-grade temperature of 100? degrees. * Tylenol as needed for fever * Conservative management * CPT BID with vest therapy and added Mucinex. * May discharge on Monday to SNF (6) Chronic UTI: Code(s): N39.0 - Urinary tract infection, site not specified Status: Acute Assessment and Plan: * chronic UTIs, prescribed ciprofloxacin 500 mg b.i.d. x7 days when he develops symptoms. Has had 2 doses, will continue x6 days for total of 7 after discussion with patient's . * UA: Specific gravity 1.045, 1+ ketones RESOLVED (7) Urine output low: Code(s): R34 - Anuria and oliguria Status: Acute Assessment and Plan: * Poor urine output * gentle hydration * monitor for signs of fluid overload HX of Cardiomyopathy * bladder scan Q 4 * improvement overnight * renal function stable RESOLVED Plan Code status: DNR DVT prophylaxis: Lovenox held for surgery 08/12/2024 Stress ulcer prophylaxis: NA PT/OT notes: Rehab/SNF Disposition: Patient continues admission after acute stroke placement of peg tube today, patient more alert plan for follow-up swallow study for aspiration risks. Plan is to discharge to SNF after tolerating new tube feeds and swallow study however he incidentally popped COVID positive and senior living will not accept until Monday. Time Spent With Patient Time with patient: Greater than 35 minutes Subjective Date/time seen: 08/16/24 07:48 Interval history: 73 y/o M presents here with right sided weakness and right facial droop with past medical history of Alzheimer's dementia and congestive heart failure. Blood cultures from 08/08/24 grew propionibacterium acnes in 1 of 2 bottles on 08/15. Possibility that this is a contamination since culture resulted after 5 days of incubation. Vital signs are stable, WBC normal, and afebrile. Will repeat blood cultures. patient was medically stable ready for discharge however his COVID test came back positive, he will be able to discharge on Monday. Review of Systems Review of Systems: smiling and tracking with eyes , sleepy ROS unobtainable: Yes unobtainable due to medical condition and unobtainable due to mental status Exam Narrative: General: appears comfortable, frail, elderly, in no acute distress Respiratory: breathing is unlabored with even chest rise/fall, lungs are clear but diminished without wheezing, rhonchi, and crackles Cardiovascular: Rate and rhythm regular, normal s1s2, no murmur Abdomen: Soft, round, non-tender, active bowel sounds with g-tube and abdominal binder Extremities: No cyanosis or clubbing. Right upper arm flaccid, right lower extremity weakness. Neuro: drowsy, responds to painful stimuli Skin: Warm, dry, intact, thin skin, generalized bruising Const: General: comfortable and no acute distress Other: , male, elderly, mildly frail HENMT: Face/Nose/Sinus: Normal nares present Mouth: Yes moist mucous membranes Eyes: General: appearance normal, both eyes and all related structures Sclera: sclerae normal Pupils: Equal, round and reactive pupils present EOM: EOMs intact bilaterally Resp: Effort & Inspection: normal respiratory effort Auscultation: clear to auscultation bilaterally Cardio: Rate: regular rate Rhythm: regular rhythm Other: S1-S2 present without murmur, rub, ectopy GI: Other: No particular expression or grimace with abdominal palpation. Abdomen is soft and nondistended. Normoactive bowel sounds in all quadrants. Skin: General skin exam: normal color and no rashes or lesions noted Wounds: no wounds Neuro: Cranial nerves: Yes Equal, round and reactive pupils present Other: right facial droop. minimal to no muscle tone in the right upper extremity. Not able to lift either lower extremity to gravity. plantar flexion +5 in LLE, 4+ in RLE. Patient is virtually non-verbal at baseline, per family will occasionally give short answers. No gaze palsy. Resting tremor - moderate amplitude. Eye opening spontaneously, responds to name. A/Ox0. Extrem: General: normal to inspection Psych: Other: Poor insight and judgment. No agitation. Objective Data Vital Signs Vital Signs: Vital Signs - 24 hr 08/15/24 10:18 08/15/24 08:00 08/15/24 13:27 Temperature Pulse Rate 82 82 Respiratory Rate 20 Blood Pressure Pulse Oximetry 98 96 Oxygen Delivery Room Air Room Air Fraction of Inspired Oxygen 21 21 08/15/24 13:27 08/15/24 13:30 08/15/24 13:35 Temperature Pulse Rate 68 68 71 Respiratory Rate 18 18 16 Blood Pressure Pulse Oximetry 96 Oxygen Delivery Room Air Fraction of Inspired Oxygen 21 08/15/24 14:00 08/15/24 19:50 08/15/24 20:40 Temperature 96.7 F L 99.3 F Pulse Rate 67 88 88 Respiratory Rate 18 18 18 Blood Pressure 129/62 185/59 H Pulse Oximetry 100 100 Oxygen Delivery Fraction of Inspired Oxygen 08/15/24 20:41 08/15/24 20:47 08/15/24 21:14 Temperature Pulse Rate 82 80 Respiratory Rate 18 Blood Pressure Pulse Oximetry 98 Oxygen Delivery Room Air Fraction of Inspired Oxygen 08/15/24 20:00 08/16/24 02:37 08/16/24 02:46 Temperature Pulse Rate 80 82 81 Respiratory Rate 18 18 18 Blood Pressure Pulse Oximetry 98 Oxygen Delivery Room Air Fraction of Inspired Oxygen 08/16/24 04:57 Temperature 98.3 F Pulse Rate 81 Respiratory Rate 18 Blood Pressure 136/80 Pulse Oximetry 100 Oxygen Delivery Fraction of Inspired Oxygen Intake/Output Intake/Output: Intake & Output 08/13/24 08/14/24 08/15/24 08/16/24 23:59 23:59 23:59 23:59 Intake Total 562 0 910 1605 Output Total 700 781 368 3101 Balance -138 -550 110 305 Meds/Results Medications: Active Medications Generic Name Dose Route Start Last Admin Trade Name Freq PRN Reason Stop Dose Admin Acetaminophen 650 mg 08/03/24 18:19 08/14/24 08:46 Acetaminophen 325 Mg Tablet PO 650 mg Q4H PRN Administration Mild Pain (1-3) or Fever Acetaminophen 650 mg 08/08/24 21:54 08/14/24 18:20 Acetaminophen 650 Mg Suppository RECTAL 650 mg Q6H PRN Administration Mild Pain (1-3) or Fever Albuterol/Ipratropium 3 ml 08/11/24 14:00 08/16/24 07:19 Ipratropium 0.5 Mg/Albuterol Sulfate 2.5 Mg Ampul.Neb 3 Ml INHALATION 3 ml Q6HRT URI Administration Aspirin 81 mg 08/04/24 13:20 08/15/24 10:18 Aspirin 81 Mg Enteric Tablet PO 81 mg QAM URI Administration Atorvastatin Calcium 80 mg 08/05/24 21:00 08/15/24 21:13 Atorvastatin 40 Mg Tablet PO 80 mg QHS URI Administration Carvedilol 3.125 mg 08/06/24 21:00 08/15/24 21:14 Carvedilol 3.125 Mg Tablet PO 3.125 mg Q12HR URI Administration Clopidogrel Bisulfate 75 mg 08/04/24 13:20 08/15/24 10:18 Clopidogrel Bisulfate 75 Mg Tablet PO 75 mg QAM URI Administration Clotrimazole 1 applic 08/04/24 09:00 08/15/24 10:22 Betamethasone/Clotrimazole Cream 15 Gm Tube TOPICAL 1 applic QAM URI Administration Dextrose 12.5 gm 08/10/24 08:06 Dextrose 50% 25 Gm/50 Ml Syringe IV PUSH PRN PRN Hypoglycemia Protocol Donepezil HCl 10 mg 08/03/24 21:30 08/15/24 21:15 Donepezil Hcl 10 Mg Tablet PO 10 mg HS URI Administration Enoxaparin Sodium 40 mg 08/13/24 09:00 08/15/24 10:19 Enoxaparin 40 Mg/0.4 Ml Syringe SUB-Q 40 mg DAILY URI Administration Fluticasone Propionate 1 spray 08/06/24 21:00 08/15/24 21:13 Fluticasone Propionate 0.05% Na Spr 16 Gm Btl (*Bkc) NASAL 1 spray Q12HR URI Administration Glucagon 1 mg 08/10/24 08:06 Glucagon For Inj 1 Mg Vial IM PRN PRN Hypoglycemia Protocol Glucose 15 gm 08/10/24 08:06 Glucose Oral Gel 15 Gm Of Glucse In 37.5 Gm Tube PO PRN PRN Hypoglycemia Protocol Guaifenesin 600 mg 08/15/24 11:15 08/15/24 21:15 Guaifenesin 12 Hr 600 Mg Tabcr PO 600 mg Q12HR URI Administration Dextrose 1,000 mls @ 100 mls/hr 08/10/24 08:06 Dextrose 5% 1,000 Ml IVPB PRN PRN Hypoglycemia Protocol Insulin Aspart 2 - 5 units 08/12/24 00:00 08/16/24 05:45 Insulin Aspart (*Bkc) 100 Units/Ml SUB-Q Not Given Q6H [facility] Protocol Lisinopril 5 mg 08/07/24 09:00 08/15/24 10:19 Lisinopril 5 Mg Tablet PO 5 mg QAM URI Administration Loratadine 10 mg 08/06/24 20:45 08/15/24 10:18 Loratadine 10 Mg Tablet PO 10 mg QAM URI Administration Memantine 10 mg 08/04/24 09:00 08/15/24 10:18 Memantine 10 Mg Tablet PO 10 mg DAILY URI Administration Ondansetron HCl 4 mg 08/03/24 18:19 Ondansetron Inj 4 Mg/2 Ml Vial IV PUSH Q4H PRN Nausea Pantoprazole Sodium 40 mg 08/09/24 21:00 08/15/24 21:14 Pantoprazole Sodium Iv 40 Mg Vial IV PUSH 40 mg Q12HR URI Administration Triamcinolone Acetonide 1 applic 08/03/24 21:38 Triamcinolone Acet 0.1% Cream 80 Gm Tube TOPICAL BID PRN dermatitis flares. Zinc Oxide 1 applic 08/06/24 21:00 08/15/24 21:16 Zinc Oxide 20% Oint 30 Gm Tube TOPICAL 09/03/24 20:59 1 applic HS URI Administration Radiology Results: ITS Impressions Head/Neck CTA 08/03/24 15:32 IMPRESSION: Findings suggestive of left sigmoid sinus and internal jugular vein thrombosis. Consider MRV for further evaluation. Short segment severe stenosis in the proximal right STEFANIE. No large vessel intracranial occlusion or aneurysm. No carotid or vertebral artery occlusion, dissection, or significant stenosis. Head/Brain Mag Res Venography 08/04/24 12:21 Impression: No evidence of venous sinus thrombosis. Brain MRI 08/04/24 12:22 IMPRESSION: Acute infarct in the left basal ganglia/left periventricular white matter, as detailed above. Diffuse chronic white matter disease, most likely severe chronic microvascular ischemic change. No evidence of venous sinus thrombosis. Carotid Doppler Study 08/05/24 06:09 Impression: No hemodynamically significant stenosis of the bilateral internal carotid arteries. Antegrade flow in the bilateral vertebral arteries. Note: The methodology used is an indirect measurement validated against a direct method (such as the NASCET criteria) that compares diameters at the stenosis to the distal ICA. Chest X-Ray 08/10/24 06:39 IMPRESSION: 1. Mild infrahilar opacities, left greater than right which could represent mild pulmonary edema, atelectasis or pneumonia. 2. Very small left pleural effusion. Abdomen X-Ray 08/11/24 06:49 IMPRESSION: 1. Nasogastric tube in the stomach. Shoulder X-Ray 08/12/24 16:57 IMPRESSION: Highly suggestive fracture in the proximal metaphysis and the anatomical neck of the humerus with dislocation of the proximal fragment. CT evaluation advised. Consider MRI of the shoulder if there is concern for soft tissue internal deran gement. Shoulder CT 08/12/24 22:30 IMPRESSION: Old proximal right humeral fracture, healed in deformity. Glenohumeral joint subluxation, without overt dislocation. Small volume right glenohumeral joint effusion. No acute osseous finding in the right shoulder. Modified Barium Swallow 08/14/24 08:37 IMPRESSION: 1. Normal laryngeal penetration or aspiration. 2. Please refer to the speech therapy report for recommendations. Labs Labs: Laboratory Results - last 24 hr 08/15/24 08/16/24 08/16/24 11:37 00:31 05:03 WBC RBC Hgb Hct MCV MCH MCHC RDW Plt Count MPV Sodium Potassium Chloride Carbon Dioxide Anion Gap BUN Creatinine Estim Creat Clear Calc Estimated GFR Glucose POC Capillary Glucose 109 H 106 H 112 H Calcium Magnesium Total Bilirubin AST ALT Alkaline Phosphatase Total Protein Albumin 08/16/24 06:44 WBC 8.5 RBC 4.70 Hgb 13.7 L Hct 42.2 MCV 89.8 MCH 29.1 MCHC 32.5 RDW 12.3 Plt Count 186 MPV 11.4 H Sodium 138 Potassium 4.2 Chloride 98 Carbon Dioxide 34 H Anion Gap 6 BUN 16 Creatinine 0.70 Estim Creat Clear Calc 67 Estimated GFR > 60 Glucose 113 H POC Capillary Glucose Calcium 8.9 Magnesium 2.2 Total Bilirubin 0.7 AST 108 H ALT 77 H Alkaline Phosphatase 58 Total Protein 7.0 Albumin 3.7 Quality VTE Prophylaxis VTE prophylaxis: pharmacologic ordered Hospitalist MIPS Advance Care Plan I have confirmed that the patient's Advanced Care Plan is present, code status is documented, or surrogate decision maker is listed in patient medical record.: Yes Medication Reconciliation I have utilized all available resources to obtain, update and review the patients current medications (includes all prescriptions, OTC, herbals, cannabis, and nutritional supplements).: Yes
[2024-08-16] MEDS: MEMANTINE 10 MG TABLET FEED TUBE (09:44)
[2024-08-16] MEDS: LORATADINE 10 MG TABLET FEED TUBE (09:45)
[2024-08-16] MEDS: lisinopriL 5 MG TABLET FEED TUBE (09:45)
[2024-08-16] MEDS: carvediloL 3.125 MG TABLET FEED TUBE ×2 (09:45→20:56)
[2024-08-16] MEDS: CLOPIDOGREL BISULFATE 75 MG TABLET FEED TUBE (09:45)
[2024-08-16] MEDS: PANTOPRAZOLE SODIUM IV 40 MG VIAL IV PUSH ×2 (09:46→20:56)
[2024-08-16] MEDS: ENOXAPARIN 40 MG/0.4 ML SYRINGE SUB-Q (09:46)
[2024-08-16] MEDS: FLUTICASONE PROPIONATE 0.05% NA SPR 16 GM BTL (*BKC) 1 SPRAY NASAL ×2 (09:46→20:55)
--- NOTE | 2024-08-16 10:56 | PCNFU ---
Nutrition Follow-Up Complete: Inability to meet estimated energy needs PO related to swallowing issues as evidenced by swallow evaluation Goal: Meet estimated nutrition needs Patient is meeting goal. No new goal. Pt current nutrition is Jevity 1.5 at 55 ml/hr. Last recorded weight is 62.6 kg, stable Bowel Motility: +BM reported 08/15 Labs Reviewed: Glu 113 Meds Noted: Coreg, Plavix Skin: WNL Additional Notes: Patient remains on isolation for COVID. Spoke with nursing today, tube feedings are being tolerating of Jevity 1.5 at 55 ml/hr. Tube feedings providing 1815 kcal/77 gm protein/970 ml water. Flush 150 q 4 hours. PEG placed 08/12. Agree with diet orders. Monitoring plan of care every Monday and Monday.
[2024-08-16 11:53] LABS: Glucose Point of Care 121 mg/dl (65-105)
[2024-08-16] MEDS: methocarbamoL 500 MG TABLET FEED TUBE ×3 (12:23→20:56)
[2024-08-16 18:35] LABS: Glucose Point of Care 112 mg/dl (65-105)
[2024-08-16] MEDS: ZINC OXIDE 20% OINT 30 GM TUBE 1 APPLIC TOPICAL (20:55)
[2024-08-16] MEDS: ATORVASTATIN 40 MG TABLET 80 MG FEED TUBE (20:55)
[2024-08-16] MEDS: guaiFENesin 200 MG/10 ML UDC 600 MG FEED TUBE (20:56)
[2024-08-16] MEDS: DONEPEZIL HCL 10 MG TABLET FEED TUBE (20:56)
[2024-08-17] VITALS (12 sets, daily range): BP systolic 111–123; BP diastolic 58–71; PULSE 69–100; RESP 16–20; TEMP 36.6–37.1; O2SAT 94–100
[2024-08-17 01:17] LABS: Glucose Point of Care 106 mg/dl (65-105)
[2024-08-17] MEDS: IPRATROPIUM 0.5 MG/ALBUTEROL SULFATE 2.5 MG AMPUL.NEB 3 ML INHALATION ×3 (02:30→21:17)
[2024-08-17 06:02] LABS: Hematocrit 37.3 % (42.0-52.0); Hemoglobin 11.8 g/dL (14.0-18.0); Mean Corpuscular HGB Conc 31.6 g/dl (32-36); Mean Corpuscular Hemoglobin 28.4 pg (26-34); Mean Corpuscular Volume 89.7 fl (80-100); Mean Platelet Volume 11.6 fl (7.4-10.4); Platelet Count Result 163 k/mm3 (150-375); Red Blood Count 4.16 M/mm3 (4.6-6.20); Red Cell Distribution Width 12.7 % (11.5-14.5); White Blood Count 6.1 K/mm3 (4.5-10.0)
[2024-08-17 06:14] LABS: Alanine Aminotransferase 62 U/L (6-50); Alkaline Phosphatase 55 U/L (38-126); Anion Gap 6 mmol/L (4-12); Aspartate Amino Transferase 75 U/L (17-59); Bilirubin,Total 0.6 mg/dL (0.2-1.3); Blood Urea Nitrogen 18 mg/dL (9-20); Calcium 8.1 mg/dL (8.4-10.2); Carbon Dioxide 31 mmol/L (22-30); Chloride 97 mmol/L (98-107); Estimated CRCL calculation 67 ml/min; Estimated Glomerular Filt Rate > 60; Glucose 127 mg/dL (65-110); Magnesium 2.1 mg/dL (1.6-2.3); Potassium 3.6 mmol/L (3.4-5.0); Sodium 134 mmol/L (137-145)
[2024-08-17 06:59] LABS: Glucose Point of Care 120 mg/dl (65-105)
--- NOTE | 2024-08-17 08:20 | P.PNIM_ITS ---
Progress Note: A&P Assessment and Plan (1) Subluxation of right shoulder joint: Qualifiers: Encounter type: initial encounter Qualified Code(s): S43.001A - Unspecified subluxation of right shoulder joint, initial encounter Code(s): S43.001A - Unspecified subluxation of right shoulder joint, initial encounter Status: Acute Assessment and Plan: * CT showing old healed fracture with deformity and subluxation of RT glenohumeral joint * Orth consulted and recommends sling for comfort * Recent CVA likely cause * sling ordered * NSAIDS (2) Acute left STEFANIE ischemic stroke: Code(s): I63.522 - Cerebral infarction due to unspecified occlusion or stenosis of left anterior cerebral artery Status: Acute Assessment and Plan: * Brain MR showed acute infarct in the left basal ganglia/left periventricular white matter. With no evidence of venous sinus thrombosis. RULED OUT * CTA head and neck showed findings suggestive of left sigmoid sinus and internal jugular vein thrombosis. Short segment severe stenosis in the proximal right ECA. No large vessel intracranial occlusion or aneurysm. No carotid or vertebral artery occlusion dissection or significant stenosis. * Neurology has been consulted * Started on aspirin and Plavix * Discontinued heparin drip. * Speech therapy ordered * PT/ OT * Statin * A1c normal and lipid profile LDL 157 * Echo with ef 35-40%, trace MR, grade 1 diastolic dysfunction * Peg tube trickle feeds until 55ML met * NA 139 with new flush orders * MBS ordered and he technically passed. Can consider oral intake for comfort. (3) Aspiration pneumonia: Code(s): J69.0 - Pneumonitis due to inhalation of food and vomit Status: Acute Assessment and Plan: * Recent CVA * Speech poor oral intake and possible aspiration * febrile overnight peaked at 102.3 * Leukocytosis of 13 * Blood cultures x2 pending * Chest x-ray: Atelectasis versus pneumonia * Rocephin and Flagyl * supplemental oxygen therapy to maintain oxygen 92% on room air * Patient at some point will need modified barium swallow * Patient wants to move forward with feeding tube * added Duo-nebs * upper airway congestion unable to clear * suction at bedside * Peg tube placed 08/13 (4) Cardiomyopathy: Code(s): I42.9 - Cardiomyopathy, unspecified Status: Acute Assessment and Plan: * Follows with marketing production coordinator in [place]. * History of cardiomyopathy in the past used to be on medications which include carvedilol and lisinopril which has now been stopped. Family reports due to improvement in EF * Will restart carvedilol and lisinopril (5) COVID: Code(s): U07.1 - COVID-19 Status: Acute Assessment and Plan: Incidental finding upon discharge to SNF. Patient is not requiring oxygen. * 08/15 had a low-grade temperature of 100? degrees. * Tylenol as needed for fever * Conservative management * CPT BID with vest therapy and added Mucinex. * May discharge on Monday to SNF (6) Chronic UTI: Code(s): N39.0 - Urinary tract infection, site not specified Status: Acute Assessment and Plan: * chronic UTIs, prescribed ciprofloxacin 500 mg b.i.d. x7 days when he develops symptoms. Has had 2 doses, will continue x6 days for total of 7 after discussion with patient's . * UA: Specific gravity 1.045, 1+ ketones RESOLVED (7) Urine output low: Code(s): R34 - Anuria and oliguria Status: Acute Assessment and Plan: * Poor urine output * gentle hydration * monitor for signs of fluid overload HX of Cardiomyopathy * bladder scan Q 4 * improvement overnight * renal function stable RESOLVED Plan Code status: DNR DVT prophylaxis: Lovenox held for surgery 08/12/2024 Stress ulcer prophylaxis: NA PT/OT notes: Rehab/SNF Disposition: Patient continues admission after acute stroke placement of peg tube, patient more alert plan for follow-up swallow study for aspiration risks. Plan was to discharge to SNF after tolerating new tube feeds and swallow study however incidentally COVID positive and long-term will not accept until Monday. Time Spent With Patient Time: 48 minutes Subjective Date/time seen: 08/17/24 08:20 Interval history: More alert today per family at beside. No other new changes 73 y/o M presents with past medical history of Alzheimer's dementia and congestive heart failure here with right sided weakness and right facial droop Blood cultures from 08/08/24 grew propionibacterium acnes in 1 of 2 bottles on 08/15. Possibility that this is a contamination since culture resulted after 5 days of incubation. Vital signs are stable, WBC normal, and afebrile. Will repeat blood cultures. patient was medically stable ready for discharge however his COVID test came back positive, he will be able to discharge on Monday. Review of Systems Review of Systems: smiling and tracking with eyes , sleepy ROS unobtainable: Yes unobtainable due to medical condition and unobtainable due to mental status Exam Narrative: General: appears comfortable, frail, elderly, in no acute distress Respiratory: breathing is unlabored with even chest rise/fall, lungs are clear but diminished without wheezing, rhonchi, and crackles Cardiovascular: Rate and rhythm regular, normal s1s2, no murmur Abdomen: Soft, round, non-tender, active bowel sounds with g-tube and abdominal binder Extremities: No cyanosis or clubbing. Right upper arm flaccid, right lower extremity weakness. Neuro: drowsy but sitting in chair and lifts head spontaneously, responds to painful stimuli. Right arm flaccid, moves left arm spontaneously, bilateral LE weakness Skin: Warm, dry, intact, thin skin, generalized bruising Objective Data Vital Signs Vital Signs: Vital Signs - 24 hr 08/16/24 09:45 08/16/24 12:18 08/16/24 13:03 Temperature 98.3 F Pulse Rate 88 76 Respiratory Rate 18 Blood Pressure Pulse Oximetry Oxygen Delivery Fraction of Inspired Oxygen 08/16/24 13:10 08/16/24 09:45 08/16/24 14:32 Temperature 99.5 F Pulse Rate 78 82 Respiratory Rate 18 16 Blood Pressure 104/70 Pulse Oximetry 99 Oxygen Delivery Room Air Fraction of Inspired Oxygen 08/16/24 21:13 08/16/24 20:56 08/16/24 21:05 Temperature 97.9 F Pulse Rate 87 79 Respiratory Rate 16 Blood Pressure 127/72 Pulse Oximetry 98 98 Oxygen Delivery Room Air Fraction of Inspired Oxygen 08/16/24 21:06 08/16/24 20:00 08/17/24 02:30 Temperature Pulse Rate 79 87 69 Respiratory Rate 18 16 18 Blood Pressure Pulse Oximetry 98 Oxygen Delivery Room Air Fraction of Inspired Oxygen 21 08/16/24 21:16 08/17/24 02:40 08/17/24 06:20 Temperature 98.7 F Pulse Rate 81 73 73 Respiratory Rate 18 18 16 Blood Pressure 123/58 L Pulse Oximetry 100 Oxygen Delivery Fraction of Inspired Oxygen Intake/Output Intake/Output: Intake & Output 11/27/24 11/28/24 11/29/24 11/30/24 23:59 23:59 23:59 23:59 Intake Total 0 910 1605 2034 Output Total 734 687 4080 150 Balance -550 110 5 1884 Meds/Results Medications: Active Medications Generic Name Dose Route Start Last Admin Trade Name Freq PRN Reason Stop Dose Admin Acetaminophen 650 mg 08/08/24 21:54 08/14/24 18:20 Acetaminophen 650 Mg Suppository RECTAL 650 mg Q6H PRN Administration Mild Pain (1-3) or Fever Acetaminophen 650 mg 08/16/24 08:56 Acetaminophen 325 Mg Tablet FEED TUBE Q4H PRN Mild Pain (1-3) or Fever Albuterol/Ipratropium 3 ml 08/11/24 14:00 08/17/24 02:30 Ipratropium 0.5 Mg/Albuterol Sulfate 2.5 Mg Ampul.Neb 3 Ml INHALATION 3 ml Q6HRT URI Administration Aspirin 81 mg 08/17/24 08:00 Aspirin 81 Mg Chewable Tablet FEED TUBE DAILY@0800 URI Atorvastatin Calcium 80 mg 08/16/24 21:00 08/16/24 20:55 Atorvastatin 40 Mg Tablet FEED TUBE 80 mg QHS URI Administration Carvedilol 3.125 mg 08/16/24 09:00 08/16/24 20:56 Carvedilol 3.125 Mg Tablet FEED TUBE 3.125 mg Q12HR URI Administration Clopidogrel Bisulfate 75 mg 08/16/24 09:00 08/16/24 09:45 Clopidogrel Bisulfate 75 Mg Tablet FEED TUBE 75 mg QAM URI Administration Clotrimazole 1 applic 08/04/24 09:00 08/15/24 10:22 Betamethasone/Clotrimazole Cream 15 Gm Tube TOPICAL 1 applic QAM URI Administration Dextrose 12.5 gm 08/10/24 08:06 Dextrose 50% 25 Gm/50 Ml Syringe IV PUSH PRN PRN Hypoglycemia Protocol Donepezil HCl 10 mg 08/16/24 21:00 08/16/24 20:56 Donepezil Hcl 10 Mg Tablet FEED TUBE 10 mg HS URI Administration Enoxaparin Sodium 40 mg 08/13/24 09:00 08/16/24 09:46 Enoxaparin 40 Mg/0.4 Ml Syringe SUB-Q 40 mg DAILY URI Administration Fluticasone Propionate 1 spray 08/06/24 21:00 08/16/24 20:55 Fluticasone Propionate 0.05% Na Spr 16 Gm Btl (*Bkc) NASAL 1 spray Q12HR URI Administration Glucagon 1 mg 08/10/24 08:06 Glucagon For Inj 1 Mg Vial IM PRN PRN Hypoglycemia Protocol Glucose 15 gm 08/10/24 08:06 Glucose Oral Gel 15 Gm Of Glucse In 37.5 Gm Tube PO PRN PRN Hypoglycemia Protocol Guaifenesin 600 mg 08/16/24 21:00 08/16/24 20:56 Guaifenesin 200 Mg/10 Ml Udc FEED TUBE 600 mg Q12HR URI Administration Dextrose 1,000 mls @ 100 mls/hr 08/10/24 08:06 Dextrose 5% 1,000 Ml IVPB PRN PRN Hypoglycemia Protocol Insulin Aspart 2 - 5 units 08/12/24 00:00 08/17/24 06:53 Insulin Aspart (*Bkc) 100 Units/Ml SUB-Q Not Given Q6H URI Protocol Lisinopril 5 mg 08/16/24 09:00 08/16/24 09:45 Lisinopril 5 Mg Tablet FEED TUBE 5 mg QAM URI Administration Loratadine 10 mg 08/16/24 09:00 08/16/24 09:45 Loratadine 10 Mg Tablet FEED TUBE 10 mg QAM URI Administration Memantine 10 mg 08/16/24 09:00 08/16/24 09:44 Memantine 10 Mg Tablet FEED TUBE 10 mg DAILY URI Administration Methocarbamol 500 mg 08/16/24 13:00 08/16/24 20:56 Methocarbamol 500 Mg Tablet FEED TUBE 500 mg QID URI Administration Ondansetron HCl 4 mg 08/03/24 18:19 Ondansetron Inj 4 Mg/2 Ml Vial IV PUSH Q4H PRN Nausea Pantoprazole Sodium 40 mg 08/09/24 21:00 08/16/24 20:56 Pantoprazole Sodium Iv 40 Mg Vial IV PUSH 40 mg Q12HR URI Administration Triamcinolone Acetonide 1 applic 08/03/24 21:38 Triamcinolone Acet 0.1% Cream 80 Gm Tube TOPICAL BID PRN dermatitis flares. Zinc Oxide 1 applic 08/06/24 21:00 08/16/24 20:55 Zinc Oxide 20% Oint 30 Gm Tube TOPICAL 09/03/24 20:59 1 applic HS URI Administration Radiology Results: ITS Impressions Head/Neck CTA 08/03/24 15:32 IMPRESSION: Findings suggestive of left sigmoid sinus and internal jugular vein thrombosis. Consider MRV for further evaluation. Short segment severe stenosis in the proximal right STEFANIE. No large vessel intracranial occlusion or aneurysm. No carotid or vertebral artery occlusion, dissection, or significant stenosis. Head/Brain Mag Res Venography 08/04/24 12:21 Impression: No evidence of venous sinus thrombosis. Brain MRI 08/04/24 12:22 IMPRESSION: Acute infarct in the left basal ganglia/left periventricular white matter, as detailed above. Diffuse chronic white matter disease, most likely severe chronic microvascular ischemic change. No evidence of venous sinus thrombosis. Carotid Doppler Study 08/05/24 06:09 Impression: No hemodynamically significant stenosis of the bilateral internal carotid arteries. Antegrade flow in the bilateral vertebral arteries. Note: The methodology used is an indirect measurement validated against a direct method (such as the NASCET criteria) that compares diameters at the stenosis to the distal ICA. Chest X-Ray 08/10/24 06:39 IMPRESSION: 1. Mild infrahilar opacities, left greater than right which could represent mild pulmonary edema, atelectasis or pneumonia. 2. Very small left pleural effusion. Abdomen X-Ray 08/11/24 06:49 IMPRESSION: 1. Nasogastric tube in the stomach. Shoulder X-Ray 08/12/24 16:57 IMPRESSION: Highly suggestive fracture in the proximal metaphysis and the anatomical neck of the humerus with dislocation of the proximal fragment. CT evaluation advised. Consider MRI of the shoulder if there is concern for soft tissue internal derangement. Shoulder CT 08/12/24 22:30 IMPRESSION: Old proximal right humeral fracture, healed in deformity. Glenohumeral joint subluxation, without overt dislocation. Small volume right glenohumeral joint effusion. No acute osseous finding in the right shoulder. Modified Barium Swallow 08/14/24 08:37 IMPRESSION: 1. Normal laryngeal penetration or aspiration. 2. Please refer to the speech therapy report for recommendations. Labs Labs: Laboratory Results - last 24 hr 08/16/24 08/16/24 08/17/24 11:50 18:30 00:43 WBC RBC Hgb Hct MCV MCH MCHC RDW Plt Count MPV Sodium Potassium Chloride Carbon Dioxide Anion Gap BUN Creatinine Estim Creat Clear Calc Estimated GFR Glucose POC Capillary Glucose 121 H 112 H 106 H Calcium Magnesium Total Bilirubin AST ALT Alkaline Phosphatase Total Protein Albumin 08/17/24 08/17/24 05:20 06:13 WBC 6.1 RBC 4.16 L Hgb 11.8 L Hct 37.3 L MCV 89.7 MCH 28.4 MCHC 31.6 L RDW 12.7 Plt Count 163 MPV 11.6 H Sodium 134 L Potassium 3.6 Chloride 97 L Carbon Dioxide 31 H Anion Gap 6 BUN 18 Creatinine 0.70 Estim Creat Clear Calc 67 Estimated GFR > 60 Glucose 127 H POC Capillary Glucose 120 H Calcium 8.1 L Magnesium 2.1 Total Bilirubin 0.6 AST 75 H ALT 62 H Alkaline Phosphatase 55 Total Protein 6.0 L Albumin 3.0 L Quality VTE Prophylaxis VTE prophylaxis: pharmacologic ordered Hospitalist MIPS Advance Care Plan I have confirmed that the patient's Advanced Care Plan is present, code status is documented, or surrogate decision maker is listed in patient medical record.: Yes Medication Reconciliation I have utilized all available resources to obtain, update and review the patients current medications (includes all prescriptions, OTC, herbals, cannabis, and nutritional supplements).: Yes
[2024-08-17] MEDS: lisinopriL 5 MG TABLET FEED TUBE (08:39)
[2024-08-17] MEDS: methocarbamoL 500 MG TABLET FEED TUBE ×4 (08:39→21:35)
[2024-08-17] MEDS: carvediloL 3.125 MG TABLET FEED TUBE ×2 (08:39→21:35)
[2024-08-17] MEDS: MEMANTINE 10 MG TABLET FEED TUBE (08:39)
[2024-08-17] MEDS: LORATADINE 10 MG TABLET FEED TUBE (08:39)
[2024-08-17] MEDS: ASPIRIN 81 MG CHEWABLE TABLET FEED TUBE (08:39)
[2024-08-17] MEDS: ENOXAPARIN 40 MG/0.4 ML SYRINGE SUB-Q (08:40)
[2024-08-17] MEDS: guaiFENesin 200 MG/10 ML UDC 600 MG FEED TUBE ×2 (08:40→21:35)
[2024-08-17] MEDS: PANTOPRAZOLE SODIUM IV 40 MG VIAL IV PUSH ×2 (08:41→21:35)
[2024-08-17] MEDS: FLUTICASONE PROPIONATE 0.05% NA SPR 16 GM BTL (*BKC) 1 SPRAY NASAL ×2 (08:41→21:34)
[2024-08-17] MEDS: BETAMETHASONE/CLOTRIMAZOLE CREAM 15 GM TUBE 1 APPLIC TOPICAL (08:41)
[2024-08-17] MEDS: CLOPIDOGREL BISULFATE 75 MG TABLET FEED TUBE (08:41)
[2024-08-17 11:57] LABS: Glucose Point of Care 108 mg/dl (65-105)
--- NOTE | 2024-08-17 15:52 | PCRCNOTE ---
Window of time for administration has passed. See next scheduled administration.
[2024-08-17 17:54] LABS: Glucose Point of Care 95 mg/dl (65-105)
[2024-08-17] MEDS: ATORVASTATIN 40 MG TABLET 80 MG FEED TUBE (21:35)
[2024-08-17] MEDS: DONEPEZIL HCL 10 MG TABLET FEED TUBE (21:35)
[2024-08-17] MEDS: ZINC OXIDE 20% OINT 30 GM TUBE 1 APPLIC TOPICAL (21:37)
[2024-08-18] VITALS (15 sets, daily range): BP systolic 111–136; BP diastolic 72–83; PULSE 66–100; RESP 16–20; TEMP 36.5–37.5; O2SAT 93–94
[2024-08-18 00:19] LABS: Glucose Point of Care 101 mg/dl (65-105)
[2024-08-18] MEDS: IPRATROPIUM 0.5 MG/ALBUTEROL SULFATE 2.5 MG AMPUL.NEB 3 ML INHALATION ×4 (02:35→19:25)
[2024-08-18 06:01] LABS: Magnesium 2.2 mg/dL (1.6-2.3)
[2024-08-18 07:17] LABS: Glucose Point of Care 99 mg/dl (65-105)
--- NOTE | 2024-08-18 07:31 | P.PNIM_ITS ---
Progress Note: A&P Assessment and Plan (1) Subluxation of right shoulder joint: Qualifiers: Encounter type: initial encounter Qualified Code(s): S43.001A - Unspecified subluxation of right shoulder joint, initial encounter Code(s): S43.001A - Unspecified subluxation of right shoulder joint, initial encounter Status: Acute Assessment and Plan: * CT showing old healed fracture with deformity and subluxation of RT glenohumeral joint * Orth consulted and recommends sling for comfort * Recent CVA likely cause * sling ordered * NSAIDS (2) Acute left STEFANIE ischemic stroke: Code(s): I63.522 - Cerebral infarction due to unspecified occlusion or stenosis of left anterior cerebral artery Status: Acute Assessment and Plan: * Brain MR showed acute infarct in the left basal ganglia/left periventricular white matter. With no evidence of venous sinus thrombosis. RULED OUT * CTA head and neck showed findings suggestive of left sigmoid sinus and internal jugular vein thrombosis. Short segment severe stenosis in the proximal right ECA. No large vessel intracranial occlusion or aneurysm. No carotid or vertebral artery occlusion dissection or significant stenosis. * Neurology has been consulted * Started on aspirin and Plavix * Discontinued heparin drip. * Speech therapy ordered * PT/ OT * Statin * A1c normal and lipid profile LDL 157 * Echo with ef 35-40%, trace MR, grade 1 diastolic dysfunction * Peg tube trickle feeds until 55ML met * NA 139 with new flush orders * MBS ordered and he technically passed. Can consider oral intake for comfort. (3) Aspiration pneumonia: Code(s): J69.0 - Pneumonitis due to inhalation of food and vomit Status: Acute Assessment and Plan: Improving * Recent CVA * Speech poor oral intake and possible aspiration * febrile overnight peaked at 102.3 * Leukocytosis of 13 * Blood cultures x2 pending * Chest x-ray: Atelectasis versus pneumonia * Rocephin and Flagyl * supplemental oxygen therapy to maintain oxygen 92% on room air * Patient at some point will need modified barium swallow * Patient wants to move forward with feeding tube * added Duo-nebs * upper airway congestion unable to clear * suction at bedside * Peg tube placed 08/13 (4) Cardiomyopathy: Code(s): I42.9 - Cardiomyopathy, unspecified Status: Acute Assessment and Plan: * 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 * History of cardiomyopathy in the past used to be on medications which include carvedilol and lisinopril which has now been stopped. Family reports due to improvement in EF * Will restart carvedilol and lisinopril (5) COVID: Code(s): U07.1 - COVID-19 Status: Acute Assessment and Plan: Incidental finding upon discharge to SNF. Patient is not requiring oxygen. * 08/15 had a low-grade temperature of 100? degrees. * Tylenol as needed for fever * Conservative management * CPT BID with vest therapy and added Mucinex. * May discharge on Monday to SNF (6) Chronic UTI: Code(s): N39.0 - Urinary tract infection, site not specified Status: Acute Assessment and Plan: * chronic UTIs, prescribed ciprofloxacin 500 mg b.i.d. x7 days when he develops symptoms. Has had 2 doses, will continue x6 days for total of 7 after discussion with patient's . * UA: Specific gravity 1.045, 1+ ketones RESOLVED (7) Urine output low: Code(s): R34 - Anuria and oliguria Status: Acute Assessment and Plan: * Poor urine output * gentle hydration * monitor for signs of fluid overload HX of Cardiomyopathy * bladder scan Q 4 * improvement overnight * renal function stable RESOLVED Plan Code status: DNR DVT prophylaxis: Lovenox held for surgery 08/12/2024 Stress ulcer prophylaxis: NA PT/OT notes: Rehab/SNF Disposition: Patient continues admission after acute stroke placement of peg tube, patient more alert plan for follow-up swallow study for aspiration risks. Plan was to discharge to SNF after tolerating new tube feeds and swallow study however incidentally COVID positive and senior living will not accept until Monday. Time Spent With Patient Time with patient: Greater than 35 minutes Subjective Date/time seen: 08/18/24 07:31 Interval history: 73 y/o M presents with past medical history of Alzheimer's dementia and congestive heart failure here with right sided weakness and right facial droop Patient was medically stable ready for discharge however his COVID test came back positive, he will be able to discharge on Monday. Review of Systems Review of Systems: smiling and tracking with eyes , sleepy ROS unobtainable: Yes unobtainable due to medical condition and unobtainable due to mental status Exam Narrative: General: appears comfortable, frail, elderly, in no acute distress Respiratory: breathing is unlabored with even chest rise/fall, lungs are clear but diminished without wheezing, rhonchi, and crackles Cardiovascular: Rate and rhythm regular, normal s1s2, no murmur Abdomen: Soft, round, non-tender, active bowel sounds with g-tube and abdominal binder Extremities: No cyanosis or clubbing. Right upper arm flaccid, right lower extremity weakness. Neuro: drowsy but sitting in chair and lifts head spontaneously, responds to painful stimuli. Right arm flaccid, moves left arm spontaneously, bilateral LE weakness Skin: Warm, dry, intact, thin skin, generalized bruising Const: General: comfortable and no acute distress Other: , male, elderly, mildly frail HENMT: Face/Nose/Sinus: Normal nares present Mouth: Yes moist mucous membranes Eyes: General: appearance normal, both eyes and all related structures Sclera: sclerae normal Pupils: Equal, round and reactive pupils present EOM: EOMs intact bilaterally Resp: Effort & Inspection: normal respiratory effort Auscultation: clear to auscultation bilaterally Cardio: Rate: regular rate Rhythm: regular rhythm Other: S1-S2 present without murmur, rub, ectopy GI: Other: No particular expression or grimace with abdominal palpation. Abdomen is soft and nondistended. Normoactive bowel sounds in all quadrants. Skin: General skin exam: normal color and no rashes or lesions noted Wounds: no wounds Neuro: Cranial nerves: Yes Equal, round and reactive pupils present Other: right facial droop. minimal to no muscle tone in the right upper extremity. Not able to lift either lower extremity to gravity. plantar flexion +5 in LLE, 4+ in RLE. Patient is virtually non-verbal at baseline, per family will occasionally give short answers. No gaze palsy. Resting tremor - moderate amplitude. Eye opening spontaneously, responds to name. A/Ox0. Extrem: General: normal to inspection Psych: Other: Poor insight and judgment. No agitation. Objective Data Vital Signs Vital Signs: Vital Signs - 24 hr 08/17/24 08:39 08/17/24 08:51 08/17/24 08:51 Temperature Pulse Rate 72 87 Respiratory Rate 20 Blood Pressure Pulse Oximetry 94 Oxygen Delivery Room Air Fraction of Inspired Oxygen 21 08/17/24 09:01 08/17/24 08:37 08/17/24 14:56 Temperature 97.9 F Pulse Rate 83 74 Respiratory Rate 20 16 Blood Pressure 111/64 Pulse Oximetry 97 Oxygen Delivery Room Air Fraction of Inspired Oxygen 08/17/24 21:17 08/17/24 21:27 08/17/24 21:35 Temperature Pulse Rate 84 85 95 Respiratory Rate 20 20 Blood Pressure Pulse Oximetry Oxygen Delivery Fraction of Inspired Oxygen 08/17/24 20:00 08/17/24 22:11 08/18/24 02:35 Temperature 98.0 F Pulse Rate 95 100 80 Respiratory Rate 20 16 20 Blood Pressure 118/71 Pulse Oximetry 97 97 Oxygen Delivery Room Air Fraction of Inspired Oxygen 08/18/24 02:47 08/18/24 06:57 Temperature 97.7 F Pulse Rate 82 100 Respiratory Rate 20 16 Blood Pressure 115/83 Pulse Oximetry 94 Oxygen Delivery Fraction of Inspired Oxygen Intake/Output Intake/Output: Intake & Output 08/15/24 08/16/24 08/17/24 08/18/24 23:59 23:59 23:59 23:59 Intake Total 910 1605 2034 1581 Output Total 800 1600 550 450 Balance 110 5 1484 1131 Meds/Results Medications: Active Medications Generic Name Dose Route Start Last Admin Trade Name Freq PRN Reason Stop Dose Admin Acetaminophen 650 mg 08/08/24 21:54 08/14/24 18:20 Acetaminophen 650 Mg Suppository RECTAL 650 mg Q6H PRN Administration Mild Pain (1-3) or Fever Acetaminophen 650 mg 08/16/24 08:56 Acetaminophen 325 Mg Tablet FEED TUBE Q4H PRN Mild Pain (1-3) or Fever Albuterol/Ipratropium 3 ml 08/11/24 14:00 08/18/24 02:35 Ipratropium 0.5 Mg/Albuterol Sulfate 2.5 Mg Ampul.Neb 3 Ml INHALATION 3 ml Q6HRT URI Administration Aspirin 81 mg 08/17/24 08:00 08/17/24 08:39 Aspirin 81 Mg Chewable Tablet FEED TUBE 81 mg DAILY@0800 URI Administration Atorvastatin Calcium 80 mg 08/16/24 21:00 08/17/24 21:35 Atorvastatin 40 Mg Tablet FEED TUBE 80 mg QHS URI Administration Carvedilol 3.125 mg 08/16/24 09:00 08/17/24 21:35 Carvedilol 3.125 Mg Tablet FEED TUBE 3.125 mg Q12HR URI Administration Clopidogrel Bisulfate 75 mg 08/16/24 09:00 08/17/24 08:41 Clopidogrel Bisulfate 75 Mg Tablet FEED TUBE 75 mg QAM URI Administration Clotrimazole 1 applic 08/04/24 09:00 08/17/24 08:41 Betamethasone/Clotrimazole Cream 15 Gm Tube TOPICAL 1 applic QAM URI Administration Dextrose 12.5 gm 08/10/24 08:06 Dextrose 50% 25 Gm/50 Ml Syringe IV PUSH PRN PRN Hypoglycemia Protocol Donepezil HCl 10 mg 08/16/24 21:00 08/17/24 21:35 Donepezil Hcl 10 Mg Tablet FEED TUBE 10 mg HS URI Administration Enoxaparin Sodium 40 mg 08/13/24 09:00 08/17/24 08:40 Enoxaparin 40 Mg/0.4 Ml Syringe SUB-Q 40 mg DAILY URI Administration Fluticasone Propionate 1 spray 08/06/24 21:00 08/17/24 21:34 Fluticasone Propionate 0.05% Na Spr 16 Gm Btl (*Bkc) NASAL 1 spray Q12HR URI Administration Glucagon 1 mg 08/10/24 08:06 Glucagon For Inj 1 Mg Vial IM PRN PRN Hypoglycemia Protocol Glucose 15 gm 08/10/24 08:06 Glucose Oral Gel 15 Gm Of Glucse In 37.5 Gm Tube PO PRN PRN Hypoglycemia Protocol Guaifenesin 600 mg 08/16/24 21:00 08/17/24 21:35 Guaifenesin 200 Mg/10 Ml Udc FEED TUBE 600 mg Q12HR URI Administration Dextrose 1,000 mls @ 100 mls/hr 08/10/24 08:06 Dextrose 5% 1,000 Ml IVPB PRN PRN Hypoglycemia Protocol Insulin Aspart 2 - 5 units 08/12/24 00:00 08/18/24 06:56 Insulin Aspart (*Bkc) 100 Units/Ml SUB-Q Not Given Q6H URI Protocol Lisinopril 5 mg 08/16/24 09:00 08/17/24 08:39 Lisinopril 5 Mg Tablet FEED TUBE 5 mg QAM URI Administration Loratadine 10 mg 08/16/24 09:00 08/17/24 08:39 Loratadine 10 Mg Tablet FEED TUBE 10 mg QAM URI Administration Memantine 10 mg 08/16/24 09:00 08/17/24 08:39 Memantine 10 Mg Tablet FEED TUBE 10 mg DAILY URI Administration Methocarbamol 500 mg 08/16/24 13:00 08/17/24 21:35 Methocarbamol 500 Mg Tablet FEED TUBE 500 mg QID URI Administration Ondansetron HCl 4 mg 08/03/24 18:19 Ondansetron Inj 4 Mg/2 Ml Vial IV PUSH Q4H PRN Nausea Pantoprazole Sodium 40 mg 08/09/24 21:00 08/17/24 21:35 Pantoprazole Sodium Iv 40 Mg Vial IV PUSH 40 mg Q12HR URI Administration Triamcinolone Acetonide 1 applic 08/03/24 21:38 Triamcinolone Acet 0.1% Cream 80 Gm Tube TOPICAL BID PRN dermatitis flares. Zinc Oxide 1 applic 08/06/24 21:00 08/17/24 21:37 Zinc Oxide 20% Oint 30 Gm Tube TOPICAL 09/03/24 20:59 1 applic HS URI Administration Radiology Results: ITS Impressions Head/Neck CTA 08/03/24 15:32 IMPRESSION: Findings suggestive of left sigmoid sinus and internal jugular vein thrombosis. Consider MRV for further evaluation. Short segment severe stenosis in the proximal right STEFANIE. No large vessel intracranial occlusion or aneurysm. No carotid or vertebral artery occlusion, dissection, or significant stenosis. Head/Brain Mag Res Venography 08/04/24 12:21 Impression: No evidence of venous sinus thrombosis. Brain MRI 08/04/24 12:22 IMPRESSION: Acute infarct in the left basal ganglia/left periventricular white matter, as detailed above. Diffuse chronic white matter disease, most likely severe chronic microvascular ischemic change. No evidence of venous sinus thrombosis. Carotid Doppler Study 08/05/24 06:09 Impression: No hemodynamically significant stenosis of the bilateral internal carotid arteries. Antegrade flow in the bilateral vertebral arteries. Note: The methodology used is an indirect measurement validated against a direct method (such as the NASCET criteria) that compares diameters at the stenosis to the distal ICA. Chest X-Ray 08/10/24 06:39 IMPRESSION: 1. Mild infrahilar opacities, left greater than right which could represent mild pulmonary edema, atelectasis or pneumonia. 2. Very small left pleural effusion. Abdomen X-Ray 08/11/24 06:49 IMPRESSION: 1. Nasogastric tube in the stomach. Shoulder X-Ray 08/12/24 16:57 IMPRESSION: Highly suggestive fracture in the proximal metaphysis and the anatomical neck of the humerus with dislocation of the proximal fragment. CT evaluation advised. Consider MRI of the shoulder if there is concern for soft tissue internal derang ement. Shoulder CT 08/12/24 22:30 IMPRESSION: Old proximal right humeral fracture, healed in deformity. Glenohumeral joint subluxation, without overt dislocation. Small volume right glenohumeral joint effusion. No acute osseous finding in the right shoulder. Modified Barium Swallow 08/14/24 08:37 IMPRESSION: 1. Normal laryngeal penetration or aspiration. 2. Please refer to the speech therapy report for recommendations. Labs Labs: Laboratory Results - last 24 hr 08/17/24 08/17/24 08/18/24 11:54 17:40 00:14 POC Capillary Glucose 108 H 95 101 Magnesium 08/18/24 08/18/24 05:17 06:19 POC Capillary Glucose 99 Magnesium 2.2 Quality VTE Prophylaxis VTE prophylaxis: pharmacologic ordered
[2024-08-18] MEDS: MEMANTINE 10 MG TABLET FEED TUBE (09:49)
[2024-08-18] MEDS: FLUTICASONE PROPIONATE 0.05% NA SPR 16 GM BTL (*BKC) 1 SPRAY NASAL ×2 (09:49→21:48)
[2024-08-18] MEDS: ASPIRIN 81 MG CHEWABLE TABLET FEED TUBE (09:49)
[2024-08-18] MEDS: carvediloL 3.125 MG TABLET FEED TUBE ×2 (09:50→21:49)
[2024-08-18] MEDS: LORATADINE 10 MG TABLET FEED TUBE (09:54)
[2024-08-18] MEDS: CLOPIDOGREL BISULFATE 75 MG TABLET FEED TUBE (09:54)
[2024-08-18] MEDS: methocarbamoL 500 MG TABLET FEED TUBE ×4 (09:54→21:48)
[2024-08-18] MEDS: guaiFENesin 200 MG/10 ML UDC 600 MG FEED TUBE ×2 (09:55→21:50)
[2024-08-18] MEDS: ENOXAPARIN 40 MG/0.4 ML SYRINGE SUB-Q (09:55)
[2024-08-18] MEDS: lisinopriL 5 MG TABLET FEED TUBE (09:55)
[2024-08-18] MEDS: BETAMETHASONE/CLOTRIMAZOLE CREAM 15 GM TUBE 1 APPLIC TOPICAL (09:55)
[2024-08-18] MEDS: PANTOPRAZOLE SODIUM IV 40 MG VIAL IV PUSH ×2 (09:56→21:49)
[2024-08-18 12:28] LABS: Glucose Point of Care 125 mg/dl (65-105)
--- NOTE | 2024-08-18 17:45 | PC.NURSE ---
Spoke with XR technologist regarding which xr would be best to check gtube placement. Order placed to reflect.
[2024-08-18 18:34] LABS: Glucose Point of Care 107 mg/dl (65-105)
[2024-08-18] MEDS: DONEPEZIL HCL 10 MG TABLET FEED TUBE (21:48)
[2024-08-18] MEDS: ATORVASTATIN 40 MG TABLET 80 MG FEED TUBE (21:49)
[2024-08-18] MEDS: ZINC OXIDE 20% OINT 30 GM TUBE 1 APPLIC TOPICAL (21:50)
[2024-08-18 23:50] LABS: Glucose Point of Care 118 mg/dl (65-105)
[2024-08-19] VITALS (14 sets, daily range): BP systolic 100–133; BP diastolic 64–80; PULSE 72–88; RESP 15–20; TEMP 36.6–37.6; O2SAT 96–100
[2024-08-19] MEDS: IPRATROPIUM 0.5 MG/ALBUTEROL SULFATE 2.5 MG AMPUL.NEB 3 ML INHALATION ×4 (01:30→20:34)
[2024-08-19 07:10] LABS: Glucose Point of Care 107 mg/dl (65-105)
--- NOTE | 2024-08-19 08:01 | P.PNIM_ITS ---
Progress Note: A&P Assessment and Plan (1) Subluxation of right shoulder joint: Qualifiers: Encounter type: initial encounter Qualified Code(s): S43.001A - Unspecified subluxation of right shoulder joint, initial encounter Code(s): S43.001A - Unspecified subluxation of right shoulder joint, initial encounter Status: Acute Assessment and Plan: * CT showing old healed fracture with deformity and subluxation of RT glenohumeral joint * Orth consulted and recommends sling for comfort * Recent CVA likely cause * sling ordered * NSAIDS (2) Acute left STEFANIE ischemic stroke: Code(s): I63.522 - Cerebral infarction due to unspecified occlusion or stenosis of left anterior cerebral artery Status: Acute Assessment and Plan: * Brain MR showed acute infarct in the left basal ganglia/left periventricular white matter. With no evidence of venous sinus thrombosis. RULED OUT * CTA head and neck showed findings suggestive of left sigmoid sinus and internal jugular vein thrombosis. Short segment severe stenosis in the proximal right ECA. No large vessel intracranial occlusion or aneurysm. No carotid or vertebral artery occlusion dissection or significant stenosis. * Neurology has been consulted * Started on aspirin and Plavix * Discontinued heparin drip. * Speech therapy ordered * PT/ OT * Statin * A1c normal and lipid profile LDL 157 * Echo with ef 35-40%, trace MR, grade 1 diastolic dysfunction * Peg tube trickle feeds until 55ML met * NA 139 with new flush orders * MBS ordered and he technically passed. Can consider oral intake for comfort. (3) Aspiration pneumonia: Code(s): J69.0 - Pneumonitis due to inhalation of food and vomit Status: Acute Assessment and Plan: Improving * Recent CVA * Speech poor oral intake and possible aspiration * febrile overnight peaked at 102.3 * Leukocytosis of 13 * Blood cultures x2 pending * Chest x-ray: Atelectasis versus pneumonia * Rocephin and Flagyl * supplemental oxygen therapy to maintain oxygen 92% on room air * Patient at some point will need modified barium swallow * Patient wants to move forward with feeding tube * added Duo-nebs * upper airway congestion unable to clear * suction at bedside * Peg tube placed 08/13 (4) Cardiomyopathy: Code(s): I42.9 - Cardiomyopathy, unspecified Status: Acute Assessment and Plan: * Follows with leadership coach in [place]. * History of cardiomyopathy in the past used to be on medications which include carvedilol and lisinopril which has now been stopped. Family reports due to improvement in EF * Will restart carvedilol and lisinopril (5) COVID: Code(s): U07.1 - COVID-19 Status: Acute Assessment and Plan: Incidental finding upon discharge to SNF. Patient is not requiring oxygen. * 08/15 had a low-grade temperature of 100? degrees. * Tylenol as needed for fever * Conservative management * CPT BID with vest therapy and added Mucinex. * May discharge on Monday to SNF (6) Chronic UTI: Code(s): N39.0 - Urinary tract infection, site not specified Status: Acute Assessment and Plan: * chronic UTIs, prescribed ciprofloxacin 500 mg b.i.d. x7 days when he develops symptoms. Has had 2 doses, will continue x6 days for total of 7 after discussion with patient's . * UA: Specific gravity 1.045, 1+ ketones RESOLVED (7) Urine output low: Code(s): R34 - Anuria and oliguria Status: Acute Assessment and Plan: * Poor urine output * gentle hydration * monitor for signs of fluid overload HX of Cardiomyopathy * bladder scan Q 4 * improvement overnight * renal function stable RESOLVED Plan Code status: DNR DVT prophylaxis: Lovenox held for surgery 08/12/2024 Stress ulcer prophylaxis: NA PT/OT notes: Rehab/SNF Disposition: Patient continues admission after acute stroke placement of peg tube, patient more alert plan for follow-up swallow study for aspiration risks. Plan was to discharge to SNF after tolerating new tube feeds and swallow study however incidentally COVID positive and longterm will not accept until Monday. Subjective Date/time seen: 08/19/24 08:01 Interval history: 73 y/o M presents with past medical history of Alzheimer's dementia and congestive heart failure here with right sided weakness and right facial droop Patient was medically stable ready for discharge however his COVID test came back positive, he will be able to discharge on Monday. chart reviewed, spoke to Nursing, talked to family, no barriers to discharge tomorrow Review of Systems Review of Systems: smiling and tracking with eyes , sleepy ROS unobtainable: Yes unobtainable due to medical condition and unobtainable due to mental status Exam Narrative: General: appears comfortable, frail, elderly, in no acute distress Respiratory: breathing is unlabored with even chest rise/fall, lungs are clear but diminished without wheezing, rhonchi, and crackles Cardiovascular: Rate and rhythm regular, normal s1s2, no murmur Abdomen: Soft, round, non-tender, active bowel sounds with g-tube and abdominal binder Extremities: No cyanosis or clubbing. Right upper arm flaccid, right lower extremity weakness. Neuro: drowsy but sitting in chair and lifts head spontaneously, responds to painful stimuli. Right arm flaccid, moves left arm spontaneously, bilateral LE weakness Skin: Warm, dry, intact, thin skin, generalized bruising Const: General: comfortable and no acute distress Other: , male, elderly, mildly frail HENMT: Face/Nose/Sinus: Normal nares present Mouth: Yes moist mucous membranes Eyes: General: appearance normal, both eyes and all related structures Sclera: sclerae normal Pupils: Equal, round and reactive pupils present EOM: EOMs intact bilaterally Resp: Effort & Inspection: normal respiratory effort Auscultation: clear to auscultation bilaterally Cardio: Rate: regular rate Rhythm: regular rhythm Other: S1-S2 present without murmur, rub, ectopy GI: Other: No particular expression or grimace with abdominal palpation. Abdomen is soft and nondistended. Normoactive bowel sounds in all quadrants. Skin: General skin exam: normal color and no rashes or lesions noted Wounds: no wounds Neuro: Cranial nerves: Yes Equal, round and reactive pupils present Other: right facial droop. minimal to no muscle tone in the right upper extremity. Not able to lift either lower extremity to gravity. plantar flexion +5 in LLE, 4+ in RLE. Patient is virtually non-verbal at baseline, per family will occasionally give short answers. No gaze palsy. Resting tremor - moderate amplitude. Eye opening spontaneously, responds to name. A/Ox0. Extrem: General: normal to inspection Psych: Other: Poor insight and judgment. No agitation. Objective Data Vital Signs Vital Signs: Vital Signs - 24 hr 08/18/24 09:50 08/18/24 09:30 08/18/24 13:35 Temperature Pulse Rate 80 81 Respiratory Rate 18 Blood Pressure Pulse Oximetry Oxygen Delivery Room Air Fraction of Inspired Oxygen 08/18/24 13:45 08/18/24 14:00 08/18/24 19:25 Temperature 98.6 F Pulse Rate 83 66 84 Respiratory Rate 20 16 20 Blood Pressure 111/72 Pulse Oximetry 94 Oxygen Delivery Fraction of Inspired Oxygen 08/18/24 19:21 08/18/24 21:49 08/18/24 22:00 Temperature 99.5 F Pulse Rate 72 66 Respiratory Rate 18 Blood Pressure 136/78 Pulse Oximetry 94 93 Oxygen Delivery Room Air Fraction of Inspired Oxygen 08/18/24 20:00 08/19/24 01:31 08/19/24 01:42 Temperature Pulse Rate 66 80 78 Respiratory Rate 18 20 20 Blood Pressure Pulse Oximetry 93 Oxygen Delivery Room Air Fraction of Inspired Oxygen 21 08/19/24 06:00 Temperature 99.2 F Pulse Rate 77 Respiratory Rate 18 Blood Pressure 133/80 Pulse Oximetry 96 Oxygen Delivery Fraction of Inspired Oxygen Intake/Output Intake/Output: Intake & Output 08/16/24 08/17/24 08/18/24 08/19/24 23:59 23:59 23:59 23:59 Intake Total 1605 2034 1581 1727 Output Total 1600 550 450 900 Balance 5 1484 1131 827 Meds/Results Medications: Active Medications Generic Name Dose Route Start Last Admin Trade Name Freq PRN Reason Stop Dose Admin Acetaminophen 650 mg 08/08/24 21:54 08/14/24 18:20 Acetaminophen 650 Mg Suppository RECTAL 650 mg Q6H PRN Administration Mild Pain (1-3) or Fever Acetaminophen 650 mg 08/16/24 08:56 Acetaminophen 325 Mg Tablet FEED TUBE Q4H PRN Mild Pain (1-3) or Fever Albuterol/Ipratropium 3 ml 08/11/24 14:00 08/19/24 01:30 Ipratropium 0.5 Mg/Albuterol Sulfate 2.5 Mg Ampul.Neb 3 Ml INHALATION 3 ml Q6HRT URI Administration Aspirin 81 mg 08/17/24 08:00 08/18/24 09:49 Aspirin 81 Mg Chewable Tablet FEED TUBE 81 mg DAILY@0800 URI Administration Atorvastatin Calcium 80 mg 08/16/24 21:00 08/18/24 21:49 Atorvastatin 40 Mg Tablet FEED TUBE 80 mg QHS URI Administration Carvedilol 3.125 mg 08/16/24 09:00 08/18/24 21:49 Carvedilol 3.125 Mg Tablet FEED TUBE 3.125 mg Q12HR URI Administration Clopidogrel Bisulfate 75 mg 08/16/24 09:00 08/18/24 09:54 Clopidogrel Bisulfate 75 Mg Tablet FEED TUBE 75 mg QAM URI Administration Clotrimazole 1 applic 08/04/24 09:00 08/18/24 09:55 Betamethasone/Clotrimazole Cream 15 Gm Tube TOPICAL 1 applic QAM URI Administration Dextrose 12.5 gm 08/10/24 08:06 Dextrose 50% 25 Gm/50 Ml Syringe IV PUSH PRN PRN Hypoglycemia Protocol Donepezil HCl 10 mg 08/16/24 21:00 08/18/24 21:48 Donepezil Hcl 10 Mg Tablet FEED TUBE 10 mg HS URI Administration Enoxaparin Sodium 40 mg 08/13/24 09:00 08/18/24 09:55 Enoxaparin 40 Mg/0.4 Ml Syringe SUB-Q 40 mg DAILY URI Administration Fluticasone Propionate 1 spray 08/06/24 21:00 08/18/24 21:48 Fluticasone Propionate 0.05% Na Spr 16 Gm Btl (*Bkc) NASAL 1 spray Q12HR URI Administration Glucagon 1 mg 08/10/24 08:06 Glucagon For Inj 1 Mg Vial IM PRN PRN Hypoglycemia Protocol Glucose 15 gm 08/10/24 08:06 Glucose Oral Gel 15 Gm Of Glucse In 37.5 Gm Tube PO PRN PRN Hypoglycemia Protocol Guaifenesin 600 mg 08/16/24 21:00 08/18/24 21:50 Guaifenesin 200 Mg/10 Ml Udc FEED TUBE 600 mg Q12HR URI Administration Dextrose 1,000 mls @ 100 mls/hr 08/10/24 08:06 Dextrose 5% 1,000 Ml IVPB PRN PRN Hypoglycemia Protocol Insulin Aspart 2 - 5 units 08/12/24 00:00 08/19/24 06:53 Insulin Aspart (*Bkc) 100 Units/Ml SUB-Q Not Given Q6H URI Protocol Lisinopril 5 mg 08/16/24 09:00 08/18/24 09:55 Lisinopril 5 Mg Tablet FEED TUBE 5 mg QAM URI Administration Loratadine 10 mg 08/16/24 09:00 08/18/24 09:54 Loratadine 10 Mg Tablet FEED TUBE 10 mg QAM URI Administration Memantine 10 mg 08/16/24 09:00 08/18/24 09:49 Memantine 10 Mg Tablet FEED TUBE 10 mg DAILY URI Administration Methocarbamol 500 mg 08/16/24 13:00 08/18/24 21:48 Methocarbamol 500 Mg Tablet FEED TUBE 500 mg QID URI Administration Ondansetron HCl 4 mg 08/03/24 18:19 Ondansetron Inj 4 Mg/2 Ml Vial IV PUSH Q4H PRN Nausea Pantoprazole Sodium 40 mg 08/09/24 21:00 08/18/24 21:49 Pantoprazole Sodium Iv 40 Mg Vial IV PUSH 40 mg Q12HR URI Administration Triamcinolone Acetonide 1 applic 08/03/24 21:38 Triamcinolone Acet 0.1% Cream 80 Gm Tube TOPICAL BID PRN dermatitis flares. Zinc Oxide 1 applic 08/06/24 21:00 08/18/24 21:50 Zinc Oxide 20% Oint 30 Gm Tube TOPICAL 09/03/24 20:59 1 applic HS URI Administration Radiology Results: ITS Impressions Head/Neck CTA 08/03/24 15:32 IMPRESSION: Findings suggestive of left sigmoid sinus and internal jugular vein thrombosis. Consider MRV for further evaluation. Short segment severe stenosis in the proximal right STEFANIE. No large vessel intracranial occlusion or aneurysm. No carotid or vertebral artery occlusion, dissection, or significant stenosis. Head/Brain Mag Res Venography 08/04/24 12:21 Impression: No evidence of venous sinus thrombosis. Brain MRI 08/04/24 12:22 IMPRESSION: Acute infarct in the left basal ganglia/left periventricular white matter, as detailed above. Diffuse chronic white matter disease, most likely severe chronic microvascular ischemic change. No evidence of venous sinus thrombosis. Carotid Doppler Study 08/05/24 06:09 Impression: No hemodynamically significant stenosis of the bilateral internal carotid arteries. Antegrade flow in the bilateral vertebral arteries. Note: The methodology used is an indirect measurement validated against a direct method (such as the NASCET criteria) that compares diameters at the stenosis to the distal ICA. Chest X-Ray 08/10/24 06:39 IMPRESSION: 1. Mild infrahilar opacities, left greater than right which could represent mild pulmonary edema, atelectasis or pneumonia. 2. Very small left pleural effusion. Shoulder X-Ray 08/12/24 16:57 IMPRESSION: Highly suggestive fracture in the proximal metaphysis and the anatomical neck of the humerus with dislocation of the proximal fragment. CT evaluation advised. Consider MRI of the shoulder if there is concern for soft tissue internal dera ngement. Shoulder CT 08/12/24 22:30 IMPRESSION: Old proximal right humeral fracture, healed in deformity. Glenohumeral joint subluxation, without overt dislocation. Small volume right glenohumeral joint effusion. No acute osseous finding in the right shoulder. Modified Barium Swallow 08/14/24 08:37 IMPRESSION: 1. Normal laryngeal penetration or aspiration. 2. Please refer to the speech therapy report for recommendations. Abdomen X-Ray 08/18/24 18:30 IMPRESSION: G-tube, in good position. Labs Labs: Laboratory Results - last 24 hr 08/18/24 08/18/24 08/18/24 12: 18:16 23:45 POC Capillary Glucose 125 H 107 H 118 H 08/19/24 06:49 POC Capillary Glucose 107 H Quality VTE Prophylaxis VTE prophylaxis: pharmacologic ordered
[2024-08-19] MEDS: MEMANTINE 10 MG TABLET FEED TUBE (08:54)
[2024-08-19] MEDS: ASPIRIN 81 MG CHEWABLE TABLET FEED TUBE (08:54)
[2024-08-19] MEDS: PANTOPRAZOLE SODIUM IV 40 MG VIAL IV PUSH ×2 (08:54→21:21)
[2024-08-19] MEDS: guaiFENesin 200 MG/10 ML UDC 600 MG FEED TUBE ×2 (08:54→21:20)
[2024-08-19] MEDS: CLOPIDOGREL BISULFATE 75 MG TABLET FEED TUBE (08:54)
[2024-08-19] MEDS: lisinopriL 5 MG TABLET FEED TUBE (08:54)
[2024-08-19] MEDS: ENOXAPARIN 40 MG/0.4 ML SYRINGE SUB-Q (08:54)
[2024-08-19] MEDS: methocarbamoL 500 MG TABLET FEED TUBE ×4 (08:55→21:20)
[2024-08-19] MEDS: LORATADINE 10 MG TABLET FEED TUBE (08:55)
[2024-08-19] MEDS: carvediloL 3.125 MG TABLET FEED TUBE ×2 (08:55→21:20)
[2024-08-19] MEDS: BETAMETHASONE/CLOTRIMAZOLE CREAM 15 GM TUBE 1 APPLIC TOPICAL (08:56)
[2024-08-19] MEDS: FLUTICASONE PROPIONATE 0.05% NA SPR 16 GM BTL (*BKC) 1 SPRAY NASAL ×2 (08:58→21:20)
[2024-08-19 12:22] LABS: Glucose Point of Care 104 mg/dl (65-105)
[2024-08-19 17:18] LABS: Glucose Point of Care 133 mg/dl (65-105)
[2024-08-19] MEDS: ZINC OXIDE 20% OINT 30 GM TUBE 1 APPLIC TOPICAL (21:20)
[2024-08-19] MEDS: DONEPEZIL HCL 10 MG TABLET FEED TUBE (21:20)
[2024-08-19] MEDS: ATORVASTATIN 40 MG TABLET 80 MG FEED TUBE (21:20)
[2024-08-20] VITALS (8 sets, daily range): BP systolic 116; BP diastolic 57; PULSE 62–84; RESP 18–20; TEMP 36.6; O2SAT 93–100
[2024-08-20 00:24] LABS: Glucose Point of Care 121 mg/dl (65-105)
[2024-08-20] MEDS: IPRATROPIUM 0.5 MG/ALBUTEROL SULFATE 2.5 MG AMPUL.NEB 3 ML INHALATION ×3 (02:02→13:55)
[2024-08-20 05:27] LABS: Glucose Point of Care 113 mg/dl (65-105)
--- NOTE | 2024-08-20 09:38 | P.DS_ITS ---
DS: Admitting Diagnosis Discharge Date 08/20/2024 Admitting Diagnosis acute internal jugular vein thrombosis, Cerebral venous sinus thrombosis, chronic UTI DS: Discharge Diagnosis Discharge Diagnosis (1) Subluxation of right shoulder joint: Qualifiers: Encounter type: initial encounter Qualified Code(s): S43.001A - Unspecified subluxation of right shoulder joint, initial encounter Code(s): S43.001A - Unspecified subluxation of right shoulder joint, initial encounter Status: Acute (2) Acute left STEFANIE ischemic stroke: Code(s): I63.522 - Cerebral infarction due to unspecified occlusion or stenosis of left anterior cerebral artery Status: Acute (3) Aspiration pneumonia: Code(s): J69.0 - Pneumonitis due to inhalation of food and vomit Status: Acute (4) Cardiomyopathy: Code(s): I42.9 - Cardiomyopathy, unspecified Status: Acute (5) COVID: Code(s): U07.1 - COVID-19 Status: Acute (6) Chronic UTI: Code(s): N39.0 - Urinary tract infection, site not specified Status: Acute (7) Urine output low: Code(s): R34 - Anuria and oliguria Status: Acute DS: Summary Hospital Course Reason for hospitalization: Patient was admitted for acute stroke over 24 hours after presenting symptoms. Patient has dementia and gets UTIs so his symptoms were mistaken for UTI and not assessed promptly. Hospital Course: Initial CTA showed left internal jugular vein thrombosis and concern for sinus t hrombosis. MRI showed acute infarct in left basal ganglia and left periventricular white matter causing his right arm and right leg severe weakness. On admission patient was indeed found to have a UTI. Patient was placed on atorvastatin and heparin. When patient was ready to discharge to rehab facility all it was discovered that the patient had COVID and was not able to go for several days. [facility] and possible long-term placement. Status at Discharge Cognitive/behavioral status at discharge: awakens to pain or loud voice. Functional status at discharge: bed bound Overall status at discharge: patient is not back to baseline Time Spent with Patient Time attestation: Total time spent providing and/or coordinating discharge services: 45 minutes Time spent: Greater than 30 minutes Exam Narrative: General: appears comfortable, frail, elderly, in no acute distress Respiratory: breathing is unlabored with even chest rise/fall, lungs are clear but diminished without wheezing, rhonchi, and crackles Cardiovascular: Rate and rhythm regular, normal s1s2, no murmur Abdomen: Soft, round, non-tender, active bowel sounds with g-tube and abdominal binder Extremities: No cyanosis or clubbing. Right upper arm flaccid, right lower ex tremity weakness. Neuro: drowsy but sitting in chair and lifts head spontaneously, responds to painful stimuli. Right arm flaccid, moves left arm spontaneously, bilateral LE weakness Skin: Warm, dry, intact, thin skin, generalized bruising DS: Data Data Completed and Pending Labs on day of discharge: Labs from last 24 hours 08/20/24 08/20/24 08/19/24 04:08 00:13 16:59 POC Capillary Glucose 113 H 121 H 133 H 08/19/24 12:14 POC Capillary Glucose 104 Preliminary micro results at discharge 08/16/24 06:46 Blood Culture - Preliminary Blood 08/16/24 06:44 Blood Culture - Preliminary Blood Discharge Plan Discharge Attending physician on discharge: Alissa Bentley Consulting providers: Sergei Bush; Jagdish Rehman; Morris Yu; Maribel Harmon; Kofi Myles; Cinda Escobar; Norma Ag; Sina Rutherford; Qasim Stevenson; Gordy Hernadez; Mary Laureano; Wayne Webb; Amparo Mckay; Emmanuel Crow V.; Alireza Tucker; Jennifer Kingsley; Criselda Miranda; Denny Kuzn Discharging Clinician: Sancho Cuello Anticipated Discharge Date/Time: 08/20/24 09:02 Patient Disposition: SNF Activity: may shower, as tolerated and other - see discharge instructions Diet: regular, tube feeding and other - see discharge instructions Discharge Instructions: Pt current nutrition is Jevity 1.5 @ goal rate 55 ml/hr. 150 ml free water flushes q 4 hours for total water 1820 ml/day Patient MUST remain elevated at 30 degrees at all times to prevent aspiration. Patient must remain elevated at 45 degrees of higher for at least 30 minutes after bolus feeding. Patient will continue with continuous tube feeding at 55 ml per hour for now and dietitian will reassess on Monday if bolus feeds may be started. Patient technically passed their modified barium swallow and can have food and l iquids per mouth for comfort. He should ALWAYS be monitored when food or drink are given and he must remain upright at 90 degrees during feeding and for 30 minutes afterwards. Oral nutrition should only be offered when he is alert enough to participate in prompting. Please change G-tube dressing daily and assess for infection. Please keep abdominal binder on at all times to keep patient from removing feeding tube. Right arm may be placed in sling for comfort per orthopedics. Patient Instructions: Heart Failure (DC), Venous Thromboembolism (DC), Stroke (DC) Stand Alone Forms: General Discharge Information Follow-up/Referrals: Kushal,MD Cody [Primary Care Provider] - Sergei Bush MD [Physician] - Discharge Medications: New atorvastatin 40 mg Tablet 80 mg feeding tube QHS Qty: 90 0RF clopidogrel 75 mg Tablet 75 mg feeding tube QAM Qty: 90 0RF aspirin 81 mg Tablet,Delayed Release (Dr/Ec) 81 mg feeding tube QAM Qty: 90 0RF carvedilol [Coreg] 3.125 mg Tablet 3.125 mg feeding tube Q12HR Qty: 180 0RF fluticasone propionate 50 mcg/actuation [place],Suspension 1 spray intranasal Q12HR Qty: 16 0RF lisinopril 5 mg Tablet 5 mg feeding tube QAM Qty: 90 0RF ipratropium-albuterol 0.5 mg-3 mg(2.5 mg base)/3 mL Solution For Nebulization 3 ml inhalation Q6HRT 7 Days Qty: 90 0RF loratadine 10 mg Tablet 10 mg feeding tube QAM Qty: 90 0RF methocarbamol 500 mg Tablet 500 mg feeding tube QID Qty: 0 0RF omeprazole 40 mg capsule,delayed release(DR/EC) 40 mg feeding tube BID Qty: 60 0RF Rx Instructions: Flush well after this medication Continued betamethasone dipropionate 0.05 % lotion 1 applic TOPICAL BID PRN (Reason: dermatitis flares.) Rx Instructions: APPLY THIN LAYER TOPICALLY TO THE SCALP TWICE DAILY AT ONSET OF FLARES NEEDED zinc oxide 40 % Ointment 1 applic TOPICAL HS Rx Instructions: Apply topically to groin, perineal area, and buttocks at HS. nystatin-triamcinolone 100,000-0.1 unit/gram-% ointment 1 applic TOPICAL QAM Rx Instructions: Apply to groin, perineal area, and buttocks QAM. Changed donepezil 10 mg tablet 10 mg feeding tube HS Qty: 90 0RF memantine 10 mg tablet 10 mg feeding tube DAILY Qty: 90 0RF acetaminophen 650 mg/20.3 mL Solution 650 mg feeding tube Q6H PRN (Reason: Pain (Scale Score 1-3) or fever) Qty: 1015 0RF Discontinued ciprofloxacin HCl 500 mg tablet 500 mg PO BID Rx Instructions: Take for 7 days total. Started on 08/02/24 meloxicam 7.5 mg tablet 7.5 mg PO DAILY PRN (Reason: hip pain) Date of admission: 08/04/24 10:52 Primary Care Provider: Kushal,Cody Admitting Provider: Alissa Bentley Attending physician on admission: Sancho Cuello Condition: Stable Quality VTE Prophylaxis VTE prophylaxis: pharmacologic ordered Hospitalist MIPS Heart Failure (Exclusion) Patient has history of Heart Transplant or Left Ventricular Assistive Device?: No IF YES, STOP HERE Heart Failure (Qualifier) Patient has current or prior documentation of LVEF less than or equal to 40%, or mod/servere depressed LVSF?: Yes IF NO, STOP HERE If Yes, Heart Failure (Qualifier) Patient was prescribed or already taking an Angiotensin-Converting Enzyme (JUAN JOSE) Inhibitor, or Antiotensin Receptor Lorna (ARB): Yes Patient was prescribed or already taking bisoprolol, carvedilol, or sustained release metoprolol succinate: Yes
[2024-08-20] MEDS: guaiFENesin 200 MG/10 ML UDC 600 MG FEED TUBE (09:59)
[2024-08-20] MEDS: lisinopriL 5 MG TABLET FEED TUBE (10:00)
[2024-08-20] MEDS: ENOXAPARIN 40 MG/0.4 ML SYRINGE SUB-Q (10:00)
[2024-08-20] MEDS: ASPIRIN 81 MG CHEWABLE TABLET FEED TUBE (10:00)
[2024-08-20] MEDS: MEMANTINE 10 MG TABLET FEED TUBE (10:00)
[2024-08-20] MEDS: methocarbamoL 500 MG TABLET FEED TUBE ×2 (10:00→13:05)
[2024-08-20] MEDS: LORATADINE 10 MG TABLET FEED TUBE (10:00)
[2024-08-20] MEDS: PANTOPRAZOLE SODIUM IV 40 MG VIAL IV PUSH (10:00)
[2024-08-20] MEDS: carvediloL 3.125 MG TABLET FEED TUBE (10:00)
[2024-08-20] MEDS: CLOPIDOGREL BISULFATE 75 MG TABLET FEED TUBE (10:00)
[2024-08-20] MEDS: FLUTICASONE PROPIONATE 0.05% NA SPR 16 GM BTL (*BKC) 1 SPRAY NASAL (10:01)
[2024-08-20] MEDS: BETAMETHASONE/CLOTRIMAZOLE CREAM 15 GM TUBE 1 APPLIC TOPICAL (10:02)
[2024-08-20 12:03] LABS: Glucose Point of Care 101 mg/dl (65-105)
== END 2024-08-20 17:05 | DRG 64 ==
LOC: ANHED 18:27 → ANHIMU 18:32 → ANH2MED 08-05 18:07
PROVIDERS: Internal Medicine; Internal Medicine Gastroenterology; Nurse Practitioner Acute Care; Nurse Practitioner Family; Student in an Organized Health Care Education/Training Program; Admitting Provider Internal Medicine; Emergency Provider Emergency Medicine; PCP Internal Medicine; Visit Provider Nurse Practitioner
PROC: 0DH63UZ Insertion of Feeding Device into Stomach, Percutaneous Approach (ICD-10-PCS; CPT 43246; principal; 2024-08-12 14:30)
DX: I63.522 Cerebral infarction due to unspecified occlusion or stenosis of left anterior cerebral artery (principal); G08 Intracranial and intraspinal phlebitis and thrombophlebitis; J69.0 Pneumonitis due to inhalation of food and vomit; U07.1 COVID-19; I82.C12 Acute embolism and thrombosis of left internal jugular vein; I42.9 Cardiomyopathy, unspecified; N39.0 Urinary tract infection, site not specified; G81.91 Hemiplegia, unspecified affecting right dominant side; I50.32 Chronic diastolic (congestive) heart failure; S42.211P Unspecified displaced fracture of surgical neck of right humerus, subsequent encounter for fracture with malunion; R29.810 Facial weakness; R13.10 Dysphagia, unspecified; K44.9 Diaphragmatic hernia without obstruction or gangrene; R29.711 NIHSS score 11; S43.001A Unspecified subluxation of right shoulder joint, initial encounter; X58.XXXA Exposure to other specified factors, initial encounter; G30.9 Alzheimer's disease, unspecified; F02.80 Dementia in other diseases classified elsewhere, unspecified severity, without behavioral disturbance, psychotic disturbance, mood disturbance, and anxiety; I11.0 Hypertensive heart disease with heart failure; G47.30 Sleep apnea, unspecified; M19.90 Unspecified osteoarthritis, unspecified site; I48.91 Unspecified atrial fibrillation; Z66 Do not resuscitate; R34 Anuria and oliguria; E78.5 Hyperlipidemia, unspecified
CPT/HCPCS: 36415; 43246; 70496; 70498; 70544; 70553; 71045; 73030; 73200; 74018; 80053; 80061; 81003; 82274; 82948; 83036; 83735; 84484; 85025; 85027; 85610; 85730; 87040; 87076; 87635; 92610; 92611; 93005; 93880; 94640; 94667; 94669; 96365; 96375; 97110; 97161; 97165; 97530; 99285; A4565; A9270; A9577; C8929; G0378; J0690; J0696; J0744; J1644; J1650; J1836; J2003; J2470; J2704; J3480; J7030; J7040; J7120; Q9957; Q9967

== ENCOUNTER 2024-08-23 23:14 | Emergency (ER) | payer MEDICARE, SELFPAY ==
--- NOTE | ~2024-08-23 | XR_ITS ---
XR chest 1V portable Ordering provider: Guanaco Theodore MD History: 74 years Male with . weakness . Comparison: August 10, 2024 FINDINGS: MEDIASTINUM: The cardiac silhouette is not enlarged. LUNGS: No effusions or pneumothorax. Opacification the left lower lobe suggestive of pneumonia. OTHER: No free air under the diaphragm. IMPRESSION: Left lower lobe pneumonia. Reviewed, dictated and finalized at location A. [employer] IMPRESSION: Left lower lobe pneumonia.
[2024-08-23 23:22] VITALS: BP 109/68; PULSE 92; RESP 18; TEMP 36.9; O2SAT 98
[2024-08-23 23:24] VITALS: RESP 18
--- NOTE | 2024-08-23 23:30 | PC.NURSE ---
RN called [facility]. Per Jane Nurse, patient has been running a temperature but was last given Tylenol at 1930. Patient family member also things the patient has a uti because he was in the hospital recently and was found sitting in dry stool says the family.
--- NOTE | 2024-08-23 23:36 | ECG_ITS ---
Test Date: 2024-08-24 00:22:59 Measurements Intervals Isabel Rate: 95 P: 0 MT: 0 QRS: -65 QRSD: 106 T: 37 QT: 360 QTc: 453 Interpretive Statements baseline artifact limits interpretation possible sinus tachycardia LEFT AXIS DEVIATION [QRS AXIS < -30] INCOMPLETE RIGHT BUNDLE BRANCH BLOCK [90+ ms QRS DURATION, TERMINAL R IN V1/V2, 40+ ms S IN I/aVL/V4/V5/V6] Compared to ECG 08/03/2024 14:28:49 heart rate increased Electronically Signed On 08-24-2024 14:41:53 [employer] by Kenneth Arroyo M.D.
[2024-08-24 00:08] LABS: Basophils Percent Auto 0.2 % (0.2-1.2); Eosinophils Percent Auto 0.2 % (0-4.4); Hematocrit 34.7 % (42.0-52.0); Hemoglobin 11.4 g/dL (14.0-18.0); Immature Granulocyte Absolute 0.06 K/mm3 (0.00-0.031); Immature Granulocyte Percent A 0.5 % (0-0.5); Lymphocytes Absolute Auto 0.85 K/mm3 (0.9-3.2); Lymphocytes Percent Auto 7.4 % (18.3-44.2); Mean Corpuscular HGB Conc 32.9 g/dl (32-36); Mean Corpuscular Hemoglobin 29.2 pg (26-34); Mean Corpuscular Volume 88.7 fl (80-100); Mean Platelet Volume 11.7 fl (7.4-10.4); Monocytes Absolute Auto 0.8 K/mm3 (0.1-0.6); Monocytes Percent Auto 6.5 % (2.6-8.5); Neutrophils Absolute Auto 9.8 K/mm3 (1.3-6.7); Neutrophils Percent Auto 85.2 % (45.5-73.1); Platelet Count Result 191 k/mm3 (150-375); Red Blood Count 3.91 M/mm3 (4.6-6.20); White Blood Count 11.5 K/mm3 (4.5-10.0)
[2024-08-24 00:11] VITALS: BP 98/55; PULSE 90; RESP 18; TEMP 36.7; O2SAT 99
[2024-08-24 00:13] LABS: Add Urine Microscopic? YES; Appearance Urine Clear (Clear); Bacteria Urine None Seen /hpf; Bilirubin Urine Negative (Negative); Blood Urine Negative (Negative); Color Urine Yellow (Yellow); Glucose Urine UA Negative (Negative); Ketones Urine Negative (Negative); Leukocyte Esterase Ur Negative LEU/UL (Negative); Nitrate Urine Negative (Negative); Non Pathogenic Casts 0-2; Protein Urine 1+ mg/dL (Negative); Squamous Epithelial Cell Urine None Seen /hpf (Few); Urobilinogen Urine 0.2 mg/dL (<2.0); WBC Urine 0-5 /hpf (0-3)
[2024-08-24 00:15] LABS: Lactic Acid Reflex 2.6 mmol/L (0.7-2.0)
[2024-08-24 00:17] LABS: Alanine Aminotransferase 53 U/L (6-50); Albumin Level 3.5 g/dL (3.5-5.1); Alkaline Phosphatase 66 U/L (38-126); Anion Gap 1 mmol/L (4-12); Aspartate Amino Transferase 37 U/L (17-59); Bilirubin,Total 0.9 mg/dL (0.2-1.3); Blood Urea Nitrogen 23 mg/dL (9-20); Calcium 8.3 mg/dL (8.4-10.2); Carbon Dioxide 34 mmol/L (22-30); Chloride 99 mmol/L (98-107); Estimated CRCL calculation 64 ml/min; Estimated Glomerular Filt Rate > 60; Glucose 119 mg/dL (65-110); Lipase 184 U/L (23-300); Magnesium 2.3 mg/dL (1.6-2.3); Potassium 4.5 mmol/L (3.4-5.0); Sodium 134 mmol/L (137-145)
[2024-08-24 00:18] LABS: INR 1.2; Prothrombin Time 15.6 Seconds (11.1-14.7)
[2024-08-24 00:20] LABS: Partial Thromboplastin Time 34.9 Seconds (22.3-36.8)
--- NOTE | 2024-08-24 00:26 | PC.NURSE ---
patient changed and cleaned. new brief applied.
[2024-08-24 00:28] LABS: Troponin I < 0.012 ng/mL (0.000-0.034)
[2024-08-24 00:35] LABS: Procalcitonin 0.4 ng/mL
[2024-08-24 00:42] LABS: Influenza A QL RT-PCR Negative (Negative); Influenza B QL RT-PCR Negative (Negative); RSV RNA, RT-PCR Negative (Negative); SARS-CoV-2 RNA PCR Positive (Negative)
[2024-08-24 01:39] VITALS: BP 104/57; PULSE 98; RESP 22; O2SAT 99
[2024-08-24 01:53] VITALS: TEMP 36.6
--- NOTE | 2024-08-24 02:25 | ED_ITS ---
HPI - General Adult General Chief complaint: Fever Stated complaint: Fever, covid + Time Seen by Provider: 08/23/24 23:28 History of Present Illness HPI narrative: Patient is a 74-year-old gentleman who presents emergency department chief complaint of fever and decreased responsiveness facility was concerned for possible UTI. The patient also tested positive for COVID Related Data Home Medications Medication Instructions Recorded Confirmed nystatin-triamcinolone 100,000 1 applic topical QAM 05/07/24 08/21/24 unit/gram-0.1 % topical ointment betamethasone dipropionate 0.05 % 1 applic topical BID PRN 08/03/24 08/21/24 lotion dermatitis flares. zinc oxide 40 % topical ointment 1 applic topical HS 08/03/24 08/21/24 Allergies Allergy/AdvReac Type Severity Reaction Status Date / Time Sulfa (Sulfonamide Allergy Mild rash Verified 08/12/24 15:08 Antibiotics) Review of Systems Review of Systems: A 10 system review of systems was completed on the patient and is negative excep t for what is stated in the HPI. Nursing and ancillary documentation was reviewed. [facility] Past Medical History Medical History Acute left STEFANIE ischemic stroke Afib Alzheimer's dementia Arthritis Chronic UTI Congestive heart failure HLD (hyperlipidemia) Currently off medications HTN (hypertension) Currently off medications Sleep apnea Family History Family History Sibling Diabetes mellitus Brother Father Family history of kidney stones, Onset Age: 75 Family history of dementia, Onset Age: 75 Cerebrovascular accident, Onset Age: 74 Alzheimer dementia Hypertension Mother Heart problem Social History Social History Smoking status: Former smoker Tobacco type: cigarettes Second hand tobacco smoke exposure: No Additional smoking assessment comments: Unknown amount. Alcohol intake: never Substance use: never Substance use type: does not use Do You Feel Safe in your Home?: Yes Lack of Transportation: No Lack of Food: Never True Current Housing: I Have Housing Concerned About Future Housing: No Difficulty Paying Gas/Electric Bills: No Difficulty Paying for Meds: No Currently Unemployed: No Education: Don't Know Difficulty w/ Childcare or Family Care: No Spiritual care concerns: No Exam Narrative: GENERAL: Well-appearing, well-nourished, and in no acute distress. HEAD: Normocephalic, atraumatic. EYES: PERRLA and EOMI. ENT: Nares clear, no rhinorrhea or epistaxis. Mucous membranes moist. NECK: Supple. CHEST: Clear to auscultation. No respiratory distress. HEART: Regular rate and rhythm. No murmur heard. Normal peripheral pulses. ABDOMEN: Soft, nontender, nondistended, normal active bowel sounds. EXTREMITIES: Normal range of motion. No edema. SKIN: Warm, dry, no rash. NEURO: No focal deficits. Alert and oriented x0. PSYCH: Normal mood and affect. Course Vital Signs Vital signs: Vital Signs Temperature 36.9 C 08/23/24 23:22 Pulse Rate 92 08/23/24 23:22 Respiratory Rate 18 08/23/24 23:22 Blood Pressure 109/68 08/23/24 23:22 Pulse Oximetry 98 08/23/24 23:22 Oxygen Delivery Room Air 08/23/24 23:22 Temperature 36.6 C 08/24/24 01:53 Pulse Rate 98 08/24/24 01:39 Respiratory Rate 22 H 08/24/24 01:39 Blood Pressure 104/57 L 08/24/24 01:39 Pulse Oximetry 99 08/24/24 01:39 Oxygen Delivery Room Air 08/23/24 23:22 Medical Decision Making MDM Narrative Medical decision making narrative: Differential diagnosis includes pneumonia, COVID, UTI Patient is currently afebrile and vital signs are stable patient was just discharged from the hospital after having pneumonia a COVID Patient is currently asymptomatic is still positive for COVID and chest x-ray shows the same findings as previously. The patient be discharged back to the facility Vital Signs Vital Signs: Vital Signs Temperature 36.9 C 08/23/24 23:22 Pulse Rate 92 08/23/24 23:22 Respiratory Rate 18 08/23/24 23:22 Blood Pressure 109/68 08/23/24 23:22 Pulse Oximetry 98 08/23/24 23:22 Oxygen Delivery Room Air 08/23/24 23:22 Temperature 36.6 C 08/24/24 01:53 Pulse Rate 98 08/24/24 01:39 Respiratory Rate 22 H 08/24/24 01:39 Blood Pressure 104/57 L 08/24/24 01:39 Pulse Oximetry 99 08/24/24 01:39 Oxygen Delivery Room Air 08/23/24 23:22 Lab Data 08/23/24 23:59 08/23/24 23:59 Labs: Lab Results 08/23/24 Range/Units 23:59 WBC 11.5 H (4.5-10.0) K/mm3 RBC 3.91 L (4.6-6.20) M/mm3 Hgb 11.4 L (14.0-18.0) g/dL Hct 34.7 L (42.0-52.0) % MCV 88.7 (80-100) fl MCH 29.2 (26-34) pg MCHC 32.9 (32-36) g/dl RDW 13.0 (11.5-14.5) % Plt Count 191 (150-375) k/mm3 MPV 11.7 H (7.4-10.4) fl Immature Gran % (Auto) 0.5 (0-0.5) % Neut % (Auto) 85.2 H (45.5-73.1) % Lymph % (Auto) 7.4 L (18.3-44.2) % [place] % (Auto) 6.5 (2.6-8.5) % Eos % (Auto) 0.2 (0-4.4) % Baso % (Auto) 0.2 (0.2-1.2) % Lymph # (Auto) 0.85 L (0.9-3.2) K/mm3 [place] # (Auto) 0.8 H (0.1-0.6) K/mm3 Eos # (Auto) 0.0 (0-0.3) K/mm3 Baso # (Auto) 0.0 (0.0-0.1) K/mm3 Abs Immat Gran (auto) 0.06 H (0.00-0.031) K/mm3 Absolute Neuts (auto) 9.8 H (1.3-6.7) K/mm3 Absolute Nucleated RBC 0.000 (0.0-0.012) K/mm3 Nucleated RBC % 0.0 (0.0-0.2) % PT 15.6 H (11.1-14.7) Seconds INR 1.2 APTT 34.9 (22.3-36.8) Seconds Sodium 134 L (137-145) mmol/L Potassium 4.5 (3.4-5.0) mmol/L Chloride 99 (98-107) mmol/L Carbon Dioxide 34 H (22-30) mmol/L Anion Gap 1 L (4-12) mmol/L BUN 23 H (9-20) mg/dL Creatinine 0.70 (0.7-1.3) mg/dL Estim Creat Clear Calc 64 ml/min Estimated GFR > 60 (59 - ) Glucose 119 H (65-110) mg/dL Lactic Acid 2.6 H (0.7-2.0) mmol/L Calcium 8.3 L (8.4-10.2) mg/dL Magnesium 2.3 (1.6-2.3) mg/dL Total Bilirubin 0.9 (0.2-1.3) mg/dL AST 37 (17-59) U/L ALT 53 H (6-50) U/L Alkaline Phosphatase 66 (38-126) U/L Troponin I < 0.012 (0.000-0.034) ng/mL Total Protein 7.0 (6.3-8.2) g/dL Albumin 3.5 (3.5-5.1) g/dL Lipase 184 (23-300) U/L Procalcitonin 0.4 ng/mL Urine Color Yellow (Yellow) Urine Appearance Clear (Clear) Urine pH 7.0 (5.0-9.0) Ur Specific [place] 1.020 (1.001-1.035) Urine Protein 1+ H (Negative) mg/dL Urine Glucose (UA) Negative (Negative) mg/dL Urine Ketones Negative (Negative) mg/dL Ur Blood (Man) Negative (Negative) Urine Nitrate Negative (Negative) Urine Bilirubin Negative (Negative) Urine Urobilinogen 0.2 (<2.0) mg/dL Leukocyte Esterase Rfl Negative (Negative) MIRELA/UL Urine RBC 3-5 H (0-2) /hpf Urine WBC 0-5 (0-3) /hpf Ur Squamous Epith Cells None seen (Few) /hpf Urine Bacteria None seen /hpf Urine Casts 0-2 Influenza A (RT-PCR) Negative (Negative) Influenza B (RT-PCR) Negative (Negative) RSV (RT-PCR) Negative (Negative) SARS-CoV-2 RNA (RT-PCR) Positive A (Negative) Discharge Plan Discharge Clinical Impression: COVID-19, Pneumonia due to 2019 novel coronavirus Patient Disposition: NH Senior Living/Asst Living Condition: Stable Instructions: Antibiotic Form, Viral Pneumonia (ED), COVID-19 (Coronavirus Disease 2019) (ED) Prescriptions: No Action betamethasone dipropionate 0.05 % lotion 1 applic TOPICAL BID PRN (Reason: dermatitis flares.) Rx Instructions: APPLY THIN LAYER TOPICALLY TO THE SCALP TWICE DAILY AT ONSET OF FLARES NEEDED zinc oxide 40 % Ointment 1 applic TOPICAL HS Rx Instructions: Apply topically to groin, perineal area, and buttocks at HS. atorvastatin 40 mg Tablet 80 mg feeding tube QHS Qty: 90 0RF clopidogrel 75 mg Tablet 75 mg feeding tube QAM Qty: 90 0RF aspirin 81 mg Tablet,Delayed Release (Dr/Ec) 81 mg feeding tube QAM Qty: 90 0RF carvedilol [Coreg] 3.125 mg Tablet 3.125 mg feeding tube Q12HR Qty: 180 0RF fluticasone propionate 50 mcg/actuation [place],Suspension 1 spray intranasal Q12HR Qty: 16 0RF lisinopril 5 mg Tablet 5 mg feeding tube QAM Qty: 90 0RF ipratropium-albuterol 0.5 mg-3 mg(2.5 mg base)/3 mL Solution For Nebulization 3 ml inhalation Q6HRT 7 Days Qty: 90 0RF loratadine 10 mg Tablet 10 mg feeding tube QAM Qty: 90 0RF donepezil 10 mg tablet 10 mg feeding tube HS Qty: 90 0RF memantine 10 mg tablet 10 mg feeding tube DAILY Qty: 90 0RF acetaminophen 650 mg/20.3 mL Solution 650 mg feeding tube Q6H PRN (Reason: Pain (Scale Score 1-3) or fever) Qty: 1015 0RF methocarbamol 500 mg Tablet 500 mg feeding tube QID Qty: 0 0RF omeprazole 40 mg capsule,delayed release(DR/EC) 40 mg feeding tube BID Qty: 60 0RF Rx Instructions: Flush well after this medication nystatin-triamcinolone 100,000-0.1 unit/gram-% ointment 1 applic TOPICAL QAM Rx Instructions: Apply to groin, perineal area, and buttocks QAM. Follow-up/Referrals: Kushal,MD Cody [Primary Care Provider] - Time of Disposition: 03:20
[2024-08-24 03:04] LABS: Reflex Lactic Acid Yes or No Add Lactic
[2024-08-24 05:11] VITALS: BP 99/65; PULSE 94; RESP 22; O2SAT 100
--- NOTE | 2024-08-24 05:11 | PC.NURSE ---
this patient is awaiting transfer back to [place]. Patient is resting on ER stretcher comfortably, family is at bedside. Patients vitals are stable. RN checked and Patient is clean and dry at this time.
[2024-08-24 07:00] VITALS: TEMP 37
--- NOTE | 2024-08-24 07:33 | PC.NURSE ---
Report attempted to [facility] multiple times with no success. Briana, staff member at [facility] [place] [facility] notified that pt. is d/c from [facility] and he would be returning but unable to give full report.
--- NOTE | 2024-08-24 07:39 | PC.NURSE ---
Received phone call back from Kelin Goldman. Report given to Maribel. All questions answered.
[2024-08-24 09:10] VITALS: BP 97/72; PULSE 75; RESP 16; O2SAT 95
--- NOTE | 2024-08-24 09:10 | PC.NURSE ---
Report given to [facility] and family member at bedside. All questions answered. Roy to transfer pt. back to [facility].
== END 2024-08-24 09:10 ==
PROVIDERS: Emergency Provider Emergency Medicine; PCP Internal Medicine
DX: U07.1 COVID-19 (principal); J12.82 Pneumonia due to coronavirus disease 2019; G30.9 Alzheimer's disease, unspecified; F02.80 Dementia in other diseases classified elsewhere, unspecified severity, without behavioral disturbance, psychotic disturbance, mood disturbance, and anxiety; I50.9 Heart failure, unspecified; E78.5 Hyperlipidemia, unspecified; I10 Essential (primary) hypertension; I48.91 Unspecified atrial fibrillation; Z87.891 Personal history of nicotine dependence
CPT/HCPCS: 36415; 71045; 80053; 81001; 83605; 83690; 83735; 84145; 84484; 85025; 85610; 85730; 87040; 87637; 93005; 99283

== ENCOUNTER 2024-10-22 20:31 | Inpatient (IN) | payer MEDICARE, SELFPAY ==
[2024-10-22] VITALS (7 sets, daily range): BP systolic 80–113; BP diastolic 44–67; PULSE 93–112; RESP 22–29; TEMP 37.4; O2SAT 94–98
--- NOTE | ~2024-10-22 | XR_ITS ---
EXAMINATION: XR barium swallow modified DATE: 10/24/2024 11:13 INDICATION: Coughing with eating and drinking. TECHNIQUE: The patient was given barium-containing material of multiple consistencies to swallow by t [place] speech pathologist while I performed fluoroscopy. Fluoroscopy exposure time was 2.2 minutes. The n umber of fluoroscopy images saved to the PACS was 1. Dose-area product was 1.41 Gy-cm^2. FINDINGS: There is slow mastication. There is reduced laryngeal elevation, reduced tongue base retraction, vall ecular residue, pyriform sinus residue, pharyngeal wall residue, and laryngeal penetration. No aspira tion. IMPRESSION: 1. Laryngeal penetration. No aspiration. 2. Please refer to the speech therapy report for recommendations. Reviewed, dictated and finalized at location A. [facility] [employer]
--- NOTE | ~2024-10-22 | CT_ITS ---
CLINICAL INDICATION: Vomiting, diarrhea, fever, cough. Leukocytosis, urinary tract infection COMPARISON: 05/07/2024 and 09/15/2023. TECHNIQUE: Multiple contiguous axial images of the chest, abdomen and pelvis were performed following the administration of with 100 mL Omnipaque-350 intravenous contrast The dose-length product (DLP) was 721.45 mGy-cm. Automated exposure control and iterative reconstruction technique were employed. FINDINGS/OBSERVATIONS: Chest: Bibasilar atelectasis without focal infiltrate or pleural effusion. The heart is enlarged, without pericardial effusion. No significant mediastinal lymphadenopathy. Large hiatal hernia is present. Liver: Liver enhances homogeneously, without enlargement measuring 16 cm in longitudinal dimension. Gallbladder and biliary system: The gallbladder is only minimally distended, and otherwise unremarkable. Pancreas: The pancreas enhances homogeneously without ductal dilatation. Spleen: The spleen enhances homogeneously and is not enlarged measuring 6 cm in longitudinal dimension. Kidneys: The bilateral kidneys enhance symmetrically without hydronephrosis or renal calculi. Adrenal glands: Unremarkable. Gastrointestinal tract: Percutaneous gastrostomy in position within the stomach which is distended with fluid and air. Fluid and air distention of the distal colon is also present. Colonic diverticulosis without surrounding inflammatory change. Appendix: The appendix is not definitively visualized. However, no pericecal inflammatory change is identified suggest the presence of acute appendicitis. Vasculature: Densely calcified atherosclerotic disease without aneurysmal dilatation Lymph nodes: No pathologically enlarged or morphologically suspicious lymph nodes within the retroperitoneum or at the root of the mesentery. Pelvic structures: The bladder is minimally distended, with surrounding inflammatory change. The prostate gland is enlarged with bulky calcifications. Body wall and musculoskeletal: No significant degenerative disease within the thoracolumbar spine. IMPRESSION: Findings consistent with patient's known urinary tract infection. No focal infiltrates. Gaseous and air distention of stomach. Reviewed, dictated and finalized at location A. [employer] PHYSICAL THERAPIST
--- NOTE | ~2024-10-22 | CT_ITS ---
History: Altered mental status PROCEDURE: CT head without contrast. COMPARISON: 05/07/2024 TECHNIQUE: Axial imaging of the head performed from the skull base to the vertex without IV contrast. Sagittal a nd coronal reformations obtained. DLP: 681 mGy-cm FINDINGS: The ventricles are enlarged. The dilatation of the ventricles is proportional to the degree of sulcal prominence, not uncommon in the senescent brain. Decreased attenuation is identified within the periventricular white matter, likely secondary to micr ovascular ischemic disease, in a patient of this age. There is no mass, mass effect or midline shift. There is no abnormal extra-axial fluid collection or intracranial hemorrhage. Dense opacification of the left maxillary sinus is identified, an interval change from prior. Remaini ng paranasal sinuses are unremarkable. The right-sided mastoid air cells are well aerated. Redemonstration of opacification of the left mast oid air cells, similar to 05/07/2024. No acute displaced fractures within the overlying cranium. Impression: No acute intracranial hemorrhage or suspicious mass effect. Inflammatory sinus disease. Redemonstration of left mastoid air cell opacification. Reviewed, dictated and finalized at location A. ZE CHASER Impression: No acute intracranial hemorrhage or suspicious mass effect. Inflammatory sinus disease. Redemonstration of left mastoid air cell opacification.
--- NOTE | ~2024-10-22 | XR_ITS ---
CHEST RADIOGRAPH, PA AND LATERAL CLINICAL HISTORY: vomiting, hx of dysphagia, r/o aspiration . COMPARISON: 08/24/2024 TECHNIQUE: PA and lateral views of the chest. FINDINGS The cardiomediastinal silhouette is unremarkable. The lungs are clear. Significant gaseous distention of the stomach is identified. IMPRESSION: No focal infiltrate or effusion. Reviewed, dictated and finalized at location A. T PICKER
--- NOTE | 2024-10-22 20:57 | ECG_ITS ---
Test Date: 2024-10-22 21:37:12 Measurements Intervals [place] Rate: 108 P: 29 TX: 135 QRS: -64 QRSD: 111 T: 78 QT: 342 QTc: 459 Interpretive Statements SINUS TACHYCARDIA INCOMPLETE RIGHT BUNDLE BRANCH BLOCK LEFT ANTERIOR FASCICULAR BLOCK NONSPECIFIC ST & T-WAVE ABNORMALITY- HIGH LATERAL LEADS BASELINE ARTIFACT- I, III, AVR, AVL, AVF, V4-V6 ABNORMAL ECG Compared to ECG 08/24/2024 00:22:59 HEART RATE HAS INCREASED Electronically Signed On 10-23-2024 07:10:00 SWEAT BOX ATTENDANT by Gordy Hernadez D.O.
--- OUTSIDE RECORDS SUMMARY | 2024-10-22 21:15 | XMS_ITS | Clinical Summary ---
Author Organization [facility] Address [address] [facility] [place] [address] Care Team Providers Care Cco Name Role Phone Cody Fatima MD Primary Care Provider Source Comments [facility],non-owned Affiliates and Associated Physician Practices is amultiple site organization consisting of ambulatory clinics and hospital sitesin [place], [place], [place] and [place]. This disclosure is being madepursuant to the Care Everywhere program and may not contain all information available regarding this patient. Last updated 18.[facility] Allergies Active Allergy Reactions Criticality Noted Date Comments Milk-Related Compounds Other 02/24/2011 Lactose intolerate-GI problems. Molds & Smuts Other 02/24/2011 Sinus problems. Seasonal Other 02/24/2011 Sinus problems. Sulfa Drugs Rash Medium 05/01/2008 Medications * Be aware that medications may not be up to date on this document. Alwaysverify current medications with the patient. Medication Sig Dispensed Refills Start Date End Date Status Blood Pressure Monitor ALEXANDER Use 1 device once daily 11/27/2015 Active memantine (NAMENDA) 10 MG tablet Take 1 (one) tablet by mouth once daily Active NON FORMULARY REQUEST Natali chola calm BID Olprima EPA / DHA TID Hemp Oil Complex BID Chlortrimetom PRN Active donepezil (ARICEPT) 10 MG tablet Take 1 (one) tablet by mouth at bedtime Active Active Problems Problem Noted Date Diagnosed Date Paroxysmal atrial fibrillation 10/29/2020 Assessment & Plan (10/29/2020 1:16 PM FULL TIME): New onset AFIB noted in PCP office earlier this week. Today SB in clinic today. Asympotmatic. Stable EF. Reviewed plan with pt and Dr. Medellin today in clinic. Favor rate control at this time. [id number] of 3. Eliquis 5mg BID. Continue Coreg 6.25mg BID. Follow up with Dr. Medellin in 3 months. Chronic kidney disease 01/19/2018 Overview (01/19/2018): Overview: Stage 3 Cognitive impairment 07/28/2017 Essential hypertension 03/13/2015 Assessment & Plan (10/29/2020 1:17 PM FULL TIME): Stable in clinic today. No changes. Continue Coreg and Lisinopril. Hyperlipidemia 04/30/2013 Sleep apnea 09/02/2010 Overview (01/19/2018): Overview: Uses CPAP Cardiomyopathy 08/07/2009 Overview (01/19/2018): Overview: 04/2011 Echocardiogram: EF 55% with stage 1 diastolic dysfunction Assessment & Plan (10/29/2020 1:17 PM FULL TIME): NICM with recovered EF. Preliminary ECHO results today show an normal EF. Await fromal read. Continue Coreg and Lisinopril. No changes today. Follow up with Dr. Medellin in 3 months. Immunizations Name Administration Dates Next Due TDAP (7yrs+) 10/09/2012 TETANUS 10/09/2012 Family History Medical History Relation Name Comments Alzheimer's Disease Father Nephrolithiasis Father CAD (Coronary Artery Disease) Mother Hypertension Mother Memory Problems Mother Relation Name Status Comments Father Mother Social History Tobacco Use Types Packs/Day Years Used Date Smoking Tobacco: Former Cigarettes 2 3 Smokeless Tobacco: Never Tobacco Cessation:Counseling Given: Not Answered Comments:quit 1971 Alcohol Use Standard Drinks/Week Comments No 0 (1 standard drink = 0.6 oz pur e alcohol) Sex and Gender Information Value Date Recorded Sex Assigned at Not on file Gender Identity Not on file Sexual Orientation Not on file Last Filed Vital Signs Vital Sign Reading Time Taken Comments Blood Pressure 131/60 03/14/2024 1:54 PM CDT Pulse 48 03/14/2024 1:54 PM CDT Temperature 36.3 ??C (97.3 ??F) 01/28/2021 1:52 PM CD T Respiratory Rate 16 08/01/2018 3:22 PM FULL TIME Oxygen Saturation 96% 03/14/2024 1:54 PM CDT Inhaled Oxygen Concentration - - Weight 63 kg (139 lb) 03/14/2024 1:54 PM CDT Height 162.6 cm (5' 4 ) 03/14/2024 1:54 PM CDT Body Mass Index 23.86 03/14/2024 1:54 PM CDT Plan of Treatment Upcoming Encounters Date Type Department Care Team (Late st Contact Info) Description 02/27/2025 2:20 PM CDT Office Visit [facility] - Cardiology [address] [phone] Kerry Medellin MD [phone] [place] [address] Health Maintenance Due Date Last Done Comments COLOGUARD (AGES 45-75) - COLON CA SCREENING 1950 COLONOSCOPY - COLON CA SCREENING 1950 CT COLONOGRAPHY - COLON CA SCREENING 1950 FIT - COLON CA SCREENING 1949 FLEX SIG - COLON CA SCREENING 1950 PNEUMOCOCCAL VACCINE 50+ (1 of 1 - PCV) 1999 ZOSTER VACCINE (1 of 2) 1999 COLON MONITORING 10/07/2017 10/07/2014 (Don e Outside Per Report), 03/14/2011 (Done Outside Per Report) Colorectal Cancer Screening 10/07/2017 LIPID TESTING 01/06/2021 01/07/2016, 12/18, 11/13/2013, Additional history exists DTAP/TDAP/TD VACCINES (3 - Td or Tdap) 10/09/2022 10/09/2012, 10/09/2012 COVID-19 VACCINE (1 - 2023- season) 2024 INFLUENZA VACCINE (#1) 2024 Respiratory Syncytial Virus (RSV) Vaccine Pt: or over 60 yrs (1 - 1-dose 75+ series) 2024 DEPRESSION SCREENING 09/18/2024 MEDICARE AWV ? CALENDAR YEAR 2024 HEPATITIS C SCREENING Completed 11/13/2013 HEPATITIS B VACCINE Aged Out No longe r eligible based on patient's age to complete this topic HIB VACCINE Aged Out No longer eligi ble based on patient's age to complete this topic HPV VACCINE Aged Out No longer eligi ble based on patient's age to complete this topic MENINGOCOCCAL (Group B) VACCINE Aged Out No longer eligible based on patient's age to complete this topic MENINGOCOCCAL VACCINE Aged Out No lexi carlos eligible based on patient's age to complete this topic Procedures Procedure Name Priority Date/Time Associated Diagnosis Comments LIPID PROFILE Routine 01/07/2016 10:47 AM CDT HEPATITIS C ANTIBODY Routine 11/13/2013 11:49 AM FULL TIME from Last 3 Months or Most Recently Relevant to Health Maintenance Results * (ABNORMAL) LIPID PROFILE (01/07/2016 10:47 AM CDT) Cholesterol Total 140 100 - 199 mg/dL [facility] (ApiFix) Triglycerides 255(H) 0 - 149 mg/dL [facility] (BEZero2IPO) HDL 29(L) >39 mg/dL [facility] (ApiFix) Comment: According to ATP-III Guidelines, HDL-C >59 mg/dL is considered a negative risk factor for CHD. VLDL Calculated 51(H) 5 - 40 mg/dL [facility] (BEAKER) LDL Calculated 60 0 - 99 mg/dL [facility] (ApiFix) 01/07/2016 10:4 7 AM CDT 01/07/2016 12:48 PM CDT Narrative [facility] (CAT) - 01/08/2016 7:17 AM CDT Performed at: ??01 - [address] ??[id number] Entomology Professor: Evaristo Turner PhD, Phone: ??[phone] Norma Pearl MD LAB - CHEMISTRY HIRAM CHAUHAN Performing Organization Address [facility] Co de Phone Number [facility] (CAT) * HEPATITIS C ANTIBODY (11/13/2013 11:49 AM FULL TIME) Hepatitis C Virus Antibody 0.2 0.0 - 0.9 s/co ratio [facility] (CAT) Comment: ?Negative: ? < 0.8 ?Indeterminate 0.8 - 0.9 ?Positive: ? > 0.9 ??In order to reduce the incidence of a false positive ??result, the CDC recommends that all s/co ratios ??between 1.0 and 10.9 be confirmed by a more specific ??supplemental or PCR testing. [facility] ??w/Reflex to Verification test #[id number]. 11/13/2013 11:4 9 AM FULL TIME 11/13/2013 2:51 PM FULL TIME Narrative [facility] (CAT) - 11/14/2013 3:32 PM FULL TIME Performed at: ??01 - [address] ??[id number] Entomology Professor: Taran Nelson MD, Phone: ??[phone] Norma Pearl MD LAB - CHEMISTRY HIRAM CHAUHAN Performing Organization Address [facility] Co de Phone Number [facility] (CAT) from Last 3 Months or Most Recently Relevant to Health Maintenance Care Teams Cco Relationship Specialty Start Date End Date Cody Fatima MD [address] [phone] PCP - General 02/20/20
--- OUTSIDE RECORDS SUMMARY | 2024-10-22 21:15 | XMS_ITS | Referral Summary ---
Author Organization [facility] Address [address] [place] [address] Care Team Providers Care Chief Mechanical Officer Name Role Phone Cody Fatima MD Primary Care Provider Source Comments [facility],non-owned Affiliates and Associated Physician Practices is amultiple site organization consisting of ambulatory clinics and hospital sitesin [place], [place], [place] and [place]. This disclosure is being madepursuant to the Care Everywhere program and may not contain all information available regarding this patient. Last updated 18.[facility] Allergies Active Allergy Reactions Criticality Noted Date [...] 10/29/2020 Assessment & Plan (10/29/2020 1:16 PM EXPLOITATION ANALYST): New onset AFIB noted in PCP office earlier this week. Today SB in clinic today. Asympotmatic. Stable EF. Reviewed plan with pt and Dr. Medellin today in clinic. Favor rate control at this time. [id number] of 3. Eliquis 5mg BID. Continue Coreg 6.25mg BID. Follow up with Dr. Medellin in 3 months. Chronic kidney disease 01/19/2018 Overview (01/19/2018): Overview: Stage 3 Cognitive impairment 07/28/2017 Essential hypertension 03/13/2015 Assessment & Plan (10/29/2020 1:17 PM EXPLOITATION ANALYST): Stable in clinic today. No changes. Continue Coreg and Lisinopril. Hyperlipidemia 04/30/2013 Sleep apnea 09/02/2010 Overview (01/19/2018): Overview: Uses CPAP Cardiomyopathy 08/07/2009 Overview (01/19/2018): Overview: 04/2011 Echocardiogram: EF 55% with stage 1 diastolic dysfunction Assessment & Plan (10/29/2020 1:17 PM EXPLOITATION ANALYST): NICM with recovered EF. Preliminary ECHO results today show an normal EF. Await fromal read. Continue Coreg and Lisinopril. No changes today. Follow up with Dr. Medellin in 3 months. Immunizations Name Administration Dates Next Due TDAP (7yrs+) 10/09/2012 TETANUS 10/09/2012 Social History Tobacco Use Types Packs/Day Years [...] T Respiratory Rate 16 08/01/2018 3:22 PM EXPLOITATION ANALYST Oxygen Saturation 96% 03/14/2024 1:54 PM CDT Inhaled Oxygen Concentration - - Weight 63 kg (139 lb) 03/14/2024 1:54 PM CDT Height 162.6 cm (5' 4 ) 03/14/2024 1:54 PM CDT Body Mass Index 23.86 03/14/2024 1:54 PM CDT Plan of Treatment Upcoming Encounters Date Type Department Care Team (Late st Contact Info) Description 02/27/2025 2:20 PM CDT Office Visit [facility] - Cardiology [address] [facility] [place] [phone] Kerry Medellin MD [address] [place] [address] Procedures Procedure Name Priority Date/Time Associated Diagnosis Comments LIPID PROFILE Routine 01/07/2016 10:47 AM CDT HEPATITIS C ANTIBODY Routine 11/13/2013 11:49 AM EXPLOITATION ANALYST from Last 3 Months or Most Recently Relevant to Health Maintenance Results * (ABNORMAL) LIPID PROFILE (01/07/2016 10:47 AM CDT) Cholesterol Total 140 100 - 199 mg/dL [facility] (BEAKER) Triglycerides 255(H) 0 - 149 mg/dL [facility] (BEAKER) HDL 29(L) >39 mg/dL [facility] (BEAKER) Comment: According to ATP-III Guidelines, HDL-C >59 mg/dL is considered a negative risk factor for CHD. VLDL Calculated 51(H) 5 - 40 mg/dL [facility] (CAT) LDL Calculated 60 0 - 99 mg/dL [facility] (CAT) 01/07/2016 10:4 7 AM CDT 01/07/2016 12:48 PM CDT Narrative [facility] (CAT) - 01/08/2016 7:17 AM CDT Performed at: ??01 - [address] ??[id number] Lead Coater: Evaristo Turner PhD, Phone: ??[phone] Norma Pearl MD LAB - CHEMISTRY HIRAM CHAUHAN [facility] ALEX) * HEPATITIS C ANTIBODY (11/13/2013 11:49 AM EXPLOITATION ANALYST) Hepatitis C Virus Antibody 0.2 0.0 - 0.9 s/co ratio [facility] (CAT) Comment: ?Negative: ? < 0.8 ?Indeterminate 0.8 - 0.9 ?Positive: ? > 0.9 ??In order to reduce the incidence of a false positive ??result, the CDC recommends that all s/co ratios ??between 1.0 and 10.9 be confirmed by a more specific ??supplemental or PCR testing. [facility] offers HCV Ab ??w/Reflex to Verification test #[id number]. 11/13/2013 11:4 9 AM EXPLOITATION ANALYST 11/13/2013 2:51 PM EXPLOITATION ANALYST Narrative [facility] (CAT) - 11/14/2013 3:32 PM EXPLOITATION ANALYST Performed at: ??01 - [facility] [address] ??[id number] Lead Coater: Taran Nelson MD, Phone: ??[phone] Norma Pearl MD LAB - CHEMISTRY HIRAM Rose Organization Address City/State/ZIP Co de Phone Number [facility] [place]) from Last 3 Months or Most Recently Relevant to Health Maintenance Care Teams Chief Mechanical Officer Relationship Specialty Start Date End Date Cody Fatima MD [address] [facility] [address] [place] [phone] PCP - General 02/20/20
--- OUTSIDE RECORDS SUMMARY | 2024-10-22 21:15 | XMS_ITS | Encounter Summary ---
Author Organization [facility] Address [address] [place] [address] Care Team Providers Care Service Engineer Name Role Phone Cody Fatima MD Primary Care Provider Encounter Details Date Type Department Care Team (Late Contact Info) Description 06/22/2022 Lab Requisition [facility] Derm[facility] [address] [place] [address] Qasim Cleary MD [facility] [place] [address] Social History Tobacco Use Types Packs/Day Years Used Date Smoking Tobacco: Former Cigarettes 2 3 Smokeless Tobacco: Never Comments:quit 1971 Alcohol Use Standard Drinks/Week Comments No 0 (1 standard drink = 0.6 oz pur e alcohol) Sex and Gender Information Value Date Recorded Sex Assigned at Not on file Gender Identity Not on file Sexual Orientation Not on file documented as of this encounter Plan of Treatment Upcoming Encounters Date Type Department Care Team (Late Contact Info) Description 02/27/2025 2:20 PM CDT Office Visit [facility] - Cardiology [address] [facility], [facility] [address] [place] [phone] Kerry Medellin MD [id number] [place] [address] documented as of this encounter Procedures Procedure Name Priority Date/Time Associated Diagnosis Comments DERMATOPATHOLOGY Routine 06/21/2022 3:33 AM CDT documented in this encounter Results * DERMATOPATHOLOGY (06/21/2022 3:33 AM CDT) Case Report Dermatopathology Report ? Case: [id number] ? Authorizing Provider: ??Qasim Cleary MD ?Collected: ? 06/21/2022 03:33 AM ? Ordering Location: ? [facility] DermPath Lab ?Received: ?06/22/2022 06:46 AM ? Pathologist: ? Sherri He MD ? Specimen: ?Skin, mid lower back ? 2 12:41 PM CDT DERMATOPATHOLOGY LABORATORY Final Diagnosis Specimen A. SKIN, mid lower back: EPIDERMOID CYST (L72.0) 2 12:41 PM CDT DERMATOPATHOLOGY LABORATORY Clinical History Cyst 2 12:41 PM CDT DERMATOPATHOLOGY LABORATORY Gross Description Specimen A: Received is one formalin filled container labeled with the patient's name and designated mid lower back. The specimen consists of a [id number] piece of skin and it is bisected. Jar 0. 2 12:41 PM CDT DERMATOPATHOLOGY LABORATORY Microscopic Description Specimen A. SKIN, mid lower back: Within the dermis, there is a space lined by epithelium that resembles normal epidermis and the infundibular portion of the hair follicle. 2 12:41 PM CDT DERMATOPATHOLOGY LABORATORY Disclaimer An external and internal positive and negative controls are appropriate for the histochemical, immunohistochemical and immunofluorescence stain(s) in this case (if any), except where stated explicitly. The performance characteristics of the stain(s) cited in this report were developed and its performance characteristic determined by the Dermatopathology Laboratory at [facility], directed by Dr. Mendez Patrick. These tests need not be, and therefore are not, approved by the [place] Food and Drug Administration. The tests are used for clinical purposes. Billing Codes Specimen Charges Stain Charges 79844 1 2 12:41 PM CDT DERMATOPATHOLOGY LABORATORY Embedded Images 12:41 PM CDT DERMATOPATHOLOGY LABORATORY Pathology/Cytolo gy TISSUE SPECIMEN FROM SKIN / Unknown 06/21/2022 3:33 AM CDT 06/22/2022 6:46 AM CDT Qasim Cleary MD LAB - PATHOLOGY/CYTO LOGY ORDERABLES DERMATOPATHOLOGY LABORATORY [facility] - Department of Dermatology [address], [address] [phone] documented in this encounter Visit Diagnoses Not on filedocumented in this encounter Care Teams Service Engineer Relationship Specialty Start Date End Date Cody Fatima MD [address] [phone] PCP - General 02/20/20 documented as of this encounter
--- OUTSIDE RECORDS SUMMARY | 2024-10-22 21:15 | XMS_ITS | CONTINUITY OF CARE DOCUMENT ---
Author Name fabby sequeira Address Unknown Organization [facility] Address [address] [facility] [address] [place] [address] Phone [phone] Care Team Providers Care Credit Department Manager Name Role Phone Francois MCCRACKEN, Fadia Unavailable [phone] ANTIONE MCCRACKEN, ANN Unavailable ANTIONE MCCRACKEN, ANN Unavailable [phone] PROBLEMS Condition Status Date Provider Notes Cardiology examination active Faraz Crowellt Afib active Faraz Nacht HTN essential active Faraz Nacht Hyperlipidemia active Faraz Nacht LAKISHA active Faraz Nacht Alzheimer's disease active Faraz Crowellt Cardiomyopathy, non-ischemic, EF 45% active Faraz Nacht Shortness of breath active Faraz Crowellt ENCOUNTERS Date Type Provider Location Encounter Diag nosis - In-person encounter Office Visit Fadia Parrish MD [facility] Cardiology examinationAfibHTN essentialHyperlipidemiaOS AAlzheimer's diseaseCardiomyopathy, non-ischemic, EF 45%Shortness of breath VITAL SIGNS Date Observation Value Provider Body Mass Index (Ratio) 24.13 kg/m2 Edilberto Parrish MD oxygen saturation, oximetry 98 % Chastity Tian blood pressure, diastolic 78 mm[Hg] Ch astity Tian blood pressure, systolic 133 mm[Hg] Mercedes stity Tian pulse rate 51 /min Chastity Tian respiratory rate E&M 16 /min Kathleen Overton weight E&M 145 [lb_av] Mercedesstity Tian height E&M 65 [in_i] Jessica Overton ALLERGIES Allergy Name Onset Date Reaction Criticality Status SULFA High Criticality active HISTORY OF MEDICATION USE Medication Status Instructions Dates Provider Indications Com ments Eliquis 5 mg tablet active TAKE 1 TABLET BY MOUTH TWICE DAILY Zuri Moutray Eliquis 5 mg tablet completed one tablet twice daily - Zuri Moutray PRAVASTATIN SODIUM 10 MG ORAL TABLET active TAKE 1 TABLET BY MOUTH AT BEDTIME Faraz Atkinson #90, 90 days supply, Prescribed by TAHIR REYES, Filled 08/30/2020 MEMANTINE HCL 10 MG ORAL TABLET active TAKE 1 TABLET BY MOUTH TWICE DAILY Faraz Atkinson #180, 90 days supply, Prescribed by ARIANNA MALDONADO, Filled 08/30/2020 DONEPEZIL HCL 10 MG ORAL TABLET active TAKE 1 TABLET BY MOUTH EVERY DAY AT BEDTIME Faraz Atkinson #90, 90 days supply, Prescribed by LINDA ROLLE, Filled 09/03/2020 LISINOPRIL 5 MG ORAL TABLET active ONE TAB. DAILY Faraz Atkinson CARVEDILOL 6.25 MG ORAL TABLET active ONE TAB. TWICE DAILY Faraz Atkinson SOCIAL HISTORY Date Observation Value Provider social history E&M S moking History: Sam macias is a former smoker. Faraz Atkinson social history reviewed E&M reviewed - no changes required Faraz Atkinson number of grandchildren Fadia Atkinson number of years as a smoker 4 a Mercedestunde Overton cigarette use yes Jessica Overton smoking status Former smoker Jessica Moses ue INSURANCE PROVIDERS Payer name Policy type / Coverage type [place] red libertarian ID [facility] MEDICARE ADVANTAGE (PPO) Other [id number] ADVANCE DIRECTIVES Name Date POWER OF MAINTENANCE SPECIALIST LIVING WILL ON FILE TREATMENT PLAN Date Name Performer Cardiology Faraz Atkinson Cardiology Faraz Atkinson Cardiology Faraz Atkinson Cardiology Faraz Atkinson Cardiology Faraz Atkinson HISTORY OF PROCEDURES Procedure Date Procedure Name Provider Procedure Notes S tatus EKG Fadia Parrish MD completed
--- OUTSIDE RECORDS SUMMARY | 2024-10-22 21:15 | XMS_ITS | Data Portability ---
Author Organization [place] [facility] [place] [email or web address], Main Office Address [address] [place] [address] Care Team Providers Care Rn Acls Name Role Phone CODY FATIMA Primary Care Provider [phone] CODY FATIMA Referring Provider [phone] Assessment Encounter Date Assessment Date Assessment LastModified by Organization Details LastModified Time 07/24/2023 07/24/2023 04/12/2022: A1C 5.3 TSH/FT4/CBC/CMP/U rine micro alb: [facility] 02/20/2023: A1C 4.9 Urine micro alb 30.2 Chol 232, LDL 167 AST 67 CBC: [facility] 07/17/2023: Chol 262, LDL 194 Not available 07/24/2023 15:43:08 09/25/2023 09/25/2023 04/12/2022: A1C 5.3 TSH/FT4/CBC/CMP/U rine micro alb: [facility] 02/20/2023: A1C 4.9 Urine micro alb 30.2 Chol 232, LDL 167 AST 67 CBC: [facility] 07/17/2023: Chol 262, LDL 194 I have reconciled the patient's medications post their discharge from inpatient facility. Not available 09/25/2023 18:01:36 02/05/2024 02/05/2024 04/12/2022: A1C 5.3 TSH/FT4/CBC/CMP/U rine micro alb: [facility] 02/20/2023: A1C 4.9 Urine micro alb 30.2 Chol 232, LDL 167 AST 67 CBC: [facility] 07/17/2023: A1C 5.1 Chol 262, LDL 194 01/31/2024: BUN 20, AST 58 Chol 243, LDL 167 Not available 02/05/2024 16:07:56 03/06/2024 03/06/2024 73-year-old male presents for evaluation of his left hip. He has a history of Alzheimer's and the visit today was conducted with his . She reports that he has been complaining of pain in the hip for about 6 months, worse recently. It is painful with lifting the leg and crossing over. She denies any acute injury. Currently pain is rated 3/10. He has not had any treatments. Review of systems per patient questionnaire. He has a history of CHF and Alzheimer's. He has tenderness palpation around the groin, 0 internal rotation, 30 external rotation, pain in terminal rotation. Flexion to 120. Exam limited by patient cooperation. X-rays of the hip were reviewed, demonstrating moderate osteoarthritis For his hip arthritis, we will begin with a course of conservative management with meloxicam and physical therapy. We discussed the next step would be to consider a cortisone injection of the hip and we would send him a referral to the hospital to get that done. He may follow-up with us as needed after the course of treatment. [email or web address] Not available 03/06/2024 17:55:49 07/17/2024 07/17/2024 04/12/2022: A1C 5.3 TSH/FT4/CBC/CMP/U rine micro alb: [facility] 02/20/2023: A1C 4.9 Urine micro alb 30.2 Chol 232, LDL 167 AST 67 CBC: [facility] 07/17/2023: A1C 5.1 Chol 262, LDL 194 01/31/2024: BUN 20, AST 58 Chol 243, LDL 167 06/18/2024: HGB 13.6 Not available 07/17/2024 12:26:09 Plan of Treatment Reminders Order Date Submit Date Provider Last Modified By Organization Details Last Modified Time Details Appointments None recorded. Lab glycohemogl obin, total, blood 2022 023 [email or web address] Not available 4 09:37:14 microalbumi n, urine 2022 023 [email or web address] Not available 4 09:37:14 lipid panel, serum 2022 023 [email or web address] Not available 4 09:37:14 CMP, serum or plasma 2022 023 [email or web address] Not available 4 09:37:14 CBC w/ auto diff 2022 023 [email or web address] Not available 4 09:37:14 TSH + free T4, serum 2022 023 [email or web address] Not available 4 09:37:15 glycohemogl obin, total, blood 2023 024 [email or web address] Not available 4 09:43:44 microalbumi n, urine 2023 024 AILYN Not available 4 19:18:51 lipid panel, serum 2023 024 AILYN Not available 4 19:18:32 CMP, serum or plasma 2023 024 AILYN Not available 4 19:18:41 CBC w/ auto diff 2023 024 [email or web address] Not available 4 09:43:44 TSH + free T4, serum 2023 024 [email or web address] Not available 4 09:43:29 lipid panel, serum 2023 024 [email or web address] Not available 4 16:28:28 CMP, serum or plasma 2023 024 [email or web address] Not available 4 16:28:28 CBC w/ auto diff 2023 024 [email or web address] Not available 4 16:28:29 TSH + free T4, serum 2023 024 [email or web address] Not available 4 16:28:29 glycohemogl obin, total, blood 2023 024 [email or web address] Not available 4 16:28:28 microalbumi n, urine 2023 024 [email or web address] Not available 4 16:28:28 Referral urologist referral 2022 023 [email or web address] Elinor Bill [employer], [address], [address], [place], [address], 4 16:46:[address] referral 2022 023 [email or web address] Francesco Arreola MD, [address], [address], [place], [address], 4 16:46:50 urologist referral 2023 024 [email or web address] Elinor Bill [employer], [address], [address], [place], [address], 4 08:38:[address] referral 2023 024 [email or web address] Francesco Arreola MD, [address], [address], [place], [address], 4 08:38:57 urologist referral 2023 024 [email or web address] Elinor Bill [employer], [address], [address], [place], [address], 4 16:28:44 orthopedic surgeon referral 2023 024 AILYN Hernández MD, [address] [place], [address], 4 18:16:23 gastroenter ologist referral 2023 024 [email or web address] Kelley Barrera MD, [address], [place], [address], 4 12:25:[address] referral 2023 024 [email or web address] Francesco Arreola MD, [address] [facility] [address], [place], [address], 4 16:28:42 physical therapist referral - EVAL AND TREAT 2023 024 [email or web address] [facility], [address], [place], [address], 4 16:53:06 Procedures None recorded. Surgeries None recorded. Imaging XR, hip + pelvis, unilateral 2023 024 [facility], [address], [place], [address], 18:39:55 Medication Orders Mobic 15 mg tablet 2023 024 [email or web address] [id number], [address], [id number], 4 16:53:06 ciprofloxac in 500 mg tablet 2023 024 [facility], [address], [place], [id number], 4 12:04:29 meloxicam 7.5 mg tablet 2023 024 [facility], [address], [place], [id number], 12:04:29 Patient TargetsNo targets recorded. Patient Instructions Encounter Date Encounter Id Patient Instructions Last Modified By Organization Details Last Modified Time 09/25/2023 [id number] Thank you for yo ur visit to our office today. We would like to request that you reach out to your referring or previous provider and request that they send us a Summary of Care in electronic form, so that we may have it on file in your medical record. At your visit, we had the medical records we needed to provide you with the best possible care; however, for insurance purposes, an electronic Summary of Care is beneficial. Thank you for your assistance in obtaining this information and we look forward to providing continued care to you. Please review your medication list from the Summary of Care for this visit. If there are any differences from what you are currently taking at home, please call us to discuss. Not available 09/25/2023 18:01:37 Homebound Status : {{Patient has an inability to leave the home without a taxing effort and assistance from another person* Does not meet homebound status}} Required Home Health Services: {{none* retirement, physical therapy, occupational therapy retirement, physical therapy retirement}} Durable Medical Equipment needed: {{cane walker walke r with seat manual wheelchair bedside commode oxygen}} Billing Guidelines CPT code 87080- Transitional Care Management services with moderate medical decision complexity ([id number]-[id number] visit within 14 days of discharge). CPT code 81965- Transitional Care Management services with high medical decision complexity ([id number]-ny-[id number] visit within 7 days of discharge). [email or web address] Not available 09/25/2023 18:43:49 02/05/2024 [id number] dementia rating scale-2* [email or web address] Not available 02/05/2024 17:51:58 alcohol misuse* [email or web address] Not available 02/05/2024 18:06:38 Timed Up and Go test (TUG)* [email or web address] Not available 02/05/2024 18:06:38 depression screening* [email or web address] Not available 02/06/2024 13:58:44 multi-dimensiona l health assessment questionnaire* [email or web address] Not available 02/05/2024 17:51:18 Personalized Hea lth Plan and Screening Recommendations Advance Directives - Do you have one? Yes Advance Directives - Do we have your advance directive on file in your health record? No, please bring in a copy at your earliest convenience Primary Prevention/Interven tion (prevents or decreases the chance of common diseases from occurring) Smoking Risk: Non Smoker Alcohol Misuse Screening: Negative Weight: Appropriate Overwei ght continue your current weight loss efforts try to lose 5% of your body weight try to lose 10% of your body weight Physical activity: Need more exercise/physical activity decrease sitting time to no more than 5hr/day Nutrition: Good Average Refer to attached handout Heart-Healthy Diet: After Your Visit Fall Risk (screened today): High Refer to attached handout Preventing Falls: After your Visit Vaccines Pneumococcal: Ordered Recommended today Recommended today, but you have declined Influenza: Your next one in the fall of this year Chronic Disease Risks Stroke: Low Risk Intermediate Risk I have no recommendations Heart Attack: Low risk Intermediate Risk I have no recommendations Clogging of the Arteries: Low risk Intermediate Risk I have no recommendations Act enriqueta diagnosis, Continue current treatment plan Diabetes: High Risk Active diagnosis, Continue current treatment plan Secondary Prevention/Interven tion (detects treatable diseases before they may cause symptoms, disability, or ) Prostate Cancer Screening: No PSA screening necessary Colon Cancer Screening: No screening necessary Date Screening Last Performed: Eye Disease Screening: No Eye exam necessary Dementia Risk: High Depression Screening: Not applicable [email or web address] Not available 02/05/2024 17:56:03 Reason for Referral Urologist Referral for Urina ry incontinence Referring Physician: Nupur Moon Medicine, Encounter Date: 07/24/2023 Car Shakeout Operator Referral for S kin lesion Referring Physician: Nupur Moon, Encounter Date: 07/24/2023 Car Shakeout Operator Referral for S kin lesion Referring Physician: Nupur Moon, Encounter Date: 09/25/2023 Urologist Referral for Renal cell carcinoma Referring Physician: Nupur Moon, Encounter Date: 09/25/2023 Car Shakeout Operator Referral for S kin lesion Referring Physician: Nupur Moon, Encounter Date: 02/05/2024 Urologist Referral for Renal cell carcinoma Referring Physician: Nupur Moon, Encounter Date: 02/05/2024 Java Solutions Architect Referral for Liver enzymes level above reference range Referring Physician: Cody Fatima, Internal Medicine, Encounter Date: 02/05/2024 Orthopedic Surgeon Referral for Pain of left hip joint Referring Physician: Cody Fatima, Internal Medicine, Encounter Date: 02/05/2024 Physical Therapist Referral for Pain of left hip joint EVAL AND TREAT Referring Physician: Vincent Hernández, Orthopedic Surgery, Encounter Date: 03/06/2024 Results Created Date Observation Date Name Description Value Unit Range Abnormal Flag Note LastModifiedBy Organization Detail LastModifiedTime 07/17/2007/17/2023 CBC/C OMPLE TE BLD COUNT W/DIF F white blood cells 6.7 x10'3 /uL 4.2-10 .8 Not Available [facility] (Lab) [address] [place], [address], 07/17/2023 18:30:46 07/17/2007/17/2023 CBC/C OMPLE TE BLD COUNT W/DIF F red blood cells 4.84 x10'6 /uL 4.10-5 .80 Not Available [facility] (Lab) [address] [place], [address], 07/17/2023 18:30:46 07/17/2007/17/2023 CBC/C OMPLE TE BLD COUNT W/DIF F hemoglobin 14.6 g/dL 13.2-1 7.0 Not Available [facility] (Lab) [address] [place], [address], 07/17/2023 18:30:46 07/17/2007/17/2023 CBC/C OMPLE TE BLD COUNT W/DIF F hematocrit 44.1 % 39.3-5 0.0 Not Available [facility] (Lab) [address] [place], [address], 07/17/2023 18:30:46 07/17/2007/17/2023 CBC/C OMPLE TE BLD COUNT W/DIF F mean red cell volume 91.1 fL 80.0-9 7.0 Not Available [facility] (Lab) [address] [place], [address], 07/17/2023 18:30:46 07/17/20 23 07/17/2023 CBC/C OMPLE TE BLD COUNT W/DIF F mean red cell hemoglobin 30.2 pg 27.0-3 3.0 Not Available [facility] (Lab) [address] [place], [address], 07/17/2023 18:30:46 07/17/2007/17/2023 CBC/C OMPLE TE BLD COUNT W/DIF F mean RBC HGB concentratio n 33.1 g/dL 31.0-3 6.0 Not Available [facility] (Lab) [address] [place], [address], 07/17/2023 18:30:46 07/17/20 23 07/17/2023 CBC/C OMPLE TE BLD COUNT W/DIF F red cell distribution width 12.4 % 11.8-1 5.5 Not Available [facility] (Lab) [address] [place], [address], 07/17/2023 18:30:46 07/17/20 23 07/17/2023 CBC/C OMPLE TE BLD COUNT W/DIF F platelets 163 x10'3 /uL 150-40 0 Not Available [facility] (Lab) [address] [place], [address], 07/17/2023 18:30:46 07/17/20 23 07/17/2023 CBC/C OMPLE TE BLD COUNT W/DIF F mean platelet volume 11.4 fL 9.0-12 .4 Not Available [facility] (Lab) [address] [place], [address], 07/17/2023 18:30:46 07/17/20 23 07/17/2023 CBC/C OMPLE TE BLD COUNT W/DIF F neutrophils 73.4 % 39.0-7 2.0 high Not Available [facility] (Lab) [address] [place], [address], 07/17/2023 18:30:46 07/17/2007/17/2023 CBC/C OMPLE TE BLD COUNT W/DIF F lymphocytes 16.8 % 16.0-4 7.0 Not Available [facility] (Lab) [address] [place], [address], 07/17/2023 18:30:46 07/17/20 23 07/17/2023 CBC/C OMPLE TE BLD COUNT W/DIF F monocytes 7.4 % 5.0-12 .0 Not Available [facility] (Lab) [address] [place], [address], 07/17/2023 18:30:46 07/17/20 23 07/17/2023 CBC/C OMPLE TE BLD COUNT W/DIF F eosinophils 1.9 % 1.0-7. 0 Not Available [facility] (Lab) [address] [place], [address], 07/17/2023 18:30:46 07/17/2007/17/2023 CBC/C OMPLE TE BLD COUNT W/DIF F basophils 0.4 % 0.0-2. 0 Not Available [facility] (Lab) [address] [place], [address], 07/17/2023 18:30:46 07/17/20 23 07/17/2023 CBC/C OMPLE TE BLD COUNT W/DIF F immature granulocytes 0.1 % 0.00-0 .50 Not Available [facility] (Lab) [address] [place], [address], 07/17/2023 18:30:46 07/17/20 23 07/17/2023 CBC/C OMPLE TE BLD COUNT W/DIF F neutrophils, absolute count 4.93 x10'3 /uL 1.5-8. 0 Not Available [facility] (Lab) [address] [place], [address], 07/17/2023 18:30:46 07/17/20 23 07/17/2023 CBC/C OMPLE TE BLD COUNT W/DIF F lymphocytes, absolute count 1.13 x10'3 /uL 1.07-3 .43 Not Available [facility] (Lab) [address] [place], [address], 07/17/2023 18:30:46 07/17/20 23 07/17/2023 CBC/C OMPLE TE BLD COUNT W/DIF F monocytes, absolute count 0.50 x10'3 /uL 0.29-0 .99 Not Available [facility] (Lab) [address] [place], [address], 07/17/2023 18:30:46 07/17/20 23 07/17/2023 CBC/C OMPLE TE BLD COUNT W/DIF F eosinophils, absolute count 0.13 x10'3 /uL 0.02-0 .53 Not Available [facility] (Lab) [address] [place], [address], 07/17/2023 18:30:46 07/17/2007/17/2023 CBC/C OMPLE TE BLD COUNT W/DIF F basophils, absolute count 0.03 x10'3 /uL 0.01-0 .08 Not Available [facility] (Lab) [address] [place], [address], 07/17/2023 18:30:46 07/17/20 23 07/17/2023 CBC/C OMPLE TE BLD COUNT W/DIF F immature granulocytes ,absolute 0.01 x10'3 /uL 0.00-0 .05 Not Available [facility] (Lab) [address] [place], [address], 07/17/2023 18:30:46 07/17/20 23 07/17/2023 CBC/C OMPLE TE BLD COUNT W/DIF F nucleated red blood cells 0.0 % -0 Not Available [facility] (Lab) [address] [place], [address], 07/17/2023 18:30:46 07/17/20 23 07/17/2023 CBC/C OMPLE TE BLD COUNT W/DIF F NRBC# 0.00 x10'3 /uL Not Available [facility] (Lab) [address] [place], [address], 07/17/2023 18:30:46 07/17/20 23 07/17/2023 LIPID PANEL cholesterol 262 mg/dL 140-19 9 high NIH SHANE NSUS RECOM MENDA TION FOR QUIANA STERO L: ADULT CHILD LOW RISK: <200 <170 BORDE RLINE : <200- 239 ----- HIGH RISK: >240 >200 Not Available [facility] (Lab) [address] [place], [address], 07/17/2023 20:06:05 07/17/20 23 07/17/2023 LIPID PANEL triglyceride s 106 mg/dL 0-150 NIH SAHNE NSUS REPOR T RECOM MENDA TION FOR TRIGL YCERI TEZ: ADULT CHILD LOW RISK: <150 ----- BODER LINE: 150-1 99 ----- HIGH RISK: >200 ----- Not Available [facility] (Lab) [address] [place], [address], 07/17/2023 20:06:05 07/17/20 23 07/17/2023 LIPID PANEL HDL cholesterol 47 mg/dL 40- Not Available [facility] (Lab) [address] [place], [address], 07/17/2023 20:06:05 07/17/20 23 07/17/2023 LIPID PANEL LDL cholesterol, calculated 194 mg/dL 0-130 high NIH SHANE NSUS REPOR T RECOM MENDA TIONS FOR LDL: ADULT CHILD LOW RISK <130 <110 (OPTI MAL LDL) <100 ----- BORDE RLINE : 130-1 59 ----- HIGH RISK: >160 >130 A TRIGL YCERI DE RESUL T >400 INVAL IDATE S THE CALCU LATIO N FOR LDL FRACT IONAT ION - THE LDL RESUL T WILL NOT BE REPOR ARNULFO. Not Available [facility] (Lab) [address] [place], [address], 07/17/2023 20:06:05 07/17/20 23 07/17/2023 COMPR EHENS ENRIQUETA METAB OLIC PANEL sodium 138 mmol/ L 137-14 5 Not Available [facility] (Lab) [address] [place], [address], 07/17/2023 20:06:11 07/17/20 23 07/17/2023 COMPR EHENS ENRIQUETA METAB OLIC PANEL potassium 4.2 mmol/ L 3.5-5. 1 Not Available [facility] (Lab) [address] [place], [address], 07/17/2023 20:06:11 07/17/20 23 07/17/2023 COMPR EHENS ENRIQUETA METAB OLIC PANEL chloride 103 mmol/ L 98-107 Not Available [facility] (Lab) [address] [place], [address], 07/17/2023 20:06:11 07/17/20 23 07/17/2023 COMPR EHENS ENRIQUETA METAB OLIC PANEL carbon dioxide 29 mmol/ L 22-30 Not Available [facility] (Lab) [address] [place], [address], 07/17/2023 20:06:11 07/17/20 23 07/17/2023 COMPR EHENS ENRIQUETA METAB OLIC PANEL anion gap 10.2 mmol/ L 14-22 low Not Available [facility] (Lab) [address] [place], [address], 07/17/2023 20:06:11 07/17/20 23 07/17/2023 COMPR EHENS ENRIQUETA METAB OLIC PANEL glucose 88 mg/dL 70-99 Not Available [facility] (Lab) [address] [place], [address], 07/17/2023 20:06:11 07/17/20 23 07/17/2023 COMPR EHENS ENRIQUETA METAB OLIC PANEL BUN 14 mg/dL 8-19 Not Available [facility] (Lab) [address] [place], [address], 07/17/2023 20:06:11 07/17/20 23 07/17/2023 COMPR EHENS ENRIQUETA METAB OLIC PANEL creatinine 0.90 mg/dL 0.66-1 .25 Not Available [facility] (Lab) [address] [place], [address], 07/17/2023 20:06:11 07/17/2007/17/2023 COMPR EHENS ENRIQUETA METAB OLIC PANEL GFR >60 Refer ence Range : [place] ge GFR Healt hy Adult : >60 mL/mi n/1.7 3 m2 Chron ic Kidne y Disea se: 15-60 mL/mi n/1.7 3 m2 Kidne y Failu re: <15/m L/min /1.73 m2 www.n iddk. nih.g ov The MDRD study equat ion has not been valid ated in child shanel <18 years of age; pregn ant women ; the elder ly >85 years of age; or in some racia l or ethni c subgr oups, such as Hispa nics. Outsi de the valid ated renaldo eters , estim ated GFR is less accur ate, requi ring clini kitty judgm ent on a case- by-ca se basis . Clini kitty inter preta tion for other races and ages must be made by the clini sylvia. The MDRD study equat ion has not been valid ated for the evalu ation of serum creat inine relat ed to nutri larry l statu s or medic ation usage . For perso ns <18 years of age, a pedia tric GFR calcu lator is avail able on the [facility] websi te: https ://ww w.kid kareem.o rg/pr ofess ional s/kdo qi/gf r_cal culat or Not Available [facility] (Lab) [address] [place], [address], 07/17/2023 20:06:11 07/17/2007/17/2023 COMPR EHENS ENRIQUETA METAB OLIC PANEL alkaline phosphatase 46 U/L 38-126 Not Available [facility] (Lab) [address] [place], [address], 07/17/2023 20:06:11 07/17/20 23 07/17/2023 COMPR EHENS ENRIQUETA METAB OLIC PANEL alanine aminotransfe rase 26 U/L 0-50 Not Available [facility] (Lab) [address] [place], [address], 07/17/2023 20:06:11 07/17/20 23 07/17/2023 COMPR EHENS ENRIQUETA METAB OLIC PANEL aspartate aminotransfe rase 27 U/L 15-46 Not Available [facility] (Lab) [address] [place], [address], 07/17/2023 20:06:11 07/17/20 23 07/17/2023 COMPR EHENS ENRIQUETA METAB OLIC PANEL bilirubin, total 1.00 mg/dL 0.20-1 .30 Not Available [facility] (Lab) [address] [place], [address], 07/17/2023 20:06:11 07/17/20 23 07/17/2023 COMPR EHENS ENRIQUETA METAB OLIC PANEL calcium 9.7 mg/dL 8.4-10 .2 Not Available [facility] (Lab) [address] [place], [address], 07/17/2023 20:06:11 07/17/20 23 07/17/2023 COMPR EHENS ENRIQUETA METAB OLIC PANEL total protein 7.3 g/dL 6.3-8. 2 Not Available [facility] (Lab) [address] [place], [address], 07/17/2023 20:06:11 07/17/20 23 07/17/2023 COMPR EHENS ENRIQUETA METAB OLIC PANEL albumin 4.4 g/dL 3.0-4. 4 Not Available [facility] (Lab) [address] [place], [address], 07/17/2023 20:06:11 07/17/20 23 07/17/2023 COMPR EHENS ENRIQUETA METAB OLIC PANEL globulin 2.9 g/dL 2.6-4. 2 Not Available [facility] (Lab) [address] [place], [address], 07/17/2023 20:06:11 07/17/20 23 07/17/2023 COMPR EHENS ENRIQUETA METAB OLIC PANEL A/G ratio 1.5 ratio 1.0-2. 0 Not Available [facility] (Lab) [address] [place], [address], 07/17/2023 20:06:11 07/17/20 23 07/17/2023 MICRO ALBUM IN RANDO M URINE microalbumin , urine 11.7 mg/L 0.0-16 .6 Not Available [facility] (Lab) [address] [place], [address], 07/17/2023 20:06:36 07/17/20 23 07/17/2023 T4 FREE free T4 1.16 NG/dL 0.78-2 .19 Not Available [facility] (Lab) [address] [place], [address], 07/17/2023 20:12:20 07/17/20 23 07/17/2023 TSH thyroid-stim ulating hormone 0.667 uIU/m L 0.465- 4.680 Not Available [facility] (Lab) [address] [place], [address], 07/17/2023 20:25:34 07/17/20 23 07/17/2023 HEMOG LOBIN A1C HA1C 5.1 % 4.0-6. 0 Diabe barby Scree barbra Crite andrade: <5.7% Consi stent with absen ce of diabe barby 5.7-6 .4% Consi stent with incre ased risk for diabe barby (pred iabet es) >OR=6 .5% Consi stent with diabe barby REFER ENCE: Diabe barby Care 2016, 39(Alicea ppl.1 ):s13 -s22 Not Available [facility] (Lab) [address] [place], [address], 07/17/2023 20:43:47 01/30/20 24 01/30/2024 TEST NOT PERFO RMED test not performed SEE COMMEN T UNABL E TO PERFO RM HA1C AND CBC DUE TO CLOT IN PURPL E TOP TUB E. Not Available [facility] (Lab) [address] [place], [address], 01/30/2024 22:44:24 01/31/20 24 01/31/2024 LIPID PANEL cholesterol 243 mg/dL 140-19 9 high NIH SHANE NSUS RECOM MENDA TION FOR QUIANA STERO L: ADULT CHILD LOW RISK: <200 <170 BORDE RLINE : <200- 239 ----- HIGH RISK: >240 >200 Not Available [facility] (Lab) [address] [place], [address], 01/31/2024 19:18:31 01/31/20 24 01/31/2024 LIPID PANEL triglyceride s 138 mg/dL 0-150 NIH SHANE NSUS REPOR T RECOM MENDA TION FOR TRIGL YCERI TEZ: ADULT CHILD LOW RISK: <150 ----- BODER LINE: 150-1 99 ----- HIGH RISK: >200 ----- Not Available [facility] (Lab) [address] [place], [address], 01/31/2024 19:18:31 01/31/20 24 01/31/2024 LIPID PANEL HDL cholesterol 48 mg/dL 40- Not Available [facility] (Lab) [address] [place], [address], 01/31/2024 19:18:31 01/31/20 24 01/31/2024 LIPID PANEL LDL cholesterol, calculated 167 mg/dL 0-130 high NIH SHANE NSUS REPOR T RECOM MENDA TIONS FOR LDL: ADULT CHILD LOW RISK <130 <110 (OPTI MAL LDL) <100 ----- BORDE RLINE : 130-1 59 ----- HIGH RISK: >160 >130 A TRIGL YCERI DE RESUL T >400 INVAL IDATE S THE CALCU LATIO N FOR LDL FRACT IONAT ION - THE LDL RESUL T WILL NOT BE REPOR ARNULFO. Not Available [facility] (Lab) [address] [place], [address], 01/31/2024 19:18:31 01/31/20 24 01/31/2024 COMPR EHENS ENRIQUETA METAB OLIC PANEL sodium 140 mmol/ L 137-14 5 Not Available [facility] (Lab) [address] [place], [address], 01/31/2024 19:18:41 01/31/20 24 01/31/2024 COMPR EHENS ENRIQUETA METAB OLIC PANEL potassium 3.7 mmol/ L 3.5-5. 1 Not Available [facility] (Lab) [address] [place], [address], 01/31/2024 19:18:41 01/31/20 24 01/31/2024 COMPR EHENS ENRIQUETA METAB OLIC PANEL chloride 105 mmol/ L 98-107 Not Available [facility] (Lab) [address] [place], [address], 01/31/2024 19:18:41 01/31/20 24 01/31/2024 COMPR EHENS ENRIQUETA METAB OLIC PANEL carbon dioxide 25 mmol/ L 22-30 Not Available [facility] (Lab) [address] [place], [address], 01/31/2024 19:18:41 01/31/20 24 01/31/2024 COMPR EHENS NERIQUETA METAB OLIC PANEL anion gap 13.7 mmol/ L 14-22 low Not Available [facility] (Lab) [address] [place], [address], 01/31/2024 19:18:41 01/31/20 24 01/31/2024 COMPR EHENS ENRIQUETA METAB OLIC PANEL glucose 87 mg/dL 70-99 Not Available [facility] (Lab) [address] [place], [address], 01/31/2024 19:18:41 01/31/20 24 01/31/2024 COMPR EHENS ENRIQUETA METAB OLIC PANEL BUN 20 mg/dL 8-19 high Not Available [facility] (Lab) [address] [place], [address], 01/31/2024 19:18:41 01/31/20 24 01/31/2024 COMPR EHENS ENRIQUETA METAB OLIC PANEL creatinine 1.09 mg/dL 0.66-1 .25 Not Available [facility] (Lab) [address] [place], [address], 01/31/2024 19:18:41 01/31/20 24 01/31/2024 COMPR EHENS ENRIQUETA METAB OLIC PANEL GFR >60 Refer ence Range : [place] ge GFR Healt hy Adult : >60 mL/mi n/1.7 3 m2 Chron ic Kidne y Disea se: 15-60 mL/mi n/1.7 3 m2 Kidne y Failu re: <15/m L/min /1.73 m2 www.n iddk. nih.g ov The MDRD study equat ion has not been valid ated in child shanel <18 years of age; pregn ant women ; the elder ly >85 years of age; or in some racia l or ethni c subgr oups, such as Hispa nics. Outsi de the valid ated renaldo eters , estim ated GFR is less accur ate, requi ring clini kitty judgm ent on a case- by-ca se basis . Clini kitty inter preta tion for other races and ages must be made by the clini sylvia. The MDRD study equat ion has not been valid ated for the evalu ation of serum creat inine relat ed to nutri larry l statu s or medic ation usage . For perso ns <18 years of age, a pedia tric GFR calcu lator is avail able on the [facility] websi te: https ://fabiola w.kid kareem.o rg/pr ofess ional s/kdo qi/gf r_cal culat or Not Available [facility] (Lab) [address] [place], [address], 01/31/2024 19:18:41 01/31/20 24 01/31/2024 COMPR EHENS ENRIQUETA METAB OLIC PANEL alkaline phosphatase 47 U/L 38-126 Not Available [facility] (Lab) [address] [place], [address], 01/31/2024 19:18:41 01/31/20 24 01/31/2024 COMPR EHENS ENRIQUETA METAB OLIC PANEL alanine aminotransfe rase 34 U/L 0-50 Not Available [facility] (Lab) [address] [place], [address], 01/31/2024 19:18:41 01/31/20 24 01/31/2024 COMPR EHENS ENRIQUETA METAB OLIC PANEL aspartate aminotransfe rase 58 U/L 15-46 high Not Available [facility] (Lab) [address] [place], [address], 01/31/2024 19:18:41 01/31/20 24 01/31/2024 COMPR EHENS ENRIQUETA METAB OLIC PANEL bilirubin, total 1.20 mg/dL 0.20-1 .30 Not Available [facility] (Lab) [address] [place], [address], 01/31/2024 19:18:41 01/31/20 24 01/31/2024 COMPR EHENS ENRIQUETA METAB OLIC PANEL calcium 9.4 mg/dL 8.4-10 .2 Not Available [facility] (Lab) [address] [place], [address], 01/31/2024 19:18:41 01/31/20 24 01/31/2024 COMPR EHENS ENRIQUETA METAB OLIC PANEL total protein 7.6 g/dL 6.3-8. 2 Not Available [facility] (Lab) [address] [place], [address], 01/31/2024 19:18:41 01/31/20 24 01/31/2024 COMPR EHENS ENRIQUETA METAB OLIC PANEL albumin 4.3 g/dL 3.0-4. 4 Not Available [facility] (Lab) [address] [place], [address], 01/31/2024 19:18:41 01/31/20 24 01/31/2024 COMPR EHENS ENRIQUETA METAB OLIC PANEL globulin 3.3 g/dL 2.6-4. 2 Not Available [facility] (Lab) [address] [place], [address], 01/31/2024 19:18:41 01/31/20 24 01/31/2024 COMPR EHENS ENRIQUETA METAB OLIC PANEL A/G ratio 1.3 ratio 1.0-2. 0 Not Available [facility] (Lab) [address] [place], [address], 01/31/2024 19:18:41 01/31/20 24 01/31/2024 MICRO ALBUM IN RANDO M URINE microalbumin , urine 6.6 mg/L 0.0-16 .6 Not Available [facility] (Lab) [address] [place], [address], 01/31/2024 19:18:51 01/31/20 24 01/31/2024 T4 FREE free T4 1.12 NG/dL 0.78-2 .19 Not Available [facility] (Lab) [address] [place], [address], 01/31/2024 19:38:07 01/31/20 24 01/31/2024 TSH thyroid-stim ulating hormone 0.948 uIU/m L 0.465- 4.680 Not Available [facility] (Lab) [address] [place], [address], 01/31/2024 19:50:19 10/16/19 24 09/15/2023 CT, abdom en + pelvi s, w/ contr ast No observ ation record ed. BARCODE Not Available 2023 17:23:34 01/29/20 24 01/29/2024 US, renal No observ ation record ed. [email or web address] [address], [address], 07/25/2024 09:14:16 03/06/20 24 XR, hip + pelvi s, unila teral No observ ation record ed. [email or web address] [facility] [place] [address], [place], [address], 03/06/2024 14:43:06 05/07/20 24 05/07/2024 XR, shoul chante No observ ation record ed. [email or web address] [place] [address] [address], [place], [address], 07/25/2024 09:29:57 05/07/20 24 05/07/2024 CT, brain , w/o contr ast No observ ation record ed. [address], [place], [address], 07/25/2024 09:30:09 05/07/20 24 05/07/2024 CT, abdom en, w/o contr ast No observ ation record ed. [address], [place], [address], 07/25/2024 09:30:25 05/07/20 24 05/07/2024 CT, cervi kitty spine , w/o contr ast No observ ation record ed. [address], [place], [address], 07/25/2024 09:30:44 07/26/20 24 07/25/2024 US, liver No observ ation record ed. [place] [id number] [facility] [address], [place], [address], 09/12/2024 09:03:32 07/26/20 24 07/25/2024 US, liver No observ ation record ed. [place] [id number] [facility] [address] [facility] [facility] [facility] [address], [place], [address], 09/12/2024 09:03:46 08/03/20 24 08/03/2024 XR, chest No observ ation record ed. [address], [place], [address], 09/12/2024 09:05:27 08/03/20 24 08/03/2024 imagi ng/di agnos tic resul t No observ ation record ed. [address], [place], [address], 09/12/2024 09:06:06 08/04/20 24 08/04/2024 imagi ng/di agnos tic resul t No observ ation record ed. [place] [address], [place], [address], 09/12/2024 09:08:00 08/04/20 24 08/04/2024 MRI, brain + brain stem, w/wo contr ast No observ ation record ed. [place] [address], [place], [address], 09/12/2024 09:08:38 08/05/20 24 08/04/2024 US, duple x, carot id arter y No observ ation record ed. [place] [address], [place], [address], 09/12/2024 09:08:55 08/05/20 24 08/05/2024 imagi ng/di agnos tic resul t No observ ation record ed. [place] [address], [place], [address], 09/12/2024 09:09:10 08/08/20 24 08/08/2024 XR, chest No observ ation record ed. [place] [address], [place], [address], 09/12/2024 09:10:32 08/09/20 24 08/09/2024 XR, abdom en No observ ation record ed. [place] [address], [place], [address], 09/12/2024 09:10:59 08/10/20 24 08/10/2024 XR, chest No observ ation record ed. [place] [address], [place], [address], 09/12/2024 09:11:10 08/11/20 24 08/11/2024 XR, abdom en No observ ation record ed. [address], [place], [address], 09/12/2024 09:11:27 08/12/20 24 08/12/2024 XR, shoul chante No observ ation record ed. [address], [place], [address], 09/12/2024 09:11:58 08/12/20 24 08/12/2024 CT, shoul chante, w/o contr ast No observ ation record ed. [address], [place], [address], 09/12/2024 09:12:21 08/14/20 24 08/14/2024 abi rooney ow study No observ ation record ed. [address], [place], [address], 09/12/2024 09:15:49 08/18/20 24 08/18/2024 XR, abdom en No observ ation record ed. [address], [place], [address], 09/12/2024 09:16:44 08/24/20 24 08/24/2024 XR, chest No observ ation record ed. [address], [place], [address], 09/12/2024 09:27:12 Result Notes None recorded. Problems Name Problem SNOMED Code Status Onset Date Resolution Date Notes Provider Name and Address Organization Details Recorded Time Dementia 06216763 Active 2021 Not Available [facility] 3 05:08:00 Coronary arterioscl erosis 81764805 Active 2021 Not Available [facility] 3 05:08:00 Hyperlipid emia 71507303 Active 2021 Not Available [facility] 3 05:08:00 Essential hypertensi on 33342038 Active 2021 Not Available [facility] 3 05:08:00 Obstructiv e sleep apnea syndrome 51508716 Active 2021 Not Available [facility] 3 05:08:00 Hyperglyce kusum 21464103 Active 2022 Billie Beckford, RMA null, [facility] 3 15:06:42 Hyperprote inemia 45121314 Active 2022 Cody weiss MD [address], [place], [address] , [facility] 3 15:07:41 Skin lesion 69888450 Active 2022 Cody weiss MD [address], [place], [address] , [facility] [employer] [facility] 3 15:07:47 Candidal balanitis 76273754 Active 2022 Cody weiss MD [address], [place], [address] , [employer] [facility] 3 15:07:55 Proteinuri a 84615544 Active 2022 Cody weiss MD [address], [place], [address] , [facility] [employer] [facility] 3 15:13:09 Liver enzymes level above reference range 631708319 Active 2022 Cody weiss MD [address], [place], [address] , [facility] [employer] [facility] 3 15:14:25 Urinary incontinen ce 611852309 Active 2022 Cody weiss MD [address], [place], [address] , [facility] [employer] [facility] 3 15:15:16 Non-alcoho lic fatty liver 831610763 Active 2022 Nadia tam, [facility] 3 16:41:43 Eruption 348273526 Active 2022 Nadia tam, [facility] 3 14:02:08 Acute urinary tract infection 732945030 Active 2022 Nadia tam, [facility] 3 09:40:07 Renal cell carcinoma 145489384 Active 2023 Cody weiss MD [address], [place], [address] , [facility] 4 18:28:15 Pain of left hip joint 9484808078404 00 Active 2023 Cody weiss MD [address], [place], [address] , [facility] 4 16:24:55 Cerebrovas cular accident 710142844 Active 2023 Cody weiss MD [address], [place], [address] , [facility] 4 20:38:33 Problem Notes None recorded. Procedures Surgical History Date Name Laterality Status Provider Name and Address Organization Details Recorded Time Medicare Wellness CPT Code, subsequent completed Jeremie Quintero LPN [facility] 02/01/2024 17:13:15 Cardiac Cath completed Not Available [facility] 11/16/2022 05:00:09 Imaging Results Imaging Date Name Status LastModified by Organiz ation Details LastModified Time 09/15/2023 CT, abdomen + pelvis, w/ contrast completed [facility] Information not available 10/16/2023 17:23:34 01/29/2024 US, renal completed jose Odelli ng [address], [place], [address], 07/25/2024 09:14:16 03/06/2024 XR, hip + pelvis, unilateral completed [email or web address] [facility] [place] [address], [place], [address], 03/06/2024 14:43:06 05/07/2024 XR, shoulder completed [address], [place], [address], 07/25/2024 09:29:57 05/07/2024 CT, brain, w/o contrast completed [address], [place], [address], 07/25/2024 09:30:09 05/07/2024 CT, abdomen, w/o contrast completed [address], [place], [address], 07/25/2024 09:30:25 05/07/2024 CT, cervical spine, w/o contrast completed [address], [place], [address], 07/25/2024 09:30:44 07/25/2024 US, liver [facility] [address] [place] [address] [address], [place], [address], 09/12/2024 09:03:32 07/25/2024 US, liver completed [place] [id number] [facility] [address] [place] [address] [address], [place], [address], 09/12/2024 09:03:46 08/03/2024 XR, chest completed [address], [place], [address], 09/12/2024 09:05:27 08/03/2024 imaging/diagnos tic result completed [address], [place], [address], 09/12/2024 09:06:06 08/04/2024 imaging/diagnos tic result completed [address], [place], [address], 09/12/2024 09:08:00 08/04/2024 MRI, brain + brain stem, w/wo contrast completed [address], [place], [address], 09/12/2024 09:08:38 08/04/2024 US, duplex, carotid artery completed [address] [facility], [place], [address], 09/12/2024 09:08:55 08/05/2024 imaging/diagnos tic result completed [address] [facility], [place], [address], 09/12/2024 09:09:10 08/08/2024 XR, chest completed [address] [facility], [place], [address], 09/12/2024 09:10:32 08/09/2024 XR, abdomen completed [address] [place] [address], [address], 09/12/2024 09:10:59 08/10/2024 XR, chest completed [address] [facility], [place], [address], 09/12/2024 09:11:10 08/11/2024 XR, abdomen completed [address] [place] [address], [address], 09/12/2024 09:11:27 08/12/2024 XR, shoulder completed [address] [place] [address], [address], 09/12/2024 09:11:58 08/12/2024 CT, shoulder, w/o contrast completed [address] [place] [address], [address], 09/12/2024 09:12:21 08/14/2024 barium swallow study completed [address] [facility], [place], [address], 09/12/2024 09:15:49 08/18/2024 XR, abdomen completed [address], [address], 09/12/2024 09:16:44 08/24/2024 XR, chest completed [address] [facility], [place], [address], 09/12/2024 09:27:12 Procedure Notes None recorded. Medical Equipment None Reported. Allergies Allergen ID Allergen Name Allergen Category Reaction Reaction Severity Criticality Documentation Date Start Date Code Code System Note Provider Name and Address Organization Details Recorded Time 9325 Substance with sulfonami de structure and antibacte rial mechanism of action (substanc e) medicatio n Not available Not available Not available 11/16/2022 84659 8003 SNOMED Not Available [facility] 3 05:15:13 Medications Name Sig Start Date Stop Date Status Note LastModified by Organization Details LastModified Time fluconazo le 100 mg tablet TAKE 1 TABLET BY MOUTH DAILY 04/18 completed Not Available Not Available Not Available carvedilo l 6.25 mg tablet TAKE 1 TABLET BY MOUTH TWICE DAILY WITH THE MORNING AND EVENING MEAL active Not Available Not Available No t Available donepezil 5 mg tablet TK 1 T PO QD active Not Available Not Available No t Available trazodone 50 mg tablet TAKE 1 TABLET BY MOUTH EVERY DAY AT BEDTIME 07/24 completed Not Available Not Available Not Available donepezil 10 mg tablet TAKE 1 TABLET BY MOUTH DAILY AT BEDTIME active Not Available Not Available No t Available ciproflox acin 500 mg tablet TAKE 1 TABLET BY MOUTH TWICE DAILY FOR 7 DAYS active Not Available Not Available No t Available triamcino lone acetonide 0.1 % topical cream APPLY THIN LAYER TO THE AFFECTED AREA UP TO TWICE DAILY NEEDED active Not Available Not Available No t Available fluticaso ne propionat e 0.005 % topical ointment APPLY TO RED AREAS ON PENIS TWICE DAILY UNTIL CLEAR. RUB IN WELL. 09/25 completed Not Available Not Available Not Available nystatin- triamcino lone 100,000 unit/gram -0.1 % topical ointment APPLY THIN LAYER TOPICALL Y TO THE AFFECTED AREA TWICE DAILY NEEDED active Not Available Not Available No t Available meloxicam 7.5 mg tablet TAKE 1 TABLET BY MOUTH EVERY DAY WITH FOOD NEEDED FOR 30 DAYS active Not Available Not Available No t Available Mobic 15 mg tablet Take 1 tablet every day by oral route. 2023 active Not Available Not Available Not Avai lable pravastat in 10 mg tablet TAKE 1 TABLET BY MOUTH AT BEDTIME 02/27 completed stopped med by Not Available Not Available Not Available nystatin 100,000 unit/gram topical cream APPLY TOPICALL Y TO THE AFFECTED AREA TWICE DAILY active Not Available Not Available No t Available nystatin- triamcino lone 100,000 unit/g-0. 1 % topical cream APPLY THIN LAYER TOPICALL Y TO THE AFFECTED AREA TWICE DAILY NEEDED active Not Available Not Available No t Available pravastat in 20 mg tablet TK 1 T PO QD active Not Available Not Available No t Available lisinopri l 5 mg tablet TAKE 1 TABLET BY MOUTH EVERY DAY 04/18 completed Not Available Not Available Not Available clobetaso l 0.05 % scalp solution APPLY THIN LAYER TOPICALL Y TO THE SCALP TWICE DAILY NEEDED active Not Available Not Available No t Available cefdinir 300 mg capsule TAKE 1 CAPSULE BY MOUTH EVERY 12 HOURS 09/25 completed Not Available Not Available Not Available betametha sone dipropion ate 0.05 % lotion APPLY THIN LAYER TOPICALL Y TO THE SCALP TWICE DAILY AT ONSET OF FLARES NEEDED active Not Available Not Available No t Available lisinopri l 2.5 mg tablet TAKE 1 TABLET BY MOUTH EVERY DAY 02/27 completed Not Available Not Available Not Available Crestor 20 mg tablet Take 1 tablet every day by oral route for 90 days. 04/10 completed Not Available Not Available Not Available memantine 10 mg tablet TAKE 1 TABLET BY MOUTH DAILY active Not Available Not Available No t Available mirtazapi ne 7.5 mg tablet TAKE 1 TABLET BY MOUTH EVERY DAY AT BEDTIME 07/24 completed Not Available Not Available Not Available solifenac in 5 mg tablet TAKE 1 TABLET BY MOUTH DAILY 10/24 completed Not Available Not Available Not Available solifenac in 10 mg tablet TAKE 1 TABLET BY MOUTH DAILY 02/27 completed Not Available Not Available Not Available melatonin 5 mg prn 2019 active Not Available Not Available Not Avai lable Centrum Herbals Ginkgo Biloba 08/07 completed Not Available Not Available Not Available Rosebud 3 Fish Oil 08/07 completed Not Available Not Available Not Available Eliquis 5 mg tablet TAKE 1 TABLET BY MOUTH TWICE DAILY 02/27 completed pts stopped med Not Available Not Available Not Available Vitals Date Recorded Body height Body mass index (BMI) Body weight Body temperature Heart rate Systolic blood pressure Diastolic blood pressure Provider Name and Address Organization Details Last Updated DateTime 3 167.64 cm 21.6 kg/m2 21572.3 8 g 97.6 [degF] 78 /min 100 mm[Hg] 60 mm[Hg] Billie Beckford Otto [email or web address] 3 15:39:47 Date Recorded Body height Body mass index (BMI) Body weight Body temperature Heart rate Systolic blood pressure Diastolic blood pressure Provider Name and Address Organization Details Last Updated DateTime 4 167.64 cm 22.3 kg/m2 31133.7 5 g 97.5 [degF] 72 /min 110 mm[Hg] 80 mm[Hg] Billie Beckford [email or web address] 4 18:06:19 Date Recorded Body height Body mass index (BMI) Body weight Body temperature Heart rate Respiratory rate Oxygen saturation Oxygen saturation in Arterial blood by Pulse oximetry Pain severity - 0-10 verbal numeric rating [Score] - Reported Systolic blood pressure Diastolic blood pressure Provider Name and Address Organization Details Last Updated DateTime 4 167.64 cm 22 kg/m2 39091.5 6 g 97.6 [degF] 51 /min 14 /min 98 % 98 % 0 88 mm[Hg] 60 mm[Hg] Jeremie Quintero LPN [email or web address] 4 15:34:40 Date Recorded Body height Body mass index (BMI) Body weight Pain severity - 0-10 verbal numeric rating [Score] - Reported Provider Name and Address Organization Details Last Updated DateTime 03/06/2024 167.64 cm 21.8 kg/m2 72264.97 g 3 Kristie Pike, [email or web address] 03/06/2024 14:39:50 Date Recorded Body height Body temperature Heart rate Systolic blood pressure Diastolic blood pressure Provider Name and Address Organization Details Last Updated DateTime 07/17/2024 167.64 cm 97.8 [degF] 72 /min 122 mm[Hg] 76 mm[Hg] Billie Beckford, [facility] [email or web address] 11:30:37 Social History Question Answer Notes LastModified by Organization Details LastModified Time Tobacco Smoking Status Former Smoker quit 16+ yrs ago Not Available [facility] 11/16/2022 04:59:52 Do You Have An Advance Directive? Yes [id number].[email or web address] [id number] Information not available 11/16/2022 What Is Your Level Of Alcohol Consumption? None MIGRATION.030 [id number] Information not available 11/16/2022 Do You Wear A Helmet When Biking? No Does Not Bike [email or web address] Information not available 02/05/2024 Are You Blind Or Do You Have Difficulty Seeing? No MIGRATION.0301 [id number] Information not available 11/16/2022 Is Blood Transfusion Acceptable In An Emergency? Yes Information not available 02/05/2024 What Is Your Level Of Caffeine Consumption? None MIGRATION.0301 [id number] Information not available 11/16/2022 In The 14 Days Before Symptom Onset, Have You Had Close Contact With A Laboratory-confi rmed COVID-19 While That Case Was Ill? No MIGRATION.030 [id number] Information not available 11/16/2022 In The 14 Days Before Symptom Onset, Have You Had Close Contact With A Person Who Is Under Investigation For COVID-19 While That Person Was Ill? No MIGRATION.0301 [id number] Information not available 11/16/2022 Are You Currently Employed? No Retired [email or web address] Information not available 02/05/2024 Are You Deaf Or Do You Have Serious Difficulty Hearing? Yes Cant Wear Hearing Aid Left Side Due To Dementia Information not available 02/05/2024 What Type Of Diet Are You Following? REGULAR MIGRATION.0301 [id number] Information not available 11/16/2022 What Is The Highest Grade Or Level Of School You Have Completed Or The Highest Degree You Have Received? [id number] [email or web address] Information not available 02/05/2024 Have There Been Any Changes To Your Family Or Social Situation? No MIGRATION.030 [id number] Information not available 11/16/2022 What Is The Fluoride Status Of Your Home? Unknown MIGRATION.030 [id number] Information not available 11/16/2022 When Did You Quit Smoking? 16+yearssincelast cigarette MIGRATION.030 [id number] Information not available 11/16/2022 Are There Any Guns Present In Your Home? No MIGRATION.030 [id number] Information not available 11/16/2022 Do You Use Insect Repellent Routinely? No MIGRATION.030 [id number] Information not available 11/16/2022 Where [facility] You [facility]? [facility] MIGRATION.030 [id number] Information not available 11/16/2022 Presence Of Domestic Violence No [email or web address] Information not available 02/05/2024 Guns Present In The Home? No [email or web address] Information not available 02/05/2024 Are You Able To Care For Yourself? No [email or web address] Information not available 02/05/2024 Are You Blind Or Do Yo Have Difficulty Seeing? No [email or web address] Information not available 02/05/2024 Are You Deaf Or Do You Have Serious Difficulty Hearing? Yes [email or web address] Information not available 02/05/2024 General Stress Level? Moderate [email or web address] Information not available 02/05/2024 Live Alone Of With Others? With Others [email or web address] Information not available 02/05/2024 Do You Have A Medical Power Of Utilization Specialist? Yes MIGRATION.030 [id number] Information not available 11/16/2022 What Was The Date Of Your Most Recent Tobacco Screening? 07/24/2023 Information not available 07/24/2023 Do You Have Any Pets? No MIGRATION.030 [id number] Information not available 11/16/2022 What Is Your Relationship Status? MIGRATION.030 [id number] Information not available 11/16/2022 Do You Use Your Seat Belt Or Car Seat Routinely? Yes MIGRATION.030 064717 Information not available 11/16/2022 Do You Have Smoke And Carbon Monoxide Detectors In Your Home? Yes MIGRATION.030 [id number] Information not available 11/16/2022 Are You Passively Exposed To Smoke? No MIGRATION.0301 [id number] Information not available 11/16/2022 Are There Any Smokers In Your House? No MIGRATION.0301 [id number] Information not available 11/16/2022 Do You Feel Stressed (tense, Restless, Nervous, Or Anxious, Or Unable To Sleep At Night)? [id number] MIGRATION.0301 [id number] Information not available 11/16/2022 Do You Use Any Illicit Or Recreational Drugs? No MIGRATION.0301 [id number] Information not available 11/16/2022 Do You Use Sunscreen Routinely? Yes MIGRATION.0301 [id number] Information not available 11/16/2022 Has Tobacco Cessation Counseling Been Provided? No MIGRATION.0301 [id number] Information not available 11/16/2022 Have You Recently Traveled Abroad? No MIGRATION.0301 [id number] Information not available 11/16/2022 Do You Have Any Dietary Restrictions? No MIGRATION.0301 730830 Information not available 11/16/2022 Do You Or Have You Ever Used Any Other Forms Of Tobacco Or Nicotine? No MIGRATION.0301 759105 Information not available 11/16/2022 Sex: Male Functional Status Question Answer Note LastModified by [employer] Details LastModified Time Do you have difficulty walking or climbing stairs? No MIGRATION.[id number] Information not available 11/16/2022 Do you have transportation difficulties? Yes Patient does not drive. MIGRATION.528237 5552 Information not available 11/16/2022 Are you able to walk? [email or web address] [id number] Information not available 11/16/2022 Do you have difficulty doing errands alone? Yes does not drive [id number] Information not available 11/16/2022 Are you able to care for yourself? No is caregiver. [email or web address] Information not available 02/05/2024 Do you have difficulty dressing or bathing? Yes Patient gets assistance. [id number] Information not available 11/16/2022 What is your exercise level? None [id number] Information not available 11/16/2022 Mental Status Question Answer Note LastModified by [employer] ion Details LastModified Time Do you have difficulty concentrating, remembering or making decisions? Yes [id number] Information not available 11/16/2022 Family History Relationship Description Onset Age of this Age Resolved Age Notes LastModified by Organization Details LastModified Time Mother Heart disease [id number] Not available 11/16/2022 05:00:19 Brother Diabetes mellitus [id number] Not available 11/16/2022 05:00:19 Father Cerebrovascu lar accident [id number] Not available 11/16/2022 05:00:19 Father Memory impairment [id number] Not available 11/16/2022 05:00:19 Medical History Condition Response NERVE DISEASE N BLINDNESS N RHEUMATIC FEVER N KIDNEY STONES N BLADDER PROBLEMS N MRSA N OTHER # 1 Y POLIO N LUNG DISEASE/DISORDER N HISTORY OF DRUG ABUSE N RADIATION / CHEMOTHERAPY N COPD N Other # 2 N BLOOD DISEASES N EAR OR HEARING PROBLEMS N MUMPS N SHINGLES N DEPRESSION (INCLUDING POST ) N BOWEL PROBLEMS N STROKE/TIA N ULCERS N BENIGN PROSTATIC HYPERPLASIA N MEASLES N HYPOTENSION N MYOCARDIAL INFARCTION N OBESITY N GERD/NAUSEA N ANEURYSM N URINARY/BLADDER/KIDNEY PROBLEMS Y CORONARY ARTERY DISEASE (CAD) Y ADDICTION CONCERNS N Impotence N ENDOMETRIOSIS N USE OF BLOOD THINNERS Y SKIN PROBLEMS Y GASTROINTESTINAL DISORDER N PERIPHERAL VASCULAR DISEASE N MUSCLE,JOINT OR BONE PROBLEMS N GASTROINTESTINAL BLEEDING N BLOOD CLOTS N ASTHMA N CATARACTS N ERECTILE DYSFUNCTION N VARICOSITIES N GI PROBLEMS N Low Testosterone N INFERTILITY N AIDS/HIV N CHEMOTHERAPY / RADIATION N LIVER DISEASE N MALE HYPOGONADISM N HYPERTENSION Y Deficiency N TOURETTE'S N ANXIETY DISORDER N BLOOD TRANSFUSION N ANEMIA/BLOOD DISORDER N CHRONIC EAR INFECTIONS N BRONCHITIS N TUBERCULOSIS N GLAUCOMA N FOOT PROBLEM N DIVERTICULITIS N SLEEP APNEA Y CHICKENPOX N INFECTIOUS DISEASE N PROSTATE N HEART ARRHYTHMIA N INSOMNIA N HIGH CHOLESTEROL / HYPERLIPIDEMIA Y HYPERTHYROIDISM N EYE PROBLEMS N EDEMA N CHRONIC PAIN SYNDROME N HYPOTHYROIDISM N CONSTIPATION N CAROTID BLOCKAGE N BACK / NECK PROBLEMS N ATHEROSCLEROSIS N BREAST PROBLEMS N DIALYSIS N ECZEMA N OSTEOPOROSIS N ARTHRITIS N APPENDICITIS N DIABETES, TYPE N BAD TEETH N ENT N HEARTBURN / REFLUX N AUTISM SPECTRUM DISORDER (ASD) N HEPATITIS / LIVER DISEASE N GOUT N SLEEP DISORDER N ALZHEIMER'S DISEASE N Brain Problems N HERPES N DEMENTIA Y SEIZURES/EPILEPSY N HEADACHES/MIGRAINES N VASCULAR DISEASE N PACEMAKER N Blood Disorder N DIZZINESS N KIDNEY DISEASE N HEART DISEASE/HEART PROBLEMS Y MULTIPLE SCLEROSIS N CARDIAC ARRHYTHMIA N CANCER: SPECIFY Y Gall Stones N ATRIAL FIBRILLATION N PULMONARY EMBOLISM N AUTOIMMUNE DISEASE N Past Encounters Encounter ID Performer Location Encounter Start Date Encounter Closed Date Diagnosis/Indication Diagnosis SNOMED-CT Code Diagnosis ICD10 Code Diagnosis Note [id number] [facility] [place] [facility] [place] [address] [place] [address] [place] [address] 03/10/2021 00:00:00 03/10/2021 14:51:53 [id number] [facility] [place] [address] [place] [address] [place] [address] 07/12/2021 00:00:00 07/12/2021 14:50:39 [id number] [facility] [place] [address] [place] [address] [place] [address] 12/20/2021 00:00:00 12/20/2021 15:06:19 [id number] [facility] [place] [address] [place] [address] [place] [address] 04/18/2022 00:00:00 04/18/2022 14:44:52 [id number] [facility] [place] [address] [place] [address] [place] [address] 10/24/2022 00:00:00 10/25/2022 17:27:40 [id number] Cody weiss MD [facility] [place] [address] [place] [address] [place] [address] 02/27/2023 15:03:51 02/27/2023 15:45:50 Screening - NAD [id number] Z13.9 C-scope:Pr ior PCP 08/[address] Verona Kinsey C-scope next in 2019, but they did see Dr Price, and Dr Price is to decided based on his old c-scope if he should get the c- scope or cologuard 07/12/2021 : As per his and Marta they have decided not to do any testing at this time with either the cologuard or the c-scope 12/20/2021 , c/o diarrhea, no other abdominal issues, takes OTC imodium which helps and was to do so by Dr Albert ESCALONA as per his Get yearly flu shotGet tdap if not doneCan do PCV #13, declined 08/07/19Ge t shingrix done, declinedHa s declined all the vaccine again 12/20/2021 , does not want the COVID 19 vaccine, his is upset that 'everyone asks this' and this is 'our choice' not to take the vaccine for COVID 19 RTC in 6 monthsWith labsER if worseHe and his did verbalized his understand ing of the above Essential hypertension 47276862 I10 On coreg 6.25mg bidOn lisinopril 5mg daily Does wellGet labs Coronary arteriosclerosis 35146570 I25.10 s/p cath in [facility] in 2005, Dr Morton, no stents Prior PCP 08/[address] Verona Kinsey :Has seen cardiologi st Dr Medellin Hx of CPAP On eliquis, filled by Dr Parrish [facility] 10/28/2021 On coregOn lisinopril 2.5mg daily Obstructiv e sleep apnea syndrome 56945265 G47.33 Not wearing his CPAPHas seen Dr Vernon in the past Dementia 14549755 F03.90 On donezepilO n memantineO n trazodoneO n mitrazepin e Sees Dr Scherer Hyperlipidemia 82682858 E78.5 On pravastati n, as per his he has not been taking the pravastati n d/t his dementia, he will now discuss Leqvio with his cardiologi st or Dr Murray well Get labs Hyperproteinemia 0339011 9 E88.09 No M spike on UPEP or SPEP Skin lesion 04838916 L98 .9 OV 03/10/2021 :Noted on the L forearmSma ll raised macule with a red baseNon tenderRefe r to dermatolog y OV 07/12/2021 :Declines any referrals now, his states that the macule has not changed in color or shape or size, does not want to see dermatolog yDoes have a slight red hyperemic abrasion in the anal verge, as per she has applied neosporin and this too has almost healed up OV 04/18/2022 :Noted on the L forearm, agreeable to see dermatolog y OV 02/27/2023 :Did see Dr Cleary Candidal balanitis 10495 007 B37.42 OV 04/18/2022 :Has seen urology for this was told to see dermatolog y, referred todayAlso start on nystatin as needed OV 02/27/2023 :Did see Dr Cleary and as per his he is doing much better now Hyperglycemia 51836204 R 73.9 Get labsDoes well, A1C is negative Screening for malignant neoplasm of prostate 339410434 Z12.5 Get a PSA done Proteinuria 92146785 R80 .[address] Francois RIVAS Liver enzy mes level above reference range 527215648 R74.01 Get hepatitis panel/GGT and US liver done Urinary incontinence 165 026068 R32 Sees urology Obdulio Bill, on solifenaci n 10mg daily [id number] Cody weiss MD [facility] [address] [facility] [place] [address] 07/24/2023 15:29:57 07/24/2023 16:26:45 Screening - NAD 595477475 Z13.9 C-scope:Pr ior PCP 08/[address] Verona Kinsey C-scope next in 2019, but they did see Dr Price, and Dr Price is to decided based on his old c-scope if he should get the c- scope or cologuard 07/12/2021 : As per his and Marta they have decided not to do any testing at this time with either the cologuard or the c-scope 12/20/2021 , c/o diarrhea, no other abdominal issues, takes OTC imodium which helps and was to do so by Dr Price GI as per his Get yearly flu shotGet tdap if not doneCan do PCV #13, declined 08/07/19Ge t shingrix done, declinedHa s declined all the vaccine again 12/20/2021 , does not want the COVID 19 vaccine, his is upset that 'everyone asks this' and this is 'our choice' not to take the vaccine for COVID 19 RTC in 6 monthsWith labsER if worseHe and his did verbalized his understand ing of the above Essential hypertension 55907506 I10 On coreg 6.25mg bidNot taking lisinopril 5mg daily Does wellGet labs Coronary arteriosclerosis 77583227 I25.10 s/p cath in [facility] in 2005, Dr Morton, no stents Prior PCP 08/[address] Verona Kinsey :Has seen cardiologi st Dr Medellin Hx of CPAP Not on eliquis, filled by Dr Parrish [facility] 10/28/2021 Not on lisinopril 2.5mg daily On coreg [facility] Clementine POLO 03/02/2023 , next apt in one year Obstructiv e sleep apnea syndrome 04035366 G47.33 Not wearing his CPAPHas seen Dr Vernon in the past Dementia 72495393 F03.90 On donezepilO n memantineN ot on trazodoneN ot on mitrazepin e Sees Dr Scherer Hyperlipidemia 30179723 E78.5 Not on pravastati n, [facility] , not willing to take any meds at this time 07/24/2023 , understand s the risksDoes well Get labs Hyperproteinemia 2151449 9 E88.09 No M spike on UPEP or SPEP Skin lesion 06149074 L98 .9 OV 03/10/2021 :Noted on the L forearmSma ll raised macule with a red baseNon tenderRefe r to dermatolog y OV 07/12/2021 :Declines any referrals now, his states that the macule has not changed in color or shape or size, does not want to see dermatolog yDoes have a slight red hyperemic abrasion in the anal verge, as per she has applied neosporin and this too has almost healed up OV 04/18/2022 :Noted on the L forearm, agreeable to see dermatolog y OV 02/27/2023 : Did see Dr Cleary OV 07/24/2023 :Small crusty lesion noted on the L upper shoulderGe t a referral to Dr Belcher Candidal balanitis 09591 007 B37.42 OV 04/18/2022 :Has seen urology for this was told to see dermatolog y, referred todayAlso start on nystatin as needed OV 02/27/2023 : Did see Dr Cleary and as per his he is doing much better now Hyperglycemia 50121002 R 73.9 Get labsDoes wellGet labs Proteinuria 79016805 R80 .9 Proteinuri a neg Liver enzy mes level above reference range 822630238 R74.01 GGT 02/27/2023 : NegHepatit is panel 06/29/2023 : Neg US liver: 05/25/2023 : Hepatic steatosisD r Bruce 06/22/2023 , f/u in 6 months Urinary incontinence 165 565570 R32 Sees urology Obdulio Bill, on solifenaci n 10mg dailyAlso high normal PSA [id number] Tracy Catalan [facility] [address] [place] [address] 09/25/2023 17:52:43 09/25/2023 18:46:43 Screening - NAD 738786649 Z13.9 C-scope:Pr ior PCP 08/[address] Verona Kinsey C-scope next in 2019, but they did see Dr Price, and Dr Price is to decided based on his old c-scope if he should get the c- scope or cologuard 07/12/2021 : As per his and Marta they have decided not to do any testing at this time with either the cologuard or the c-scope 12/20/2021 , c/o diarrhea, no other abdominal issues, takes OTC imodium which helps and was to do so by Dr Price GI as per his Get yearly flu shotGet tdap if not doneCan do PCV #13, declined 08/07/19Ge t shingrix done, declinedHa s declined all the vaccine again 12/20/2021 , does not want the COVID 19 vaccine, his is upset that 'everyone asks this' and this is 'our choice' not to take the vaccine for COVID 19 RTC in 6 monthsWith labsER if worseHe and his did verbalized his understand ing of the above Essential hypertension 96440490 I10 On coreg 6.25mg bidNot taking lisinopril 5mg daily Does wellGet labs Coronary arteriosclerosis 99124507 I25.10 s/p cath in [facility] in 2005, Dr Morton, no stents Prior PCP 08/[address] Verona Kinsey :Has seen cardiologi st Dr Medellin Hx of CPAP Not on eliquis, filled by Dr Parrish [facility] 10/28/2021 Not on lisinopril 2.5mg daily On coreg [facility]es [facility] Clementine POLO 03/02/2023 , next apt in one year OV 09/25/2023 :Continuit y of care document [facility] Health Dr Medellin 09/24/2023 A.fib, and coreg 6.25mg bidAs per today 09/25/2023 , not taking eliquis Obstructiv e sleep apnea syndrome 82625367 G47.33 Not wearing his CPAPHas seen Dr Vernon in the past Dementia 62183214 F03.90 On donezepilO n memantineN ot on trazodoneN ot on mitrazepin e Sees Dr Scherer Hyperlipidemia 06279310 E78.5 Not on pravastati n, sees [facility] , not willing to take any meds at this time 07/24/2023 , understand s the risksDoes well Get labs Hyperproteinemia 0284069 9 E88.09 No M spike on UPEP or SPEP Skin lesion 36502253 L98 .9 OV 03/10/2021 :Noted on the L forearmSma ll raised macule with a red baseNon tenderRefe r to dermatolog y OV 07/12/2021 :Declines any referrals now, his states that the macule has not changed in color or shape or size, does not want to see dermatolog yDoes have a slight red hyperemic abrasion in the anal verge, as per she has applied neosporin and this too has almost healed up OV 04/18/2022 :Noted on the L forearm, agreeable to see dermatolog y OV 02/27/2023 : Did see Dr Cleary OV 07/24/2023 :Small crusty lesion noted on the L upper shoulderGe t a referral to Dr Belcher OV 09/25/2023 : Keep apt with dermatolog y Candidal balanitis 75568 007 B37.42 OV 04/18/2022 :Has seen urology for this was told to see dermatolog y, referred todayAlso start on nystatin as needed OV 02/27/2023 : Did see Dr Cleary and as per his he is doing much better now Hyperglycemia 88324710 R 73.9 Get labsDoes wellGet labs Proteinuria 70169275 R80 .9 Proteinuri a neg Liver enzy mes level above reference range 641894307 R74.01 GGT 02/27/2023 : NegHepatit is panel 06/29/2023 : Neg US liver: 05/25/2023 : Hepatic steatosisD r Bruce 06/22/2023 , f/u in 6 months Urinary incontinence 165 458553 R32 Sees urology Obdulio Bill, on solifenaci n 10mg dailyAlso high normal PSA Renal cell carcinoma 702 651072 C64.9 S/p CT A/P [facility] 09/15/2023 Needs to see urology [id number] Cody weiss MD [facility] [address] [facility] [place] [address] 02/05/2024 15:20:54 02/05/2024 16:29:02 Adult health examination 927366959 Z00.00 Screening for disorder 232921156 Z13.9 Screening - NAD 66977387 3 Z13.9 C-scope:Pr ior PCP 08/[address] Verona Kinsey C-scope next in 2019, but they did see Dr Price, and Dr Price is to decided based on his old c-scope if he should get the c- scope or cologuard 07/12/2021 : As per his and Marta they have decided not to do any testing at this time with either the cologuard or the c-scope 12/20/2021 , c/o diarrhea, no other abdominal issues, takes OTC imodium which helps and was to do so by Dr Price GI as per his Get yearly flu shotGet tdap if not doneCan do PCV #13, declined 08/07/19Ge t shingrix done, declinedHa s declined all the vaccine again 12/20/2021 , does not want the COVID 19 vaccine, his is upset that 'everyone asks this' and this is 'our choice' not to take the vaccine for COVID 19 RTC in 6 monthsWith labsER if worseHe and his did verbalized his understand ing of the above Essential hypertension 51283252 I10 On coreg 6.25mg bidNot taking lisinopril 5mg daily Does wellGet labs Coronary arteriosclerosis 78430665 I25.10 s/p cath [facility] in 2005, Dr Morton, no stents Prior PCP 08/[address] Verona Kinsey :Has seen cardiologi st Dr Medellin Hx of CPAP Not on eliquis, filled by Dr Parrish [facility] 10/28/2021 Not on lisinopril 2.5mg daily On coreg [facility]es [facility] Clementine Leal PA 03/02/2023 , next apt in one year OV 09/25/2023 :Continuit y of care document [facility] Health Dr Medellin 09/24/2023 A.fib, and coreg 6.25mg bidAs per today 09/25/2023 , not taking eliquis OV 02/05/2024 : See cardiology Obstructiv e sleep apnea syndrome 44505524 G47.33 Not wearing his CPAPHas seen Dr Vernon in the past Dementia 33063661 F03.90 On donezepilO n memantineN ot on trazodoneN ot on mitrazepin e Sees Dr Scherer Hyperlipidemia 43540223 E78.5 Not on pravastati n, sees [facility] cardi[facility] , not willing to take any meds at this time 07/24/2023 , 02/05/2024 , understand s the risksDoes well Get labs Hyperproteinemia 5880827 9 E88.09 No M spike on UPEP or SPEP Skin lesion 32242717 L98 .9 OV 03/10/2021 :Noted on the L forearmSma ll raised macule with a red baseNon tenderRefe r to dermatolog y OV 07/12/2021 :Declines any referrals now, his states that the macule has not changed in color or shape or size, does not want to see dermatolog yDoes have a slight red hyperemic abrasion in the anal verge, as per she has applied neosporin and this too has almost healed up OV 04/18/2022 :Noted on the L forearm, agreeable to see dermatolog y OV 02/27/2023 : Did see Dr Cleary OV 07/24/2023 :Small crusty lesion noted on the L upper shoulderGe t a referral to Dr Belcher OV 09/25/2023 : Keep apt with dermatolog y OV 02/05/2024 : See dermatolog y Candidal balanitis 31980 007 B37.42 OV 04/18/2022 :Has seen urology for this was told to see dermatolog y, referred todayAlso start on nystatin as needed OV 02/27/2023 : Did see Dr Cleary and as per his he is doing much better now OV 02/05/2024 : No rash noted on the glans penis today Hyperglycemia 70996360 R 73.9 Get labsDoes wellGet labs Proteinuria 45522994 R80 .9 Proteinuri a neg Liver enzy mes level above reference range 464412197 R74.01 GGT 02/27/2023 : NegHepatit is panel 06/29/2023 : Neg US liver: 05/25/2023 : Hepatic steatosisD r Bruce 06/22/2023 , f/u in 6 months Urinary incontinence 165 056244 R32 Sees urology Obdulio Bill, on solifenaci n 10mg dailyAlso high normal PSA OV 02/05/2024 : His was worried about his glans penis, O/E the foreskin did retract normally, no tenderness , no rash, no d/c from the penis Renal cell carcinoma 702 623961 C64.9 S/p CT A/P [facility] 09/15/[address] Osullivan/p CT A/P 01/29/2024 Pain of le ft hip joint 0940498109 82843 M25.552 L hip: Normal ROM and gait, +ve TTP at the lateral aspectWill refer to Dr Hernández [id number] Vincent Hernández MD [facility] [address] [place] [address] 03/06/2024 14:23:25 03/06/2024 15:13:49 Pain of left hip joint 2546874620 33331 M25.123 [id number] Cody weiss MD [facility] [address] [facility] [place] [address] 07/17/2024 10:59:42 07/17/2024 11:57:08 Dementia 30704919 F03.90 On donezepilO n memantineN ot on trazodoneN ot on mitrazepin e Sees Dr Martínez per his he has been more lethargic, will discuss his use of memantine with Dr Scherer, explained today 07/17/2024 that his dementia may be worsening, he does have difficulty following commands as noted on his difficulty to answer questions and follow directions , his and son understand this, they do not want to increase any medication s and himanshu discuss this issue with Dr Scherer Pain of le ft hip joint 7545736256 43972 M25.552 L hip: Normal ROM and gait, +ve TTP at the lateral aspectHas seen Dr Hernández Renewed the meloxicam as per his 's request, take as needed Acute urin juan tract infection 746347881 N39.0 As per his lethargy could be from a UTI, he urinates into his diaper and he also has stool in the diaper, she did give him a dose of cipro that she had from a prior prescripti on, will renew the cipro and if not better notify the office, if symptoms worsen, go to the ER Liver enzy mes level above reference range 338452057 R74.01 GGT 02/27/2023 : NegHepatit is panel 06/29/2023 : Neg US liver: 05/25/2023 : Hepatic steatosisD r Bruce 06/22/2023 , f/u in 6 months OV 07/17/2024 : Is now to get US liver, was concerned that his stools were schneider and loose about 3-4 days ago, but this has not happened again, she is to get the US liver and discuss the findings with Dr Bruce WISDOM 73020052 3 Z13.9 C-scope:Pr ior PCP 08/[address] Verona Kinsey C-scope next in 2019, but they did see Dr Price, and Dr Price is to decided based on his old c-scope if he should get the c- scope or cologuard 07/12/2021 : As per his and Marta they have decided not to do any testing at this time with either the cologuard or the c-scope 12/20/2021 , c/o diarrhea, no other abdominal issues, takes OTC imodium which helps and was to do so by Dr Price GI as per his Get yearly flu shotGet tdap if not doneCan do PCV #13, declined 08/07/19Ge t shingrix done, declinedHa s declined all the vaccine again 12/20/2021 , does not want the COVID 19 vaccine, his is upset that 'everyone asks this' and this is 'our choice' not to take the vaccine for COVID 19 RTC in 1 monthWith labsER if worseHe and his did verbalized his understand ing of the above Health Concerns Section Related Observation LastModified by Organization Detai ls LastModified Time None Recorded Concern Status LastModified by Organization Details LastModified Time None Recorded Advance Directives Directive Y: Payers Encounter Date Sequence Insurance Name Policy Number Policy Maria Covered Member ID Maria Member ID Guarantor Name 07/24/2023 1 [employer] (MEDICARE REPLACEMENT PPO) [id number] 1 Noah L Vanausdoll [id number] Noah L Vanausdoll 09/25/2023 1 [employer] (MEDICARE REPLACEMENT PPO) [id number] 1 Noah L Vanausdoll [id number] Noah L Vanausdoll 02/05/2024 1 [employer] (MEDICARE REPLACEMENT PPO) [id number] 1 Noah L Vanausdoll [id number] Noah L Vanausdoll 03/06/2024 1 [employer] (MEDICARE REPLACEMENT PPO) [id number] 1 Noah L Vanausdoll [id number] Noah L Vanausdoll 07/17/2024 1 [employer] (MEDICARE REPLACEMENT PPO) [id number] 1 Noah L Vanausdoll [id number] Noah L Vanausdoll Notes Date Note Type Note Provider Name and Address Organization Details Recorded Time 07/24/2023 text/html OV 12/10/18:[facility] to establish [facility], no labsPast Hx:HTNCADReviewed social family and surgical historyHere with his wifeFeels well, but states that he now 'dozes off' more often and has noted some 'confusion'He denies any other CELLO TE[employer]ER complaints, ROS is done OV 12/24/18:Here for his routine aptHere with his wifeFeels wellDid do the labs OV 04/10/19:Here for his routine aptHe feels wellHe did do the labs and is here to review theseHe has seen Dr Humphries the neurologist also OV 08/07/19:Here for his routine aptHe did do the labsHe has seen the neurologistHe also has a spot looked at the top of the scalp OV 08/26/19:ACV:C/O L hip painStates that 10 days ago he carried big ladders and noted the L hip pain afterwardsHe has taken some aleve with good relief but as per his he does have pain when the aleve wears offHe also then has a mild limpNo N/T or weakness in the L LENo back pain notedOV 02/17/2020:Here for his routine aptHe is here with his Augustin Vega do the labsWants a referral to Dr Scherer instead of Dr Humphries OV 06/01/2020:Here for his routine aptHe is here with his Marta, and he has done his labsHe is here for his MWV also OV 10/26/2020;Here for his routine aptAs per his since more than a month he has noted some 'sweating' after he eats and his 'palms are sweatyHe denies any chest painr or shortness of breath, no palpitations, no syncope or pre syncopeHe is here with his Mateus has done the labs on 10/20/2020OV 03/10/2021:Here for his routine aptHe is doing wellHe is here with his Mateus did do the labsOV 07/12/2021:Here for his routine aptHe feels wellHe is here with his wifeHe did do the labsOV 12/20/2021:Here for his routine aptHe is doing wellHe is to do the labsHere with his wifeOV 04/18/2022:Here for his routine apt and also his MWVHe is here with his , feels wellHe would like a cream for the penis and referral to dermatologyOV 10/24/2022:Here for his f/uu apt, is doing well, here with his , no new labs OV 02/27/2023: Here for his f/u apt with his Marta, he did do the labs OV 07/24/2023: Here for his routine apt, here with his , he did do the labs 07/17/2023 Cody Fatima MD [address] [facility], [address], [place], [address], [facility] [employer] 07/24/2023 16:53:19 09/25/2023 text/html OV 12/10/18:Here to establish carePast PCP [facility], no labsPast Hx:HTNCADReviewed social family and surgical historyHere with his wifeFeels well, but states that he now 'dozes off' more often and has noted some 'confusion'He denies any other [employer] complaints, ROS is done OV 12/24/18:Here for his routine aptHere with his wifeFeels wellDid do the labs OV 04/10/19:Here for his routine aptHe feels wellHe did do the labs and is here to review theseHe has seen Dr Humphries the neurologist also OV 08/07/19:Here for his routine aptHe did do the labsHe has seen the neurologistHe also has a spot looked at the top of the scalp OV 08/26/19:ACV:C/O L hip painStates that 10 days ago he carried big ladders and noted the L hip pain afterwardsHe has taken some aleve with good relief but as per his he does have pain when the aleve wears offHe also then has a mild limpNo N/T or weakness in the L LENo back pain notedOV 02/17/2020:Here for his routine aptHe is here with his Augustin wellDid do the labsWants a referral to Dr Scherer instead of Dr Humphries OV 06/01/2020:Here for his routine aptHe is here with his Marta, and he has done his labsHe is here for his MWV also OV 10/26/2020;Here for his routine aptAs per his since more than a month he has noted some 'sweating' after he eats and his 'palms are sweatyHe denies any chest painr or shortness of breath, no palpitations, no syncope or pre syncopeHe is here with his Mateus has done the labs on 10/20/2020OV 03/10/2021:Here for his routine aptHe is doing wellHe is here with his Mateus did do the labsOV 07/12/2021:Here for his routine aptHe feels wellHe is here with his wifeHe did do the labsOV 12/20/2021:Here for his routine aptHe is doing wellHe is to do the labsHere with his wifeOV 04/18/2022:Here for his routine apt and also his MWVHe is here with his , feels wellHe would like a cream for the penis and referral to dermatologyOV 10/24/2022:Here for his f/uu apt, is doing well, here with his , no new labs OV 02/27/2023: Here for his f/u apt with his Marta, he did do the labs OV 07/24/2023: Here for his routine apt, here with his , he did do the labs 07/17/2023 OV 09/25/2023: Here for his f/u post hospital apt for a UTI, s/p 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 show RCA and now has to see urology Cody Fatima MD [address] [place], [address], [place] [facility] [employer] 09/25/2023 18:45:44 02/05/2024 text/html OV 12/10/18:Here to establish care[facility], no labsPast Hx:HTNCADReviewed social family and surgical historyHere with his wifeFeels well, but states that he now 'dozes off' more often and has noted some 'confusion'He denies any other [employer]ER complaints, ROS is done OV 12/24/18:Here for his routine aptHere with his wifeFeels wellDid do the labs OV 04/10/19:Here for his routine aptHe feels wellHe did do the labs and is here to review theseHe has seen Dr Humphries the neurologist also OV 08/07/19:Here for his routine aptHe did do the labsHe has seen the neurologistHe also has a spot looked at the top of the scalp OV 08/26/19:ACV:C/O L hip painStates that 10 days ago he carried big ladders and noted the L hip pain afterwardsHe has taken some aleve with good relief but as per his he does have pain when the aleve wears offHe also then has a mild limpNo N/T or weakness in the L LENo back pain notedOV 02/17/2020:Here for his routine aptHe is here with his Augustin Vega do the labsWants a referral to Dr Scherer instead of Dr Humphries OV 06/01/2020:Here for his routine aptHe is here with his Marta, and he has done his labsHe is here for his MWV also OV 10/26/2020;Here for his routine aptAs per his since more than a month he has noted some 'sweating' after he eats and his 'palms are sweatyHe denies any chest painr or shortness of breath, no palpitations, no syncope or pre syncopeHe is here with his Mateus has done the labs on 10/20/2020OV 03/10/2021:Here for his routine aptHe is doing wellHe is here with his Mateus did do the labsOV 07/12/2021:Here for his routine aptHe feels wellHe is here with his wifeHe did do the labsOV 12/20/2021:Here for his routine aptHe is doing wellHe is to do the labsHere with his wifeOV 04/18/2022:Here for his routine apt and also his MWVHe is here with his , feels wellHe would like a cream for the penis and referral to dermatologyOV 10/24/2022:Here for his f/uu apt, is doing well, here with his , no new labs OV 02/27/2023: Here for his f/u apt with his Marta, he did do the labs OV 07/24/2023: Here for his routine apt, here with his , he did do the labs 07/17/2023 OV 09/25/2023: Here for his f/u post hospital apt for a UTI, s/p 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 show RCA and now has to see urology OV 02/05/2024:Here for his f/u apt, he is doing well, he is here for his MWV, he is here with his Cody Fatima MD [address] [facility], [address], [place], [address], [place] [facility] [employer] 02/05/2024 18:10:23 07/17/2024 text/html OV 12/10/18:Here to establish carePast [facility], no labsPast Hx:HTNCADReviewed social family and surgical historyHere with his wifeFeels well, but states that he now 'dozes off' more often and has noted some 'confusion'He denies any other [employer]ER complaints, ROS is done OV 12/24/18:Here for his routine aptHere with his wifeFeels wellDid do the labs OV 04/10/19:Here for his routine aptHe feels wellHe did do the labs and is here to review theseHe has seen Dr Humphries the neurologist also OV 08/07/19:Here for his routine aptHe did do the labsHe has seen the neurologistHe also has a spot looked at the top of the scalp OV 08/26/19:ACV:C/O L hip painStates that 10 days ago he carried big ladders and noted the L hip pain afterwardsHe has taken some aleve with good relief but as per his he does have pain when the aleve wears offHe also then has a mild limpNo N/T or weakness in the L LENo back pain notedOV 02/17/2020:Here for his routine aptHe is here with his Augustin garciaVincenzo do the labsWants a referral to Dr Scherer instead of Dr Humphries OV 06/01/2020:Here for his routine aptHe is here with his Marta, and he has done his labsHe is here for his MWV also OV 10/26/2020;Here for his routine aptAs per his since more than a month he has noted some 'sweating' after he eats and his 'palms are sweatyHe denies any chest painr or shortness of breath, no palpitations, no syncope or pre syncopeHe is here with his Mateus has done the labs on 10/20/2020OV 03/10/2021:Here for his routine aptHe is doing wellHe is here with his Mateus did do the labsOV 07/12/2021:Here for his routine aptHe feels wellHe is here with his wifeHe did do the labsOV 12/20/2021:Here for his routine aptHe is doing wellHe is to do the labsHere with his wifeOV 04/18/2022:Here for his routine apt and also his MWVHe is here with his , feels wellHe would like a cream for the penis and referral to dermatologyOV 10/24/2022:Here for his f/uu apt, is doing well, here with his , no new labs OV 02/27/2023: Here for his f/u apt with his Marta, he did do the labs OV 07/24/2023: Here for his routine apt, here with his , he did do the labs 07/17/2023 OV 09/25/2023: Here for his f/u post hospital apt for a UTI, s/p 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 show RCA and now has to see urology OV 02/05/2024:Here for his f/u apt, he is doing well, he is here for his MWV, he is here with his OV 07/17/2024: Here with his and son, as per the and son, he may be having a UTI as well as pain in the hip Cody Fatima MD [address] [facility] [address] [facility], [address], [place], [address], [place] [facility] [employer] [facility] 07/22/2024 14:36:37
--- OUTSIDE RECORDS SUMMARY | 2024-10-22 21:15 | XMS_ITS | Patient Health Summary ---
Author Organization [facility] Address [address] [place] [address] Care Team Providers Care Psychiatric Technician Assistant Name Role Phone Cody Fatima MD Primary Care Provider Note from [facility],non-owned Affiliates and Associated Physician Practices is amultiple site organization consisting of ambulatory clinics and hospital sitesin [place], [place], [place] and [place]. This disclosure is being madepursuant to the Care Everywhere program and may not contain all information available regarding this patient. Last updated 18.[facility] Allergies * Milk-Related Compounds(Other) * Molds & Smuts(Other) * Seasonal(Other) * Sulfa Drugs(Rash) -Medium Criticality Medications * Be aware that medications may not be up to date on this document. Alwaysverify current medications with the patient. * Blood Pressure Monitor ALEXANDER(Started 11/27/2015) Use 1 device once daily * memantine (NAMENDA) 10 MG tablet Take 1 (one) tablet by mouth once daily * NON FORMULARY REQUEST Natali chola calm BID Olprima EPA / DHA TID Hemp Oil Complex BID Chlortrimetom PRN * donepezil (ARICEPT) 10 MG tablet Take 1 (one) tablet by mouth at bedtime Active Problems Problem Noted Date Diagnosed Date Paroxysmal atrial fibrillation 10/29/2020 Chronic kidney disease 01/19/2018 Cognitive impairment 07/28/2017 Essential hypertension 03/13/2015 Hyperlipidemia 04/30/2013 Sleep apnea 09/02/2010 Cardiomyopathy 08/07/2009 Immunizations * TDAP (7yrs+)(Given 10/09/2012) * TETANUS(Given 10/09/2012) Social History Tobacco Use Types Packs/Day Years [...] T Respiratory Rate 16 08/01/2018 3:[address] Oxygen Saturation 96% 03/14/2024 1:54 PM CDT Inhaled Oxygen Concentration - - Weight 63 kg (139 lb) 03/14/2024 1:54 PM CDT Height 162.6 cm (5' 4 ) 03/14/2024 1:54 PM CDT Body Mass Index 23.86 03/14/2024 1:54 PM CDT Procedures * EKG 12-LEAD(Performed 03/14/2024) Performed for Essential hypertension * DERMATOPATHOLOGY(Performed 06/21/2022) * PROC EKG IN CLINIC(Performed 10/29/2020) Performed for Paroxysmal atrial fibrillation (HCC) * ECHO COMPLETE(Performed 10/29/2020) Performed for Atrial fibrillation, unspecified type (HCC), History of cardiomyopathy * ME TTE W/DOPPLER, COMPLETE(Performed 01/01/2019) Performed for Cardiomyopathy, unspecified type (HCC) * MRI BRAIN WWO CONTRAST(Performed 10/30/2016) * CREATININE BLOOD - POCT (IP) [facility](Performed 10/30/2016) * RPR(Performed 10/25/2016) * CBC W AUTO DIFFERENTIAL(Performed 10/25/2016) * PHOSPHORUS BLOOD(Performed 10/25/2016) * MAGNESIUM BLOOD(Performed 10/25/2016) * COMPREHENSIVE METABOLIC PANEL(Performed 10/25/2016) * TSH(Performed 10/25/2016) * FOLATE(Performed 10/25/2016) * VITAMIN B12(Performed 10/25/2016) * LIPID PROFILE(Performed 01/07/2016) * COMPREHENSIVE METABOLIC PANEL(Performed 01/07/2016) * LIPID PROFILE(Performed 01/07/2016) * COMPREHENSIVE METABOLIC PANEL(Performed 01/07/2016) * CBC W AUTO DIFFERENTIAL(Performed 01/07/2016) * US RETROPERITONEAL LIMITED(Performed 09/02/2015) * PATHOLOGY TISSUE(Performed 10/07/2014) * PROC ECHOCARDIOGRAM COMP W BUBBLE STUDY(Performed 09/02/2014) * LAB HISTORICAL RESULTS-ONBASE(Performed 05/22/2014) * HEPATITIS C ANTIBODY(Performed 11/13/2013) * VITAMIN D 25-HYDROXY(Performed 11/13/2013) * PTH INTACT W/O CALCIUM(Performed 11/13/2013) * CBC W AUTO DIFFERENTIAL(Performed 11/13/2013) * COMPREHENSIVE METABOLIC PANEL(Performed 11/13/2013) * LIPID PROFILE(Performed 11/13/2013) * DERMATOPATHOLOGY(Performed 11/29/2012) * COMPREHENSIVE METABOLIC PANEL(Performed 10/10/2012) * LIPID PROFILE(Performed 10/10/2012) * HEMOGLOBIN A1C(Performed 10/10/2012) * TSH(Performed 04/07/2012) * HEMOGLOBIN A1C(Performed 04/07/2012) * LIPID PROFILE(Performed 04/07/2012) * HEPATIC FUNCTION PANEL(Performed 04/07/2012) * BASIC METABOLIC PANEL (CALCIUM TOTAL)(Performed 04/07/2012) * CBC W AUTO DIFFERENTIAL(Performed 04/07/2012) * LIPID PROFILE(Performed 07/22/2011) * BASIC METABOLIC PANEL (CALCIUM TOTAL)(Performed 07/22/2011) * VITAMIN D 25-HYDROXY(Performed 07/22/2011) * LAB HISTORICAL RESULTS-ONBASE(Performed 07/22/2011) * LAB HISTORICAL RESULTS-ONBASE(Performed 07/22/2011) * LAB HISTORICAL RESULTS-ONBASE(Performed 07/22/2011) * ECHO COMPLETE(Performed 05/04/2011) * PATHOLOGY REPORTS - HPF HISTORICAL(Performed 03/18/2011) * PATHOLOGY/GENETICS HISTORICAL-ONBASE(Performed 03/14/2011) * MAGNESIUM BLOOD(Performed 02/18/2011) * TESTOSTERONE MALE FREE(Performed 02/18/2011) * VITAMIN D 25-HYDROXY(Performed 02/18/2011) * TSH(Performed 02/18/2011) * URIC ACID BLOOD(Performed 02/18/2011) * LIPID PROFILE(Performed 02/18/2011) * COMPREHENSIVE METABOLIC PANEL(Performed 02/18/2011) * CBC W AUTO DIFFERENTIAL(Performed 02/18/2011) * DERMATOPATHOLOGY(Performed 10/22/2010) * PATHOLOGY/GENETICS HISTORICAL-ONBASE(Performed 10/22/2010) * URIC ACID BLOOD(Performed 09/02/2010) * BASIC METABOLIC PANEL (CALCIUM TOTAL)(Performed 09/02/2010) * TESTOSTERONE FREE+TOTAL EQUIL LC/MS(Performed 09/02/2010) * TESTOSTERONE TOTAL MALES ICMA(Performed 09/02/2010) * LAB HISTORICAL RESULTS-ONBASE(Performed 09/02/2010) * LAB HISTORICAL RESULTS-ONBASE(Performed 08/31/2010) * CREATININE URINE TIMED(Performed 05/31/2010) * CORTISONE URINE TIMED(Performed 05/31/2010) * CREATININE URINE TIMED(Performed 05/31/2010) * LAB HISTORICAL RESULTS-ONBASE(Performed 05/31/2010) * TSH(Performed 05/28/2010) * PROSTATE SPECIFIC ANTIGEN SCREEN(Performed 05/28/2010) * PROLACTIN(Performed 05/28/2010) * FSH + LH PANEL(Performed 05/28/2010) * TESTOSTERONE FREE+TOTAL EQUIL LC/MS(Performed 05/28/2010) * HEPATIC FUNCTION PANEL(Performed 05/28/2010) * CBC W AUTO DIFFERENTIAL(Performed 05/28/2010) * TSH(Performed 05/28/2010) * PROSTATE SPECIFIC ANTIGEN SCREEN(Performed 05/28/2010) * PROLACTIN(Performed 05/28/2010) * FSH + LH PANEL(Performed 05/28/2010) * HEPATIC FUNCTION PANEL(Performed 05/28/2010) * CBC W AUTO DIFFERENTIAL(Performed 05/28/2010) * URIC ACID BLOOD(Performed 04/27/2010) * BASIC METABOLIC PANEL (CALCIUM TOTAL)(Performed 04/27/2010) * TESTOSTERONE BIOAVAIL MALE PANEL(Performed 02/08/2010) * CORTISOL FREE URINE TIMED(Performed 02/08/2010) * CORTISOL FREE URINE TIMED(Performed 01/18/2010) * CBC W AUTO DIFFERENTIAL(Performed 01/15/2010) * HEPATIC FUNCTION PANEL(Performed 01/15/2010) * TSH(Performed 01/15/2010) * PROSTATE SPECIFIC ANTIGEN SCREEN(Performed 01/15/2010) * PROLACTIN(Performed 01/15/2010) * LH(Performed 01/15/2010) * FSH(Performed 01/15/2010) * TESTOSTERONE FREE+TOTAL EQUIL LC/MS(Performed 01/15/2010) * BASIC METABOLIC PANEL (CALCIUM TOTAL)(Performed 06/29/2009) * LACTOFERRIN FECAL QUALITATIVE(Performed 10/27/2008) * LAB HISTORICAL RESULTS-ONBASE(Performed 10/27/2008) * TSH(Performed 10/24/2008) * TESTOSTERONE BIOAVAIL MALE PANEL(Performed 10/24/2008) * LIPID PROFILE(Performed 10/24/2008) * PROSTATE SPECIFIC ANTIGEN SCREEN(Performed 08/22/2008) * BASIC METABOLIC PANEL (CALCIUM TOTAL)(Performed 08/22/2008) * PATHOLOGY/GENETICS HISTORICAL-ONBASE(Performed 03/24/2008) Results * EKG 12-LEAD (03/14/2024 2:06 PM CDT) Ventricular Rate 48 BPM [facility] Atrial Rate 48 BPM [facility] P-R Interval 136 ms [facility] QRS Duration ms 104 ms [facility] Q-T Interval ms 434 ms [facility] QTC Calculation (Bezet) 387 ms [facility] Calculated P [place] -2 degrees [facility] Calculated R [place] -62 degrees [facility] Calculated T [place] -23 degrees [facility] Interpretation EKG SINUS BRADYCARDIA INCOMPLETE RIGHT BUNDLE BRANCH BLOCK LEFT ANTERIOR FASCICULAR BLOCK MINIMAL VOLTAGE CRITERIA FOR LVH, MAY BE NORMAL VARIANT ( R in aVL ) NONSPECIFIC ST ABNORMALITY ABNORMAL ECG NO PREVIOUS ECGS AVAILABLE Confirmed by ERIC ??TAHIR MCCRACKEN ([id number]) on 03/20/2024 3:35:42 PM [facility] 03/14/2024 2:06 PM CDT 03/20/2024 3:35 PM CDT Tahir Medellin MD ECG ORDERABLES [facility] * DERMATOPATHOLOGY (06/21/2022 3:33 AM CDT) Only the most recent of3 resultswithin the time period is included. Case Report Dermatopathology Report ? Case: [id number] ? Authorizing Provider: ??Qasim Cleary MD ?Collected: ? 06/21/2022 03:33 AM ? Ordering Location: ? [facility] Derm[facility] Lab ?Received: ?06/22/2022 06:46 AM [...] lower back. The specimen consists of a [id number] piece of skin and it is bisected. Jar 0. 10/06/202 2 12:41 PM CDT DERMATOPATHOLOGY LABORATORY Microscopic [...] characteristic determined by the Dermatopathology Laboratory at [facility], directed by Dr. Mendez Patrick. These tests need not be, and therefore are not, approved by the [place] Food and Drug Administration. The tests are used for clinical purposes. Billing Codes Specimen Charges Stain Charges 79758 1 2 12:41 PM CDT DERMATOPATHOLOGY LABORATORY Embedded Images 2 12:41 PM CDT DERMATOPATHOLOGY LABORATORY Pathology/Cytolo gy TISSUE SPECIMEN FROM SKIN / Unknown 06/21/2022 3:33 AM CDT 06/22/2022 6:46 AM CDT Qasim Cleary MD LAB - PATHOLOGY/CYTO LOGY ORDERABLES DERMATOPATHOLOGY LABORATORY [facility] Department of Dermatology [address], [address] [phone] * PROC EKG IN CLINIC (10/29/2020 1:[address]) Narrative Elle Kovacs - 10/29/2020 1:[address] Jocelyn Vazquez APRN-CNP ? 10/29/2020 ??1:18 PM SB 50 Procedure Note Jocelyn Vazquez APRN-CNP - 10/29/2020 1:18 PM CST SB 50 Jocelyn BRADLEY ECG ORDERABLES * ECHO COMPLETE (10/29/2020 11:[address]) Only the most recent of2 resultswithin the time period is included. Anatomical Region Laterality Modality Chest Echo 10/29/2020 11:[address] Narrative Procedure Note Terrell Monterroso MD - 11/05/2020 Tahir Medellin MD ECHOCARDIOGRAPHY RAD IANT * ME TTE W/DOPPLER, COMPLETE (01/01/2019 9:53 AM CDT) Narrative Tahir Medellin MD - 01/01/2019 9:53 AM CDT Tahir Medellin MD ? 01/01/2019 ??9:53 AM [facility] 2-D & M-Mode Echocardiogram Report Color Flow Doppler Report Patients Name: Noah Butler ?: 1950 Age: [age] year old Gender: male ?? Date of Test: ??12/27/2018 Referring Physician: Sina Morton MD [address] [facility] [address] [place] [address] Primary Care Physician: Nancy Rand MD Introduction: Noah Butler is a 68 year old male with history of Cardiomyopathy Indication: LV function Chamber Measurements LV Internal Dimension Systole (cm): 3.8 cm LV Internal Dimension Diastole (cm): 4.6 cm Septal Thickness (cm): 1.1 cm Aortic Root Measurement (cm): 3.9 cm Left Atrium Measurement (cm): 3.1 cm LVOT Diameter (cm): 1.9 cm Ejection Fraction 45-50% Color Flow and Doppler Waveform Analysis Aortic Velocities: AV Max (m/s): 1.7 m/s LVOT max (m/s): 0.8 m/s Mitral Velocities: E (m/s): 0.8 m/s A (m/s): 1 m/s Tricuspid Velocities: Max Tricuspid Valve Velocity (m/s): 0.5 m/s PulmonicVelocities: Max Pulmonic Valve Velocity (m/s): 1.1 m/s OVERALL INTERPRETATION: -Technically adequate study. - Rhythm is sinus. - Normal left ventricular size and systolic function without regional wall motion abnormalities. Ejection fraction is estimated to be ??45-50%. - Normal estimated left atrial pressure. - Normal right ventricular size and systolic function. - Normal right ventricular systolic pressure; estimated RVSP 30mmHg. ??IVC normal size with respiratory variation. ?? - Left atrial size is mildly enlarged. ??Right atrial size is normal. - Normal trileaflet aortic valve structure and velocities. ??No aortic regurgitation. ??No aortic stenosis. - Normal mitral valve structure and velocities. ??Mild mitral regurgitation. No mitral stenosis. - Normal tricuspid valve structure. ??Mild tricuspid regurgitation. - Normal pulmonary valve structure and velocities. Mild pulmonary insufficiency. - Normal pericardium. - Normal aortic root. Electronically signed by: Tahir Medellin MD Date of Interpretation: 01/01/19 ?Date of Final Report: 01/01/19 Tahir Medellin MD ECG ORDERABLES * MRI BRAIN WWO CONTRAST (10/30/2016 4:[address]) Anatomical Region Laterality Modality Head Other Impressions 10/31/2016 11:[address] IMPRESSION: 1. No MR findings to explain the patient's symptoms. This report was approved ??by Aki Roper ?? on 10/31/2016 10:21 AM . I, Dr. SHIRLEY MARIANO M.D. have personally reviewed and interpreted this examination/study. This report was electronically signed by SHIRLEY MARIANO M.D. ??on 10/31/2016 11:48 AM . Narrative 10/31/2016 11:[address] EXAMINATION: Magnetic resonance imaging (MRI) of the brain without and with contrast HISTORY: 66-year-old male with worsening memory loss in the setting of previous traumatic brain injury. TECHNIQUE: MRI of the brain was performed prior to and following the uneventful administration of 8.5 mL Gadavist intravenous gadolinium contrast according to standard protocol. FINDINGS: Comparison is made with a study from 01/26/2011. No evidence of acute or chronic hemorrhage is identified. No evidence of acute cerebral infarction is seen. There is mild cerebral volume loss with associated ex vacuo ventricular dilatation. No mass effect or midline shift is seen. Periventricular, subcortical, and pontine white matter FLAIR hyperintensities likely represent sequelae of chronic small vessel ischemic disease. No enhancing lesions are identified. A small developmental venous anomaly is present in the left caudate nucleus. The corpus callosum and sella appear normal. A small focus of encephalomalacia is present in the right cerebellar hemisphere. Otherwise, the posterior fossa, brainstem, and craniocervical junction appear normal. Trace bilateral mastoid effusions are present with a small amount of fluid in the left middle ear cavity. Otherwise, the visualized portions of the orbits, paranasal sinuses, and mastoids appear normal. Normal flow voids are demonstrated in the carotid arteries and basilar artery. The calvarium and visualized cervical spine appear normal. Procedure Note Shirley Mariano MD - 12/15/2017 EXAMINATION: Magnetic resonance imaging (MRI) of the brain without andwith contrast HISTORY: 66-year-old male with worsening memory loss in the setting ofprevious traumatic brain injury. TECHNIQUE: MRI of the brain was performed prior to and following theuneventful administration of 8.5 mL Gadavist intravenous gadoliniumcontrast according to standard protocol. FINDINGS: Comparison is made with a study from 01/26/2011. No evidence of acute or chronic hemorrhage is identified. No evidence ofacute cerebral infarction is seen. There is mild cerebral volume loss withassociated ex vacuo ventricular dilatation. No mass effect or midlineshift is seen. Periventricular, subcortical, and pontine white matter FLAIR hyperintensities likelyrepresent sequelae of chronic small vessel ischemic disease. No enhancinglesions are identified. A small developmental venous anomaly is present inthe left caudate nucleus. The corpus callosum and sella appear normal. A small focus of encephalomalacia ispresent in the right cerebellar hemisphere. Otherwise, the posteriorfossa, brainstem, and craniocervical junction appear normal. Trace bilateral mastoid effusions are present with a small amount of fluidin the left middle ear cavity. Otherwise, the visualized portions of theorbits, paranasal sinuses, and mastoids appear normal. Normal flow voidsare demonstrated in the carotid arteries and basilar artery. The calvarium and visualized cervical spineappear normal. IMPRESSION IMPRESSION: 1. No MR findings to explain the patient's symptoms. This report was approved by Aki Roper on 10/31/2016 10:21 AM . IDr. SHIRLEY M.D. have personally reviewed and interpreted thisexamination/study. This report was electronically signed by SHIRLEY MARIANO M.D. on 10/31/201611:48 AM . Norma Pearl MD MR ORDERABLES * CREATININE BLOOD - POCT (IP) [facility] (10/30/2016) Creatinine POCT 1.23 0.3 - 1.3 mg/dL [facility] eGFR POCT 60 60 ml/min [facility] 10/30/2016 Shirley Mariano MD LAB - POINT OF CARE ORDERABLES [facility] * RPR (10/25/2016 2:[address]) Pathologist [facility] RPR Non Reactive Non Reactive [facility] (BEAKER) Blood specimen (specimen) BLOOD SPECIMEN / Unknown 10/25/2016 2:[address] 10/25/2016 Narrative [facility] (BEAKER) - 10/26/2016 7:[address] ADVIS[address] Performed at: ??01 - [facility] [address] ??[id number] Bunker Worker: Evaristo Turner PhD, Phone: ??[phone] Norma Pearl MD LAB - CHEMISTRY ORDE TIEN [facility] (BEAKER) * CBC W AUTO DIFFERENTIAL (10/25/2016 2:[address]) Only the most recent of8 resultswithin the time period is included. WBC 8.6 3.4 - 10.8 x10E3/uL [facility] (BEAKER) RBC 5.08 4.14 - 5.80 x10E6/uL [facility] (BEAKER) Hemoglobin 14.9 12.6 - 17.7 g/dL [facility] (BEAKER) Hematocrit 43.2 37.5 - 51.0 % [facility] (BEAKER) MCV 85 79 - 97 fL [facility] (BEAKER) MCH 29.3 26.6 - 33.0 pg [facility] (BEAKER) MCHC 34.5 31.5 - 35.7 g/dL [facility] (BEAKER) RDW-CV 13.4 12.3 - 15.4 % [facility] (BEAKER) Platelet 175 150 - 379 x10E3/uL [facility] (BEAKER) Neutrophils % 69 % [facility] (BEAKER) Lymphocytes % 21 % [facility] (BEAKER) Monocytes % 7 % [facility] (BEAKER) Eosinophils % 3 % [facility] (BEAKER) Basophil % 0 % [facility] (BEAKER) Neutrophils Absolute 5.9 1.4 - 7.0 x10E3/uL [facility] (BEAKER) Lymphocyte Absolute Manual 1.8 0.7 - 3.1 x10E3/uL [facility] (BEAKER) Monocytes Absolute 0.6 0.1 - 0.9 x10E3/uL [facility] (BEAKER) Eosinophils Absolute Manual 0.2 0.0 - 0.4 x10E3/uL [facility] (BEAKER) Basophil Absolute Manual 0.0 0.0 - 0.2 x10E3/uL [facility] (BEAKER) Immature Granulocytes % 0 % [facility] (BEAKER) Immature Granulocytes absolute 0.0 0.0 - 0.1 x10E3/uL [facility] (BEAKER) Blood specimen (specimen) BLOOD SPECIMEN / Unknown 10/25/2016 2:[address] 10/25/2016 Narrative [facility] (BEAKER) - 10/26/2016 7:[address] Performed at: ??01 - [facility] [address] ??[id number] Bunker Worker: Evaristo Turner PhD, Phone: ??[phone] Norma Pearl MD LAB - HEMATOLOGY ORD ERABLES [facility] (BEAKER) * (ABNORMAL) COMPREHENSIVE METABOLIC PANEL (10/25/2016 2:[address]) Only the most recent of6 resultswithin the time period is included. Glucose 112(H) 65 - 99 mg/dL [facility] (BEAKER) BUN 11 8 - 27 mg/dL [facility] (BEAKER) Creatinine 1.14 0.76 - 1.27 mg/dL [facility] (BEAKER) eGFR non- 66 >59 mL/min/1.7 3 [facility] (BEAKER) eGFR 77 >59 mL/min/1.7 3 [facility] (BEAKER) BUN/Creatinine Ratio 10 10 - 22 [facility] (BEAKER) Sodium 144 134 - 144 mmol/L [facility] (BEAKER) Potassium 4.3 3.5 - 5.2 mmol/L [facility] (BEAKER) Chloride 100 96 - 106 mmol/L [facility] (BEAKER) CO2 24 18 - 29 mmol/L [facility] (BEAKER) Calcium 10.4(H) 8.6 - 10.2 mg/dL [facility] (BEAKER) Protein Total 7.2 6.0 - 8.5 g/dL [facility] (BEAKER) Albumin 4.7 3.6 - 4.8 g/dL [facility] (BEAKER) Globulin Total 2.5 1.5 - 4.5 g/dL [facility] (BEAKER) Albumin/Globulin Ratio 1.9 1.1 - 2.5 [facility] (BEAKER) Bilirubin Total 0.6 0.0 - 1.2 mg/dL [facility] (BEAKER) Alkaline Phosphatase 47 39 - 117 IU/L [facility] (BEAKER) AST 17 0 - 40 IU/L [facility] (BEAKER) ALT 17 0 - 44 IU/L [facility] (BEAKER) Blood specimen (specimen) BLOOD SPECIMEN / Unknown 10/25/2016 2:[address] 10/25/2016 Narrative [facility] (BEAKER) - 10/26/2016 7:[address] Performed at: ??01 - [facility] ??[id number] Bunker Worker: Evaristo Turner PhD, Phone: ??[phone] Norma Pearl MD LAB - CHEMISTRY [facility] Performing Organization Address [facility]/ZIP Co de Phone Number [facility] ([facility] * PHOSPHORUS BLOOD (10/25/2016 2:[address]) Phosphorus 4.0 2.5 - 4.5 mg/dL [facility] (BEAKER) Blood specimen (specimen) BLOOD SPECIMEN / Unknown 10/25/2016 2:[address] 10/25/2016 Narrative [facility] (BEAKER) - 10/26/2016 7:[address] Performed at: ??01 - [facility] ??[id number] Bunker Worker: Evaristo Turner PhD, Phone: ??[phone] Norma Pearl MD LAB - CHEMISTRY [facility] Performing Organization Address [facility] Co de Phone Number [facility] ([facility] * MAGNESIUM BLOOD (10/25/2016 2:[address]) Only the most recent of2 resultswithin the time period is included. Magnesium 2.0 1.6 - 2.3 mg/dL [facility] (BEAKER) Blood specimen (specimen) BLOOD SPECIMEN / Unknown 10/25/2016 2:[address] 10/25/2016 Narrative [facility] (BEAKER) - 10/26/2016 7:[address] Performed at: ??01 - [facility] ??[id number] Bunker Worker: Evaristo Turner PhD, Phone: ??[phone] Norma Pearl MD LAB - CHEMISTRY [facility] Performing Organization Address City/[facility]/ZIP Co de Phone Number [facility] ([facility] * FOLATE (10/25/2016 2:[address]) Pathologist [facility] Folate 7.9 >3.0 ng/mL [facility] (BEAKER) Comment: A serum folate concentration of less than 3.1 ng/mL is considered to represent clinical deficiency. Blood specimen (specimen) BLOOD SPECIMEN / Unknown 10/25/2016 2:[address] 10/25/2016 Narrative [facility] (BEAKER) - 10/26/2016 7:[address] Performed at: ??01 - [facility] ??[id number] Bunker Worker: Evaristo Turner PhD, Phone: ??[phone] Norma Pearl MD LAB - CHEMISTRY [facility] Performing Organization Address [facility] Co de Phone Number [facility] * (ABNORMAL) VITAMIN B12 (10/25/2016 2:[address]) Pathologist [facility] Vitamin B12 1,177(H) 211 - 946 pg/mL [facility] (BEAKER) Blood specimen (specimen) BLOOD SPECIMEN / Unknown 10/25/2016 2:[address] 10/25/2016 Narrative [facility] (BEAKER) - 10/26/2016 7:[address] Performed at: ??01 - [facility] ??[id number] Bunker Worker: Evaristo Turner PhD, Phone: ??[phone] Norma Pearl MD LAB - CHEMISTRY [facility] Performing Organization Address City/[facility]/ZIP Co de Phone Number [facility] * TSH (10/25/2016 2:[address]) Only the most recent of7 resultswithin the time period is included. Pathologist [facility] TSH 1.220 0.450 - 4.500 uIU/mL [facility] (BEAKER) Blood specimen (specimen) BLOOD SPECIMEN / Unknown 10/25/2016 2:[address] 10/25/2016 Narrative [facility] (CAT) - 10/26/2016 7:[address] Performed at: ??01 - [facility] ??[id number] Bunker Worker: Evaristo Turner PhD, Phone: ??[phone] Norma Pearl MD LAB - CHEMISTRY [facility] Performing Organization Address City/[facility]/ZIP Co de Phone Number [facility] * LIPID PROFILE (01/07/2016 10:47 AM CDT) Only the most recent of8 resultswithin the time period is included. Vanda Gayle [facility] Comment: A hand-written panel/profile was received from your office. In accordance with the [facility] Ambiguous Test Code Policy dated March 2003, we have completed your order by using the closest currently or formerly recognized AMA panel. ??We have assigned Lipid Panel, Test Code #028879 to this request. If this is not the testing you wished to receive on this specimen, please contact the [facility] Client Inquiry/Technical Services Department to clarify the test order. ??We appreciate your business. 01/07/2016 10:4 7 AM CDT 01/07/2016 12:48 PM CDT Narrative [facility] - 01/08/2016 7:17 AM CDT Performed at: ??01 - [address] ??[id number] Bunker Worker: Evaristo Turner PhD, Phone: ??[phone] Norma Pearl MD LAB - CHEMISTRY HIRAM CHAUHAN Performing Organization Address [facility] Co de Phone Number [facility] * US RETROPERITONEAL LIMITED (09/02/2015 2:[address] ADVISOR) Anatomical Region Laterality Modality Abdomen Other Impressions 09/02/2015 5:[address] ADVISOR IMPRESSION: 1. ??No evidence of abdominal aortic aneurysm. Dictated by Fariba Sherwani, M.D. This report was approved ??by Fariba Del Castillo M.D. ?? on 09/02/2015 3:[address] Harvey Mallory M.D. have personally reviewed and interpreted this examination/study. This report was electronically signed by Harvey MORTENSEN M.D. ??on 09/02/2015 5:20 PM . Narrative 09/02/2015 5:[address] ADVISOR EXAM: Limited retroperitoneal ultrasound HISTORY: Abdominal aortic aneurysm screening FINDINGS: No prior study is available for comparison. Proximal abdominal aorta: 1.5 x 1.8 cm Mid abdominal aorta: 1.6 x 1.9 cm Distal abdominal aorta: 1.5 x 1.9 cm Right common iliac artery: 1.4 x 1.1 cm Left common iliac artery: 1.1 x 1.1 cm The abdominal aorta and common iliac arteries are patent. There is no evidence of abdominal aortic or common iliac artery aneurysm. Procedure Note Lisseth Mortensen MD - 12/16/2017 EXAM: Limited retroperitoneal ultrasound HISTORY: Abdominal aortic aneurysm screening FINDINGS: No prior study is available for comparison. Proximal abdominal aorta: 1.5 x 1.8 cm Mid abdominal aorta: 1.6 x 1.9 cm Distal abdominal aorta: 1.5 x 1.9 cm Right common iliac artery: 1.4 x 1.1 cm Left common iliac artery: 1.1 x 1.1 cm The abdominal aorta and common iliac arteries are patent. There is noevidence of abdominal aortic or common iliac artery aneurysm. IMPRESSION IMPRESSION: 1. No evidence of abdominal aortic aneurysm. Dictated by Fariba Del Castillo M.D. This report was approved by Fariba Del Castillo M.D. on 09/02/2015 3:45PM . Dr. Harvey Mallory M.D. have personally reviewed and interpreted thisexamination/study. This report was electronically signed by Harvey MORTENSEN M.D. on09/02/2015 5:20 PM . Norma Pearl MD US ORDERABLES * PATHOLOGY TISSUE (10/07/2014 2:[address] ADVIS[address]) Surgical Pathology Tissue CLINICAL HISTORY: The patient is a 64 year old male who is presenting for a screening colonoscopy. FINAL DIAGNOSIS: COLON, ASCENDING, POLYP, BIOPSY (A): ?- ??MINIMAL HISTOLOGIC CHANGE COLON, SIGMOID, POLYP, BIOPSY (B): ?- ??MINIMAL HISTOLOGIC CHANGE GROSS DESCRIPTION: The specimens are received in formalin in two containers for gross and microscopic examination, each labeled with the patient's name, Noah Butler . Specimen A, ascending colon polyp , is a yellow-huston tissue fragment measuring 0.2 x 0.2 x 0.1 cm. ??The specimen is filtered into a filter bag and submitted in toto in cassette A1. Specimen B, sigmoid colon polyp consists of five huston-brown tissue fragments measuring from 0.1 to 0.3 cm in greatest dimension. ??The specimen is filtered into a filter bag and submitted in toto in cassette B1. PW/ls MICROSCOPIC DESCRIPTION: Sections of the ascending and sigmoid colon polyp show unremarkable colonic mucosa with no evidence of acute or chronic inflammation. ??Glandular architecture is preserved. Minimal edema is seen. ??No evidence of hyperplastic changes, dysplasia or adenomatous changes are appreciated. ??Deeper sections show similar findings. SB/PW/edk The performance characteristics of all immunohistochemical and indirect immunofluorescence stains (if any) cited in this report were determined by the Histopathology Laboratory of [facility].?? Some of these tests were developed by our own laboratory and have not been cleared or approved by the US Food and Drug Administration.?The FDA does not require this test to go through premarket FDA review.?These tests are used for clinical purposes. They should not be regarded as investigational or for research.?? This laboratory is certified under the Clinical Laboratory Improvement Amendments (CLIA) as qualified to perform high complexity clinical laboratory testing. This case has been personally reviewed and interpreted by the attending (teaching) pathologist. Final Diagnosis performed by Brock Santos MD. Electronically signed 10/09/2014 [facility] (CAT) Other (qualifier value) 10/07/2014 2:[address] ADVISOR 10/07/2014 2:[address] ADVISOR Narrative [facility] PATH[facility] LAB (CAT) - 10/09/2014 4:[address] ADVISOR PRE-OP DIAGNOSIS: ??OE SCREENING COLON OPERATIVE PROCEDURE / FINDINGS: ??Procedure(s) with comments: COLONOSCOPY O/E - Path # 1 - Transverse Path # 2 - Sigmoid External hemmorhoids POST-OP DIAGNOSIS: * No post-op diagnosis entered * Collection Date->10/07/14 Specimen A->Colon ascending colon polyp Specimen B->Colon sigmoid colon polyp Santa Carlisle MD LAB - PATHOLOGY/CYTO LOGY ORDERABLES [facility] (CAT) * PROC ECHOCARDIOGRAM COMP W BUBBLE STUDY (09/02/2014 1:[address] ADVISOR) Narrative [facility] - 09/02/2014 1:[address] ADVISOR NAME: Noah Butler : 1950 AGE: 64 y.o. SEX: male Referring Physician: Sina Morton MD [address] [facility] [address] [place] [address] Ordering Physician: Selene Primary Care Physician: Norma Pearl Date of Test: 09/02/14 TAPE#: digital Underground Roof Bolter: ds Height: 5' 5 (165.1 cm) Weight: 189 lb (85.73 kg) BSA: 1.9 Introduction: Noah Butler is a 64 y.o. male with history of Cardiomyopathy . Indication: Hypertension Chamber Measurements LV Internal Dimension Systole (cm): 3 cm LV Internal Dimension Diastole (cm): 4.4 cm Septal Thickness (cm): 1 cm Posterior Wall Thickness (cm): 1.1 cm LV Systolic Function: Normal Aortic Root Measurement (cm): 3.2 cm Left Atrium Measurement (cm): 3.8 cm Right Atrial Size: Normal RV Size: Normal Global RV function: Normal Aortic Valve AV Max (m/s): 1.3 m/s LVOT Diameter (cm): 1.9 cm LVOT max (m/s): 0.8 m/s Normal Aortic Valve Velocities: Yes Mitral Valve Mitral Valve Velocities: ? E (m/s): 0.9 m/s ? A (m/s): 0.9 m/s ? Deceleration Time (msec): 155 msec Tissue Doppler Velocities: ? Diastolic Function: Normal Tricuspid Valve Max Tricuspid Valve Velocity (m/s): 0.5 m/s Normal Tricuspid Valve Velocities: Yes Pulmonic Valve Max Pulmonic Valve Velocity (m/s): 0.5 m/s Normal Pulmonic Valve Velocities: Yes OVERALL INTERPRETATION: - Normal LV systolic function. EF 54%. - Normal RV size and function. - Mild left atrial enlargement. - No abnormalities of aorta or pericardium. - Normal LV diastolic function. - Trivial aortic and tricuspid regurgitation. - Mild mitral regurgitation. - RVSP <40 mmHg, which is a normal estimate. - Central venous pressure ~ 5-10 mmHg (per IVC assessment). - Technically good study. Supervising Physician: Sina Morton MD Reading Physician: David Wilson MD Procedure Note Provider, MD [place] - 02/23/2018 NAME: Noah Butler : 1950 AGE: 64 y.o. SEX: male Referring Physician: Sina Morton MD [address] [facility] [address] [place] [address] Ordering Physician: Selene Primary Care Physician: Norma Pearl Date of Test: 09/02/14 TAPE#: digital Underground Roof Bolter: ds Height: 5' 5 (165.1 cm) Weight: 189 lb (85.73 kg) BSA: 1.9 Introduction: Noah Butler is a 64 y.o. male with history ofCardiomyopathy . Indication: Hypertension Chamber Measurements LV Internal Dimension Systole (cm): 3 cm LV Internal Dimension Diastole (cm): 4.4 cm Septal Thickness (cm): 1 cm Posterior Wall Thickness (cm): 1.1 cm LV Systolic Function: Normal Aortic Root Measurement (cm): 3.2 cm Left Atrium Measurement (cm): 3.8 cm Right Atrial Size: Normal RV Size: Normal Global RV function: Normal Aortic Valve AV Max (m/s): 1.3 m/s LVOT Diameter (cm): 1.9 cm LVOT max (m/s): 0.8 m/s Normal Aortic Valve Velocities: Yes Mitral Valve Mitral Valve Velocities: E (m/s): 0.9 m/s A (m/s): 0.9 m/s Deceleration Time (msec): 155 msec Tissue Doppler Velocities: Diastolic Function: Normal Tricuspid Valve Max Tricuspid Valve Velocity (m/s): 0.5 m/s Normal Tricuspid ValveVelocities: Yes Pulmonic Valve Max Pulmonic Valve Velocity (m/s): 0.5 m/s Normal Pulmonic ValveVelocities: Yes OVERALL INTERPRETATION: - Normal LV systolic function. EF 54%. - Normal RV size and function. - Mild left atrial enlargement. - No abnormalities of aorta or pericardium. - Normal LV diastolic function. - Trivial aortic and tricuspid regurgitation. - Mild mitral regurgitation. - RVSP <40 mmHg, which is a normal estimate. - Central venous pressure ~ 5-10 mmHg (per IVC assessment). - Technically good study. Supervising Physician: Sina Morton MD Reading Physician: David Wilson MD Sina Morton MD ECG ORDERABLES Performing Organization Address City/[facility] Co de Phone Number [facility] * LAB HISTORICAL RESULTS-ONBASE (05/22/2014) Only the most recent of8 resultswithin the time period is included. 05/22/[address] [facility] - 07/28/2014 9:[address] ADVIS[address] Historical Provider LAB - CHEMISTRY O RDERABLES Performing Organization Address [facility] de Phone Number [facility] [address] * PTH INTACT W/O CALCIUM (11/13/2013 11:[address] ADVIS[address]) PTH Intact 21 15 - 65 pg/mL [facility] Plasma specimen (specimen) 11/13/2013 11:[address] ADVISOR 11/13/2013 2:[address] ADVISOR Narrative [facility] ([facility]) - 11/14/2013 3:[address] ADVISOR Performed at: ??01 - [facility] [address] ??[id number] Bunker Worker: Taran Nelson MD, Phone: ??[phone] Norma Pearl MD LAB - CHEMISTRY HIRAM CHAUHAN Performing Organization Address [facility] Co de Phone Number [facility] * (ABNORMAL) VITAMIN D 25-HYDROXY (11/13/2013 11:[address]) Only the most recent of3 resultswithin the time period is included. Vitamin D, 25 Hydroxy 21.9(L) 30.0 - 100.0 ng/mL [facility] ([facility]) Comment: Vitamin D deficiency has been defined by the [place] of Medicine and an Endocrine Society practice guideline as a level of serum 25-OH vitamin D less than 20 ng/mL (1,2). The Endocrine Society went on to further define vitamin D insufficiency as a level between 21 and 29 ng/mL (2). 1. IOM ([place] of Medicine). 2010. Dietary reference ?? intakes for calcium and D. [place]: The ?? National AcademMagic Tech Network Press. 2. Jah MF, Sabrina NC, Sean NGUYEN, et al. ?? Evaluation, treatment, and prevention of vitamin D ?? deficiency: an Endocrine Society clinical practice ?? guideline. JCEM. 2011 Mar; 96(7):1911-30. Venous blood specimen (specimen) 11/13/2013 11:[address] ADVIS[address] 11/13/2013 2:[address] ADVISOR Narrative [facility]) - 11/14/2013 3:[address] ADVIS[address] Performed at: ??01 - [address] ??[id number] Bunker Worker: Taran Nelson MD, Phone: ??[phone] Norma Pearl MD LAB - CHEMISTRY HIRAM CHAUHAN Performing Organization Address [facility] Co de Phone Number [facility] * HEPATITIS C ANTIBODY (11/13/2013 11:[address]) Hepatitis C Virus Antibody 0.2 0.0 - 0.9 s/co ratio [facility]) Comment: ?Negative: ? < 0.8 ?Indeterminate 0.8 - 0.9 ?Positive: ? > 0.9 ??In order to reduce the incidence of a false positive ??result, the CDC recommends that all s/co ratios ??between 1.0 and 10.9 be confirmed by a more specific ??supplemental or PCR testing. [facility] offers HCV Ab ??w/Reflex to Verification test #[id number]. 11/13/2013 11:[address] 11/13/2013 2:[address] ADVISOR [facility]ative [facility] 11/14/2013 3:[address] ADVISOR Performed at: ??01 - [address], [place], [place] ??[id number] Bunker Worker: Taran Nelson MD, Phone: ??[phone] Norma Pearl MD LAB - CHEMISTRY HIRAM CHAUHAN [facility]) * HEMOGLOBIN A1C (10/10/2012 1:[address] ADVIS[address]) Only the most recent of2 resultswithin the time period is included. Hemoglobin A1c 5.6 4.8 - 5.6 % [facility] Comment: ? Increased risk for diabetes: 5.7 - 6.4 ? Diabetes: >6.4 ? Glycemic control for adults with diabetes: <7.0 Blood specimen (specimen) 10/10/2012 1:[address] ADVISOR 10/10/2012 9:[address] ADVISOR Narrative [facility] ([facility]) - 10/11/2012 7:[address] ADVIS[address] Performed at: ??01 - [facility] ??[id number] Bunker Worker: Mathew Arboleda PhD, Phone: ??[phone] Nancy Marsh MD LAB - CHEMISTRY HIRAM CHAUHAN [facility] ([facility]) * (ABNORMAL) BASIC METABOLIC PANEL (CALCIUM TOTAL) (04/07/2012 12:00 AM CDT) Only the most recent of6 resultswithin the time period is included. Glucose 98 65 - 99 mg/dL [facility] ([facility]) BUN 21 8 - 27 mg/dL [facility] ([facility]) Creatinine 1.38(H) 0.76 - 1.27 mg/dL [facility] ([facility]) eGFR non- 54(L) >59 mL/min/1.7 3 [facility] ([facility]) eGFR 63 >59 mL/min/1.7 3 [facility] ([facility]) BUN/Creatinine Ratio 15 10 - 22 [facility] ([facility]) Sodium 139 134 - 144 mmol/L [facility] ([facility]) Potassium 4.6 3.5 - 5.2 mmol/L [facility] ([facility]) Chloride 103 97 - 108 mmol/L [facility] ([facility]) CO2 20 20 - 32 mmol/L [facility] ([facility]) Calcium 9.6 8.6 - 10.2 mg/dL [facility] ([facility]) 04/07/2012 04/07/2012 7:1 8 PM CDT Narrative [facility] ([facility]) - 04/08/2012 7:08 AM CDT Performed at: ?? - [facility] [address] ??[id number] Bunker Worker: Estee Dior MD, Phone: ??[phone] Norma Pearl MD LAB - CHEMISTRY HIRAM CHAUHAN Performing Organization Address City/[facility]/ZIP Co de Phone Number [facility] ([facility] * HEPATIC FUNCTION PANEL (04/07/2012 12:00 AM CDT) Only the most recent of4 resultswithin the time period is included. Protein Total 7.2 6.0 - 8.5 g/dL [facility] ([facility]) Albumin 4.5 3.6 - 4.8 g/dL [facility] ([facility]) Bilirubin Total 0.5 0.0 - 1.2 mg/dL [facility] ([facility]) Bilirubin Direct 0.12 0.00 - 0.40 mg/dL [facility] ([facility]) Alkaline Phosphatase 43 25 - 160 IU/L [facility] ([facility]) AST 23 0 - 40 IU/L [facility] ([facility]) ALT 20 0 - 55 IU/L [facility] ([facility]) 04/07/2012 04/07/2012 7:1 8 PM CDT Narrative [facility] ([facility]) - 04/08/2012 7:08 AM CDT Performed at: ??01 - [address] ??[id number] Bunker Worker: Estee Dior MD, Phone: ??[phone] Norma Pearl MD LAB - CHEMISTRY HIRAM CHAUHAN Performing Organization Address [facility]/ZIP Co de Phone Number [facility] ([facility]) * PATHOLOGY REPORTS - HPF HISTORICAL (03/18/2011 1:27 PM CDT) 03/18/2011 1:[address] [facility] - 03/18/2011 1:27 PM CDT Bri Goins MD LAB - PATHOLOGY/CYTO LOGY ORDERABLES Performing Organization Address [facility]/State/ZIP Co de Phone Number [facility] * PATHOLOGY/GENETICS HISTORICAL-ONBASE (03/14/2011) Only the most recent of3 resultswithin the time period is included. 03/14/2011 Historical Provider LAB - CHEMISTRY Maryuri PATEL [facility] * (ABNORMAL) URIC ACID BLOOD (02/18/2011 4:12 PM CDT) Only the most recent of3 resultswithin the time period is included. Uric Acid 10.7(H) 2.5 - 8.5 mg/dL [facility] Serum 02/18/2011 4:12 PM CDT 02/18/2011 5:52 PM CDT Narrative [facility] - 02/22/2011 3:44 PM CDT Preferred Lab:->[facility] LAB Norma Pearl MD LAB - CHEMISTRY HIRAM CHAUHAN Performing Organization Address [facility]/ZIP Co de Phone Number [address] [phone] * TESTOSTERONE MALE FREE (02/18/2011 4:12 PM CDT) Testosterone Free Male 203 47 - 244 pg/mL [facility] Comment: REFERENCE INTERVAL: ??Testosterone, Free Kyle Stage IV ?35 - 169 pg/mL Kyle Stage V ? 41 - 239 pg/mL To convert to pmol/L, multiply pg/mL by 3.47. The concentration of Free Testosterone is derived from a mathematical expression based on the constant for the binding of testosterone to sex hormone binding globulin. *ASSAY PERFORMED BY: [facility] ? [facility] ?[address] ?[place], [place] [address] Serum 02/18/2011 4:12 PM CDT 02/18/2011 5:52 PM CDT Narrative [facility] - 02/22/2011 3:44 PM CDT Preferred Lab:->[facility] LAB Norma Pearl MD LAB - CHEMISTRY HIRAM CHAUHAN Performing Organization Address City/[facility]/ZIP Co de Phone Number [facility] [address] [place] [address], [facility] [phone] * (ABNORMAL) TESTOSTERONE TOTAL MALES ICMA (09/02/2010 9:[address]) Testosterone Total Male 781(H) 300 - 720 ng/dL [facility] Comment: Test Information: Testosterone, Adult Male To convert to nmol/L, multiply ng/dL by 0.0347. *ASSAY PERFORMED BY: [facility] ?[address] ?[place], [place] [address] 09/02/2010 9:[address] 09/02/2010 11:[address] ADVIS[address] Jaron Cool MD LAB - CHEMISTRY JIM JUAREZ Performing Organization Address [facility] [place] [address], [facility] [phone] * TESTOSTERONE FREE+TOTAL EQUIL LC/MS (09/02/2010 9:[address]) Only the most recent of3 resultswithin the time period is included. Testosterone Free Male 200 47 - 244 pg/mL [facility] Comment: REFERENCE INTERVAL: ??Testosterone, Free Kyle Stage IV ?35 - 169 pg/mL Kyle Stage V ? 41 - 239 pg/mL To convert to pmol/L, multiply pg/mL by 3.47. The concentration of Free Testosterone is derived from a mathematical expression based on the constant for the binding of testosterone to sex hormone binding globulin. *ASSAY PERFORMED BY: [facility] ? [facility] ?[address] ?[place], [place] [address] 09/02/2010 9:[address] ADVIS[address] 09/02/2010 11:[address] ADVIS[address] Jaron Cool MD LAB - CHEMISTRY ORD ERABLES Performing Organization Address [facility] Co de Phone Number [facility] [address] [phone] * CORTISONE URINE TIMED (05/31/2010 4:24 PM CDT) Cortisone 57 Undefined ug/L [facility] Cortisone ug/24 Hour Urine 36 16 - 128 ug/24 hr [facility] ([facility]) 05/31/2010 4:24 PM CDT 05/31/2010 9:38 PM CDT Narrative [facility] ([facility]) - 06/02/2010 4:16 PM CDT Performed at: ??01 - [facility] [address] ??[id number] Bunker Worker: Luis Fernando Figueroa MD, Phone: ??[phone] Jaron Cool MD LAB - URINE OPERATING THEATRE TECHNICIAN RY ORDERABLES Performing Organization Address [facility] Co de Phone Number [facility] ([facility]) * CREATININE URINE TIMED (05/31/2010 4:24 PM CDT) Only the most recent of2 resultswithin the time period is included. Creatinine Urine 270.4 22.0 - 328.0 mg/dL [facility] ([facility]) Creatinine 24 Hour Urine 1,690.0 1,000.0 - 200 mg/24 hr [facility] ([facility]) 05/31/2010 4:24 PM CDT 05/31/2010 9:38 PM CDT Narrative [facility] ([facility]) - 06/02/2010 4:16 PM CDT Performed at: ??02 - [facility] ??[id number] Bunker Worker: Estee Dior MD, Phone: ??[phone] Jaron Cool MD LAB - URINE OPERATING THEATRE TECHNICIAN RY ORDERABLES Performing Organization Address City/[facility]/ZIP Co de Phone Number [facility] * (ABNORMAL) PROLACTIN (05/28/2010 3:51 PM CDT) Only the most recent of3 resultswithin the time period is included. Prolactin 18.7(H) 4.0 - 15.2 ng/mL [facility] 05/28/2010 3:51 PM CDT 05/28/2010 9:46 PM CDT Narrative [facility] ([facility]) - 06/02/2010 8:10 PM CDT Performed at: ??01 - [facility] ??[id number] Bunker Worker: Estee Dior MD, Phone: ??[phone] Jaron Cool MD LAB - CHEMISTRY ORD ERABLES Performing Organization Address City/[facility]/ZIP Co de Phone Number [facility] * PROSTATE SPECIFIC ANTIGEN SCREEN (05/28/2010 3:51 PM CDT) Only the most recent of4 resultswithin the time period is included. PSA 2.1 0.0 - 4.0 ng/mL [facility] ([facility]) Comment: Dru ECLIA methodology. According to the [place] [employer], Serum PSA should decrease and remain at undetectable levels after radical prostatectomy. The AUA defines biochemical recurrence as an initial PSA value 0.2 ng/mL or greater followed by a subsequent confirmatory PSA value 0.2 ng/mL or greater. Values obtained with different assay methods or kits cannot be used interchangeably. Results cannot be interpreted as absolute evidence of the presence or absence of malignant disease. 05/28/2010 3:51 PM CDT 05/28/2010 9:46 PM CDT Narrative [facility] ([facility]) - 06/02/2010 8:10 PM CDT Performed at: ??01 - [facility] ??[id number] Bunker Worker: Estee Dior MD, Phone: ??[phone] Jaron Cool MD LAB - CHEMISTRY ORD ERABLES Performing Organization Address [facility] Co de Phone Number [facility] ([facility]) * (ABNORMAL) FSH + LH PANEL (05/28/2010 3:51 PM CDT) Only the most recent of2 resultswithin the time period is included. LH 0.1(L) 1.7 - 8.6 mIU/mL [facility] ([facility]) FSH 0.3(L) 1.5 - 12.4 mIU/mL [facility] ([facility]) 05/28/2010 3:51 PM CDT 05/28/2010 9:46 PM CDT Narrative [facility] ([facility]) - 06/02/2010 8:10 PM CDT Performed at: ??01 - [address] ??[id number] Bunker Worker: Estee Dior MD, Phone: ??[phone] Jaron Cool MD LAB - CHEMISTRY ORD ERABLES Performing Organization Address [facility] Co de Phone Number [facility] ([facility]) * CORTISOL FREE URINE TIMED (02/08/2010 7:57 AM CDT) Only the most recent of2 resultswithin the time period is included. Cortisol Free Urine 12 0 - 50 ug/24 hr [facility] Comment: Performed at: ??BN - [facility] ??[id number] Bunker Worker: Luis Fernando Figueroa MD 02/08/2010 7:57 AM CDT 02/08/2010 9:49 AM CDT Narrative [facility] - 02/11/2010 6:21 AM CDT *24 HOUR SPECIMEN* ??SOURCE: URINE TOTAL VOLUME: 1700 MLS COLLECTION START DATE ?? TIME: 02/06/10 1005 PM COLLECTION STOP DATE ?? TIME: 02/07/10 1045 PM HEIGHT(FT.INCHES): 5'6 WEIGHT(LBS.): 212 LBS INITIALS: NF Jaron Cool MD LAB - URINE OPERATING THEATRE TECHNICIAN RY ORDERABLES [address] [phone] * (ABNORMAL) TESTOSTERONE BIOAVAIL MALE PANEL (02/08/2010 7:57 AM CDT) Only the most recent of2 resultswithin the time period is included. Testosterone Bioavailable 133 131 - 682 ng/dL [facility] Comment: REFERENCE INTERVAL: Testosterone, Bioavailable Kyle Stage IV ?40 - 485 ??ng/dL Kyle Stage V ? 124 - 596 ng/dL The concentrations of free and bioavailable testosterone are derived from mathematical expressions based on constants for the binding of testosterone to albumin and/or sex hormone binding globulin. *ASSAY PERFORMED BY: [facility] ? [facility] ?[address] ?[place], [place] [address] Testosterone Free Male 48 47 - 244 pg/mL [facility] Comment: REFERENCE INTERVAL: ??Testosterone, Free Kyle Stage IV ?35 - 169 pg/mL Kyle Stage V ? 41 - 239 pg/mL To convert to pmol/L, multiply pg/mL by 3.47. The concentration of Free Testosterone is derived from a mathematical expression based on the constant for the binding of testosterone to sex hormone binding globulin. *ASSAY PERFORMED BY: [facility] ?[address] ?[place], [place] [address] Testosterone % Free Male 2.4 1.6 - 2.9 % [facility] Comment: *ASSAY PERFORMED BY: [facility] ?[address] ?[place], [place] [address] Testosterone Total Male 198(L) 300 - 720 ng/dL [facility] Comment: Test Information: Testosterone, Adult Male To convert to nmol/L, multiply ng/dL by 0.0347. *ASSAY PERFORMED BY: [facility] ?[address] ?[place], [place] [address] Sex Hormone Binding Globulin 16 11 - 80 nmol/L [facility] Comment: *ASSAY PERFORMED BY: [facility] ?[address] ?[place], [place] [address] 02/08/2010 7:57 AM CDT 02/08/2010 9:49 AM CDT Narrative [facility] - 02/11/2010 6:21 AM CDT *24 HOUR SPECIMEN* ??SOURCE: URINE TOTAL VOLUME: 1700 MLS COLLECTION START DATE ?? TIME: 02/06/10 1005 PM COLLECTION STOP DATE ?? TIME: 02/07/10 1045 PM HEIGHT(FT.INCHES): 5'6 WEIGHT(LBS.): 212 LBS INITIALS: NF Jaron Cool MD LAB - CHEMISTRY ORD TabulaBLES Performing Organization Address [facility] Co de Phone Number [address] [phone] * LH (01/15/2010 4:05 PM CDT) LH 3.4 1.7 - 8.6 mIU/mL [facility] Comment: Performed at: ??[address] ??[id number] Bunker Worker: Candice Antonio MD 01/15/2010 4:05 PM CDT 01/15/2010 4:37 PM CDT Jaron Cool MD LAB - CHEMISTRY ORD TabulaBLES Performing Organization Address [facility] Co de Phone Number [address] [phone] * FSH (01/15/2010 4:05 PM CDT) FSH 2.1 1.5 - 12.4 mIU/mL [facility] Comment: Performed at: ??[facility] Lab[address], [place], [place] ??[id number] Bunker Worker: Candice Antonio MD 01/15/2010 4:05 PM CDT 01/15/2010 4:37 PM CDT Jaron Cool MD LAB - CHEMISTRY ORD ERABLES Performing Organization Address [facility] de Phone Number [address] [phone] * LACTOFERRIN FECAL QUALITATIVE (10/27/2008 9:[address]) Lactoferrin Fecal Negative Negative [facility] Comment: A negative result does not exclude the presence of intestinal inflammation. *ASSAY PERFORMED BY: [facility] ?[address] ?[place], [place] [address] 10/27/2008 9:[address] 10/27/2008 9:[address] Narrative [facility] - 10/29/2008 4:[address] Preferred Lab:->[facility] Ariadna Valdes MD LAB - BODY FLUID OR DERABLES Performing Organization Address City/[facility]/ZIP Co de Phone Number [address] [phone] Care Teams Psychiatric Technician Assistant Relationship Specialty Start Date End Date Cody Fatima MD [address] [place] [id number] PCP - General 02/20/20
[2024-10-22 21:21] LABS: Basophils Percent Auto 0.2 % (0.2-1.2); Eosinophils Percent Auto 0.1 % (0-4.4); Hemoglobin 13.2 g/dL (14.0-18.0); Immature Granulocyte Absolute 0.06 K/mm3 (0.00-0.031); Immature Granulocyte Percent A 0.3 % (0-0.5); Lymphocytes Absolute Auto 0.64 K/mm3 (0.9-3.2); Lymphocytes Percent Auto 3.4 % (18.3-44.2); Mean Corpuscular HGB Conc 32.2 g/dl (32-36); Mean Corpuscular Hemoglobin 27.8 pg (26-34); Mean Corpuscular Volume 86.3 fl (80-100); Mean Platelet Volume 10.6 fl (7.4-10.4); Monocytes Absolute Auto 0.9 K/mm3 (0.1-0.6); Monocytes Percent Auto 4.9 % (2.6-8.5); Neutrophils Absolute Auto 17.1 K/mm3 (1.3-6.7); Neutrophils Percent Auto 91.1 % (45.5-73.1); Platelet Count Result 212 k/mm3 (150-375); Red Blood Count 4.75 M/mm3 (4.6-6.20); Red Cell Distribution Width 14.2 % (11.5-14.5); White Blood Count 18.7 K/mm3 (4.5-10.0)
[2024-10-22 21:32] LABS: Lactic Acid Reflex 1.9 mmol/L (0.7-2.0)
[2024-10-22 21:33] LABS: INR 1.2; Partial Thromboplastin Time 29.3 Seconds (22.3-36.8); Prothrombin Time 15.6 Seconds (11.1-14.7)
[2024-10-22 21:34] LABS: Alanine Aminotransferase 38 U/L (6-50); Albumin Level 3.5 g/dL (3.5-5.1); Alkaline Phosphatase 99 U/L (38-126); Anion Gap 11 mmol/L (4-12); Aspartate Amino Transferase 32 U/L (17-59); Bilirubin,Total 0.8 mg/dL (0.2-1.3); Blood Urea Nitrogen 29 mg/dL (9-20); CRP 1.8 mg/dL (<1.0); Calcium 8.6 mg/dL (8.4-10.2); Carbon Dioxide 22 mmol/L (22-30); Chloride 102 mmol/L (98-107); Estimated Glomerular Filt Rate > 60; Glucose 130 mg/dL (65-110); Magnesium 1.6 mg/dL (1.6-2.3); Potassium 3.3 mmol/L (3.4-5.0); Sodium 135 mmol/L (137-145)
--- NOTE | 2024-10-22 21:34 | ED.NAVMDI ---
HPI - Nausea/Vomiting/Diarrhea General Chief complaint: Nausea/Vomiting/Diarrhea <ANDREW Baeza Last Filed: 10/23/24 03:01> Stated complaint: FEVER, N/V/D, POSSIBLE ASPIRATION PNE. <ANDREW Baeza Last Filed: 10/23/24 03:01> Time Seen by Provider: 10/22/24 20:55 <ANDREW Baeza Last Filed: 10/23/24 03:01> Source: family <ANDREW Baeza Last Filed: 10/23/24 03:01> Mode of arrival: EMS <ANDREW Baeza Last Filed: 10/23/24 03:01> Limitations: altered mental status, clinical condition and dementia <ANDREW Baeza Last Filed: 10/23/24 03:01> History of Present Illness HPI Narrative: Patient is a 74-year-old male who presents the ED via EMS with report of nausea, vomiting, diarrhea. Patient is resident of [facility]. History of CVA and Alzheimer's dementia. Per /family at bedside, patient is typically minimally responsive at baseline, only able to answer yes or no questions. does report that he has been less responsive than usual and has been sick for the past 2 days. Reports nausea, vomiting, diarrhea. Developed fever and cough today. notes patient has history of aspiration pneumonia and is concerned for recurrence of this given patient's vomiting. Also concerned for dehydration. States several other residents at [facility] have been sick as well. <ANDREW Baeza Last Filed: 10/23/24 03:01> Related Data Home medications: Home Medications ?Medication ?Instructions ?Recorded ?Confirmed ?Last Taken ?Type nystatin-triamcinolone 100,000 1 applic topical QAM 05/07/24 10/23/24 08/02/24 10:00 History unit/gram-0.1 % topical ointment betamethasone dipropionate 0.05 % 1 applic topical BID PRN 08/03/24 10/23/24 07/14/24 History lotion dermatitis flares. zinc oxide 40 % topical ointment 1 applic topical HS 08/03/24 10/23/24 08/03/24 10:00 History <Citlalli Cueto PA-C - Last Filed: 10/23/24 03:01> Allergies/Adverse reactions: Allergies Allergy/AdvReac Type Severity Reaction Status Date / Time Sulfa (Sulfonamide Allergy Mild rash Verified 10/23/24 03:33 Antibiotics) <Citlalli Cueto PA-C - Last Filed: 10/23/24 03:01> Review of Systems Review of Systems: ROS unobtainable: Yes unobtainable due to mental status <Citlalli Cueto PA-C - Last Filed: 10/23/24 03:01> [facility] Past Medical History Medical History: Medical History Acute left STEFANIE ischemic stroke Arthritis Sleep apnea HTN (hypertension) Currently off medications HLD (hyperlipidemia) Currently off medications Afib Chronic UTI Alzheimer's dementia Congestive heart failure <Citlalli Cueto PA-C - Last Filed: 10/23/24 03:01> Family History Family History: Family History Sibling Diabetes mellitus Brother Father Family history of kidney stones, Onset Age: 75 Family history of dementia, Onset Age: 75 Cerebrovascular accident, Onset Age: 75 Alzheimer dementia Hypertension Mother Heart problem <Citlalli Cueto PA-C - Last Filed: 10/23/24 03:01> Social History Social History: Social History Years smoked: 5 Smoking status: Former smoker Tobacco type: cigarettes Second hand tobacco smoke exposure: No Additional smoking assessment comments: Unknown amount. Alcohol intake: never Substance use: never Substance use type: does not use Do You Feel Safe in your Home?: Yes Lack of Transportation: No Lack of Food: Never True Current Housing: I Have Housing Concerned About Future Housing: No Difficulty Paying Gas/Electric Bills: No Difficulty Paying for Meds: No Currently Unemployed: No Education: Don't Know Difficulty w/ Childcare or Family Care: No Spiritual care concerns: No <ANDREW Baeza Last Filed: 10/23/24 03:01> Exam Narrative: GENERAL: Elderly, ill-appearing, in mild acute distress. HEAD: Normocephalic, atraumatic. RESPIRATORY: Airway patent, respirations tachypneic, rhonchi in bases bilaterally, worse on R CARDIOVASCULAR: Tachycardic with regular rhythm without murmurs, rubs, or gallops. ABDOMINAL: Soft, no appreciable tenderness. Normoactive BS. PEG tube in LUQ. MUSCULOSKELETAL: No gross deformities. SKIN: Warm, dry, normal color. NEURO: Somnolent but awake. Does not follow commands or answer any of my questions. Occasionally opens eyes and will make eye contact. No ataxic movements. PSYCHIATRIC: Somnolent. Nonverbal. <ANDREW Baeza Last Filed: 10/23/24 03:01> Course SUPERVISOR PUBLICATIONS/PA Physician Supervision PA did inform me this patient was being admitted. I was available for consultation while patient was in the emergency department but otherwise did not physically examine them and was not directly involved in their care. <Dafne Jackson MD - Last Filed: 10/23/24 18:50> Vital Signs Vital signs: Vital Signs Temperature 99.4 F 10/22/24 20:38 Pulse Rate 112 H 10/22/24 20:38 Respiratory Rate 29 H 10/22/24 20:38 Blood Pressure 80/59 L 10/22/24 20:38 Pulse Oximetry 94 10/22/24 20:38 Oxygen Delivery Room Air 10/22/24 20:38 Temperature 98.7 F 10/23/24 16:15 Pulse Rate 82 10/23/24 18:00 Respiratory Rate 1 L 10/23/24 16:15 Blood Pressure 110/64 10/23/24 16:15 Pulse Oximetry 100 10/23/24 16:15 Oxygen Delivery Room Air 10/23/24 04:00 <Citlalli Cueto PA-C - Last Filed: 10/23/24 03:01> Vital Signs Temperature 99.4 F 10/22/24 20:38 Pulse Rate 112 H 10/22/24 20:38 Respiratory Rate 29 H 10/22/24 20:38 Blood Pressure 80/59 L 10/22/24 20:38 Pulse Oximetry 94 10/22/24 20:38 Oxygen Delivery Room Air 10/22/24 20:38 Temperature 98.7 F 10/23/24 16:15 Pulse Rate 82 10/23/24 18:00 Respiratory Rate 1 L 10/23/24 16:15 Blood Pressure 110/64 10/23/24 16:15 Pulse Oximetry 100 10/23/24 16:15 Oxygen Delivery Room Air 10/23/24 04:00 <Dafne Jackson MD - Last Filed: 10/23/24 18:50> MDM - Nausea/Vomiting/Diarrhea MDM Narrative Medical decision making narrative: Patient presented to ED from local halfway facility with report of nausea, vomiting, diarrhea, fevers, cough. History of CVA and dementia. Not able to answer any of my questions or follow commands. Somewhat somnolent. Due to dementia, patient typically only able to answer yes/no questions at baseline but per family is less responsive currently than usual. Patient hypotensive, tachycardic, tachypneic, borderline febrile upon arrival. O2 stable on RA. Sepsis workup was initiated. Blood cultures obtained. Will start broad-spectrum IV antibiotics. Zosyn/vancomycin started. Cbc with blood cell count of 18.7. Neutrophil predominance. No bandemia. CMP stable kidney function. Potassium 3.3. IV replacement given. Magnesium borderline, IV replacement given for this as well. Lactic acid 1.9. UA with potential infection, 2+ leuk esterase, 21-50 whites. Sent for culture. No recent cx to compare to. Positive cx in 2022 grew out ecoli, relatively moran sensitive. Viral swabs are negative. CT brain negative. Initial chest x-ray is clear. CT scan of chest/abdomen/pelvis was obtained and showing evidence of cystitis, distention of stomach. No other significant findings. No evidence of focal infiltrate, shows atelectasis in lung bases. Personal review of images does appear to have consolidation in lung bases, worse throughout right lower lung. Given patient's history of aspiration/dysphagia with recent vomiting, concerned for potential recurrent aspiration pneumonia. Patient is meeting sepsis criteria. Will be admitted for further evaluation. Discussed lab and imaging findings and patient's clinical severity extensively with patient's family. Patient given 30 cc/kg fluid bolus. Maintenance fluids started. Blood pressure has responded to fluid resuscitation. Blood pressure is now consistently in the 110s systolic. Maintaining MAPs > 65. Will continue to monitor closely. Discussed case with Dr. Thomason, hospitalist, agrees with possible consolidation in RLL. Accepted patient for admission to IMU. Family are in agreement with plan and admission. Patient is a DNR/DNI, but they are agreeable to central line placement if necessary for patient stabilization. <Citlalli Cueto PA-C - Last Filed: 10/23/24 03:01> Medical Records Attestation: I reviewed the patient's medical records. <Citlalli Cueto PA-C - Last Filed: 10/23/24 03:01> Lab Data Attestation: I reviewed the patient's lab results. <Citlalli Cueto PA-C - Last Filed: 10/23/24 03:01> Result diagrams: 10/22/24 21:16 10/22/24 21:16 <ANDREW Baeza Last Filed: 10/23/24 03:01> Labs: Lab Results 10/22/24 10/22/24 10/23/24 Range/Units 21:16 22:38 05:04 WBC 18.7 H (4.5-10.0) K/mm3 RBC 4.75 (4.6-6.20) M/mm3 Hgb 13.2 L (14.0-18.0) g/dL Hct 41.0 L (42.0-52.0) % MCV 86.3 (80-100) fl MCH 27.8 (26-34) pg MCHC 32.2 (32-36) g/dl RDW 14.2 (11.5-14.5) % Plt Count 212 (150-375) k/mm3 MPV 10.6 H (7.4-10.4) fl Immature Gran % (Auto) 0.3 (0-0.5) % Neut % (Auto) 91.1 H (45.5-73.1) % Lymph % (Auto) 3.4 L (18.3-44.2) % [place] % (Auto) 4.9 (2.6-8.5) % Eos % (Auto) 0.1 (0-4.4) % Baso % (Auto) 0.2 (0.2-1.2) % Lymph # (Auto) 0.64 L (0.9-3.2) K/mm3 [place] # (Auto) 0.9 H (0.1-0.6) K/mm3 Eos # (Auto) 0.0 (0-0.3) K/mm3 Baso # (Auto) 0.0 (0.0-0.1) K/mm3 Abs Immat Gran (auto) 0.06 H (0.00-0.031) K/mm3 Absolute Neuts (auto) 17.1 H (1.3-6.7) K/mm3 Absolute Nucleated RBC 0.000 (0.0-0.012) K/mm3 Nucleated RBC % 0.0 (0.0-0.2) % PT 15.6 H (11.1-14.7) Seconds INR 1.2 APTT 29.3 (22.3-36.8) Seconds Sodium 135 L (137-145) mmol/L Potassium 3.3 L (3.4-5.0) mmol/L Chloride 102 (98-107) mmol/L Carbon Dioxide 22 (22-30) mmol/L Anion Gap 11 (4-12) mmol/L BUN 29 H (9-20) mg/dL Creatinine 0.79 (0.7-1.3) mg/dL Estim Creat Clear Calc Not Reportable Estimated GFR > 60 (59 - ) Glucose 130 H (65-110) mg/dL Lactic Acid 1.9 (0.7-2.0) mmol/L Calcium 8.6 (8.4-10.2) mg/dL Magnesium 1.6 (1.6-2.3) mg/dL Total Bilirubin 0.8 (0.2-1.3) mg/dL AST 32 (17-59) U/L ALT 38 (6-50) U/L Alkaline Phosphatase 99 (38-126) U/L C-Reactive Protein 1.8 H (<1.0) mg/dL Total Protein 7.0 (6.3-8.2) g/dL Albumin 3.5 (3.5-5.1) g/dL Urine Color Yellow (Yellow) Urine Appearance Cloudy H (Clear) Urine pH 5.5 (5.0-9.0) Ur Specific [place] 1.021 (1.001-1.035) Urine Protein Trace (Negative) mg/dL Urine Glucose (UA) Negative (Negative) mg/dL Urine Ketones Negative (Negative) mg/dL Ur Blood (Man) Trace (Negative) Urine Nitrate Negative (Negative) Urine Bilirubin Negative (Negative) Urine Urobilinogen 0.2 (<2.0) mg/dL Add Ur Microanalysis Reviewed Leukocyte Esterase Rfl 2+ H (Negative) MIRELA/UL Urine RBC 0-2 (0-2) /hpf Urine WBC 21-50 H (0-3) /hpf Ur Squamous Epith Cells Occasional (Few) /hpf Urine Bacteria None seen /hpf Urine Casts 11-20 Nasal MRSA (PCR) Not detected (NOT DETECTE) C. difficile (PCR) (NEGATIVE) Influenza A (RT-PCR) Negative (Negative) Influenza B (RT-PCR) Negative (Negative) RSV (RT-PCR) Negative (Negative) SARS-CoV-2 RNA (RT-PCR) Negative (Negative) 10/23/24 Range/Units 07:47 WBC (4.5-10.0) K/mm3 RBC (4.6-6.20) M/mm3 Hgb (14.0-18.0) g/dL Hct (42.0-52.0) % MCV (80-100) fl MCH (26-34) pg MCHC (32-36) g/dl RDW (11.5-14.5) % Plt Count (150-375) k/mm3 MPV (7.4-10.4) fl Immature Gran % (Auto) (0-0.5) % Neut % (Auto) (45.5-73.1) % Lymph % (Auto) (18.3-44.2) % [place] % (Auto) (2.6-8.5) % Eos % (Auto) (0-4.4) % Baso % (Auto) (0.2-1.2) % Lymph # (Auto) (0.9-3.2) K/mm3 [place] # (Auto) (0.1-0.6) K/mm3 Eos # (Auto) (0-0.3) K/mm3 Baso # (Auto) (0.0-0.1) K/mm3 Abs Immat Gran (auto) (0.00-0.031) K/mm3 Absolute Neuts (auto) (1.3-6.7) K/mm3 Absolute Nucleated RBC (0.0-0.012) K/mm3 Nucleated RBC % (0.0-0.2) % PT (11.1-14.7) Seconds INR APTT (22.3-36.8) Seconds Sodium (137-145) mmol/L Potassium (3.4-5.0) mmol/L Chloride (98-107) mmol/L Carbon Dioxide (22-30) mmol/L Anion Gap (4-12) mmol/L BUN (9-20) mg/dL Creatinine (0.7-1.3) mg/dL Estim Creat Clear Calc Estimated GFR (59 - ) Glucose (65-110) mg/dL Lactic Acid (0.7-2.0) mmol/L Calcium (8.4-10.2) mg/dL Magnesium (1.6-2.3) mg/dL Total Bilirubin (0.2-1.3) mg/dL AST (17-59) U/L ALT (6-50) U/L Alkaline Phosphatase (38-126) U/L C-Reactive Protein (<1.0) mg/dL Total Protein (6.3-8.2) g/dL Albumin (3.5-5.1) g/dL Urine Color (Yellow) Urine Appearance (Clear) Urine pH (5.0-9.0) Ur Specific [place] (1.001-1.035) Urine Protein (Negative) mg/dL Urine Glucose (UA) (Negative) mg/dL Urine Ketones (Negative) mg/dL Ur Blood (Man) (Negative) Urine Nitrate (Negative) Urine Bilirubin (Negative) Urine Urobilinogen (<2.0) mg/dL Add Ur Microanalysis Leukocyte Esterase Rfl (Negative) MIRELA/UL Urine RBC (0-2) /hpf Urine WBC (0-3) /hpf Ur Squamous Epith Cells (Few) /hpf Urine Bacteria /hpf Urine Casts Nasal MRSA (PCR) (NOT DETECTE) C. difficile (PCR) Negative (NEGATIVE) Influenza A (RT-PCR) (Negative) Influenza B (RT-PCR) (Negative) RSV (RT-PCR) (Negative) SARS-CoV-2 RNA (RT-PCR) (Negative) <Citlalli Cueto PA-C - Last Filed: 10/23/24 03:01> Lab Results 10/22/24 10/22/24 10/23/24 Range/Units 21:16 22:38 05:04 WBC 18.7 H (4.5-10.0) K/mm3 RBC 4.75 (4.6-6.20) M/mm3 Hgb 13.2 L (14.0-18.0) g/dL Hct 41.0 L (42.0-52.0) % MCV 86.3 (80-100) fl MCH 27.8 (26-34) pg MCHC 32.2 (32-36) g/dl RDW 14.2 (11.5-14.5) % Plt Count 212 (150-375) k/mm3 MPV 10.6 H (7.4-10.4) fl Immature Gran % (Auto) 0.3 (0-0.5) % Neut % (Auto) 91.1 H (45.5-73.1) % Lymph % (Auto) 3.4 L (18.3-44.2) % [place] % (Auto) 4.9 (2.6-8.5) % Eos % (Auto) 0.1 (0-4.4) % Baso % (Auto) 0.2 (0.2-1.2) % Lymph # (Auto) 0.64 L (0.9-3.2) K/mm3 [place] # (Auto) 0.9 H (0.1-0.6) K/mm3 Eos # (Auto) 0.0 (0-0.3) K/mm3 Baso # (Auto) 0.0 (0.0-0.1) K/mm3 Abs Immat Gran (auto) 0.06 H (0.00-0.031) K/mm3 Absolute Neuts (auto) 17.1 H (1.3-6.7) K/mm3 Absolute Nucleated RBC 0.000 (0.0-0.012) K/mm3 Nucleated RBC % 0.0 (0.0-0.2) % PT 15.6 H (11.1-14.7) Seconds INR 1.2 APTT 29.3 (22.3-36.8) Seconds Sodium 135 L (137-145) mmol/L Potassium 3.3 L (3.4-5.0) mmol/L Chloride 102 (98-107) mmol/L Carbon Dioxide 22 (22-30) mmol/L Anion Gap 11 (4-12) mmol/L BUN 29 H (9-20) mg/dL Creatinine 0.79 (0.7-1.3) mg/dL Estim Creat Clear Calc Not Reportable Estimated GFR > 60 (59 - ) Glucose 130 H (65-110) mg/dL Lactic Acid 1.9 (0.7-2.0) mmol/L Calcium 8.6 (8.4-10.2) mg/dL Magnesium 1.6 (1.6-2.3) mg/dL Total Bilirubin 0.8 (0.2-1.3) mg/dL AST 32 (17-59) U/L ALT 38 (6-50) U/L Alkaline Phosphatase 99 (38-126) U/L C-Reactive Protein 1.8 H (<1.0) mg/dL Total Protein 7.0 (6.3-8.2) g/dL Albumin 3.5 (3.5-5.1) g/dL Urine Color Yellow (Yellow) Urine Appearance Cloudy H (Clear) Urine pH 5.5 (5.0-9.0) Ur Specific [place] 1.021 (1.001-1.035) Urine Protein Trace (Negative) mg/dL Urine Glucose (UA) Negative (Negative) mg/dL Urine Ketones Negative (Negative) mg/dL Ur Blood (Man) Trace (Negative) Urine Nitrate Negative (Negative) Urine Bilirubin Negative (Negative) Urine Urobilinogen 0.2 (<2.0) mg/dL Add Ur Microanalysis Reviewed Leukocyte Esterase Rfl 2+ H (Negative) MIRELA/UL Urine RBC 0-2 (0-2) /hpf Urine WBC 21-50 H (0-3) /hpf Ur Squamous Epith Cells Occasional (Few) /hpf Urine Bacteria None seen /hpf Urine Casts 11-20 Nasal MRSA (PCR) Not detected (NOT DETECTE) C. difficile (PCR) (NEGATIVE) Influenza A (RT-PCR) Negative (Negative) Influenza B (RT-PCR) Negative (Negative) RSV (RT-PCR) Negative (Negative) SARS-CoV-2 RNA (RT-PCR) Negative (Negative) 10/23/24 Range/Units 07:47 WBC (4.5-10.0) K/mm3 RBC (4.6-6.20) M/mm3 Hgb (14.0-18.0) g/dL Hct (42.0-52.0) % MCV (80-100) fl MCH (26-34) pg MCHC (32-36) g/dl RDW (11.5-14.5) % Plt Count (150-375) k/mm3 MPV (7.4-10.4) fl Immature Gran % (Auto) (0-0.5) % Neut % (Auto) (45.5-73.1) % Lymph % (Auto) (18.3-44.2) % [place] % (Auto) (2.6-8.5) % Eos % (Auto) (0-4.4) % Baso % (Auto) (0.2-1.2) % Lymph # (Auto) (0.9-3.2) K/mm3 [place] # (Auto) (0.1-0.6) K/mm3 Eos # (Auto) (0-0.3) K/mm3 Baso # (Auto) (0.0-0.1) K/mm3 Abs Immat Gran (auto) (0.00-0.031) K/mm3 Absolute Neuts (auto) (1.3-6.7) K/mm3 Absolute Nucleated RBC (0.0-0.012) K/mm3 Nucleated RBC % (0.0-0.2) % PT (11.1-14.7) Seconds INR APTT (22.3-36.8) Seconds Sodium (137-145) mmol/L Potassium (3.4-5.0) mmol/L Chloride (98-107) mmol/L Carbon Dioxide (22-30) mmol/L Anion Gap (4-12) mmol/L BUN (9-20) mg/dL Creatinine (0.7-1.3) mg/dL Estim Creat Clear Calc Estimated GFR (59 - ) Glucose (65-110) mg/dL Lactic Acid (0.7-2.0) mmol/L Calcium (8.4-10.2) mg/dL Magnesium (1.6-2.3) mg/dL Total Bilirubin (0.2-1.3) mg/dL AST (17-59) U/L ALT (6-50) U/L Alkaline Phosphatase (38-126) U/L C-Reactive Protein (<1.0) mg/dL Total Protein (6.3-8.2) g/dL Albumin (3.5-5.1) g/dL Urine Color (Yellow) Urine Appearance (Clear) Urine pH (5.0-9.0) Ur Specific [place] (1.001-1.035) Urine Protein (Negative) mg/dL Urine Glucose (UA) (Negative) mg/dL Urine Ketones (Negative) mg/dL Ur Blood (Man) (Negative) Urine Nitrate (Negative) Urine Bilirubin (Negative) Urine Urobilinogen (<2.0) mg/dL Add Ur Microanalysis Leukocyte Esterase Rfl (Negative) MIRELA/UL Urine RBC (0-2) /hpf Urine WBC (0-3) /hpf Ur Squamous Epith Cells (Few) /hpf Urine Bacteria /hpf Urine Casts Nasal MRSA (PCR) (NOT DETECTE) C. difficile (PCR) Negative (NEGATIVE) Influenza A (RT-PCR) (Negative) Influenza B (RT-PCR) (Negative) RSV (RT-PCR) (Negative) SARS-CoV-2 RNA (RT-PCR) (Negative) <Dafne Jackson MD - Last Filed: 10/23/24 18:50> Imaging Data Attestation: I personally reviewed and interpreted this imaging study as follows: <Citlalli Cueto PA-C - Last Filed: 10/23/24 03:01> Radiologist's impression: ITS Impressions Chest X-Ray 10/22/24 21:41 IMPRESSION: No focal infiltrate or effusion. Head CT 10/22/24 23:00 Impression: No acute intracranial hemorrhage or suspicious mass effect. Inflammatory sinus disease. Redemonstration of left mastoid air cell opacification. Chest/Abdomen/Pelvis CT 10/22/24 23:10 IMPRESSION: Findings consistent with patient's known urinary tract infection. No focal infiltrates. Gaseous and air distention of stomach. <Citlalli Cueto PA-C - Last Filed: 10/23/24 03:01> ECG Data EKG #1: Attestation: I personally reviewed and interpreted this ECG as follows: <ANDREW Baeza Last Filed: 10/23/24 03:01> ECG completion date: 10/22/24 <ANDREW Baeza Last Filed: 10/23/24 03:01> ECG completion time: 21:37 <ANDREW Baeza Last Filed: 10/23/24 03:01> EKG Interpretation: tachycardia (108), sinus rhythm, non-specific ST changes and RBBB (incomplete) <ANDREW Baeza Last Filed: 10/23/24 03:01> Discharge Plan Discharge Clinical Impression: History of CVA (cerebrovascular accident) Sepsis Qualifiers: Sepsis type: sepsis due to unspecified organism Sepsis acute organ dysfunction status: unspecified Qualified Code(s): A41.9 - Sepsis, unspecified organism UTI (urinary tract infection) Qualifiers: Urinary tract infection type: acute cystitis Hematuria presence: with hematuria Qualified Code(s): N30.01 - Acute cystitis with hematuria Pneumonia Qualifiers: Pneumonia type: due to unspecified organism Laterality: bilateral Lung location: lower lobe of lung Qualified Code(s): J18.9 - Pneumonia, unspecified organism Nausea and vomiting Qualifiers: Vomiting type: unspecified Qualified Code(s): R11.2 - Nausea with vomiting, unspecified Dementia Qualifiers: Dementia type: unspecified type Dementia severity: unspecified severity Dementia behavioral or psychological symptom: unspecified whether behavioral, psychotic, or mood disturbance or anxiety Qualified Code(s): F03.90 - Unspecified dementia, unspecified severity, without behavioral disturbance, psychotic disturbance, mood disturbance, and anxiety <ANDREW Baeza Last Filed: 10/23/24 03:01> Patient Disposition: Still a Patient <ANDREW Baeza Last Filed: 10/23/24 03:01> Condition: Serious <ANDREW Baeza Last Filed: 10/23/24 03:01>
[2024-10-22] MEDS: SODIUM CHLORIDE 0.9% IV 1,000 ML 999 ML IV CONT ×2 (21:42→22:23)
[2024-10-22 21:58] LABS: Influenza A QL RT-PCR Negative (Negative); Influenza B QL RT-PCR Negative (Negative); RSV RNA, RT-PCR Negative (Negative); SARS-CoV-2 RNA PCR Negative (Negative)
[2024-10-22] MEDS: MAGNESIUM SULF 2 GM/WATER 50ML 2 GM/50 ML BAG IVPB (22:26)
[2024-10-22] MEDS: KCL 20 MEQ/SW 100 ML 100 ML 50 MEQ IVPB (22:33)
[2024-10-22] MEDS: SODIUM CHLORIDE 0.9% IV 500 ML 50 ML (22:39)
--- NOTE | 2024-10-22 22:39 | PC.NURSE ---
N.S. fluid pulled to run concurrently with potassium chloride so it doesn't burn while infusing.
--- NOTE | 2024-10-22 22:40 | PC.NURSE ---
Pt. to CT with at bedside.
--- NOTE | 2024-10-22 22:46 | PC.NURSE ---
Pt arrived with soiled depend. Soiled depend removed, corrie care performed with soap and water. Clean depend applied.
[2024-10-22 22:54] LABS: Add Urine Microscopic? YES; Appearance Urine Cloudy (Clear); Bacteria Urine None Seen /hpf; Bilirubin Urine Negative (Negative); Blood Urine Trace (Negative); Color Urine Yellow (Yellow); Glucose Urine UA Negative (Negative); Ketones Urine Negative (Negative); Leukocyte Esterase Ur 2+ LEU/UL (Negative); Need Manual Microscopic Reviewed; Nitrate Urine Negative (Negative); Protein Urine Trace mg/dL (Negative); RBC Urine 0-2 /hpf (0-2); Specific Grav Ur 1.021 (1.001-1.035); Squamous Epithelial Cell Urine Occasional /hpf (Few); Urobilinogen Urine 0.2 mg/dL (<2.0); WBC Urine 21-50 /hpf (0-3); pH Urine 5.5 (5.0-9.0)
--- NOTE | 2024-10-22 23:20 | PC.NURSE ---
MELANI Hung aware of pt. VS. PA at bedside updating family. Report given to OTTONIEL Bloom. RN to take over as primary RN.
[2024-10-22] MEDS: [UNRECOGNIZED DRUG - REMARK] XX (23:38)
[2024-10-22] MEDS: PIPERACILLN/TAZ 3.375GM/NS50ML 3.375 GM/50 ML BAG IVPB (23:41)
[2024-10-23] VITALS (23 sets, daily range): BP systolic 93–124; BP diastolic 52–81; PULSE 58–94; RESP 1–28; TEMP 36.5–37.1; O2SAT 96–100; BMI 24.5; BMI 24.7
[2024-10-23] MEDS: SODIUM CHLORIDE 0.9% IV 1,000 ML 125 ML IV CONT (00:46)
[2024-10-23] MEDS: VANCOMYCIN 1,500 MG/NS 500 ML 1,500 MG/500 ML BAG 250 MG IVPB (00:47)
[2024-10-23] MEDS: ACETAMINOPHEN 650 MG SUPPOSITORY RECTAL (01:04)
--- NOTE | 2024-10-23 02:50 | PC.NURSE ---
This patient, Noah Butler, was admitted to IMU Room 206-01. Patient/family oriented to hospital policies and general routines including ID bracelet, bed and alarms, visiting hours, pain management, procedures, bathroom and other care routines, personal items, smoking policy, room service/diet, and visiting hours. Information on how to activate the Rapid Response Team has been discussed. Patient/Family are encouraged to report perceived risks to care and to ask questions if they do not understand what they are told or what they should do.
[2024-10-23] MEDS: PIPERACILLN/TAZ 3.375GM/NS50ML 3.375 GM/50 ML BAG IVPB ×2 (05:12→12:04)
[2024-10-23 06:28] LABS: MRSA (PCR) NOT DETECTED (NOT DETECTE)
[2024-10-23 09:03] LABS: Toxigenic C. Diff NEGATIVE (NEGATIVE)
[2024-10-23] MEDS: SODIUM CHLORIDE 0.9% IV 1,000 ML 75 ML IV CONT (12:04)
--- NOTE | 2024-10-23 12:50 | P.HP_ITS ---
H&P: HPI History of Present Illness Date/Time: 10/23/24 12:50 Chief Complaint: Low blood pressure. Narrative: 74-year-old male past medical history of stroke with expressive aphasia and residual right-sided weakness hypertension CHF, presented to the assisted living facility on account of pressure. Patient was asleep at the time of this encounter on the history was obtained from the daughter was at bedside. Reported the patient has Alzheimer's disease as well as stroke and has back to since he stroke in July but were recently cleared for pureed diet. He was found to have low blood pressure and was tr ansferred to the ED for proper ambulation. Evaluation notable for temperature 99.4?, pulse rate 112, respiratory 29, saturating 94% on room air, blood pressure 80/59. Responded to fluids. Labs WBCs 18.7, UA positive leukocyte Estrace and pyuria MRSA screen negative C diff negative. CT chest and abdomen and pelvis notable for cystitis. Patient was started on Zosyn and vancomycin prior to admission. Review of Systems Review of Systems: Unable to do review of system due to patient was lethargic and sleepy noted about this encounter. Also has expressive aphasia. [facility] Past Medical History Medical History Acute left STEFANIE ischemic stroke Arthritis Sleep apnea HTN (hypertension) Currently off medications HLD (hyperlipidemia) Currently off medications Afib Chronic UTI Alzheimer's dementia Congestive heart failure Family History Family History Sibling Diabetes mellitus Brother Father Family history of kidney stones, Onset Age: 75 Family history of dementia, Onset Age: 75 Cerebrovascular accident, Onset Age: 74 Alzheimer dementia Hypertension Mother Heart problem Social History Social History Years smoked: 5 Smoking status: Former smoker Tobacco type: cigarettes Second hand tobacco smoke exposure: No Additional smoking assessment comments: Unknown amount. Alcohol intake: never Substance use: never Substance use type: does not use Do You Feel Safe in your Home?: Yes Lack of Transportation: No Lack of Food: Never True Current Housing: I Have Housing Concerned About Future Housing: No Difficulty Paying Gas/Electric Bills: No Difficulty Paying for Meds: No Currently Unemployed: No Education: Don't Know Difficulty w/ Childcare or Family Care: No Spiritual care concerns: No Meds Home Medications and Allergies Home Medications ?Medication ?Instructions ?Recorded ?Confirmed ?Type nystatin-triamcinolone 100,000 1 applic topical QAM 05/07/24 10/23/24 History unit/gram-0.1 % topical ointment betamethasone dipropionate 0.05 % 1 applic topical BID PRN 08/03/24 10/23/24 History lotion dermatitis flares. zinc oxide 40 % topical ointment 1 applic topical HS 08/03/24 10/23/24 History acetaminophen 650 mg/20.3 mL oral 650 mg (20.3 mL) feeding tube Q6H 08/14/24 10/23/24 Rx solution PRN Pain (Scale Score 1-3) or fever #1,015 mL aspirin 81 mg tablet,delayed 81 mg feeding tube QAM #90 tabs 08/14/24 10/23/24 Rx release atorvastatin 40 mg tablet 80 mg (2 x 40 mg) feeding tube QHS 08/14/24 10/23/24 Rx #90 tabs carvedilol 3.125 mg tablet (Coreg) 3.125 mg feeding tube Q12HR #180 08/14/24 10/23/24 Rx tabs clopidogrel 75 mg tablet 75 mg feeding tube QAM #90 tabs 08/14/24 10/23/24 Rx donepezil 10 mg tablet 10 mg feeding tube HS #90 tabs 08/14/24 10/23/24 Rx fluticasone propionate 50 1 spray intranasal Q12HR #16 grams 08/14/24 10/23/24 Rx mcg/actuation nasal spray,suspension ipratropium 0.5 mg-albuterol 3 mg 3 ml inhalation Q6HRT 7 days #90 mL 08/14/24 10/23/24 Rx (2.5 mg base)/3 mL nebulization soln lisinopril 5 mg tablet 5 mg feeding tube QAM #90 tabs 08/14/24 10/23/24 Rx loratadine 10 mg tablet 10 mg feeding tube QAM #90 tabs 08/14/24 10/23/24 Rx memantine 10 mg tablet 10 mg feeding tube DAILY #90 tabs 08/14/24 10/23/24 Rx methocarbamol 500 mg tablet 500 mg feeding tube QID #0 tabs 08/20/24 10/23/24 Rx omeprazole 40 mg capsule,delayed 40 mg feeding tube BID #60 caps 08/20/24 10/23/24 Rx release Allergies Allergy/AdvReac Type Severity Reaction Status Date / Time Sulfa (Sulfonamide Allergy Mild rash Verified 10/23/24 03:33 Antibiotics) Vital Signs Vital Signs - 24 hr 10/22/24 20:38 10/22/24 22:31 10/22/24 22:32 Temperature 99.4 F Pulse Rate 112 H 105 H 97 Respiratory Rate 29 H 27 H 26 H Blood Pressure 80/59 L 80/51 L 82/53 L Pulse Oximetry 94 97 98 Oxygen Delivery Room Air 10/22/24 23:16 10/22/24 23:23 10/22/24 23:31 Temperature Pulse Rate 93 94 93 Respiratory Rate 22 H 25 H 23 H Blood Pressure 81/44 L 96/67 L 113/62 Pulse Oximetry 98 98 98 Oxygen Delivery 10/22/24 23:36 10/23/24 00:36 10/23/24 00:46 Temperature Pulse Rate 94 94 94 Respiratory Rate 24 H 27 H 28 H Blood Pressure 113/62 110/72 110/74 Pulse Oximetry 97 96 97 Oxygen Delivery 10/23/24 01:01 10/23/24 01:06 10/23/24 02:02 Temperature Pulse Rate 91 91 83 Respiratory Rate 25 H 18 22 H Blood Pressure 93/52 L 93/52 L 100/66 Pulse Oximetry 98 96 97 Oxygen Delivery 10/23/24 02:39 10/23/24 02:45 10/23/24 04:00 Temperature 98.4 F Pulse Rate 79 81 Respiratory Rate 16 16 Blood Pressure 100/66 111/57 L Pulse Oximetry 97 100 Oxygen Delivery Room Air 10/23/24 04:00 10/23/24 04:50 10/23/24 06:00 Temperature Pulse Rate 69 65 78 Respiratory Rate Blood Pressure 120/60 Pulse Oximetry Oxygen Delivery 10/23/24 08:26 10/23/24 11:45 Temperature 98.6 F 97.7 F Pulse Rate 86 68 Respiratory Rate 18 18 Blood Pressure 124/59 L 114/56 L Pulse Oximetry 96 100 Oxygen Delivery Exam Narrative: General: lethargic External ears normal, Neck is supple, no masses, Respiratory systems: Clear to auscultation Cardiovascular S1, S2, normal rhythm, no murmur, rub, or gallop; no thrill or palpable murmurs on palpation. Gastrointestinal: soft, non-tender, and non-distended abdomen with no masses; BS present Skin: no rash, lesions, ulcerations, subcutaneous nodules or induration Musculoskeletal: no abnormality and no tenderness, normal ROM Neurologic: lethargic H&P: Results Labs Labs: Short CBC 10/22/24 Range/Units 21:16 WBC 18.7 H (4.5-10.0) K/mm3 Hgb 13.2 L (14.0-18.0) g/dL Hct 41.0 L (42.0-52.0) % Plt Count 212 (150-375) k/mm3 BMP 10/22/24 21:16 Sodium 135 L Potassium 3.3 L Chloride 102 Carbon Dioxide 22 BUN 29 H Creatinine 0.79 Glucose 130 H Calcium 8.6 Liver Function 10/22/24 Range/Units 21:16 Total Bilirubin 0.8 (0.2-1.3) mg/dL AST 32 (17-59) U/L ALT 38 (6-50) U/L Alkaline Phosphatase 99 (38-126) U/L Albumin 3.5 (3.5-5.1) g/dL Urine 10/22/24 Range/Units 22:38 Urine Color Yellow (Yellow) Urine Appearance Cloudy H (Clear) Urine pH 5.5 (5.0-9.0) Ur Specific [place] 1.021 (1.001-1.035) Urine Protein Trace (Negative) mg/dL Urine Glucose (UA) Negative (Negative) mg/dL Assessment and Plan Assessment and plan (1) UTI (urinary tract infection): Qualifiers: Hematuria presence: with hematuria Urinary tract infection type: acute cystitis Qualified Code(s): N30.01 - Acute cystitis with hematuria Code(s): N39.0 - Urinary tract infection, site not specified Status: Acute (2) Sepsis: Qualifiers: Sepsis acute organ dysfunction status: unspecified Sepsis type: sepsis due to unspecified organism Qualified Code(s): A41.9 - Sepsis, unspecified organism Code(s): A41.9 - Sepsis, unspecified organism Status: Acute (3) Dementia: Qualifiers: Dementia type: unspecified type Dementia severity: unspecified severity Dementia behavioral or psychological symptom: unspecified whether behavioral, psychotic, or mood disturbance or anxiety Qualified Code(s): F03.90 - Unspecified dementia, unspecified severity, without behavioral disturbance, psychotic disturbance, mood disturbance, and anxiety Code(s): F03.90 - Unspecified dementia, unspecified severity, without behavioral disturbance, psychotic disturbance, mood disturbance, and anxiety Status: Acute Plan UTI with sepsis Vital signs stable now Continue Zosyn now, follow-up cultures. CT abdomen chest pelvis reviewed. Dementia Continue memantine. History of stroke with expressive aphasia and right-sided residual weakness Continue PT/OT Continue PEG tube feeds Continue Plavix and statin. Hypertension Titrate her medications with clinical course. CHF Titrate medications with course. DVT prophylaxis on subQ Lovenox Patient is DNR Surrogate decision maker is Leesa Butler [facility] Advance Care Plan I have confirmed that the patient's Advanced Care Plan is present, code status is documented, or surrogate decision maker is listed in patient medical record.: Yes Medication Reconciliation I have utilized all available resources to obtain, update and review the tiago ents current medications (includes all prescriptions, OTC, herbals, cannabis, and nutritional supplements).: Yes
--- NOTE | 2024-10-23 13:56 | PCSTNOTE ---
Please refer to the Bedside Swallow Evaluation in the EMR. Please note, silent aspiration cannot be ruled out at bedside. The above pt with a history of CVA with dysphagia and Alzheimer's dementia was seen for a bedside swallow evaluation. MBS completed during pt's previous admission in July 2024 did not reveal aspiration with a diet recommendation of puree level 4 with thin liquids. Per the pt's daughter, who was present in the room during the swallow evaluation, the pt was on full TF upon returning to the DC and remained on TF until about 3 weeks ago when he was placed on a pureed diet with thick liquids which he was on for 2 weeks; approximately 1 week ago the diet was advanced to a level 5 diet with thin liquids. Pt was admitted at this time due to N/V/D. Pt did not readily follow commands for an oral motor evaluation but mild labial weakness was exhibited. His dentition appeared in good condition. He was positioned upright in the bed and tested with ice chips, thin liquid, pudding, bite-size pieces of cracker in controlled amounts; he was also tested with sips of water and mildly thick liquid via a cup which were semi controlled. The oral stages appeared intact; no leakage or pocketing was exhibited. During the pharyngeal stage, laryngeal elevation appeared adequate and trigger of swallow appeared timely, however 2 isolated instances of a cough occurred after 1 of the cracker trials and 1 of the thin liquid sips via a straw. At that time it was felt that a MBS should be completed in order to more thoroughly assess his swallow ability and to accurately determine a safe diet & POC. Impression: questionable degree of dysphagia to be determined via further testing/MBS Recommendations: puree diet with mildly thick liquids until completion of MBS.
[2024-10-23] MEDS: cefTRIAXone 2 GM/NS 100 ML 2 GM/100 ML BAG IVPB (18:21)
[2024-10-23] MEDS: IPRATROPIUM 0.5 MG/ALBUTEROL SULFATE 2.5 MG AMPUL.NEB 3 ML INHALATION (20:48)
[2024-10-23] MEDS: ATORVASTATIN 40 MG TABLET 80 MG FEED TUBE (21:14)
[2024-10-23] MEDS: carvediloL 3.125 MG TABLET FEED TUBE (21:14)
[2024-10-23] MEDS: DONEPEZIL HCL 10 MG TABLET FEED TUBE (21:14)
[2024-10-23] MEDS: FLUTICASONE PROPIONATE 0.05% NA SPR 16 GM BTL (*BKC) 1 SPRAY NASAL (21:15)
[2024-10-24] VITALS (16 sets, daily range): BP systolic 115–150; BP diastolic 68–83; PULSE 64–88; RESP 16–18; TEMP 36.7–37.2; O2SAT 98–100
[2024-10-24 05:08] LABS: Basophils Absolute Auto 0.1 K/mm3 (0.0-0.1); Basophils Percent Auto 0.6 % (0.2-1.2); Eosinophils Absolute Auto 0.4 K/mm3 (0-0.3); Eosinophils Percent Auto 5.1 % (0-4.4); Hematocrit 32.3 % (42.0-52.0); Hemoglobin 10.2 g/dL (14.0-18.0); Immature Granulocyte Absolute 0.03 K/mm3 (0.00-0.031); Immature Granulocyte Percent A 0.4 % (0-0.5); Lymphocytes Absolute Auto 1.31 K/mm3 (0.9-3.2); Mean Corpuscular HGB Conc 31.6 g/dl (32-36); Mean Corpuscular Hemoglobin 28.1 pg (26-34); Mean Platelet Volume 10.8 fl (7.4-10.4); Monocytes Absolute Auto 0.5 K/mm3 (0.1-0.6); Monocytes Percent Auto 5.7 % (2.6-8.5); Neutrophils Absolute Auto 5.9 K/mm3 (1.3-6.7); Neutrophils Percent Auto 72.2 % (45.5-73.1); Platelet Count Result 141 k/mm3 (150-375); Red Blood Count 3.63 M/mm3 (4.6-6.20); Red Cell Distribution Width 13.8 % (11.5-14.5); White Blood Count 8.2 K/mm3 (4.5-10.0)
[2024-10-24 05:27] LABS: Lactic Acid Reflex 1.8 mmol/L (0.7-2.0)
[2024-10-24 05:32] LABS: Alanine Aminotransferase 31 U/L (6-50); Alkaline Phosphatase 83 U/L (38-126); Anion Gap 9 mmol/L (4-12); Aspartate Amino Transferase 30 U/L (17-59); Bilirubin,Total 0.7 mg/dL (0.2-1.3); Blood Urea Nitrogen 11 mg/dL (9-20); Calcium 8.3 mg/dL (8.4-10.2); Carbon Dioxide 22 mmol/L (22-30); Chloride 109 mmol/L (98-107); Estimated CRCL calculation 86 ml/min; Estimated Glomerular Filt Rate > 60; Glucose 75 mg/dL (65-110); Potassium 3.5 mmol/L (3.4-5.0); Sodium 140 mmol/L (137-145)
[2024-10-24] MEDS: SODIUM CHLORIDE 0.9% IV 1,000 ML 75 ML IV CONT (06:00)
[2024-10-24] MEDS: MEMANTINE 10 MG TABLET FEED TUBE (08:29)
[2024-10-24] MEDS: ASPIRIN 81 MG ENTERIC TABLET BY MOUTH (08:29)
[2024-10-24] MEDS: FLUTICASONE PROPIONATE 0.05% NA SPR 16 GM BTL (*BKC) 1 SPRAY NASAL (08:29)
[2024-10-24] MEDS: ENOXAPARIN 40 MG/0.4 ML SYRINGE SUB-Q (08:29)
[2024-10-24] MEDS: carvediloL 3.125 MG TABLET FEED TUBE ×2 (08:29→21:36)
[2024-10-24] MEDS: IPRATROPIUM 0.5 MG/ALBUTEROL SULFATE 2.5 MG AMPUL.NEB 3 ML INHALATION ×2 (09:20→14:13)
--- NOTE | 2024-10-24 12:08 | PCSTNOTE ---
Please refer to the Modified Barium Swallow Evaluation in the EMR. The above 74-year-old male was seen for a modified barium swallow due to intermittent coughing with solid and thin liquid trials during the bedside swallow evaluation. The pt was seated for a lateral view and presented with thin liquids, pudding, and (crumbled) solids in controlled amounts via a spoon. He was also tested with thin liquids in uncontrolled amounts via a cup and a straw. During the oral stages, with the 5ml trial pt exhibited poor lingual control as contents spilled prematurely over the tongue base; with the pudding trial bolus prep/formation was slow then lingual pumping was exhibited as pt attempted to propel contents posteriorly. Mild oral residue was also exhibited after the pudding and crumbled cracker trial. With a liquid wash and verbal cues to dry swallow oral residual was cleared. During the pharyngeal stage pt exhibited reduced tongue base retraction as evidenced by vallecular residue (mild) and reduced laryngeal elevation as evidenced by laryngeal penetration during the swallow and pyriform sinus residue (mild). Laryngeal penetration cleared with no aspiration occurring. With a liquid wash and verbal cues to dry swallow pharyngeal contents were also cleared. Impression: Mild dysphagia Recommendation: pureed (to conserve energy while eating to hopefully increase intake) with regular liquids. Alternate liquids and solids; feed slowly and encourage dry swallows after pureeds
--- NOTE | 2024-10-24 16:50 | P.PNIM_ITS ---
Progress Note: A&P Assessment and Plan (1) UTI (urinary tract infection): Qualifiers: Hematuria presence: with hematuria Urinary tract infection type: acute cystitis Qualified Code(s): N30.01 - Acute cystitis with hematuria Code(s): N39.0 - Urinary tract infection, site not specified Status: Acute (2) Sepsis: Qualifiers: Sepsis acute organ dysfunction status: unspecified Sepsis type: sepsis due to unspecified organism Qualified Code(s): A41.9 - Sepsis, unspecified organism Code(s): A41.9 - Sepsis, unspecified organism Status: Acute (3) Dementia: Qualifiers: Dementia type: unspecified type Dementia severity: unspecified severity Dementia behavioral or psychological symptom: unspecified whether behavioral, psychotic, or mood disturbance or anxiety Qualified Code(s): F03.90 - Unspecified dementia, unspecified severity, without behavioral disturbance, psychotic disturbance, mood disturbance, and anxiety Code(s): F03.90 - Unspecified dementia, unspecified severity, without behavioral disturbance, psychotic disturbance, mood disturbance, and anxiety Status: Acute Plan UTI with sepsis Vital signs stable now Continue Rocephin, follow-up cultures. CT abdomen chest pelvis reviewed. Dementia Continue memantine. 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 Cleared for pureed diet per Speech Hypertension Titrate her medications with clinical course. CHF Titrate medications with course. DVT prophylaxis on subQ Lovenox Patient is DNR Surrogate decision maker is Leesa Butler PT/OT Subjective Date/time seen: 10/24/24 16:50 Interval history: Comfortable at bedside Speech evaluated and recommended pureed diet Review of Systems Review of Systems: Unable to do review of system due to patient was lethargic and sleepy noted about this encounter. Also has expressive aphasia. Exam Narrative: General: lethargic External ears normal, Neck is supple, no masses, Respiratory systems: Clear to auscultation Cardiovascular S1, S2, normal rhythm, no murmur, rub, or gallop; no thrill or palpable murmurs on palpation. Gastrointestinal: soft, non-tender, and non-distended abdomen with no masses; BS present Skin: no rash, lesions, ulcerations, subcutaneous nodules or induration Musculoskeletal: no abnormality and no tenderness, normal ROM Neurologic: lethargic Objective Data Vital Signs Vital Signs: Vital Signs - 24 hr 10/23/24 18:00 10/23/24 20:00 10/23/24 20:00 Temperature 98.1 F Pulse Rate 82 77 Respiratory Rate 20 Blood Pressure 116/81 Pulse Oximetry 100 Oxygen Delivery Room Air 10/23/24 20:00 10/23/24 20:52 10/23/24 21:14 Temperature Pulse Rate 71 85 82 Respiratory Rate 18 Blood Pressure Pulse Oximetry Oxygen Delivery 10/23/24 22:00 10/24/24 00:00 10/24/24 00:00 Temperature 98.6 F Pulse Rate 86 81 72 Respiratory Rate 18 Blood Pressure 115/77 Pulse Oximetry 99 Oxygen Delivery 10/24/24 00:00 10/24/24 02:00 10/24/24 04:00 Temperature 98.5 F Pulse Rate 66 86 Respiratory Rate 18 Blood Pressure 144/70 H Pulse Oximetry 98 Oxygen Delivery Room Air 10/24/24 04:00 10/24/24 04:00 10/24/24 06:00 Temperature Pulse Rate 66 68 Respiratory Rate Blood Pressure Pulse Oximetry Oxygen Delivery Room Air 10/24/24 06:55 10/24/24 08:00 10/24/24 08:00 Temperature Pulse Rate 88 66 Respiratory Rate Blood Pressure Pulse Oximetry 98 Oxygen Delivery Room Air 10/24/24 08:28 10/24/24 08:29 10/24/24 09:22 Temperature 98.0 F Pulse Rate 64 69 72 Respiratory Rate 18 18 Blood Pressure 138/68 Pulse Oximetry 98 Oxygen Delivery 10/24/24 09:35 10/24/24 12:28 10/24/24 14:13 Temperature 98.3 F Pulse Rate 66 71 64 Respiratory Rate 18 18 18 Blood Pressure 140/69 Pulse Oximetry 100 Oxygen Delivery 10/24/24 14:23 10/24/24 16:00 Temperature 99.0 F Pulse Rate 66 71 Respiratory Rate 18 18 Blood Pressure 150/70 H Pulse Oximetry 100 Oxygen Delivery Intake/Output Intake/Output: Intake & Output 10/21/24 10/22/24 10/23/24 10/24/24 23:59 23:59 23:59 23:59 Intake Total 1000 1770 1240 Output Total 450 800 Balance 1000 1320 440 Meds/Results Medications: Active Medications Generic Name Dose Route Start Last Admin Trade Name Freq PRN Reason Stop Dose Admin Acetaminophen 1,000 mg 10/23/24 00:56 Acetaminophen 500 Mg Tablet FEED TUBE Q6H PRN Mild Pain (1-3) or Fever Albuterol/Ipratropium 3 ml 10/23/24 14:00 10/24/24 14:13 Ipratropium 0.5 Mg/Albuterol Sulfate 2.5 Mg Ampul.Neb 3 Ml INHALATION 3 ml Q6HRT URI Administration Aspirin 81 mg 10/24/24 09:00 10/24/24 08:29 Aspirin 81 Mg Enteric Tablet BY MOUTH 81 mg QAM URI Administration Atorvastatin Calcium 80 mg 10/23/24 21:00 10/23/24 21:14 Atorvastatin 40 Mg Tablet FEED TUBE 80 mg QHS URI Administration Carvedilol 3.125 mg 10/23/24 21:00 10/24/24 08:29 Carvedilol 3.125 Mg Tablet FEED TUBE 3.125 mg Q12HR URI Administration Dextrose 12.5 gm 10/23/24 00:14 Dextrose 50% 25 Gm/50 Ml Syringe IV PUSH PRN PRN Hypoglycemia Protocol Donepezil HCl 10 mg 10/23/24 21:00 10/23/24 21:14 Donepezil Hcl 10 Mg Tablet FEED TUBE 10 mg HS URI Administration Enoxaparin Sodium 40 mg 10/24/24 09:00 10/24/24 08:29 Enoxaparin 40 Mg/0.4 Ml Syringe SUB-Q 40 mg DAILY URI Administration Fluticasone Propionate 1 spray 10/23/24 21:00 10/24/24 08:29 Fluticasone Propionate 0.05% Na Spr 16 Gm Btl (*Bkc) NASAL 1 spray Q12HR URI Administration Glucagon 1 mg 10/23/24 00:14 Glucagon For Inj 1 Mg Vial IM PRN PRN Hypoglycemia Protocol Glucose 15 gm 10/23/24 00:14 Glucose Oral Gel 15 Gm Of Glucse In 37.5 Gm Tube PO PRN PRN Hypoglycemia Protocol Dextrose 1,000 mls @ 100 mls/hr 10/23/24 00:14 Dextrose 5% 1,000 Ml IVPB PRN PRN Hypoglycemia Protocol Ceftriaxone Sodium 2 gm in 100 mls @ 200 mls/hr 10/23/24 18:00 10/23/24 18:21 Rocephin 2 Gm/Ns 100 Ml IVPB 200 mls/hr Q24H URI Administration Memantine 10 mg 10/24/24 09:00 10/24/24 08:29 Memantine 10 Mg Tablet FEED TUBE 10 mg DAILY URI Administration Ondansetron HCl 4 mg 10/23/24 00:10 Ondansetron Inj 4 Mg/2 Ml Vial IV PUSH Q4H PRN Nausea Radiology Results: ITS Impressions Chest X-Ray 10/22/24 21:41 IMPRESSION: No focal infiltrate or effusion. Head CT 10/22/24 23:00 Impression: No acute intracranial hemorrhage or suspicious mass effect. Inflammatory sinus disease. Redemonstration of left mastoid air cell opacification. Chest/Abdomen/Pelvis CT 10/22/24 23:10 IMPRESSION: Findings consistent with patient's known urinary tract infection. No focal infiltrates. Gaseous and air distention of stomach. Modified Barium Swallow 10/24/24 11:20 IMPRESSION: 1. Laryngeal penetration. No aspiration. 2. Please refer to the speech therapy report for recommendations. Labs Labs: Laboratory Results - last 24 hr 10/24/24 05:01 WBC 8.2 RBC 3.63 L Hgb 10.2 L D Hct 32.3 L MCV 89.0 MCH 28.1 MCHC 31.6 L RDW 13.8 Plt Count 141 L MPV 10.8 H Immature Gran % (Auto) 0.4 Neut % (Auto) 72.2 Lymph % (Auto) 16.0 L [place] % (Auto) 5.7 Eos % (Auto) 5.1 H Baso % (Auto) 0.6 Lymph # (Auto) 1.31 [place] # (Auto) 0.5 Eos # (Auto) 0.4 H Baso # (Auto) 0.1 Abs Immat Gran (auto) 0.03 Absolute Neuts (auto) 5.9 Absolute Nucleated RBC 0.000 Nucleated RBC % 0.0 Sodium 140 Potassium 3.5 Chloride 109 H Carbon Dioxide 22 Anion Gap 9 BUN 11 D Creatinine 0.52 L Estim Creat Clear Calc 86 Estimated GFR > 60 Glucose 75 Lactic Acid 1.8 Calcium 8.3 L Magnesium 2.0 Total Bilirubin 0.7 AST 30 ALT 31 Alkaline Phosphatase 83 Total Protein 6.0 L Albumin 3.0 L
[2024-10-24] MEDS: cefTRIAXone 2 GM/NS 100 ML 2 GM/100 ML BAG IVPB (17:36)
--- NOTE | 2024-10-24 17:58 | PC.NURSE ---
This patient, Noah Butler, was transferred to [facility] on 10/24/24 at 1748. Personal belongings sent with patient. Report given to OTTONIEL Hernandez. Appropriate documentation sent with patient.
[2024-10-24] MEDS: ATORVASTATIN 40 MG TABLET 80 MG FEED TUBE (21:36)
[2024-10-24] MEDS: DONEPEZIL HCL 10 MG TABLET FEED TUBE (21:36)
[2024-10-25] VITALS (11 sets, daily range): BP systolic 135–149; BP diastolic 76–87; PULSE 61–74; RESP 16–20; TEMP 36.3–36.5; O2SAT 98–100; BMI 10.0
--- NOTE | 2024-10-25 01:34 | PCRCNOTE ---
Window of time for administration has passed. See next scheduled administration.
[2024-10-25] MEDS: IPRATROPIUM 0.5 MG/ALBUTEROL SULFATE 2.5 MG AMPUL.NEB 3 ML INHALATION ×3 (07:00→20:31)
[2024-10-25 07:47] LABS: Basophils Absolute Auto 0.1 K/mm3 (0.0-0.1); Basophils Percent Auto 0.5 % (0.2-1.2); Eosinophils Absolute Auto 0.6 K/mm3 (0-0.3); Eosinophils Percent Auto 6.8 % (0-4.4); Hemoglobin 10.7 g/dL (14.0-18.0); Immature Granulocyte Absolute 0.02 K/mm3 (0.00-0.031); Immature Granulocyte Percent A 0.2 % (0-0.5); Lymphocytes Absolute Auto 1.17 K/mm3 (0.9-3.2); Lymphocytes Percent Auto 12.5 % (18.3-44.2); Mean Corpuscular HGB Conc 32.4 g/dl (32-36); Mean Corpuscular Volume 86.4 fl (80-100); Mean Platelet Volume 11.2 fl (7.4-10.4); Monocytes Absolute Auto 0.7 K/mm3 (0.1-0.6); Neutrophils Absolute Auto 6.9 K/mm3 (1.3-6.7); Platelet Count Result 175 k/mm3 (150-375); Red Blood Count 3.82 M/mm3 (4.6-6.20); Red Cell Distribution Width 13.6 % (11.5-14.5); White Blood Count 9.4 K/mm3 (4.5-10.0)
[2024-10-25 07:55] LABS: Alanine Aminotransferase 28 U/L (6-50); Albumin Level 3.1 g/dL (3.5-5.1); Alkaline Phosphatase 84 U/L (38-126); Anion Gap 10 mmol/L (4-12); Aspartate Amino Transferase 32 U/L (17-59); Bilirubin,Total 0.7 mg/dL (0.2-1.3); Blood Urea Nitrogen 9 mg/dL (9-20); Calcium 8.6 mg/dL (8.4-10.2); Carbon Dioxide 25 mmol/L (22-30); Chloride 105 mmol/L (98-107); Estimated CRCL calculation 91 ml/min; Estimated Glomerular Filt Rate > 60; Glucose 86 mg/dL (65-110); Magnesium 1.8 mg/dL (1.6-2.3); Sodium 140 mmol/L (137-145)
[2024-10-25] MEDS: carvediloL 3.125 MG TABLET FEED TUBE ×2 (08:18→20:54)
[2024-10-25] MEDS: ASPIRIN 81 MG ENTERIC TABLET BY MOUTH (08:18)
[2024-10-25] MEDS: MEMANTINE 10 MG TABLET FEED TUBE (08:18)
[2024-10-25] MEDS: ENOXAPARIN 40 MG/0.4 ML SYRINGE SUB-Q (08:19)
[2024-10-25] MEDS: FLUTICASONE PROPIONATE 0.05% NA SPR 16 GM BTL (*BKC) 1 SPRAY NASAL ×2 (09:30→20:54)
--- NOTE | 2024-10-25 11:21 | WPDCDIQUERY2 ---
CDI Query Clarification Request ER provider documented: Pneumonia Qualifiers: Pneumonia type: due to unspecified organism Laterality: bilateral Lung location: lower lobe of lung Qualified Code(s): J18.9 - Pneumonia, unspecified organism WBC: 18.7, 8.2, 9.4 IV abx Please clarify if PNA was ruled in or ruled out on admission. <Sahara Contreras RN - Last Filed: 10/25/24 11:23> Clarified Diagnosis Clarified Diagnosis: Pneumonia ruled out <Alissa Bentley MD - Last Filed: 10/25/24 11:55>
--- NOTE | 2024-10-25 11:24 | P.CDI_ITS ---
CDI Query Clarification Request CHF has been documented. CHF Titrate medications with course. Please specify type and acuity of heart failure if known. Risk Factors: Clinical Indicators: Treatment: * Acute * Chronic * Acute on Chronic * Unknown * Systolic * Diastolic * Combined Systolic and Diastolic * Unknown <Sahara Contreras RN - Last Filed: 10/25/24 11:25> Clarified Diagnosis Clarified Diagnosis: Chronic Combined Systolic and Diastolic <Alissa Bentley MD - Last Filed: 10/25/24 11:43>
--- NOTE | 2024-10-25 11:24 | WPDCDIQUERY2 ---
CDI Query Clarification Request CHF has been documented. CHF Titrate medications with course. Please specify type and acuity of heart failure if known. Risk Factors: Clinical Indicators: Treatment: Acute Chronic Acute on Chronic Unknown Systolic Diastolic Combined Systolic and Diastolic Unknown <Sahara Contreras RN - Last Filed: 10/25/24 11:25> Clarified Diagnosis Clarified Diagnosis: Chronic Combined Systolic and Diastolic <Alissa Bentley MD - Last Filed: 10/25/24 11:43>
--- NOTE | 2024-10-25 12:11 | PCNFU ---
Nutrition Follow-Up Complete: Potential for inadequate oral intake related to acute illness as evidenced by chronic PEG tube for supplemental feedings PO intake >50% meals - Goal is being met. Pt needs assistance with eating. Eats better with family Supplemental tube feedings given if PO intake <50% meal - Has not needed supplemental tube feedings Goal: Pt current nutrition is Puree, heart healthy diet (bolus Jevity 1,5 240 ml if meal intake <50). Nutrition recommendation: No nutrition recommendations. Continue current nutrition care plan and orders. Agree with orders. Last recorded weight is 62.3 kg. Bowel Motility: +1 BM 10/25/24 Labs Reviewed: Hgb 10.7, Hct 33.0, Alb 3.1, K+ 3.0, Cre 0.49 Meds Noted: Zofran, Aricept, Namenda Skin: No pressure Additional Notes: Pt with PEG tube used for supplemental feedings. Has not needed supplemental tube feedings since admission. Continue current orders. Monitoring intakes, weights, labs, need for tube feedings, output, meds, plan of care Follow up Tuesdays and Fridays
--- NOTE | 2024-10-25 12:29 | PM.IMPN ---
Progress Note: A&P Assessment and Plan (1) UTI (urinary tract infection): Qualifiers: Hematuria presence: with hematuria Urinary tract infection type: acute cystitis Qualified Code(s): N30.01 - Acute cystitis with hematuria Code(s): N39.0 - Urinary tract infection, site not specified Status: Acute (2) Sepsis: Qualifiers: Sepsis acute organ dysfunction status: unspecified Sepsis type: sepsis due to unspecified organism Qualified Code(s): A41.9 - Sepsis, unspecified organism Code(s): A41.9 - Sepsis, unspecified organism Status: Acute (3) Dementia: Qualifiers: Dementia type: unspecified type Dementia severity: unspecified severity Dementia behavioral or psychological symptom: unspecified whether behavioral, psychotic, or mood disturbance or anxiety Qualified Code(s): F03.90 - Unspecified dementia, unspecified severity, without behavioral disturbance, psychotic disturbance, mood disturbance, and anxiety Code(s): F03.90 - Unspecified dementia, unspecified severity, without behavioral disturbance, psychotic disturbance, mood disturbance, and anxiety Status: Acute Plan UTI with sepsis, resolved Vital signs stable now Continue Rocephin, urine culture negative, blood culture still negative CT abdomen chest pelvis reviewed. Dementia Continue memantine. 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 Cleared for pureed diet per Speech Hypertension Titrate her medications with clinical course. CHF Titrate medications with course. DVT prophylaxis on subQ Lovenox Patient is DNR Surrogate decision maker is Leesa Butler awaiting insurance auth for return to SNF Subjective Date/time seen: 10/25/24 12:29 Interval history: Comfortable at bedside Speech evaluated and recommended pureed diet Patient awaiting placement Review of Systems Review of Systems: Unable to do review of system due to patient was lethargic and sleepy noted about this encounter. Also has expressive aphasia. Exam Narrative: General: lethargic External ears normal, Neck is supple, no masses, Respiratory systems: Clear to auscultation Cardiovascular S1, S2, normal rhythm, no murmur, rub, or gallop; no thrill or palpable murmurs on palpation. Gastrointestinal: soft, non-tender, and non-distended abdomen with no masses; BS present Skin: no rash, lesions, ulcerations, subcutaneous nodules or induration Musculoskeletal: no abnormality and no tenderness, normal ROM Neurologic: lethargic Objective Data Vital Signs Vital Signs: Vital Signs - 24 hr 10/24/24 14:13 10/24/24 14:23 10/24/24 16:00 Temperature 99.0 F Pulse Rate 64 66 71 Respiratory Rate 18 18 18 Blood Pressure 150/70 H Pulse Oximetry 100 Oxygen Delivery 10/24/24 21:23 10/24/24 21:36 10/25/24 06:00 Temperature 98.0 F 97.7 F Pulse Rate 77 86 67 Respiratory Rate 16 20 Blood Pressure 128/83 149/87 H Pulse Oximetry 100 100 Oxygen Delivery 10/25/24 07:00 10/25/24 07:00 10/25/24 07:10 Temperature Pulse Rate 64 64 66 Respiratory Rate 18 18 18 Blood Pressure Pulse Oximetry 98 Oxygen Delivery Room Air 10/25/24 08:00 10/25/24 08:18 10/25/24 10:32 Temperature Pulse Rate 64 Respiratory Rate Blood Pressure Pulse Oximetry 98 Oxygen Delivery Room Air Room Air Intake/Output Intake/Output: Intake & Output 10/22/24 10/23/24 10/24/24 10/25/24 23:59 23:59 23:59 23:59 Intake Total 1000 1870 1560 120 Output Total 450 1600 800 Balance 1000 8988 -40 680 Meds/Results Medications: Active Medications Generic Name Dose Route Start Last Admin Trade Name Freq PRN Reason Stop Dose Admin Acetaminophen 1,000 mg 10/23/24 00:56 Acetaminophen 500 Mg Tablet FEED TUBE Q6H PRN Mild Pain (1-3) or Fever Albuterol/Ipratropium 3 ml 10/23/24 14:00 10/25/24 07:00 Ipratropium 0.5 Mg/Albuterol Sulfate 2.5 Mg Ampul.Neb 3 Ml INHALATION 3 ml Q6HRT URI Administration Aspirin 81 mg 10/24/24 09:00 10/25/24 08:18 Aspirin 81 Mg Enteric Tablet BY MOUTH 81 mg QAM URI Administration Atorvastatin Calcium 80 mg 10/23/24 21:00 10/24/24 21:36 Atorvastatin 40 Mg Tablet FEED TUBE 80 mg QHS URI Administration Carvedilol 3.125 mg 10/23/24 21:00 10/25/24 08:18 Carvedilol 3.125 Mg Tablet FEED TUBE 3.125 mg Q12HR URI Administration Dextrose 12.5 gm 10/23/24 00:14 Dextrose 50% 25 Gm/50 Ml Syringe IV PUSH PRN PRN Hypoglycemia Protocol Donepezil HCl 10 mg 10/23/24 21:00 10/24/24 21:36 Donepezil Hcl 10 Mg Tablet FEED TUBE 10 mg HS URI Administration Enoxaparin Sodium 40 mg 10/24/24 09:00 10/25/24 08:19 Enoxaparin 40 Mg/0.4 Ml Syringe SUB-Q 40 mg DAILY URI Administration Fluticasone Propionate 1 spray 10/23/24 21:00 10/25/24 09:30 Fluticasone Propionate 0.05% Na Spr 16 Gm Btl (*Bkc) NASAL 1 spray Q12HR URI Administration Glucagon 1 mg 10/23/24 00:14 Glucagon For Inj 1 Mg Vial IM PRN PRN Hypoglycemia Protocol Glucose 15 gm 10/23/24 00:14 Glucose Oral Gel 15 Gm Of Glucse In 37.5 Gm Tube PO PRN PRN Hypoglycemia Protocol Dextrose 1,000 mls @ 100 mls/hr 10/23/24 00:14 Dextrose 5% 1,000 Ml IVPB PRN PRN Hypoglycemia Protocol Ceftriaxone Sodium 2 gm in 100 mls @ 200 mls/hr 10/23/24 18:00 10/24/24 17:36 Rocephin 2 Gm/Ns 100 Ml IVPB 200 mls/hr Q24H URI Administration Memantine 10 mg 10/24/24 09:00 10/25/24 08:18 Memantine 10 Mg Tablet FEED TUBE 10 mg DAILY URI Administration Ondansetron HCl 4 mg 10/23/24 00:10 Ondansetron Inj 4 Mg/2 Ml Vial IV PUSH Q4H PRN Nausea Radiology Results: ITS Impressions Chest X-Ray 10/22/24 21:41 IMPRESSION: No focal infiltrate or effusion. Head CT 10/22/24 23:00 Impression: No acute intracranial hemorrhage or suspicious mass effect. Inflammatory sinus disease. Redemonstration of left mastoid air cell opacification. Chest/Abdomen/Pelvis CT 10/22/24 23:10 IMPRESSION: Findings consistent with patient's known urinary tract infection. No focal infiltrates. Gaseous and air distention of stomach. Modified Barium Swallow 10/24/24 11:20 IMPRESSION: 1. Laryngeal penetration. No aspiration. 2. Please refer to the speech therapy report for recommendations. Labs Labs: Laboratory Results - last 24 hr 10/25/24 06:59 WBC 9.4 RBC 3.82 L Hgb 10.7 L Hct 33.0 L MCV 86.4 MCH 28.0 MCHC 32.4 RDW 13.6 Plt Count 175 MPV 11.2 H Immature Gran % (Auto) 0.2 Neut % (Auto) 73.0 Lymph % (Auto) 12.5 L [place] % (Auto) 7.0 Eos % (Auto) 6.8 H Baso % (Auto) 0.5 Lymph # (Auto) 1.17 [place] # (Auto) 0.7 H Eos # (Auto) 0.6 H Baso # (Auto) 0.1 Abs Immat Gran (auto) 0.02 Absolute Neuts (auto) 6.9 H Absolute Nucleated RBC 0.000 Nucleated RBC % 0.0 Sodium 140 Potassium 3.0 L Chloride 105 Carbon Dioxide 25 Anion Gap 10 BUN 9 Creatinine 0.49 L Estim Creat Clear Calc 91 Estimated GFR > 60 Glucose 86 Calcium 8.6 Magnesium 1.8 Total Bilirubin 0.7 AST 32 ALT 28 Alkaline Phosphatase 84 Total Protein 6.0 L Albumin 3.1 L
[2024-10-25] MEDS: cefTRIAXone 2 GM/NS 100 ML 2 GM/100 ML BAG IVPB (18:00)
[2024-10-25] MEDS: DONEPEZIL HCL 10 MG TABLET FEED TUBE (20:54)
[2024-10-25] MEDS: ATORVASTATIN 40 MG TABLET 80 MG FEED TUBE (20:54)
[2024-10-26] VITALS (13 sets, daily range): BP systolic 98–136; BP diastolic 52–72; PULSE 59–82; RESP 14–18; TEMP 36.1–37.1; O2SAT 93–99
[2024-10-26] MEDS: IPRATROPIUM 0.5 MG/ALBUTEROL SULFATE 2.5 MG AMPUL.NEB 3 ML INHALATION ×4 (03:01→19:52)
[2024-10-26] MEDS: carvediloL 3.125 MG TABLET FEED TUBE ×2 (09:06→20:08)
[2024-10-26] MEDS: MEMANTINE 10 MG TABLET FEED TUBE (09:06)
[2024-10-26] MEDS: ASPIRIN 81 MG ENTERIC TABLET BY MOUTH (09:06)
[2024-10-26] MEDS: ENOXAPARIN 40 MG/0.4 ML SYRINGE SUB-Q (09:07)
[2024-10-26] MEDS: FLUTICASONE PROPIONATE 0.05% NA SPR 16 GM BTL (*BKC) 1 SPRAY NASAL ×2 (09:32→20:08)
[2024-10-26 10:23] LABS: Iron 57 ug/dL (49-181)
[2024-10-26 10:32] LABS: Percent Iron Saturation 23 % (20-50)
--- NOTE | 2024-10-26 15:32 | PM.IMPN ---
Progress Note: A&P Assessment and Plan (1) UTI (urinary tract infection): Qualifiers: Hematuria presence: with hematuria Urinary tract infection type: acute cystitis Qualified Code(s): N30.01 - Acute cystitis with hematuria Code(s): N39.0 - Urinary tract infection, site not specified Status: Acute (2) Sepsis: Qualifiers: Sepsis acute organ dysfunction status: unspecified Sepsis type: sepsis due to unspecified organism Qualified Code(s): A41.9 - Sepsis, unspecified organism Code(s): A41.9 - Sepsis, unspecified organism Status: Acute (3) Dementia: Qualifiers: Dementia type: unspecified type Dementia severity: unspecified severity Dementia behavioral or psychological symptom: unspecified whether behavioral, psychotic, or mood disturbance or anxiety Qualified Code(s): F03.90 - Unspecified dementia, unspecified severity, without behavioral disturbance, psychotic disturbance, mood disturbance, and anxiety Code(s): F03.90 - Unspecified dementia, unspecified severity, without behavioral disturbance, psychotic disturbance, mood disturbance, and anxiety Status: Acute Plan UTI with sepsis, resolved Vital signs stable now Continue Rocephin, urine culture negative, blood culture still negative CT abdomen chest pelvis reviewed. Dementia Continue memantine. 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 Cleared for pureed diet per Speech Hypertension Titrate her medications with clinical course. CHF Titrate medications with course. DVT prophylaxis on subQ Lovenox Patient is DNR Surrogate decision maker is Leesa Butler awaiting insurance auth for return to SNF Subjective Date/time seen: 10/26/24 15:32 Interval history: Comfortable at bedside Awaiting placement Review of Systems Review of Systems: Unable to do review of system due to patient was lethargic and sleepy noted about this encounter. Also has expressive aphasia. Exam Narrative: General: lethargic External ears normal, Neck is supple, no masses, Respiratory systems: Clear to auscultation Cardiovascular S1, S2, normal rhythm, no murmur, rub, or gallop; no thrill or palpable murmurs on palpation. Gastrointestinal: soft, non-tender, and non-distended abdomen with no masses; BS present Skin: no rash, lesions, ulcerations, subcutaneous nodules or induration Musculoskeletal: no abnormality and no tenderness, normal ROM Neurologic: lethargic Objective Data Vital Signs Vital Signs: Vital Signs - 24 hr 10/25/24 20:25 10/25/24 20:38 10/25/24 22:00 Temperature 97.7 F Pulse Rate 66 66 74 Respiratory Rate 18 18 16 Blood Pressure 146/78 H Pulse Oximetry 99 Oxygen Delivery 10/26/24 03:01 10/26/24 03:08 10/26/24 06:00 Temperature 96.9 F L Pulse Rate 66 66 65 Respiratory Rate 18 18 14 Blood Pressure 135/72 Pulse Oximetry 99 Oxygen Delivery 10/26/24 07:15 10/26/24 07:15 10/26/24 07:22 Temperature Pulse Rate 73 64 Respiratory Rate 16 16 Blood Pressure Pulse Oximetry 98 Oxygen Delivery Room Air 10/26/24 09:06 10/26/24 13:13 10/26/24 13:20 Temperature Pulse Rate 66 61 59 L Respiratory Rate 16 16 Blood Pressure Pulse Oximetry Oxygen Delivery Intake/Output Intake/Output: Intake & Output 10/23/24 10/24/24 10/25/24 10/26/24 23:59 23:59 23:59 23:59 Intake Total 1870 1660 930 120 Output Total 450 1600 800 780 Balance 1420 60 130 -660 Meds/Results Medications: Active Medications Generic Name Dose Route Start Last Admin Trade Name Freq PRN Reason Stop Dose Admin Acetaminophen 1,000 mg 10/23/24 00:56 Acetaminophen 500 Mg Tablet FEED TUBE Q6H PRN Mild Pain (1-3) or Fever Albuterol/Ipratropium 3 ml 10/23/24 14:00 10/26/24 13:11 Ipratropium 0.5 Mg/Albuterol Sulfate 2.5 Mg Ampul.Neb 3 Ml INHALATION 3 ml Q6HRT URI Administration Aspirin 81 mg 10/24/24 09:00 10/26/24 09:06 Aspirin 81 Mg Enteric Tablet BY MOUTH 81 mg QAM URI Administration Atorvastatin Calcium 80 mg 10/23/24 21:00 10/25/24 20:54 Atorvastatin 40 Mg Tablet FEED TUBE 80 mg QHS URI Administration Carvedilol 3.125 mg 10/23/24 21:00 10/26/24 09:06 Carvedilol 3.125 Mg Tablet FEED TUBE 3.125 mg Q12HR URI Administration Dextrose 12.5 gm 10/23/24 00:14 Dextrose 50% 25 Gm/50 Ml Syringe IV PUSH PRN PRN Hypoglycemia Protocol Donepezil HCl 10 mg 10/23/24 21:00 10/25/24 20:54 Donepezil Hcl 10 Mg Tablet FEED TUBE 10 mg HS URI Administration Enoxaparin Sodium 40 mg 10/24/24 09:00 10/26/24 09:07 Enoxaparin 40 Mg/0.4 Ml Syringe SUB-Q 40 mg DAILY URI Administration Fluticasone Propionate 1 spray 10/23/24 21:00 10/26/24 09:32 Fluticasone Propionate 0.05% Na Spr 16 Gm Btl (*Bkc) NASAL 1 spray Q12HR URI Administration Glucagon 1 mg 10/23/24 00:14 Glucagon For Inj 1 Mg Vial IM PRN PRN Hypoglycemia Protocol Glucose 15 gm 10/23/24 00:14 Glucose Oral Gel 15 Gm Of Glucse In 37.5 Gm Tube PO PRN PRN Hypoglycemia Protocol Dextrose 1,000 mls @ 100 mls/hr 10/23/24 00:14 Dextrose 5% 1,000 Ml IVPB PRN PRN Hypoglycemia Protocol Ceftriaxone Sodium 2 gm in 100 mls @ 200 mls/hr 10/23/24 18:00 10/25/24 18:00 Rocephin 2 Gm/Ns 100 Ml IVPB 200 mls/hr Q24H URI Administration Memantine 10 mg 10/24/24 09:00 10/26/24 09:06 Memantine 10 Mg Tablet FEED TUBE 10 mg DAILY URI Administration Ondansetron HCl 4 mg 10/23/24 00:10 Ondansetron Inj 4 Mg/2 Ml Vial IV PUSH Q4H PRN Nausea Radiology Results: ITS Impressions Chest X-Ray 10/22/24 21:41 IMPRESSION: No focal infiltrate or effusion. Head CT 10/22/24 23:00 Impression: No acute intracranial hemorrhage or suspicious mass effect. Inflammatory sinus disease. Redemonstration of left mastoid air cell opacification. Chest/Abdomen/Pelvis CT 10/22/24 23:10 IMPRESSION: Findings consistent with patient's known urinary tract infection. No focal infiltrates. Gaseous and air distention of stomach. Modified Barium Swallow 10/24/24 11:20 IMPRESSION: 1. Laryngeal penetration. No aspiration. 2. Please refer to the speech therapy report for recommendations. Labs Labs: Laboratory Results - last 24 hr 10/26/24 10:09 Iron 57 TIBC 246 L % Saturation 23 Ferritin 414.00 H
[2024-10-26] MEDS: cefTRIAXone 2 GM/NS 100 ML 2 GM/100 ML BAG IVPB (17:39)
[2024-10-26] MEDS: ATORVASTATIN 40 MG TABLET 80 MG FEED TUBE (20:08)
[2024-10-26] MEDS: DONEPEZIL HCL 10 MG TABLET FEED TUBE (20:08)
[2024-10-27] VITALS (11 sets, daily range): BP systolic 119–150; BP diastolic 64–79; PULSE 53–91; RESP 12–20; TEMP 36.6–36.9; O2SAT 94–100
[2024-10-27] MEDS: IPRATROPIUM 0.5 MG/ALBUTEROL SULFATE 2.5 MG AMPUL.NEB 3 ML INHALATION ×4 (01:13→19:39)
[2024-10-27] MEDS: FLUTICASONE PROPIONATE 0.05% NA SPR 16 GM BTL (*BKC) 1 SPRAY NASAL ×2 (09:02→21:20)
[2024-10-27] MEDS: ENOXAPARIN 40 MG/0.4 ML SYRINGE SUB-Q (09:02)
[2024-10-27] MEDS: MEMANTINE 10 MG TABLET FEED TUBE (09:02)
[2024-10-27] MEDS: carvediloL 3.125 MG TABLET FEED TUBE ×2 (09:03→21:17)
--- NOTE | 2024-10-27 10:20 | PM.IMPN ---
Progress Note: A&P Assessment and Plan (1) UTI (urinary tract infection): Qualifiers: Hematuria presence: with hematuria Urinary tract infection type: acute cystitis Qualified Code(s): N30.01 - Acute cystitis with hematuria Code(s): N39.0 - Urinary tract infection, site not specified Status: Acute (2) Sepsis: Qualifiers: Sepsis acute organ dysfunction status: unspecified Sepsis type: sepsis due to unspecified organism Qualified Code(s): A41.9 - Sepsis, unspecified organism Code(s): A41.9 - Sepsis, unspecified organism Status: Acute (3) Dementia: Qualifiers: Dementia type: unspecified type Dementia severity: unspecified severity Dementia behavioral or psychological symptom: unspecified whether behavioral, psychotic, or mood disturbance or anxiety Qualified Code(s): F03.90 - Unspecified dementia, unspecified severity, without behavioral disturbance, psychotic disturbance, mood disturbance, and anxiety Code(s): F03.90 - Unspecified dementia, unspecified severity, without behavioral disturbance, psychotic disturbance, mood disturbance, and anxiety Status: Acute Plan UTI with sepsis, resolved Vital signs stable now Day 5/7 Rocephin, urine culture negative, blood culture still negative CT abdomen chest pelvis reviewed. Dementia Continue memantine. 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 Cleared for pureed diet per Speech Hypertension Titrate her medications with clinical course. CHF Titrate medications with course. DVT prophylaxis on subQ Lovenox Patient is DNR Surrogate decision maker is Leesa Butler awaiting insurance auth for return to SNF Subjective Date/time seen: 10/27/24 10:20 Interval history: Comfortable at bedside Awaiting placement Review of Systems Review of Systems: Unable to do review of system due to patient was lethargic and sleepy noted about this encounter. Also has expressive aphasia. Exam Narrative: General: lethargic External ears normal, Neck is supple, no masses, Respiratory systems: Clear to auscultation Cardiovascular S1, S2, normal rhythm, no murmur, rub, or gallop; no thrill or palpable murmurs on palpation. Gastrointestinal: soft, non-tender, and non-distended abdomen with no masses; BS present Skin: no rash, lesions, ulcerations, subcutaneous nodules or induration Musculoskeletal: no abnormality and no tenderness, normal ROM Neurologic: lethargic Objective Data Vital Signs Vital Signs: Vital Signs - 24 hr 10/26/24 13:13 10/26/24 13:20 10/26/24 15:00 Temperature 97.7 F Pulse Rate 61 59 L 61 Respiratory Rate 16 16 14 Blood Pressure 98/52 L Pulse Oximetry 93 Oxygen Delivery 10/26/24 19:55 10/26/24 19:56 10/26/24 20:00 Temperature Pulse Rate 82 74 Respiratory Rate 16 16 Blood Pressure Pulse Oximetry 99 Oxygen Delivery Room Air 10/26/24 21:37 10/27/24 01:13 10/27/24 06:23 Temperature 98.7 F 97.9 F Pulse Rate 75 75 66 Respiratory Rate 14 16 14 Blood Pressure 136/72 150/79 H Pulse Oximetry 96 100 Oxygen Delivery 10/27/24 08:57 10/27/24 08:57 10/27/24 09:03 Temperature Pulse Rate 58 L 60 Respiratory Rate 18 Blood Pressure Pulse Oximetry 96 Oxygen Delivery Room Air 10/27/24 09:03 Temperature Pulse Rate 66 Respiratory Rate 18 Blood Pressure Pulse Oximetry Oxygen Delivery Intake/Output Intake/Output: Intake & Output 10/24/24 10/25/24 10/26/24 10/27/24 23:59 23:59 23:59 23:59 Intake Total 1660 1030 460 220 Output Total 2662 063 3887 750 Balance 60 648 -778 -530 Meds/Results Medications: Active Medications Generic Name Dose Route Start Last Admin Trade Name Freq PRN Reason Stop Dose Admin Acetaminophen 1,000 mg 10/23/24 00:56 Acetaminophen 500 Mg Tablet FEED TUBE Q6H PRN Mild Pain (1-3) or Fever Albuterol/Ipratropium 3 ml 10/23/24 14:00 10/27/24 08:55 Ipratropium 0.5 Mg/Albuterol Sulfate 2.5 Mg Ampul.Neb 3 Ml INHALATION 3 ml Q6HRT URI Administration Aspirin 81 mg 10/27/24 09:00 Aspirin 81 Mg Chewable Tablet PO QAM URI Atorvastatin Calcium 80 mg 10/23/24 21:00 10/26/24 20:08 Atorvastatin 40 Mg Tablet FEED TUBE 80 mg QHS URI Administration Carvedilol 3.125 mg 10/23/24 21:00 10/27/24 09:03 Carvedilol 3.125 Mg Tablet FEED TUBE 3.125 mg Q12HR URI Administration Dextrose 12.5 gm 10/23/24 00:14 Dextrose 50% 25 Gm/50 Ml Syringe IV PUSH PRN PRN Hypoglycemia Protocol Donepezil HCl 10 mg 10/23/24 21:00 10/26/24 20:08 Donepezil Hcl 10 Mg Tablet FEED TUBE 10 mg HS URI Administration Enoxaparin Sodium 40 mg 10/24/24 09:00 10/27/24 09:02 Enoxaparin 40 Mg/0.4 Ml Syringe SUB-Q 40 mg DAILY URI Administration Fluticasone Propionate 1 spray 10/23/24 21:00 10/27/24 09:02 Fluticasone Propionate 0.05% Na Spr 16 Gm Btl (*Bkc) NASAL 1 spray Q12HR URI Administration Glucagon 1 mg 10/23/24 00:14 Glucagon For Inj 1 Mg Vial IM PRN PRN Hypoglycemia Protocol Glucose 15 gm 10/23/24 00:14 Glucose Oral Gel 15 Gm Of Glucse In 37.5 Gm Tube PO PRN PRN Hypoglycemia Protocol Dextrose 1,000 mls @ 100 mls/hr 10/23/24 00:14 Dextrose 5% 1,000 Ml IVPB PRN PRN Hypoglycemia Protocol Ceftriaxone Sodium 2 gm in 100 mls @ 200 mls/hr 10/23/24 18:00 10/26/24 17:39 Rocephin 2 Gm/Ns 100 Ml IVPB 200 mls/hr Q24H URI Administration Memantine 10 mg 10/24/24 09:00 10/27/24 09:02 Memantine 10 Mg Tablet FEED TUBE 10 mg DAILY URI Administration Ondansetron HCl 4 mg 10/23/24 00:10 Ondansetron Inj 4 Mg/2 Ml Vial IV PUSH Q4H PRN Nausea Radiology Results: ITS Impressions Chest X-Ray 10/22/24 21:41 IMPRESSION: No focal infiltrate or effusion. Head CT 10/22/24 23:00 Impression: No acute intracranial hemorrhage or suspicious mass effect. Inflammatory sinus disease. Redemonstration of left mastoid air cell opacification. Chest/Abdomen/Pelvis CT 10/22/24 23:10 IMPRESSION: Findings consistent with patient's known urinary tract infection. No focal infiltrates. Gaseous and air distention of stomach. Modified Barium Swallow 10/24/24 11:20 IMPRESSION: 1. Laryngeal penetration. No aspiration. 2. Please refer to the speech therapy report for recommendations. Labs Labs: Laboratory Results - last 24 hr 10/26/24 10:09 Iron 57 TIBC 246 L % Saturation 23 Ferritin 414.00 H
[2024-10-27] MEDS: ASPIRIN 81 MG CHEWABLE TABLET PO (12:14)
[2024-10-27] MEDS: cefTRIAXone 2 GM/NS 100 ML 2 GM/100 ML BAG IVPB (17:17)
[2024-10-27] MEDS: ATORVASTATIN 40 MG TABLET 80 MG FEED TUBE (21:16)
[2024-10-27] MEDS: DONEPEZIL HCL 10 MG TABLET FEED TUBE (21:17)
[2024-10-28] VITALS (7 sets, daily range): BP systolic 129–149; BP diastolic 63–92; PULSE 60–76; RESP 16–20; TEMP 36.1–37.1; O2SAT 96–100
--- NOTE | 2024-10-28 03:47 | PCRCNOTE ---
Window of time for administration has passed for 0200 tx. See next scheduled administration.
[2024-10-28 07:37] LABS: Basophils Absolute Auto 0.1 K/mm3 (0.0-0.1); Basophils Percent Auto 0.6 % (0.2-1.2); Eosinophils Absolute Auto 1.1 K/mm3 (0-0.3); Eosinophils Percent Auto 10.1 % (0-4.4); Hematocrit 35.7 % (42.0-52.0); Hemoglobin 11.5 g/dL (14.0-18.0); Immature Granulocyte Absolute 0.07 K/mm3 (0.00-0.031); Immature Granulocyte Percent A 0.6 % (0-0.5); Lymphocytes Absolute Auto 1.85 K/mm3 (0.9-3.2); Lymphocytes Percent Auto 17.1 % (18.3-44.2); Mean Corpuscular HGB Conc 32.2 g/dl (32-36); Mean Corpuscular Hemoglobin 27.9 pg (26-34); Mean Corpuscular Volume 86.7 fl (80-100); Mean Platelet Volume 11.3 fl (7.4-10.4); Monocytes Absolute Auto 0.7 K/mm3 (0.1-0.6); Monocytes Percent Auto 6.3 % (2.6-8.5); Neutrophils Absolute Auto 7.1 K/mm3 (1.3-6.7); Neutrophils Percent Auto 65.3 % (45.5-73.1); Platelet Count Result 207 k/mm3 (150-375); Red Blood Count 4.12 M/mm3 (4.6-6.20); Red Cell Distribution Width 13.7 % (11.5-14.5); White Blood Count 10.8 K/mm3 (4.5-10.0)
[2024-10-28] MEDS: IPRATROPIUM 0.5 MG/ALBUTEROL SULFATE 2.5 MG AMPUL.NEB 3 ML INHALATION (07:47)
[2024-10-28 08:21] LABS: Alanine Aminotransferase 53 U/L (6-50); Albumin Level 3.6 g/dL (3.5-5.1); Alkaline Phosphatase 90 U/L (38-126); Anion Gap 9 mmol/L (4-12); Aspartate Amino Transferase 52 U/L (17-59); Bilirubin,Total 0.6 mg/dL (0.2-1.3); Blood Urea Nitrogen 10 mg/dL (9-20); Carbon Dioxide 28 mmol/L (22-30); Chloride 104 mmol/L (98-107); Estimated CRCL calculation 86 ml/min; Estimated Glomerular Filt Rate > 60; Glucose 93 mg/dL (65-110); Magnesium 1.9 mg/dL (1.6-2.3); Potassium 2.8 mmol/L (3.4-5.0); Sodium 141 mmol/L (137-145)
[2024-10-28] MEDS: FLUTICASONE PROPIONATE 0.05% NA SPR 16 GM BTL (*BKC) 1 SPRAY NASAL ×2 (09:08→22:12)
[2024-10-28] MEDS: ASPIRIN 81 MG CHEWABLE TABLET PO (09:08)
[2024-10-28] MEDS: MEMANTINE 10 MG TABLET FEED TUBE (09:08)
[2024-10-28] MEDS: carvediloL 3.125 MG TABLET FEED TUBE ×2 (09:08→22:12)
[2024-10-28] MEDS: POTASSIUM CHLORIDE 20 MEQ PACKET (FOR LIQUID) 80 MEQ FEED TUBE (09:08)
[2024-10-28] MEDS: ENOXAPARIN 40 MG/0.4 ML SYRINGE SUB-Q (09:09)
--- NOTE | 2024-10-28 11:23 | PCPTNOTE ---
On 10/28/24, the student, BIRD Dotson, provided care and completed [facility] documentation on this patient. I have reviewed the student's documentation and agree with the findings.
--- NOTE | 2024-10-28 14:24 | P.PNIM_ITS ---
Progress Note: A&P Assessment and Plan (1) UTI (urinary tract infection): Qualifiers: Hematuria presence: with hematuria Urinary tract infection type: acute cystitis Qualified Code(s): N30.01 - Acute cystitis with hematuria Code(s): N39.0 - Urinary tract infection, site not specified Status: Acute (2) Sepsis: Qualifiers: Sepsis acute organ dysfunction status: unspecified Sepsis type: sepsis due to unspecified organism Qualified Code(s): A41.9 - Sepsis, unspecified organism Code(s): A41.9 - Sepsis, unspecified organism Status: Acute (3) Dementia: Qualifiers: Dementia type: unspecified type Dementia severity: unspecified severity Dementia behavioral or psychological symptom: unspecified whether behavioral, psychotic, or mood disturbance or anxiety Qualified Code(s): F03.90 - Unspecified dementia, unspecified severity, without behavioral disturbance, psychotic disturbance, mood disturbance, and anxiety Code(s): F03.90 - Unspecified dementia, unspecified severity, without behavioral disturbance, psychotic disturbance, mood disturbance, and anxiety Status: Acute Plan UTI with sepsis, resolved Vital signs stable now urine culture negative, blood culture still negative Day 6/7 Rocephin, to complete a total of 7 days of Antibiotics with Augmentin CT abdomen chest pelvis reviewed. Dementia Continue memantine. 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 Cleared for pureed diet per Speech Hypertension Titrate her medications with clinical course. CHF Titrate medications with course. DVT prophylaxis on subQ Lovenox Patient is DNR Surrogate decision maker is Leesa Butler awaiting insurance auth for return to SNF Subjective Date/time seen: 10/28/24 14:24 Interval history: Comfortable at bedside Awaiting placement Review of Systems Review of Systems: Unable to do review of system due to patient was lethargic and sleepy noted about this encounter. Also has expressive aphasia. Exam Narrative: General: lethargic External ears normal, Neck is supple, no masses, Respiratory systems: Clear to auscultation Cardiovascular S1, S2, normal rhythm, no murmur, rub, or gallop; no thrill or palpable murmurs on palpation. Gastrointestinal: soft, non-tender, and non-distended abdomen with no masses; BS present Skin: no rash, lesions, ulcerations, subcutaneous nodules or induration Musculoskeletal: no abnormality and no tenderness, normal ROM Neurologic: lethargic Objective Data Vital Signs Vital Signs: Vital Signs - 24 hr 10/27/24 14:36 10/27/24 19:39 10/27/24 19:39 Temperature 97.9 F Pulse Rate 53 L 91 Respiratory Rate 12 18 Blood Pressure 119/64 Pulse Oximetry 99 95 Oxygen Delivery Room Air Fraction of Inspired Oxygen 21 10/27/24 19:48 10/27/24 21:17 10/27/24 22:21 Temperature 98.5 F Pulse Rate 90 69 69 Respiratory Rate 18 17 Blood Pressure 139/72 Pulse Oximetry 99 Oxygen Delivery Fraction of Inspired Oxygen 10/28/24 06:22 10/28/24 07:48 10/28/24 07:48 Temperature 98.4 F Pulse Rate 65 68 68 Respiratory Rate 18 20 20 Blood Pressure 148/84 H Pulse Oximetry 100 100 Oxygen Delivery Room Air Fraction of Inspired Oxygen 10/28/24 07:57 10/28/24 09:08 10/28/24 09:08 Temperature Pulse Rate 60 66 Respiratory Rate 20 Blood Pressure Pulse Oximetry Oxygen Delivery Room Air Fraction of Inspired Oxygen 10/28/24 09:08 10/28/24 14:21 Temperature 96.9 F L Pulse Rate 66 76 Respiratory Rate 16 Blood Pressure 131/63 129/78 Pulse Oximetry 100 96 Oxygen Delivery Fraction of Inspired Oxygen Intake/Output Intake/Output: Intake & Output 10/25/24 10/26/24 10/27/24 10/28/24 23:59 23:59 23:59 23:59 Intake Total 7292 596 7551 120 Output Total 800 1080 1100 Balance 230 -520 180 120 Meds/Results Medications: Active Medications Generic Name Dose Route Start Last Admin Trade Name Freq PRN Reason Stop Dose Admin Acetaminophen 1,000 mg 10/23/24 00:56 Acetaminophen 500 Mg Tablet FEED TUBE Q6H PRN Mild Pain (1-3) or Fever Albuterol/Ipratropium 3 ml 10/28/24 13:21 Ipratropium 0.5 Mg/Albuterol Sulfate 2.5 Mg Ampul.Neb 3 Ml INHALATION Q6HRT PRN Wheezing Amoxicillin/Clavulanate Potassium 1 tablet 10/28/24 19:00 Amoxicillin/Clavulanate K 875-125 Mg Tab PO 10/30/24 09:01 Q12HR URI Aspirin 81 mg 10/27/24 09:00 10/28/24 09:08 Aspirin 81 Mg Chewable Tablet PO 81 mg QAM URI Administration Atorvastatin Calcium 80 mg 10/23/24 21:00 10/27/24 21:16 Atorvastatin 40 Mg Tablet FEED TUBE 80 mg QHS URI Administration Carvedilol 3.125 mg 10/23/24 21:00 10/28/24 09:08 Carvedilol 3.125 Mg Tablet FEED TUBE 3.125 mg Q12HR URI Administration Dextrose 12.5 gm 10/23/24 00:14 Dextrose 50% 25 Gm/50 Ml Syringe IV PUSH PRN PRN Hypoglycemia Protocol Donepezil HCl 10 mg 10/23/24 21:00 10/27/24 21:17 Donepezil Hcl 10 Mg Tablet FEED TUBE 10 mg HS URI Administration Enoxaparin Sodium 40 mg 10/24/24 09:00 10/28/24 09:09 Enoxaparin 40 Mg/0.4 Ml Syringe SUB-Q 40 mg DAILY URI Administration Fluticasone Propionate 1 spray 10/23/24 21:00 10/28/24 09:08 Fluticasone Propionate 0.05% Na Spr 16 Gm Btl (*Bkc) NASAL 1 spray Q12HR URI Administration Glucagon 1 mg 10/23/24 00:14 Glucagon For Inj 1 Mg Vial IM PRN PRN Hypoglycemia Protocol Glucose 15 gm 10/23/24 00:14 Glucose Oral Gel 15 Gm Of Glucse In 37.5 Gm Tube PO PRN PRN Hypoglycemia Protocol Dextrose 1,000 mls @ 100 mls/hr 10/23/24 00:14 Dextrose 5% 1,000 Ml IVPB PRN PRN Hypoglycemia Protocol Memantine 10 mg 10/24/24 09:00 10/28/24 09:08 Memantine 10 Mg Tablet FEED TUBE 10 mg DAILY URI Administration Ondansetron HCl 4 mg 10/23/24 00:10 Ondansetron Inj 4 Mg/2 Ml Vial IV PUSH Q4H PRN Nausea Radiology Results: ITS Impressions Chest X-Ray 10/22/24 21:41 IMPRESSION: No focal infiltrate or effusion. Head CT 10/22/24 23:00 Impression: No acute intracranial hemorrhage or suspicious mass effect. Inflammatory sinus disease. Redemonstration of left mastoid air cell opacification. Chest/Abdomen/Pelvis CT 10/22/24 23:10 IMPRESSION: Findings consistent with patient's known urinary tract infection. No focal infiltrates. Gaseous and air distention of stomach. Modified Barium Swallow 10/24/24 11:20 IMPRESSION: 1. Laryngeal penetration. No aspiration. 2. Please refer to the speech therapy report for recommendations. Labs Labs: Laboratory Results - last 24 hr 10/28/24 07:00 WBC 10.8 H RBC 4.12 L Hgb 11.5 L Hct 35.7 L MCV 86.7 MCH 27.9 MCHC 32.2 RDW 13.7 Plt Count 207 MPV 11.3 H Immature Gran % (Auto) 0.6 H Neut % (Auto) 65.3 Lymph % (Auto) 17.1 L [place] % (Auto) 6.3 Eos % (Auto) 10.1 H Baso % (Auto) 0.6 Lymph # (Auto) 1.85 [place] # (Auto) 0.7 H Eos # (Auto) 1.1 H Baso # (Auto) 0.1 Abs Immat Gran (auto) 0.07 H Absolute Neuts (auto) 7.1 H Absolute Nucleated RBC 0.000 Nucleated RBC % 0.0 Sodium 141 Potassium 2.8 L* Chloride 104 Carbon Dioxide 28 Anion Gap 9 BUN 10 Creatinine 0.52 L Estim Creat Clear Calc 86 Estimated GFR > 60 Glucose 93 Calcium 9.0 Magnesium 1.9 Total Bilirubin 0.6 AST 52 ALT 53 H Alkaline Phosphatase 90 Total Protein 7.0 Albumin 3.6
[2024-10-28] MEDS: AMOXICILLIN/CLAVULANATE K 875-125 MG TAB 1 TABLET PO (18:18)
[2024-10-28] MEDS: DONEPEZIL HCL 10 MG TABLET FEED TUBE (22:12)
[2024-10-28] MEDS: ATORVASTATIN 40 MG TABLET 80 MG FEED TUBE (22:12)
[2024-10-29 06:26] VITALS: BP 151/84; PULSE 64; RESP 18; TEMP 35.9; O2SAT 98
[2024-10-29] MEDS: AMOXICILLIN/CLAVULANATE K 875-125 MG TAB 1 TABLET PO ×2 (09:10→20:59)
[2024-10-29] MEDS: ASPIRIN 81 MG CHEWABLE TABLET PO (09:10)
[2024-10-29] MEDS: MEMANTINE 10 MG TABLET FEED TUBE (09:10)
[2024-10-29] MEDS: ENOXAPARIN 40 MG/0.4 ML SYRINGE SUB-Q (09:11)
[2024-10-29 09:15] VITALS: PULSE 79
[2024-10-29] MEDS: carvediloL 3.125 MG TABLET FEED TUBE ×2 (09:15→20:59)
--- NOTE | 2024-10-29 10:56 | PCNFU ---
Nutrition Follow-Up Complete: Potential for inadequate oral intake related to acute illness as evidenced by chronic PEG tube for supplemental feedings Goal:PO intake >50% meals Supplemental tube feedings given if PO intake <50% meal Pt current nutrition is Puree, heart healthy diet (bolus Jevity 1,5 240 ml if meal intake <50). Nutrition recommendation: Continue with current plan of care Last recorded weight is 60.4 kg. Bowel Motility: +BM 10/28 Labs Reviewed: Hgb:11.5, HCT:35.7, K:2.8, Cr:0.52 Meds Noted: namenda, aricept, zofran Skin: WNL Additional Notes: Pt with PEG tube used for supplemental feedings. Has not needed supplemental tube feedings since admission. Intake currently at 75-100% of meals. Continue current orders. Monitoring intakes, weights, labs, need for tube feedings, output, meds, plan of care Follow up Tuesdays and Fridays
--- NOTE | 2024-10-29 11:53 | PM.IMPN ---
Progress Note: A&P Assessment and Plan (1) UTI (urinary tract infection): Qualifiers: Hematuria presence: with hematuria Urinary tract infection type: acute cystitis Qualified Code(s): N30.01 - Acute cystitis with hematuria Code(s): N39.0 - Urinary tract infection, site not specified Status: Acute (2) Sepsis: Qualifiers: Sepsis acute organ dysfunction status: unspecified Sepsis type: sepsis due to unspecified organism Qualified Code(s): A41.9 - Sepsis, unspecified organism Code(s): A41.9 - Sepsis, unspecified organism Status: Acute (3) Dementia: Qualifiers: Dementia type: unspecified type Dementia severity: unspecified severity Dementia behavioral or psychological symptom: unspecified whether behavioral, psychotic, or mood disturbance or anxiety Qualified Code(s): F03.90 - Unspecified dementia, unspecified severity, without behavioral disturbance, psychotic disturbance, mood disturbance, and anxiety Code(s): F03.90 - Unspecified dementia, unspecified severity, without behavioral disturbance, psychotic disturbance, mood disturbance, and anxiety Status: Acute Plan UTI with sepsis, resolved Vital signs stable now urine culture negative, blood culture still negative Day 6/[address] abdomen chest pelvis reviewed. Dementia Continue memantine. 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 Cleared for pureed diet per Speech Hypertension Titrate her medications with clinical course. CHF Titrate medications with course. DVT prophylaxis on subQ Lovenox Patient is DNR Surrogate decision maker is Leesa Butler awaiting insurance auth for return to SNF Subjective Date/time seen: 10/29/24 11:53 Interval history: No acute events reported. Potassium is replaced. Pending placement. As per his patient had a CVA 2023 with residual right-sided paralysis. Review of Systems Review of Systems: Unable to do review of system due to patient was lethargic and sleepy noted about this encounter. Also has expressive aphasia. Exam Narrative: General: lethargic External ears normal, Neck is supple, no masses, Respiratory systems: Clear to auscultation Cardiovascular S1, S2, normal rhythm, no murmur, rub, or gallop; no thrill or palpable murmurs on palpation. Gastrointestinal: soft, non-tender, and non-distended abdomen with no masses; BS present Skin: no rash, lesions, ulcerations, subcutaneous nodules or induration Musculoskeletal: no abnormality and no tenderness, normal ROM Neurologic: lethargic Objective Data Vital Signs Vital Signs: Vital Signs - 24 hr 10/28/24 14:21 10/28/24 20:00 10/28/24 20:45 Temperature 96.9 F L 98.7 F Pulse Rate 76 68 Respiratory Rate 16 16 Blood Pressure 129/78 149/92 H Pulse Oximetry 96 99 Oxygen Delivery Room Air 10/28/24 22:12 10/29/24 06:26 10/29/24 09:15 Temperature 96.6 F L Pulse Rate 68 64 79 Respiratory Rate 18 Blood Pressure 151/84 H Pulse Oximetry 98 Oxygen Delivery Intake/Output Intake/Output: Intake & Output 10/26/24 10/27/24 10/28/24 10/29/24 23:59 23:59 23:59 23:59 Intake Total 560 1280 870 390 Output Total 1080 1100 700 Balance -520 180 870 -310 Meds/Results Medications: Active Medications Generic Name Dose Route Start Last Admin Trade Name Freq PRN Reason Stop Dose Admin Acetaminophen 1,000 mg 10/23/24 00:56 Acetaminophen 500 Mg Tablet FEED TUBE Q6H PRN Mild Pain (1-3) or Fever Albuterol/Ipratropium 3 ml 10/28/24 13:21 Ipratropium 0.5 Mg/Albuterol Sulfate 2.5 Mg Ampul.Neb 3 Ml INHALATION Q6HRT PRN Wheezing Amoxicillin/Clavulanate Potassium 1 tablet 10/28/24 19:00 10/29/24 09:10 Amoxicillin/Clavulanate K 875-125 Mg Tab PO 10/30/24 09:01 1 tablet Q12HR URI Administration Aspirin 81 mg 10/27/24 09:00 10/29/24 09:10 Aspirin 81 Mg Chewable Tablet PO 81 mg QAM URI Administration Atorvastatin Calcium 80 mg 10/23/24 21:00 10/28/24 22:12 Atorvastatin 40 Mg Tablet FEED TUBE 80 mg QHS URI Administration Carvedilol 3.125 mg 10/23/24 21:00 10/29/24 09:15 Carvedilol 3.125 Mg Tablet FEED TUBE 3.125 mg Q12HR URI Administration Dextrose 12.5 gm 10/23/24 00:14 Dextrose 50% 25 Gm/50 Ml Syringe IV PUSH PRN PRN Hypoglycemia Protocol Donepezil HCl 10 mg 10/23/24 21:00 10/28/24 22:12 Donepezil Hcl 10 Mg Tablet FEED TUBE 10 mg HS URI Administration Enoxaparin Sodium 40 mg 10/24/24 09:00 10/29/24 09:11 Enoxaparin 40 Mg/0.4 Ml Syringe SUB-Q 40 mg DAILY URI Administration Fluticasone Propionate 1 spray 10/23/24 21:00 10/28/24 22:12 Fluticasone Propionate 0.05% Na Spr 16 Gm Btl (*Bkc) NASAL 1 spray Q12HR URI Administration Glucagon 1 mg 10/23/24 00:14 Glucagon For Inj 1 Mg Vial IM PRN PRN Hypoglycemia Protocol Glucose 15 gm 10/23/24 00:14 Glucose Oral Gel 15 Gm Of Glucse In 37.5 Gm Tube PO PRN PRN Hypoglycemia Protocol Dextrose 1,000 mls @ 100 mls/hr 10/23/24 00:14 Dextrose 5% 1,000 Ml IVPB PRN PRN Hypoglycemia Protocol Memantine 10 mg 10/24/24 09:00 10/29/24 09:10 Memantine 10 Mg Tablet FEED TUBE 10 mg DAILY URI Administration Ondansetron HCl 4 mg 10/23/24 00:10 Ondansetron Inj 4 Mg/2 Ml Vial IV PUSH Q4H PRN Nausea Radiology Results: ITS Impressions Chest X-Ray 10/22/24 21:41 IMPRESSION: No focal infiltrate or effusion. Head CT 10/22/24 23:00 Impression: No acute intracranial hemorrhage or suspicious mass effect. Inflammatory sinus disease. Redemonstration of left mastoid air cell opacification. Chest/Abdomen/Pelvis CT 10/22/24 23:10 IMPRESSION: Findings consistent with patient's known urinary tract infection. No focal infiltrates. Gaseous and air distention of stomach. Modified Barium Swallow 10/24/24 11:20 IMPRESSION: 1. Laryngeal penetration. No aspiration. 2. Please refer to the speech therapy report for recommendations. Hospitalist MIPS Advance Care Plan I have confirmed that the patient's Advanced Care Plan is present, code status is documented, or surrogate decision maker is listed in patient medical record.: Yes Medication Reconciliation I have utilized all available resources to obtain, update and review the patients current medications (includes all prescriptions, OTC, herbals, cannabis, and nutritional supplements).: Yes
[2024-10-29] MEDS: FLUTICASONE PROPIONATE 0.05% NA SPR 16 GM BTL (*BKC) 1 SPRAY NASAL ×2 (12:37→21:00)
[2024-10-29 13:44] LABS: Magnesium 2.1 mg/dL (1.6-2.3); Potassium 3.5 mmol/L (3.4-5.0)
[2024-10-29 13:56] VITALS: BP 129/91; PULSE 73; RESP 16; TEMP 35.7; O2SAT 100
[2024-10-29] MEDS: POTASSIUM CHLORIDE 20 MEQ PACKET (FOR LIQUID) 40 MEQ FEED TUBE (15:22)
[2024-10-29 20:59] VITALS: PULSE 73
[2024-10-29] MEDS: ATORVASTATIN 40 MG TABLET 80 MG FEED TUBE (20:59)
[2024-10-29] MEDS: DONEPEZIL HCL 10 MG TABLET FEED TUBE (20:59)
[2024-10-29 21:05] VITALS: BP 169/93; PULSE 72; RESP 18; TEMP 36.2; O2SAT 98
[2024-10-30 04:50] VITALS: BP 146/91; PULSE 64; RESP 20; TEMP 36.5; O2SAT 100
[2024-10-30 07:32] LABS: Hematocrit 36.1 % (42.0-52.0); Hemoglobin 11.3 g/dL (14.0-18.0); Mean Corpuscular HGB Conc 31.3 g/dl (32-36); Mean Corpuscular Volume 89.4 fl (80-100); Mean Platelet Volume 11.8 fl (7.4-10.4); Platelet Count Result 224 k/mm3 (150-375); Red Blood Count 4.04 M/mm3 (4.6-6.20); Red Cell Distribution Width 14.1 % (11.5-14.5)
[2024-10-30 07:38] LABS: Alanine Aminotransferase 53 U/L (6-50); Albumin Level 3.5 g/dL (3.5-5.1); Alkaline Phosphatase 75 U/L (38-126); Anion Gap 6 mmol/L (4-12); Aspartate Amino Transferase 38 U/L (17-59); Bilirubin,Total 0.6 mg/dL (0.2-1.3); Blood Urea Nitrogen 13 mg/dL (9-20); Calcium 9.2 mg/dL (8.4-10.2); Carbon Dioxide 28 mmol/L (22-30); Chloride 107 mmol/L (98-107); Estimated CRCL calculation 75 ml/min; Estimated Glomerular Filt Rate > 60; Glucose 101 mg/dL (65-110); Potassium 4.3 mmol/L (3.4-5.0); Sodium 141 mmol/L (137-145)
[2024-10-30 08:00] VITALS: BP 134/83; PULSE 71; RESP 20; TEMP 36.1; O2SAT 98
[2024-10-30] MEDS: AMOXICILLIN/CLAVULANATE K 875-125 MG TAB 1 TABLET PO (08:17)
[2024-10-30] MEDS: ASPIRIN 81 MG CHEWABLE TABLET PO (08:17)
[2024-10-30] MEDS: MEMANTINE 10 MG TABLET FEED TUBE (08:17)
[2024-10-30 08:18] VITALS: PULSE 63
[2024-10-30] MEDS: FLUTICASONE PROPIONATE 0.05% NA SPR 16 GM BTL (*BKC) 1 SPRAY NASAL (08:18)
[2024-10-30] MEDS: ENOXAPARIN 40 MG/0.4 ML SYRINGE SUB-Q (08:18)
[2024-10-30] MEDS: carvediloL 3.125 MG TABLET FEED TUBE ×2 (08:18→20:23)
--- NOTE | 2024-10-30 14:36 | PM.IMPN ---
Progress Note: A&P Assessment and Plan (1) UTI (urinary tract infection): Qualifiers: Hematuria presence: with hematuria Urinary tract infection type: acute cystitis Qualified Code(s): N30.01 - Acute cystitis with hematuria Code(s): N39.0 - Urinary tract infection, site not specified Status: Acute (2) Sepsis: Qualifiers: Sepsis acute organ dysfunction status: unspecified Sepsis type: sepsis due to unspecified organism Qualified Code(s): A41.9 - Sepsis, unspecified organism Code(s): A41.9 - Sepsis, unspecified organism Status: Acute (3) Dementia: Qualifiers: Dementia type: unspecified type Dementia severity: unspecified severity Dementia behavioral or psychological symptom: unspecified whether behavioral, psychotic, or mood disturbance or anxiety Qualified Code(s): F03.90 - Unspecified dementia, unspecified severity, without behavioral disturbance, psychotic disturbance, mood disturbance, and anxiety Code(s): F03.90 - Unspecified dementia, unspecified severity, without behavioral disturbance, psychotic disturbance, mood disturbance, and anxiety Status: Acute Plan UTI with sepsis, resolved Vital signs stable now Urine culture negative, blood culture still negative Complete Augmentin Today patient is a hypothermia and WBC has been increased, will monitor for any signs of infection CT abdomen chest pelvis reviewed. Dementia Continue memantine. 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 Cleared for pureed diet per Speech Hypertension Titrate her medications with clinical course. CHF Titrate medications with course. DVT prophylaxis on subQ Lovenox Patient is DNR Surrogate decision maker is Leesa Butler awaiting insurance auth for return to SNF Subjective Date/time seen: 10/30/24 14:36 Interval history: Patient completed the course of antibiotic today for UTI. Patient WBC has been increased from 10.8-13.3. Patient has a baseline dementia. Patient has a temperature of 97?. Will continue to monitor for any signs of sepsis. Review of Systems Review of Systems: Unable to do review of system due to patient was lethargic and sleepy noted about this encounter. Also has expressive aphasia. Exam Narrative: General: lethargic External ears normal, Neck is supple, no masses, Respiratory systems: Clear to auscultation Cardiovascular S1, S2, normal rhythm, no murmur, rub, or gallop; no thrill or palpable murmurs on palpation. Gastrointestinal: soft, non-tender, and non-distended abdomen with no masses; BS present Skin: no rash, lesions, ulcerations, subcutaneous nodules or induration Musculoskeletal: no abnormality and no tenderness, normal ROM Neurologic: lethargic Objective Data Vital Signs Vital Signs: Vital Signs - 24 hr 10/29/24 20:59 10/29/24 21:05 10/30/24 04:50 Temperature 97.2 F L 97.7 F Pulse Rate 73 72 64 Respiratory Rate 18 20 Blood Pressure 169/93 H 146/91 H Pulse Oximetry 98 100 Oxygen Delivery 10/30/24 08:00 10/30/24 08:00 10/30/24 08:18 Temperature 97 F L Pulse Rate 71 63 Respiratory Rate 20 Blood Pressure 134/83 Pulse Oximetry 98 Oxygen Delivery Room Air Intake/Output Intake/Output: Intake & Output 10/27/24 10/28/24 10/29/24 10/30/24 23:59 23:59 23:59 23:59 Intake Total 1280 870 750 118 Output Total 1100 700 Balance 180 870 50 118 Meds/Results Medications: Active Medications Generic Name Dose Route Start Last Admin Trade Name Freq PRN Reason Stop Dose Admin Acetaminophen 1,000 mg 10/23/24 00:56 Acetaminophen 500 Mg Tablet FEED TUBE Q6H PRN Mild Pain (1-3) or Fever Albuterol/Ipratropium 3 ml 10/28/24 13:21 Ipratropium 0.5 Mg/Albuterol Sulfate 2.5 Mg Ampul.Neb 3 Ml INHALATION Q6HRT PRN Wheezing Aspirin 81 mg 10/27/24 09:00 10/30/24 08:17 Aspirin 81 Mg Chewable Tablet PO 81 mg QAM URI Administration Atorvastatin Calcium 80 mg 10/23/24 21:00 10/29/24 20:59 Atorvastatin 40 Mg Tablet FEED TUBE 80 mg QHS URI Administration Carvedilol 3.125 mg 10/23/24 21:00 10/30/24 08:18 Carvedilol 3.125 Mg Tablet FEED TUBE 3.125 mg Q12HR URI Administration Dextrose 12.5 gm 10/23/24 00:14 Dextrose 50% 25 Gm/50 Ml Syringe IV PUSH PRN PRN Hypoglycemia Protocol Donepezil HCl 10 mg 10/23/24 21:00 10/29/24 20:59 Donepezil Hcl 10 Mg Tablet FEED TUBE 10 mg HS URI Administration Enoxaparin Sodium 40 mg 10/24/24 09:00 10/30/24 08:18 Enoxaparin 40 Mg/0.4 Ml Syringe SUB-Q 40 mg DAILY URI Administration Fluticasone Propionate 1 spray 10/23/24 21:00 10/30/24 08:18 Fluticasone Propionate 0.05% Na Spr 16 Gm Btl (*Bkc) NASAL 1 spray Q12HR URI Administration Glucagon 1 mg 10/23/24 00:14 Glucagon For Inj 1 Mg Vial IM PRN PRN Hypoglycemia Protocol Glucose 15 gm 10/23/24 00:14 Glucose Oral Gel 15 Gm Of Glucse In 37.5 Gm Tube PO PRN PRN Hypoglycemia Protocol Dextrose 1,000 mls @ 100 mls/hr 10/23/24 00:14 Dextrose 5% 1,000 Ml IVPB PRN PRN Hypoglycemia Protocol Memantine 10 mg 10/24/24 09:00 10/30/24 08:17 Memantine 10 Mg Tablet FEED TUBE 10 mg DAILY URI Administration Ondansetron HCl 4 mg 10/23/24 00:10 Ondansetron Inj 4 Mg/2 Ml Vial IV PUSH Q4H PRN Nausea Radiology Results: ITS Impressions Chest X-Ray 10/22/24 21:41 IMPRESSION: No focal infiltrate or effusion. Head CT 10/22/24 23:00 Impression: No acute intracranial hemorrhage or suspicious mass effect. Inflammatory sinus disease. Redemonstration of left mastoid air cell opacification. Chest/Abdomen/Pelvis CT 10/22/24 23:10 IMPRESSION: Findings consistent with patient's known urinary tract infection. No focal infiltrates. Gaseous and air distention of stomach. Modified Barium Swallow 10/24/24 11:20 IMPRESSION: 1. Laryngeal penetration. No aspiration. 2. Please refer to the speech therapy report for recommendations. Labs Labs: Laboratory Results - last 24 hr 10/30/24 06:49 WBC 13.0 H RBC 4.04 L Hgb 11.3 L Hct 36.1 L MCV 89.4 MCH 28.0 MCHC 31.3 L RDW 14.1 Plt Count 224 MPV 11.8 H Sodium 141 Potassium 4.3 Chloride 107 Carbon Dioxide 28 Anion Gap 6 BUN 13 Creatinine 0.61 L Estim Creat Clear Calc 75 Estimated GFR > 60 Glucose 101 Calcium 9.2 Total Bilirubin 0.6 AST 38 ALT 53 H Alkaline Phosphatase 75 Total Protein 7.0 Albumin 3.5 Hospitalist [facility] Advance Care Plan I have confirmed that the patient's Advanced Care Plan is present, code status is documented, or surrogate decision maker is listed in patient medical record.: Yes Medication Reconciliation I have utilized all available resources to obtain, update and review the patients current medications (includes all prescriptions, OTC, herbals, cannabis, and nutritional supplements).: Yes
[2024-10-30 16:00] VITALS: BP 136/82; PULSE 74; RESP 20; TEMP 36.3; O2SAT 98
--- NOTE | 2024-10-30 16:24 | PM.DS ---
DS: Admitting Diagnosis Discharge Date 10/30/2024 Admitting Diagnosis Low blood pressure. DS: Summary Hospital Course Hospital Course: 74-year-old male past medical recent history of stroke with expressive aphasia and residual right-sided weakness hypertension CHF, presented to the assisted living facility on account of pressure. Patient was asleep at the time of this encounter on the history was obtained from the daughter was at bedside. Reported the patient has Alzheimer's disease as well as stroke and has back to since he stroke in July but were recently cleared for pureed diet. He was found to have low blood pressure and was transferred to the ED for proper ambulation. Evaluation notable for temperature 99.4?, pulse rate 112, respiratory 29, saturating 94% on room air, blood pressure 80/59. Responded to fluids. Labs WBCs 18.7, UA positive leukocyte Estrace and pyuria MRSA screen negative C diff negative. CT chest and abdomen and pelvis notable for cystitis. Patient was started on Zosyn and vancomycin prior to admission. I assumed on 10/28/2024, during hospitalization patient is been treated for UTI. Completed his 7 days course of antibiotics. Patient WBC is increased but no signs of infection. His vitals WNL. Advised to repeat CBC in a week. Status at Discharge Cognitive/behavioral status at discharge: Stable Time Spent with Patient Time attestation: Total time spent providing and/or coordinating discharge services:45 minutes DS: Data Data Completed and Pending Labs on day of discharge: Labs from last 24 hours 10/30/24 10/30/24 15:59 06:49 WBC 13.0 H RBC 4.04 L Hgb 11.3 L Hct 36.1 L MCV 89.4 MCH 28.0 MCHC 31.3 L RDW 14.1 Plt Count 224 MPV 11.8 H Sodium 141 Potassium 4.3 Chloride 107 Carbon Dioxide 28 Anion Gap 6 BUN 13 Creatinine 0.61 L Estim Creat Clear Calc 75 Estimated GFR > 60 Glucose 101 Calcium 9.2 Total Bilirubin 0.6 AST 38 ALT 53 H Alkaline Phosphatase 75 Total Protein 7.0 Albumin 3.5 SARS-CoV-2 RNA (RT-PCR) Pending Discharge Plan Discharge Attending physician on discharge: Juan J Johnson Discharging Clinician: Juan J Johnson Anticipated Discharge Date/Time: 10/30/24 16:15 Patient Disposition: NH [facility] Activity: other - see discharge instructions Diet: other - see discharge instructions Discharge Instructions: Heart healthy diet. Pureed Level 4 diet. Pt required max assist x 2 with bed mobility and transfers. Check blood pressure 1 to 2 times a day. Record and bring into your doctor for review. Call your doctor if your blood pressure is greater than 180/110 or less than 90/45. Walk with cane or other assist device. Take precautions to avoid falls. Rise slowly from a lying or sitting position. Pause before standing or walking. Contact your doctor or call 911 and come to the Emergency Room if you have any type of trauma, lightheadedness with standing or other worrisome symptoms. Avoid NSAIDs (ibuprofen, naproxen, Aleve). Tylenol is safe to take. Follow-up with your primary care provider in 1-2 weeks. Please call for appointment. Follow-up with Cardiology and Neurology in 2-4 weeks. Please call for an appointment. Thank you for using [facility] for your health care needs. Patient Instructions: Antibiotic Form, Clopidogrel (By mouth) Patient Language: Tajik Stand Alone Forms: General Discharge Information Discharge Medications: Continued betamethasone dipropionate 0.05 % lotion 1 applic TOPICAL BID PRN (Reason: dermatitis flares.) Rx Instructions: APPLY THIN LAYER TOPICALLY TO THE SCALP TWICE DAILY AT ONSET OF FLARES NEEDED zinc oxide 40 % Ointment 1 applic TOPICAL HS Rx Instructions: Apply topically to groin, perineal area, and buttocks at HS. atorvastatin 40 mg Tablet 80 mg feeding tube QHS Qty: 90 0RF clopidogrel 75 mg Tablet 75 mg feeding tube QAM Qty: 90 0RF aspirin 81 mg Tablet,Delayed Release (Dr/Ec) 81 mg feeding tube QAM Qty: 90 0RF carvedilol [Coreg] 3.125 mg Tablet 3.125 mg feeding tube Q12HR Qty: 180 0RF fluticasone propionate 50 mcg/actuation [place],Suspension 1 spray intranasal Q12HR Qty: 16 0RF lisinopril 5 mg Tablet 5 mg feeding tube QAM Qty: 90 0RF ipratropium-albuterol 0.5 mg-3 mg(2.5 mg base)/3 mL Solution For Nebulization 3 ml inhalation Q6HRT 7 Days Qty: 90 0RF loratadine 10 mg Tablet 10 mg feeding tube QAM Qty: 90 0RF donepezil 10 mg tablet 10 mg feeding tube HS Qty: 90 0RF memantine 10 mg tablet 10 mg feeding tube DAILY Qty: 90 0RF acetaminophen 650 mg/20.3 mL Solution 650 mg feeding tube Q6H PRN (Reason: Pain (Scale Score 1-3) or fever) Qty: 1015 0RF methocarbamol 500 mg Tablet 500 mg feeding tube QID Qty: 0 0RF omeprazole 40 mg capsule,delayed release(DR/EC) 40 mg feeding tube BID Qty: 60 0RF Rx Instructions: Flush well after this medication nystatin-triamcinolone 100,000-0.1 unit/gram-% ointment 1 applic TOPICAL QAM Rx Instructions: Apply to groin, perineal area, and buttocks QAM. Other Ambulatory Orders: Complete Blood Count no Diff (Routine) Timeframe: 1 Week Location: Determined by Patient Ordered By: Juan J Johnson Date of admission: 10/23/24 09:35 Primary Care Provider: Kushal,Cody Admitting Provider: Fior Thomason Attending physician on admission: Fior Thomason Condition: Stable
[2024-10-30 16:42] LABS: SARS-CoV-2 RNA PCR Negative (Negative)
[2024-10-30 20:23] VITALS: PULSE 68
[2024-10-30] MEDS: DONEPEZIL HCL 10 MG TABLET FEED TUBE (20:23)
[2024-10-30] MEDS: ATORVASTATIN 40 MG TABLET 80 MG FEED TUBE (20:23)
== END 2024-10-30 22:47 | DRG 872 ==
LOC: ANHED 10-23 00:49 → ANHIMU 10-23 00:53 → ANH3MEDSUR 10-30 15:42 → ANHIMU 11-01 11:56
PROVIDERS: Internal Medicine; Admitting Provider Internal Medicine; Emergency Provider Physician Assistant; PCP Internal Medicine; Visit Provider General Practice
DX: A41.9 Sepsis, unspecified organism (principal); I69.351 Hemiplegia and hemiparesis following cerebral infarction affecting right dominant side; I50.42 Chronic combined systolic (congestive) and diastolic (congestive) heart failure; N30.01 Acute cystitis with hematuria; I69.320 Aphasia following cerebral infarction; D64.9 Anemia, unspecified; E78.5 Hyperlipidemia, unspecified; G47.30 Sleep apnea, unspecified; G30.9 Alzheimer's disease, unspecified; I11.0 Hypertensive heart disease with heart failure; I48.91 Unspecified atrial fibrillation; F02.80 Dementia in other diseases classified elsewhere, unspecified severity, without behavioral disturbance, psychotic disturbance, mood disturbance, and anxiety; M19.90 Unspecified osteoarthritis, unspecified site; Z87.891 Personal history of nicotine dependence; Z79.82 Long term (current) use of aspirin; Z79.02 Long term (current) use of antithrombotics/antiplatelets; Z20.822 Contact with and (suspected) exposure to COVID-19; Z11.52 Encounter for screening for COVID-19; Z66 Do not resuscitate
CPT/HCPCS: 36415; 70450; 71046; 71260; 74177; 80053; 81001; 82728; 83540; 83550; 83605; 83735; 84132; 85025; 85027; 85610; 85730; 86140; 87040; 87045; 87086; 87427; 87449; 87493; 87635; 87637; 87641; 92526; 92610; 92611; 93005; 94640; 96361; 96365; 96366; 96367; 96375; 97110; 97163; 97167; 97530; 97535; 99285; A9270; G0378; J0696; J1650; J2543; J3370; J3475; J3480; J7030; J7040; Q9967